=== PATIENT | male | born 1930 | race Caucasian/White ===

== ENCOUNTER 2016-11-06 03:44 | Emergency (ER) | payer OTHER, MEDICARE ==
[2016-11-06 04:05] VITALS: BP 142/73; PULSE 64; TEMP 97.5; BMI 27.4
--- NOTE | 2016-11-06 04:22 | PDOC ---
History of Present Illness - General Chief Complaint: Pain Stated Complaint: URINARY PROBLEM - History of Present Illness Initial Comments: 11/06/16 04:24 86M with pmh of metastatic prostate cancer and afib on p[bren presents with urinary retention for the past week. He was last been able to dribble thanks to finasteride on saturday but nothing since then. Past History - Past Medical History Allergies/Adverse Reactions: Allergies Allergy/AdvReac Type Severity Reaction Status Date / Time No Known Allergies Allergy Verified 11/06/16 04:01 Home Medications: Ambulatory Orders Furosemide [Lasix -] 40 mg PO DAILY 06/08/12 Glimepiride [Amaryl] 3 mg PO DAILY 06/08/12 Lactulose 20 gm PO DAILY 06/08/12 Nadolol 10 mg PO DAILY 06/08/12 Omeprazole [Prilosec (RX)] 40 mg PO DAILY 06/08/12 Spironolactone [Aldactone -] 250 mg PO BID 06/08/12 Warfarin Sodium [Coumadin] 5 mg PO DAILY 03/30/14 Acetaminophen [Tylenol -] 500 mg PO Q4H PRN 06/13/15 Warfarin Na [Coumadin] 2.5 mg PO DAILY 06/13/15 Diabetes: Yes Disorders: Yes (prostate ca) HTN: Yes Liver Disease: Yes (cirrhosis, clots in liver) Suicide Attempt (Hx): No - Surgical History Abdominal Surgery: Yes (Hernia repair) Cardiac Surgery: Yes (Pacemaker) Orthopedic Surgery: Yes (R. Knee sx) - Immunization History Immunization Up to Date: Yes - Psycho/Social/Smoking Cessation Hx Anxiety: No Suicidal Ideation: No Smoking Status: No Smoking History: Never smoked Have you smoked in the past 12 months: No Number of Cigarettes Smoked Daily: 0 Information on smoking cessation initiated: No Hx Alcohol Use: No Drug/Substance Use Hx: No Substance Use Type: None Hx Substance Use Treatment: No Review of Systems - Review of Systems Able to Perform ROS?: Yes Constitutional: No: Symptoms Reported All Other Systems: Reviewed and Negative *Physical Exam - Vital Signs Last Vital Signs Temp Pulse Resp BP Pulse Ox 97.5 F L 64 20 142/73 97 11/06/16 04:01 11/06/16 04:01 11/06/16 04:01 11/06/16 04:01 11/06/16 04:01 - Physical Exam General Appearance: Yes: Nourished, Appropriately Dressed, Apparent Distress HEENT: positive: EOMI, DANISH Neck: positive: Trachea midline, Normal Thyroid. negative: Tender Respiratory/Chest: positive: Lungs Clear, Normal Breath Sounds. negative: Chest Tender Cardiovascular: positive: Regular Rhythm, Regular Rate, S1, S2 Gastrointestinal/Abdominal: positive: Normal Bowel Sounds, Protuberent, Distended Medical Decision Making - Medical Decision Making 11/06/16 04:31 86m with pmh of metastatic prostate cancer presenting with several days of urinary retention. Bonilla catheter placed. 700mL of urine in bag. UA + urine cultures pending.
--- NOTE | 2016-11-06 04:39 | PDOC ---
Attending Attestation - Resident Resident Name: Toby Allen - ED Attending Attestation I have performed the following: I have examined & evaluated the patient, The case was reviewed & discussed with the resident, I agree w/resident's findings & plan, Exceptions are as noted - HPI HPI: 11/06/16 04:36 h/o prostatic CA with complaint of urinary retention for several hours. Pt arrived fro [facility] last night. - Physicial Exam PE: 11/06/16 04:34 Physical Exam General Appearance: Yes: Appropriately Dressed. No: Apparent Distress, Intoxicated HEENT: positive: EOMI, DANISH, Normal ENT Inspection, Normal Voice, TMs Normal, Pharynx Normal. negative: Pale Conjunctivae, Photophobia, Scleral Icterus (R), Scleral Icterus (L) Neck: positive: Trachea midline, Normal Thyroid, Supple. negative: Tender, Rigid, Carotid bruit, Stridor, Lymphadenopathy (R), Lymphadenopathy (L), Thyromegaly Respiratory/Chest: positive: Lungs Clear, Normal Breath Sounds. negative: Chest Tender, Respiratory Distress, Accessory Muscle Use, Labored Respiration, RES, Crackles, Rales, Rhonchi, Stridor, Wheezing, Dullness Cardiovascular: positive: Regular Rhythm, Regular Rate, S1, S2. negative: Edema , JVD, Murmur, Bradycardia, Tachycardia Vascular Pulses: Dorsalis-Pedis (R): 2+, Doralis-Pedis (L): 2+ Gastrointestinal/Abdominal: positive: Normal Bowel Sounds, supra pubic tenderness negative: Tender, Organomegaly, Pulsatile Mass, Increased Bowel Sounds, Decreased BS Guarding, Rebound, Hernia, Hepatomegaly, Spleenomegaly Lymphatic: negative: Adenopathy, Tenderness Musculoskeletal: positive: Normal Inspection. negative: CVA Tenderness, Decreased Range of Motion Extremity: positive: Normal Capillary Refill, Normal Inspection, Normal Range of Motion, Pelvis Stable. negative: Tender, Pedal Edema, Swelling, Erythema Integumentary: positive: Normal Color, Dry, Warm. negative: Cyanotic, Erythema , Jaundice, Rash Neurologic: positive: threading machine feeder automatic II-XII NML intact, Fully Oriented, Alert, Normal Mood/ Affect, Motor Strength 5/5. negative: EOM Palsy, Facial Droop, Sensory Deficit - Medical Decision Making 11/06/16 04:37 Bonilla catheter placed. Over 700s of clear yellow urine drained. Pt to follow up with urology Discharge Disposition - Diagnosis Urinary retention - Discharge Dispostion Last Admission D/C Date: 06/12/12 Admit: No - Referrals Referrals: Marvin Marshall MD [Primary Care Provider] - Hans Richards MD [Staff Physician] - - Patient Instructions Printed Discharge Instructions: DI for Urinary Retention in Men
[2016-11-06 04:40] LABS: URINE APPEARANCE CLEAR; URINE BILIRUBIN NEGATIVE (NEGATIVE); URINE BLOOD NEGATIVE (NEGATIVE); URINE COLOR YELLOW; URINE GLUCOSE (UA) NEGATIVE (NEGATIVE); URINE KETONE NEGATIVE (NEGATIVE); URINE LEUK ESTERASE NEGATIVE (NEGATIVE); URINE NITRITE NEGATIVE (NEGATIVE); URINE PROTEIN NEGATIVE (NEGATIVE); URINE UROBILINOGEN NEGATIVE mg/dL (0.2-1.0)
== END 2016-11-06 06:23 | disposition home or self-care (01) ==
LOC: JER 03:44
PROC: 0T9B70Z Drainage of Bladder with Drainage Device, Via Natural or Artificial Opening (ICD-10-PCS; principal; 2016-11-06)
DX: R33.9 Retention of urine, unspecified (principal); I10 Essential (primary) hypertension; I48.91 Unspecified atrial fibrillation; Z79.01 Long term (current) use of anticoagulants; E11.9 Type 2 diabetes mellitus without complications; K74.69 Other cirrhosis of liver; Z95.0 Presence of cardiac pacemaker
CPT/HCPCS: 51702; 81003; 87086; 99284-25

== ENCOUNTER 2016-11-26 10:26 | Emergency (ER) | payer OTHER, MEDICARE ==
[2016-11-26 10:30] VITALS: BMI 27.4
--- NOTE | 2016-11-26 10:44 | PDOC ---
History of Present Illness - General History Source: Patient, Family Exam Limitations: Other - History of Present Illness Initial Comments: 11/26/16 11:23 The patient is a 86 year old male, with a significant past medical history of liver cirrhosis, metastatic prostate cancer, AFib(on coumadin), hypertension, and diabetes, who presents to the emergency department complaining of hematuria for approximately 2 days. The patient reports he had a catheter placed at [facility] on 11/06/16 for his prostate cancer, which he was diagnosed with approximately 3 years ago. For the past week, patient reports some mild discomfort, and states he noticed blood in his catheter approximately 2 days ago. Very little urine is in the catheter at this time, but patient denies any dysuria, frequency, or urgency. Patient reports he is on oxycodone for bone metastasis. As per family., patient is at baseline mental status, but has been eating and drinking less than normal. Patient denies any fever, chills, cough, headache, or dizziness. He denies any chest pain, shortness of breath, diaphoresis, or palpitations. He denies any abdominal pain, nausea, vomiting, diarrhea, or constipation. Allergies: NKDA Past Surgical History: Hernia repair, pacemaker, right knee surgery Social History: Nonsmoker. No ETOH or recreational drug use PCP: Dr. Marshall <Lalit Seals - Last Filed: 11/26/16 13:46> <Karolina Schafer - Last Filed: 11/26/16 13:49> - General Chief Complaint: Urinary Problem Stated Complaint: BLOOD IN URINE Past History <Lalit Seals - Last Filed: 11/26/16 13:46> - Past Medical History Diabetes: Yes Disorders: Yes (prostate ca) HTN: Yes Liver Disease: Yes (cirrhosis, clots in liver) Suicide Attempt (Hx): No - Surgical History Abdominal Surgery: Yes (Hernia repair) Cardiac Surgery: Yes (Pacemaker) Orthopedic Surgery: Yes (R. Knee sx) - Immunization History Immunization Up to Date: Yes - Psycho/Social/Smoking Cessation Hx Anxiety: No Suicidal Ideation: No Smoking Status: No Smoking History: Never smoked Have you smoked in the past 12 months: No Number of Cigarettes Smoked Daily: 0 Information on smoking cessation initiated: No Hx Alcohol Use: No Drug/Substance Use Hx: No Substance Use Type: None Hx Substance Use Treatment: No <GilmarKarolina - Last Filed: 11/26/16 13:49> - Past Medical History Allergies/Adverse Reactions: Allergies Allergy/AdvReac Type Severity Reaction Status Date / Time No Known Allergies Allergy Verified 11/26/16 10:31 Home Medications: Ambulatory Orders Furosemide [Lasix -] 20 mg PO DAILY 06/08/12 Glimepiride [Amaryl] 1 mg PO DAILY 06/08/12 Lactulose 20 gm PO DAILY 06/08/12 Nadolol 10 mg PO DAILY 06/08/12 Omeprazole [Prilosec (RX)] 40 mg PO DAILY 06/08/12 Spironolactone [Aldactone -] 25 mg PO BID 06/08/12 Warfarin Sodium [Coumadin] 5 mg PO DAILY 03/30/14 Warfarin Na [Coumadin] 2.5 mg PO DAILY 06/13/15 Cyanocobalamin [Vitamin B12 -] 1,000 mcg PO DAILY 11/06/16 Multivits,Ca,Min/Iron/FA/Lycop [Centrum Men's Tablet] 1 each PO DAILY 11/06/16 Silodosin [Rapaflo] 8 mg PO DAILY 11/06/16 Ciprofloxacin HCl [Cipro] 500 mg PO BID #14 tablet 11/26/16 Silodosin [Rapaflo] 8 mg PO DAILY 11/26/16 Review of Systems - Review of Systems Able to Perform ROS?: Yes Comments:: 11/26/16 11:23 GENERAL/CONSTITUTIONAL: No fever or chills. No weakness. HEAD, EYES, EARS, NOSE AND THROAT: No change in vision. No ear pain or discharge. No sore throat. CARDIOVASCULAR: No chest pain or shortness of breath. RESPIRATORY: No cough, wheezing, or hemoptysis. GASTROINTESTINAL: No nausea, vomiting, diarrhea or constipation. GENITOURINARY: Yes: +hematuria in catheter. No dysuria, frequency. MUSCULOSKELETAL: No joint or muscle swelling or pain. No neck or back pain. SKIN: No rash NEUROLOGIC: No headache, vertigo, loss of consciousness, or change in strength/ sensation. ENDOCRINE: Yes: +decreased appetite, +decreased thirst. No abnormal weight change. HEMATOLOGIC/LYMPHATIC: No anemia, easy bleeding, or history of blood clots. ALLERGIC/IMMUNOLOGIC: No hives or skin allergy. <Seals,Giomilsy - Last Filed: 11/26/16 13:46> *Physical Exam - Vital Signs Last Vital Signs Temp Pulse Resp BP Pulse Ox 97.6 F 66 18 119/63 100 11/26/16 10:27 11/26/16 10:27 11/26/16 10:27 11/26/16 10:27 11/26/16 10:27 - Physical Exam Comments: 11/26/16 11:23 GENERAL: Awake, alert, and fully oriented, in no acute distress HEAD: No signs of trauma EYES: PERRLA, EOMI, sclera anicteric, conjunctiva clear ENT: Auricles normal inspection, hearing grossly normal, nares patent, oropharynx clear without exudates. Moist mucosa NECK: Normal ROM, supple, no lymphadenopathy, JVD, or masses LUNGS: Breath sounds equal, clear to auscultation bilaterally. No wheezes, and no crackles HEART: Regular rate and rhythm, normal S1 and S2, no murmurs, rubs or gallops ABDOMEN: Soft, nontender, normoactive bowel sounds. No guarding, no rebound. No masses BACK: No CVA tenderness GENITOURINARY: Blood in catheter EXTREMITIES: Normal range of motion, no edema. No clubbing or cyanosis. No cords, erythema, or tenderness NEUROLOGICAL: Cranial nerves II through XII grossly intact. Normal speech, normal gait SKIN: Warm, Dry, normal turgor, no rashes or lesions noted. <Lalit Seals - Last Filed: 11/26/16 13:46> - Vital Signs Last Vital Signs Temp Pulse Resp BP Pulse Ox 97.6 F 66 18 119/63 100 11/26/16 10:27 11/26/16 10:27 11/26/16 10:27 11/26/16 10:27 11/26/16 10:27 <Karolina Schafer - Last Filed: 11/26/16 13:49> ED Treatment Course - LABORATORY CBC & Chemistry Diagram: 11/26/16 11:15 11/26/16 11:15 <Ramila Sealsedgard - Last Filed: 11/26/16 13:46> - LABORATORY CBC & Chemistry Diagram: 11/26/16 11:15 11/26/16 11:15 <Karolina Schafer - Last Filed: 11/26/16 13:49> Medical Decision Making - Medical Decision Making 11/26/16 13:37 First call placed to Dr. Marshall at 12:45. Awaiting call back. Second call placed to Dr. Marshall at 13:37. Case discussed at this time. Dr. Marshall recommended to DC the pt on cipro for UTI and hold off on coumadin for 3 days. Pt advised to f/u with Dr. Marshall tomorrow. <Lalit Seals - Last Filed: 11/26/16 13:46> - Medical Decision Making 11/26/16 13:04 a/p: 86yo male with hematuria since last night -on coumadin, told elevated INR last week, but unsure of level -also dysuria -will check labs, inr, ammonia -ua -change catheter 11/26/16 13:09 pt with elevated INR to 4.5 pt with UTI, will start abx. nontoxic in appearance. Will need to hold coumadin. UA clearing, no clots passing. call placed to PMD. Awaiting call back. 11/26/16 13:[address] Marshall - recommends cipro for uti as oupt recommends holding coumadin x 3 days -requests family to call him tomorrow for follow up -these recommendations were discussed in full detail with the patient and his family. Family and patient verbalize understanding of all instructions. Discussed all reasons to return to the ED. discussed need for follow up. Answered all questions. Pt is stable for d/c to home. <Karolina Schafer - Last Filed: 11/26/16 13:49> *DC/Admit/Observation/Transfer - Attestations Scribe Attestion: 11/26/16 11:24 Documentation prepared by Lalit Seals, acting as medical physiologist for Karolina Schafer DO. <Lalit Seals - Last Filed: 11/26/16 13:46> - Discharge Dispostion Admit: No - Attestations Physician Attestion: 11/26/16 13:09 I, Dr. Karolina Schafer DO, attest that this document has been prepared under my direction and personally reviewed by me in its entirety. I further attest, that it accurately reflects all work, treatment, procedures and medical decision -making performed by me. <Karolina Schafer - Last Filed: 11/26/16 13:49> Diagnosis at time of Disposition: Elevated international normalized ratio (INR) Urinary tract infection Qualifiers: Urinary tract infection type: site unspecified Hematuria presence: with hematuria Qualified Code(s): N39.0 - Urinary tract infection, site not specified ; R31.9 - Hematuria, unspecified Hematuria Qualifiers: Hematuria type: gross Qualified Code(s): R31.0 - Gross hematuria - Discharge Dispostion Disposition: HOME Condition at time of disposition: Stable - Prescriptions Prescriptions: Ciprofloxacin HCl [Cipro] 500 mg PO BID #14 tablet - Referrals Referrals: Marvin Marshall MD [Staff Physician] - - Patient Instructions Printed Discharge Instructions: DI for Urinary Tract Infection (UTI) Additional Instructions: Please hold your coumadin (warfarin) for [address] Marshall tomorrow with an update. Please return to the ED with any further concerns or questions.
[2016-11-26 11:27] LABS: BASOPHIL 0.6 % (0-2.0); MCH 27.8 pg (25.7-33.7); MEAN CELL VOLUME 84.3 fl (80-96); MEAN PLT VOLUME 7.8 fl (7.5-11.1); NEUTROPHILS 78.6 % (42.8-82.8); PLATELET COUNT 364 K/MM3 (134-434); RDW 16.1 % (11.9-15.9); WHITE BLOOD COUNT 7.8 K/mm3 (4.0-10.0)
[2016-11-26 11:34] LABS: PROTHROMBIN TIME (PATIENT) 50.5 SEC (9.98-11.88)
[2016-11-26 11:37] LABS: ACTIVATED PTT 60.2 SECONDS (26.9-34.4)
[2016-11-26 11:44] LABS: INR 4.45 (0.82-1.09)
[2016-11-26 11:48] LABS: ALBUMIN 2.9 g/dl (3.4-5.0); ALK PHOS 417 U/L (45-117); ANION GAP 11 (8-16); BILIRUBIN,TOTAL 0.9 mg/dL (0.2-1.0); CALCIUM 8.6 mg/dL (8.5-10.1); CO2 27 mmol/L (21-32); CREATININE 0.6 mg/dL (0.7-1.3); GLUCOSE,RANDOM 290 mg/dL (74-106); SGPT/ALT 34 U/L (12-78); TOT PROT 7.3 g/dl (6.4-8.2)
[2016-11-26 11:49] LABS: URINE APPEARANCE CLOUDY; URINE BILIRUBIN NEGATIVE (NEGATIVE); URINE BLOOD 3+ (NEGATIVE); URINE COLOR AMBER; URINE GLUCOSE (UA) NEGATIVE (NEGATIVE); URINE KETONE NEGATIVE (NEGATIVE); URINE LEUK ESTERASE 3+ (NEGATIVE); URINE NITRITE NEGATIVE (NEGATIVE); URINE PROTEIN 2+ (NEGATIVE); URINE UROBILINOGEN NEGATIVE mg/dL (0.2-1.0)
[2016-11-26 11:49] LABS: SGOT/AST 44 U/L (15-37)
[2016-11-26 11:53] LABS: URINE HYALINE CAST 29 /lpf; URINE RBC 2337 /hpf (0-3); URINE WBC 240 /hpf (3-5)
[2016-11-26] MEDS ORDERED: cefTRIAXone 1 GM/50 ML BAG (PRE-DOCKED) IVPB ONE (12:40)
[2016-11-26] MEDS ORDERED: CEFTRIAXONE 50 ML ONE (13:04)
[2016-11-26 14:19] VITALS: BP 116/68; PULSE 78; TEMP 98
--- NOTE | 2016-11-28 19:02 | PDOC ---
Patient Follow-up (Call Back) - Post ED Follow - Up Condition at time of discharge: Stable Disposition at time of original discharge: HOME Reason for Call Back: Abnwl. Microbiology (Positive urine culture, ESBL, Escherichia coli. Patient was started on Cipro, resistant to Levaquin spoke to Dr. Grullon requested patient be started on Macrobid prescription sent patient will follow-up with M.D. has been afebrile, with no complaints.)
== END 2016-11-26 14:19 | disposition home or self-care (01) ==
LOC: JER 10:26
DX: N39.0 Urinary tract infection, site not specified (principal); R31.9 Hematuria, unspecified; I48.91 Unspecified atrial fibrillation; Z79.01 Long term (current) use of anticoagulants; I10 Essential (primary) hypertension; E11.9 Type 2 diabetes mellitus without complications; K74.69 Other cirrhosis of liver; Z85.46 Personal history of malignant neoplasm of prostate; Z85.830 Personal history of malignant neoplasm of bone; Z95.0 Presence of cardiac pacemaker
CPT/HCPCS: 36415; 80053; 81003; 81015; 82140; 83735; 85025; 85610; 85730; 87086; 87186; 96374; 99283-25

== ENCOUNTER 2017-02-12 18:36 | Inpatient (IN) | payer OTHER, MEDICARE ==
[2017-02-12] MEDS ORDERED: SODIUM CHLORIDE 250 ML IV STA (19:59)
--- NOTE | 2017-02-12 20:12 | PDOC ---
History of Present Illness - History of Present Illness Initial Comments: 02/12/17 20:17 The patient is an 86 year old bulgarian-speaking male, with a significant past medical history of liver cirrhosis, metastatic prostate cancer, AFib(on coumadin), hypertension, and diabetes,, who presents to the emergency department with generalized weakness for 4 days. Patients states that patient has been experiencing decreased appetite, decreased urine output (has garcía catheter). She states he hasnt been moving around as much and is unable to ambulate. She states he has been very weak and confused lately. He denies any recent fevers, chills, headache or dizziness. He denies any recent nausea, vomit, diarrhea or constipation. He denies any recent chest pain or shortness of breath. He denies any recent dysuria or hematuria. Allergies: NKDA Past Surgical History: Hernia repair, pacemaker, right knee surgery Social History: Nonsmoker. No ETOH or recreational drug use PCP: Dr. Marshall Urologist: Hans Richards <Shae Welch - Last Filed: 02/12/17 23:05> <Kimberley Elizondo - Last Filed: 02/12/17 23:17> - General Chief Complaint: Back Pain Stated Complaint: FEVER/PAIN Time Seen by Provider: 02/12/17 18:59 Past History <Shae Welch - Last Filed: 02/12/17 23:05> - Past Medical History Cancer: Yes (PROSTATE,BONE) COPD: No Diabetes: Yes Disorders: Yes (prostate ca) HTN: Yes Liver Disease: Yes (cirrhosis, clots in liver) - Surgical History Abdominal Surgery: Yes (Hernia repair) Cardiac Surgery: Yes (Pacemaker) Orthopedic Surgery: Yes (R. Knee sx) - Immunization History Immunization Up to Date: Yes - Suicide/Smoking/Psychosocial Hx Smoking Status: No Smoking History: Never smoked Have you smoked in the past 12 months: No Number of Cigarettes Smoked Daily: 0 Hx Alcohol Use: No Drug/Substance Use Hx: No Substance Use Type: None Hx Substance Use Treatment: No <Kimberley Elizondo - Last Filed: 02/12/17 23:17> - Past Medical History Allergies/Adverse Reactions: Allergies Allergy/AdvReac Type Severity Reaction Status Date / Time No Known Allergies Allergy Verified 11/26/16 10:31 Home Medications: Ambulatory Orders Furosemide [Lasix -] 20 mg PO DAILY 06/08/12 Glimepiride [Amaryl] 1 mg PO DAILY 06/08/12 Lactulose 20 gm PO DAILY 06/08/12 Nadolol 10 mg PO DAILY 06/08/12 Omeprazole [Prilosec (RX)] 40 mg PO DAILY 06/08/12 Spironolactone [Aldactone -] 25 mg PO BID 06/08/12 Warfarin Sodium [Coumadin] 5 mg PO DAILY 03/30/14 Warfarin Na [Coumadin] 2.5 mg PO DAILY 06/13/15 Cyanocobalamin [Vitamin B12 -] 1,000 mcg PO DAILY 11/06/16 Multivits,Ca,Min/Iron/FA/Lycop [Centrum Men's Tablet] 1 each PO DAILY 11/06/16 Silodosin [Rapaflo] 8 mg PO DAILY 11/06/16 Ciprofloxacin HCl [Cipro] 500 mg PO BID #14 tablet 11/26/16 Silodosin [Rapaflo] 8 mg PO DAILY 11/26/16 Nitrofurantoin Monohyd/M-Cryst [Macrobid -] 100 mg PO BID #20 capsule 11/28/16 Review of Systems - Review of Systems Comments:: 02/12/17 20:17 CONSTITUTIONAL: Present: generalized weakness, loss of appetite Absent: fever, chills, diaphoresis HEENT: Absent: rhinorrhea, nasal congestion, throat pain, throat swelling, difficulty swallowing, mouth swelling, ear pain, eye pain, visual changes CARDIOVASCULAR: Absent: chest pain, syncope, palpitations, irregular heart rate, lightheadedness , peripheral edema RESPIRATORY: Absent: cough, shortness of breath, dyspnea with exertion, orthopnea, wheezing, stridor, hemoptysis GASTROINTESTINAL: Absent: abdominal pain, abdominal distension, nausea, vomiting, diarrhea, constipation, melena, hematochezia GENITOURINARY: Present; decreased urinary output Absent: dysuria, frequency, urgency,hematuria, flank pain, genital pain MUSCULOSKELETAL: Absent: myalgia, arthralgia, joint swelling SKIN: Absent: rash, itching, pallor HEMATOLOGIC/IMMUNOLOGIC: Absent: easy bleeding, easy bruising, lymphadenopathy, frequent infections ENDOCRINE: Absent: unexplained weight gain, unexplained weight loss, heat intolerance, cold intolerance NEUROLOGIC: Absent: headache, focal weakness or paresthesias, dizziness, seizure, mental status changes, bladder or bowel incontinence PSYCHIATRIC: Absent: anxiety, depression, suicidal or homicidal ideation, hallucinations. <Shae Welch - Last Filed: 02/12/17 23:05> *Physical Exam - Vital Signs Last Vital Signs Temp Pulse Resp BP Pulse Ox 98.2 F 63 16 127/72 95 02/12/17 19:03 02/12/17 19:03 02/12/17 19:03 02/12/17 19:03 02/12/17 19:03 - Physical Exam Comments: 02/12/17 23:08 GENERAL: Unable to ambulate without assistance. Well-appearing, well-nourished. No apparent distress. HEENT: Normocephalic, atraumatic. PERRL, EOM intact. CARDIOVASCULAR: Normal S1, S2. Regular rate and rhythm. PULMONARY: Clear to auscultation bilaterally. ABDOMEN: Ascites. Protuberant, soft, non-tender. EXTREMITIES: Normal ROM in all four extremities. No gross deformities. No pitting edema SKIN: Warm, dry. No rash NEUROLOGICAL: No focal neurological deficits. <Shae Welch - Last Filed: 02/12/17 23:05> - Vital Signs Last Vital Signs Temp Pulse Resp BP Pulse Ox 98.2 F 63 16 127/72 95 02/12/17 19:03 02/12/17 19:03 02/12/17 19:03 02/12/17 19:03 02/12/17 19:03 <Kimberley Elizondo - Last Filed: 02/12/17 23:17> ED Treatment Course - LABORATORY CBC & Chemistry Diagram: 02/12/17 19:50 02/12/17 20:45 <Shae Welch - Last Filed: 02/12/17 23:05> - LABORATORY CBC & Chemistry Diagram: 02/12/17 19:50 02/12/17 20:45 - RADIOLOGY Radiology Studies Ordered: Category Date Time Status CHEST X-RAY PORTABLE* [RAD] Stat Radiology 02/12/17 19:29 Taken <Kimberley Elizondo - Last Filed: 02/12/17 23:17> *DC/Admit/Observation/Transfer - Attestations Scribe Attestion: 02/12/17 23:10 Documentation prepared by Shae Welch, acting as anesthesiology medical doctor for Kimberley Elizondo MD. <Shae Welch - Last Filed: 02/12/17 23:05> - Discharge Dispostion Admit: Yes <Kimberley Elizondo - Last Filed: 02/12/17 23:17> Diagnosis at time of Disposition: Prostate cancer metastatic to bone - Referrals Referrals: Marvin Marshall MD [Primary Care Provider] -
[2017-02-12 20:23] LABS: BASOPHIL 0.7 % (0-2.0); EOSINOPHIL 1.1 % (0-4.5); MCH 27.8 pg (25.7-33.7); MCHC 33.5 g/dl (32.0-35.9); MEAN PLT VOLUME 8.5 fl (7.5-11.1); NEUTROPHILS 71.6 % (42.8-82.8); PLATELET COUNT 363 K/MM3 (134-434); WHITE BLOOD COUNT 8.5 K/mm3 (4.0-10.0)
[2017-02-12 20:24] LABS: URINE APPEARANCE SL CLOUDY; URINE BILIRUBIN NEGATIVE (NEGATIVE); URINE BLOOD 3+ (NEGATIVE); URINE COLOR DK. ORANGE; URINE GLUCOSE (UA) NEGATIVE (NEGATIVE); URINE KETONE 1+ (NEGATIVE); URINE NITRITE NEGATIVE (NEGATIVE); URINE PROTEIN 2+ (NEGATIVE)
[2017-02-12 20:46] LABS: PROTHROMBIN TIME (PATIENT) 63.8 SEC (9.98-11.88)
[2017-02-12 20:48] LABS: ACTIVATED PTT 61.1 SECONDS (26.9-34.4)
[2017-02-12 21:29] LABS: INR 5.65 (0.82-1.09)
[2017-02-12 22:46] LABS: CREATININE 0.6 mg/dL (0.7-1.3); GLUCOSE,RANDOM 229 mg/dL (74-106)
[2017-02-12 22:47] LABS: ALBUMIN 2.1 g/dl (3.4-5.0); ANION GAP 10 (8-16); BILIRUBIN,TOTAL 0.6 mg/dL (0.2-1.0); CALCIUM 7.6 mg/dL (8.5-10.1); CO2 24 mmol/L (21-32); SGOT/AST 30 U/L (15-37); SGPT/ALT 16 U/L (12-78); TOT PROT 5.9 g/dl (6.4-8.2)
[2017-02-12 22:48] LABS: ALK PHOS 360 U/L (45-117); CPK 77 IU/L (39-308); TROPONIN I < 0.02 ng/ml (0.00-0.05)
[2017-02-13] MEDS ORDERED: FUROSEMIDE 20 MG TABLET (FP) PO ONE (00:03)
[2017-02-13] MEDS ORDERED: FUROSEMIDE 40 MG TABLET (FP) ONE (00:53)
[2017-02-13 01:44] LABS: PROTHROMBIN TIME (PATIENT) 79.9 SEC (9.98-11.88)
[2017-02-13 02:50] LABS: INR 7.07 (0.82-1.09)
[2017-02-13] MEDS ORDERED: GLIMEPIRIDE 4 MG TABLET (FP) ONE (05:57)
[2017-02-13] MEDS: GLIMEPIRIDE 2 MG TABLET (FP) PO SCH (07:02)
[2017-02-13] MEDS ORDERED: PHYTONADIONE 10 MG/1 ML AMP IVPB STA (07:21)
[2017-02-13] MEDS ORDERED: LEVOFLOXACIN 500 MG IVPB 500 MG/100 ML BAG IVPB ONE ×2 (07:55→08:00)
--- NOTE | 2017-02-13 08:40 | CON.NEURO ---
Consult Consult Specialty:: NEUROLOGY-MOISÉS CHOW Reason for Consultation:: Inability to ambulate, confusion. - History of Present Illness Chief Complaint: I cant walk. History of Present Illness: The patient is an 86 year old czech-speaking male, with a significant past medical history of liver cirrhosis, metastatic prostate cancer, AFib(on coumadin), hypertension, and diabetes,, who presents to the emergency department with generalized weakness for 4 days. Patients states that patient has been experiencing decreased appetite, decreased urine output (has garcía catheter). She states he hasnt been moving around as much and is unable to ambulate. She states he has been very weak and confused lately. He denies any recent fevers, chills, headache or dizziness. He denies any recent nausea, vomit, diarrhea or constipation. He denies any recent chest pain or shortness of breath. He denies any recent dysuria or hematuria. -I obtained hx. from patients :Pt. has a hx. of head trauma more than 15 years ago causing him to be comatose x 2 days, he has bone metastases and has been c/o "pain allover x1 month". He also has a hx. of "herniated discs" in the lumbar region?? post sx.Two weeks ago his gait began deteriorating, a week ago he was unable to ambulate and has had more than usual confusion(he has had cognitive decline x years). Pt. denies headache, worsening of his cognition. - History Source History Provided By: Family Member Limitations to Obtaining History: Language Barrier - Alcohol/Substance Use Hx Alcohol Use: No - Smoking History Smoking history: Never smoked Have you smoked in the past 12 months: No Aproximately how many cigarettes per day: 0 Home Medications - Allergies Allergies/Adverse Reactions: Allergies Allergy/AdvReac Type Severity Reaction Status Date / Time No Known Allergies Allergy Verified 02/13/17 02:23 - Home Medications Home Medications: Ambulatory Orders Cefuroxime Axetil [Cefuroxime] 250 mg PO BID 02/13/17 Cyanocobalamin (Vitamin B-12) [Vitamin B12] 2,500 mcg PO DAILY 02/13/17 Enzalutamide [Xtandi] 40 mg PO DAILY 02/13/17 Furosemide [Lasix] 40 mg PO DAILY 02/13/17 Glimepiride [Amaryl -] 1 mg PO DAILY 02/13/17 Glimepiride [Amaryl] 1 mg GT DAILY 02/13/17 Lactulose (Oral Use) [Cephulac -] 30 gm PO TID 02/13/17 Nadolol 20 mg PO DAILY 02/13/17 Omeprazole 20 mg PO DAILY 02/13/17 Oxycodone HCl/Acetaminophen [Percocet 5-325 mg Tablet] 1 tab PO Q4H 02/13/17 Spironolactone 25 mg PO BID 02/13/17 Physical Exam-Neuro Vital Signs: Vital Signs Temperature 98.1 F 02/13/17 07:46 Pulse Rate 67 02/13/17 07:33 Respiratory Rate 18 02/13/17 07:33 Blood Pressure 96/51 02/13/17 07:33 O2 Sat by Pulse Oximetry (%) 97 02/13/17 07:33 Labs: CBC, BMP 02/12/17 19:50 02/12/17 20:45 INR, PTT INR 7.07 (0.82-1.09) H* 02/13/17 01:00 - Neuro Exam Level Of Consciousness: Yes: Alert, Oriented to Person, Oriented to Place Eyes: Yes: PERRL Speech: WNL (But sparse) Dominant Hand: Right Mini Mental Exam: Oriented x 2, impaired STM and concentration. Cranial Nerves II-XII Intact: No (Right central facial droop?? old) Gag: Present DTR's: 0 Right Brachioradialis, 0 Left Achilles, 0 Right Achilles (Absent reflexes in both legs), 1+ Left Bicep, 1+ Right Bicep, 1+ Left Tricep, 1+ Right Tricep, 1+ Left Brachioradialis Response to light touch: Abnormal (L5, S1 distribution hyperesthesia) Response to vibration: Abnormal Motor Strength: 0/5: Right Leg, 3/5: Left Leg, 4/5: Right Arm, 5/5: Left Arm Gait: Other (Unable to stand) Imaging - Results Cat Scan: Report Reviewed (Chronic microvascular ischemic changes, age-related volume loss.) Assessment/Plan 1) Gait deterrtioration& LE weakness/sensory symptoms/urinary incontinence/ absent LE reflexes-need to r/o cauda equina syndrome even though he is not c/o back pain. 2) Increased confusion/right central facial?? left sided intracranial process. Suggest: 1) MRI l/s spine and MRI brain with contrast if renal function allows it. If not than without 2) Further neurologic management after above, will follow. Thank you, Grace Collazo MD [phone]
[2017-02-13 09:37] LABS: URINE LEUK ESTERASE 3+ (NEGATIVE)
[2017-02-13] MEDS: NADOLOL 20 MG TABLET (FP) PO SCH ×2 (10:33→15:31)
[2017-02-13] MEDS: LACTULOSE 20 GM/30 ML UDC (FOR ORAL USE ONLY) PO SCH ×2 (12:46→21:38)
[2017-02-13] MEDS: SPIRONOLACTONE 25 MG TABLET (FP) PO SCH ×2 (12:46→21:38)
--- NOTE | 2017-02-13 13:03 | EKG ---
Test Reason : Blood Pressure : / mmHG Vent. Rate : 065 BPM Atrial Rate : 234 BPM P-R Int : 000 ms QRS Dur : 148 ms QT Int : 458 ms P-R-T Axes : 000 -85 070 degrees QTc Int : 476 ms Ventricular-paced rhythm ABNORMAL ECG WHEN COMPARED WITH ECG OF 13-JUN-2015 13:41, NO SIGNIFICANT CHANGE WAS FOUND Confirmed by JAY JOHNSON MD ([id number]) on 02/13/2017 1:03:12 PM Referred By: Confirmed By:JAY JOHNSON MD
--- NOTE | 2017-02-13 13:43 | CONSULT ---
Consultation: REQUESTING PROVIDER: CONSULT REQUEST: We have been asked to medically evaluate this patient for cirrhosis, ascites, and prostate cancer. HISTORY OF PRESENT ILLNESS: 86M w/ hx of liver cirrhosis, metastatic prostate cancer (mets to bone, s/p 2 rounds of radiation), a-fib on coumadin, HTN, and DM who presents with weakness for past several days. Pt , pt has been confused for past several weeks. But , the weakness started a few days ago and has increased until the pt has been unable to ambulate at all. Pt reports a decreased appetite, mild SOB, and oligouria. He denies fevers, chills, chest pain, abdominal pain, n/v/d, and dysuria. Pt was given levaquin in ED. REVIEW OF SYSTEMS: CONSTITUTIONAL: Absent: fever, chills, diaphoresis, malaise, weight change present: generalized weakness, decreased appetite HEENT: Absent: rhinorrhea, nasal congestion, throat pain, throat swelling, difficulty swallowing, mouth swelling, ear pain, eye pain, visual changes CARDIOVASCULAR: Absent: chest pain, syncope, palpitations, irregular heart rate, lightheadedness , peripheral edema RESPIRATORY: Absent: cough, dyspnea with exertion, orthopnea, wheezing, stridor, hemoptysis present: SOB GASTROINTESTINAL: Absent: abdominal pain, abdominal distension, nausea, vomiting, diarrhea, constipation, melena, hematochezia GENITOURINARY: Absent: dysuria, urgency, hesitancy, hematuria, flank pain, genital pain present: oligouria MUSCULOSKELETAL: Absent: myalgia, arthralgia, joint swelling, back pain, neck pain SKIN: Absent: rash, itching, pallor HEMATOLOGIC/IMMUNOLOGIC: Absent: easy bleeding, easy bruising, lymphadenopathy, frequent infections ENDOCRINE: Absent: unexplained weight gain, unexplained weight loss, heat intolerance, cold intolerance NEUROLOGIC: Absent: headache, dizziness, unsteady gait, seizure, mental status changes, bladder or bowel incontinence present: difficulty ambulating PSYCHIATRIC: Absent: anxiety, depression, suicidal or homicidal ideation, hallucinations. PHYSICAL EXAMINATION Vital Signs - 24 hr 02/12/17 02/12/17 02/13/17 19:03 21:00 00:00 Temperature 98.2 F 100.2 F H Pulse Rate 63 Pulse Rate [ Left Radial] Respiratory 16 Rate Blood Pressure 127/72 Blood Pressure [Left Arm] O2 Sat by Pulse 95 95 Oximetry (%) 02/13/17 02/13/17 02/13/17 07:03 07:33 07:46 Temperature 100.1 F H 98.2 F 98.1 F Pulse Rate Pulse Rate [ 81 67 Left Radial] Respiratory 18 18 Rate Blood Pressure Blood Pressure 97/45 96/51 [Left Arm] O2 Sat by Pulse 98 97 Oximetry (%) 02/13/17 02/13/17 10:05 12:30 Temperature 97.4 F L Pulse Rate 66 74 Pulse Rate [ Left Radial] Respiratory 18 18 Rate Blood Pressure 114/51 114/65 Blood Pressure [Left Arm] O2 Sat by Pulse Oximetry (%) GENERAL: elderly male, lying in bed, AAOx3 in NAD HEAD: Normal with no signs of trauma. EYES: Pupils equal, round and reactive to light, extraocular movements intact, sclera anicteric, conjunctiva clear. No lid lag. EARS, NOSE, THROAT: Ears normal, nares patent, oropharynx clear without exudates. Moist mucous membranes. NECK: Normal range of motion, supple without lymphadenopathy, JVD, or masses. LUNGS: Breath sounds equal, clear to auscultation bilaterally. No wheezes, and no crackles. No accessory muscle use. HEART: Regular rate and rhythm, normal S1 and S2 without murmur, rub or gallop. ABDOMEN: distended, moderately tender in RUQ, normoactive BS MUSCULOSKELETAL: Normal range of motion at all joints. No bony deformities or tenderness. No CVA tenderness. UPPER EXTREMITIES: 2+ pulses, warm, well-perfused. No cyanosis. No clubbing. Cap refill <2 seconds. No peripheral edema. LOWER EXTREMITIES: 2+ pulses, warm, well-perfused. No calf tenderness. No peripheral edema. NEUROLOGICAL: decreased sensory function to palpation on left LE, muscle strength 4/5 in both LE, AAOx3 PSYCHIATRIC: Cooperative. Good eye contact. Appropriate mood and affect. SKIN: Warm, dry, normal turgor, no rashes or lesions noted. Laboratory Results - last 24 hr 02/12/17 02/12/17 02/12/17 19:50 19:50 19:50 WBC 8.5 D RBC 3.97 L Hgb 11.0 L D Hct 32.9 L D MCV 83.0 MCH 27.8 MCHC 33.5 RDW 18.0 H Plt Count 363 D MPV 8.5 Neutrophils % 71.6 Lymphocytes % 11.9 D Monocytes % 14.7 H Eosinophils % 1.1 Basophils % 0.7 PT with INR 63.80 H INR 5.65 H* D PTT (Actin FS) 61.1 H Sodium Potassium Chloride Carbon Dioxide Anion Gap BUN Creatinine Creat Clearance w eGFR Random Glucose Calcium Total Bilirubin AST ALT Alkaline Phosphatase Creatine Kinase Troponin I Total Protein Albumin Urine Color Dk. orange Urine Appearance Sl cloudy Urine pH 6.0 Ur Specific Steele 1.025 Urine Protein 2+ H Urine Glucose (UA) Negative Urine Ketones 1+ H Urine Blood 3+ H Urine Nitrite Negative Urine Bilirubin Negative Urine Urobilinogen 1.0 Ur Leukocyte Esterase 3+ H Urine WBC (Auto) None Urine RBC (Auto) None Blood Type Antibody Screen Spec Expiration Date 02/12/17 02/12/17 02/12/17 19:50 19:50 20:45 WBC RBC Hgb Hct MCV MCH MCHC RDW Plt Count MPV Neutrophils % Lymphocytes % Monocytes % Eosinophils % Basophils % PT with INR INR PTT (Actin FS) Sodium Cancelled 133 L Potassium Cancelled 4.7 Chloride Cancelled 99 Carbon Dioxide Cancelled 24 Anion Gap Cancelled 10 BUN Cancelled 16 Creatinine Cancelled 0.6 L Creat Clearance w eGFR Cancelled > 60 Random Glucose Cancelled 229 H Calcium Cancelled 7.6 L Total Bilirubin Cancelled 0.6 D AST Cancelled 30 ALT Cancelled 16 Alkaline Phosphatase Cancelled 360 H Creatine Kinase Cancelled Troponin I Cancelled Total Protein Cancelled 5.9 L Albumin Cancelled 2.1 L Urine Color Urine Appearance Urine pH Ur Specific Steele Urine Protein Urine Glucose (UA) Urine Ketones Urine Blood Urine Nitrite Urine Bilirubin Urine Urobilinogen Ur Leukocyte Esterase Urine WBC (Auto) Urine RBC (Auto) Blood Type Cancelled Antibody Screen Cancelled Spec Expiration Date Cancelled 02/12/17 02/12/17 02/13/17 20:45 21:30 01:00 WBC RBC Hgb Hct MCV MCH MCHC RDW Plt Count MPV Neutrophils % Lymphocytes % Monocytes % Eosinophils % Basophils % PT with INR 79.90 H INR 7.07 H* PTT (Actin FS) Sodium Potassium Chloride Carbon Dioxide Anion Gap BUN Creatinine Creat Clearance w eGFR Random Glucose Calcium Total Bilirubin AST ALT Alkaline Phosphatase Creatine Kinase 77 Troponin I < 0.02 Total Protein Albumin Urine Color Urine Appearance Urine pH Ur Specific Steele Urine Protein Urine Glucose (UA) Urine Ketones Urine Blood Urine Nitrite Urine Bilirubin Urine Urobilinogen Ur Leukocyte Esterase Urine WBC (Auto) Urine RBC (Auto) Blood Type A POSITIVE Antibody Screen Negative Spec Expiration Date Active Medications Generic Name Dose Route Start Last Admin Trade Name Gia PRN Reason Stop Dose Admin Glimepiride 2 mg 02/13/17 07:00 02/13/17 07:02 Amaryl - PO 2 mg DAILY@0700 MAHENDRA Administration Lactulose 20 gm 02/13/17 10:00 02/13/17 12:46 Cephulac (Oral Use) PO 20 gm BID MAHENDRA Administration Nadolol 10 mg 02/13/17 10:00 Corgard - PO DAILY MAHENDRA Spironolactone 25 mg 02/13/17 10:00 02/13/17 12:46 Aldactone - PO 25 mg BID MAHENDRA Administration ASSESSMENT/PLAN: 86M w/ hx of liver cirrhosis, 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 -febrile to 100.2, no leukocytosis -elevated ALP -UA with 3+ leukocyte esterase, no wbc -CXR: questionable opacity in lingula and left lung base suggestive of atelectasis. Repeat CXR to further evaluate opacity. -no clear source of infection -recommend abdomen US to assess for ascites and any biliary disease -KUB for abdominal distention -f/u cultures and sensitivities -workup for weakness per neuro Plan discussed with attending, Dr. Meier. Dispo: We will continue to follow the patient. Thank you for this consultative opportunity. -Arias Jolley MD PGY1 ID Team Visit type - Emergency Visit Emergency Visit: Yes ED Registration Date: 02/13/17 Care time: The patient presented to the Emergency Department on the above date and was hospitalized for further evaluation of their emergent condition. - New Patient This patient is new to me today: Yes Date on this admission: 02/13/17 - Critical Care Critical Care patient: No
--- NOTE | 2017-02-13 14:17 | PN ---
Teaching Attending Note Name of Resident: Arias Jolley ATTENDING PHYSICIAN STATEMENT I saw and evaluated the patient. I reviewed the resident's note and discussed the case with the resident. I agree with the resident's findings and plan as documented. SUBJECTIVE: weakness for two weeks not able to walk history of prostate cancer with bone mets, chronic garcía had blood cultures drawn and given a dose of levaquin today for temp of 100.2 OBJECTIVE: Vital Signs Period Temp Pulse Resp BP Sys/Drummond Pulse Ox Last 24 Hr 97.4 F-100.2 F 63-81 16-18 96-127/45-72 95-98 cor-rrr lungs decreased bs at bases abd soft, NT, tympanitic ext no edema garcía CBC, BMP 02/12/17 19:50 02/12/17 20:45 UA no WBC ASSESSMENT AND PLAN: isolated fever 86 year old man with metastatic cancer, admitted with weakness and unable to walk- workup per neurologist doubt pneumonia but will repeat cxray, would get sonogram of abdomen to evaluate for ascites, doubt sbp no abdominal pain doubt UTI received levaquin today will await cultures continue contact isolation for esbl ECOLI from 11/2016 in urine Problem List - Problems (1) Fever Code(s): R50.9 - FEVER, UNSPECIFIED (2) Prostate cancer metastatic to bone Code(s): C61 - MALIGNANT NEOPLASM OF PROSTATE; C79.51 - SECONDARY MALIGNANT NEOPLASM OF BONE
[2017-02-13 16:48] VITALS: BMI 29.5
--- NOTE | 2017-02-13 22:52 | HP ---
Admitting History and Physical - Primary Care Physician PCP: Marvin Marshall - Admission Chief Complaint: Change in mental status. 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 There was also a question whether he was septic as he has an indweling Bonilla catheter and the started him on Cefuroxime 500mg PO Bid which had been given by for UTI. He is also a known case of metastatic prostate carcinoma who has been managed with Lupron injections for the last two years and was given RT to sacral area for control of his pain. When his PSA arthur to 86 Xtandi (enzalutamide) was started and his PSA dropped to 14.45 2 weeks ago. Over the last week or so he has been c/o of weakness of his lower extremities and has become bedridden He has poor appetite History Source: Patient, Family Member Limitations to Obtaining History: Clinical Condition - Past Medical History POISER: Yes: Dementia Cardiovascular: Yes: Other (complete heart block requiring a pacemaker) Gastrointestinal: Yes: Ascites, Esophageal Varices, GI Bleed Hepatobiliary: Yes: Cirrhosis Renal/: Yes: BPH Heme/Onc: Yes: Cancer Endocrine: Yes: Diabetes Mellitus - Past Surgical History Past Surgical History: Yes: Permanent Pacemaker, Upper Endoscopy - Smoking History Smoking history: Never smoked Have you smoked in the past 12 months: No Aproximately how many cigarettes per day: 0 - Alcohol/Substance Use Hx Alcohol Use: No History of Substance Use: reports: None - Social History Usual Living Arrangement: Yes: With Spouse History of Recent Travel: No Home Medications - Allergies Allergies/Adverse Reactions: Allergies Allergy/AdvReac Type Severity Reaction Status Date / Time No Known Allergies Allergy Verified 02/13/17 02:23 - Home Medications Home Medications: Ambulatory Orders Cefuroxime Axetil [Cefuroxime] 250 mg PO BID 02/13/17 Cyanocobalamin (Vitamin B-12) [Vitamin B12] 2,500 mcg PO DAILY 02/13/17 Enzalutamide [Xtandi] 40 mg PO DAILY 02/13/17 Furosemide [Lasix] 40 mg PO DAILY 02/13/17 Glimepiride [Amaryl -] 1 mg PO DAILY 02/13/17 Glimepiride [Amaryl] 1 mg GT DAILY 02/13/17 Lactulose (Oral Use) [Cephulac -] 30 gm PO TID 02/13/17 Nadolol 20 mg PO DAILY 02/13/17 Omeprazole 20 mg PO DAILY 02/13/17 Oxycodone HCl/Acetaminophen [Percocet 5-325 mg Tablet] 1 tab PO Q4H 02/13/17 Spironolactone 25 mg PO BID 02/13/17 Review of Systems - Review of Systems Constitutional: reports: Loss of Appetite, Weakness Eyes: reports: No Symptoms HENT: reports: No Symptoms Neck: reports: No Symptoms Cardiovascular: reports: No Symptoms Respiratory: reports: No Symptoms Gastrointestinal: reports: Other (incontinent of feces) Breasts: reports: No Symptoms Reported Musculoskeletal: reports: Back Pain Integumentary: reports: No Symptoms Neurological: reports: Confusion Hematology/Lymphatic: reports: No Symptoms Psychiatric: reports: No Symptoms Physical Examination Vital Signs: Vital Signs Temperature 99.1 F 02/13/17 18:05 Pulse Rate 70 02/13/17 18:05 Respiratory Rate 20 02/13/17 18:05 Blood Pressure 119/68 02/13/17 18:05 O2 Sat by Pulse Oximetry (%) 95 02/13/17 10:19 Constitutional: Yes: Well Nourished, Calm Eyes: Yes: Conjunctiva Clear, EOM Intact HENT: Yes: WNL Neck: Yes: Supple, Trachea Midline Cardiovascular: Yes: Regular Rate and Rhythm, S1, S2 Respiratory: Yes: Regular, CTA Bilaterally Gastrointestinal: Yes: Normal Bowel Sounds, Soft ...Rectal Exam: Yes: Deferred Renal/: Yes: WNL Musculoskeletal: Yes: Back Pain Extremities: Yes: WNL Edema: No Peripheral Pulses WNL: Yes Integumentary: Yes: WNL Neurological: Yes: Alert, Oriented, Cran Nerves II-XII Intact, Lethargy ...Motor Strength: RLE (weakness of flexors of right knee) Psychiatric: Yes: Alert, Oriented Labs: CBC, BMP 02/12/17 19:50 02/12/17 20:45 Imaging - Results Chest X-ray: Report Reviewed, Image Reviewed Cat Scan: Report Reviewed Ultrasound: Report Reviewed Problem List - Problems (1) Mental status change Assessment/Plan: change in mental status a day [employer] could have been due to hepatic encephalopathy. Enzalutamide was held for the possibility of PERS Code(s): R41.82 - ALTERED MENTAL STATUS, UNSPECIFIED (2) FH: prostate carcinoma Code(s): Z80.42 - FAMILY HISTORY OF MALIGNANT NEOPLASM OF PROSTATE (3) Prostate carcinoma Code(s): C61 - MALIGNANT NEOPLASM OF PROSTATE (4) Metastasis to bone Code(s): C79.51 - SECONDARY MALIGNANT NEOPLASM OF BONE (5) Weakness of both legs Code(s): R29.898 - OTH SYMPTOMS AND SIGNS INVOLVING THE MUSCULOSKELETAL SYSTEM (6) Prostate cancer metastatic to bone Assessment/Plan: He has metastasis to spine as well as iliac crest. Has been treated with RT.Recently treated with Enzalutamide with drop in the PSA and improvement in the pain. Code(s): C61 - MALIGNANT NEOPLASM OF PROSTATE; C79.51 - SECONDARY MALIGNANT NEOPLASM OF BONE (7) Elevated INR Assessment/Plan: He has been on Warfarin for the portal vein thrombosis.As per family his PO intake has been very little and probably explains high INR, as it was controlled very well as OP Code(s): R79.1 - ABNORMAL COAGULATION PROFILE (8) Diabetes 1.5, managed as type 2 Assessment/Plan: well controlled on glimepiride Code(s): E10.9 - TYPE 1 DIABETES MELLITUS WITHOUT COMPLICATIONS (9) Bilateral leg weakness Assessment/Plan: He has mets to LS spine and lower extremity weakness raises possibility of spinal cord compromise Code(s): R29.898 - OTH SYMPTOMS AND SIGNS INVOLVING THE MUSCULOSKELETAL SYSTEM
[2017-02-13] MEDS ORDERED: ALBUTEROL SO4 0.083% IH SOL 2.5 MG/3 ML VIAL.NEB. NEB PRN (23:42)
[2017-02-13] MEDS ORDERED: ALBUTEROL SO4 0.083% IH SOL 2.5 MG/3 ML VIAL.NEB. NEB ONE (23:45)
[2017-02-14] MEDS: GLIMEPIRIDE 2 MG TABLET (FP) PO SCH (07:07)
[2017-02-14 09:04] LABS: INR 1.39 (0.82-1.09); PROTHROMBIN TIME (PATIENT) 15.7 SEC (9.98-11.88)
[2017-02-14 09:09] LABS: ALBUMIN 1.8 g/dl (3.4-5.0); ANION GAP 7 (8-16); CALCIUM 7.4 mg/dL (8.5-10.1); CO2 28 mmol/L (21-32); GLUCOSE,RANDOM 179 mg/dL (74-106)
[2017-02-14 09:11] LABS: ALK PHOS 314 U/L (45-117); BILIRUBIN,TOTAL 1.2 mg/dL (0.2-1.0); CREATININE 0.5 mg/dL (0.7-1.3); SGOT/AST 26 U/L (15-37); SGPT/ALT 15 U/L (12-78); TOT PROT 5.5 g/dl (6.4-8.2)
--- NOTE | 2017-02-14 09:47 | PN ---
Physical Exam: SUBJECTIVE: Patient seen and examined. Pt with in room. Per , pt not complaining of anything. His appetite is improved. Denies SOB, chest pain, fevers, chills, abdominal pain, n/v/d/c, and dysuria. OBJECTIVE: Vital Signs Period Temp Pulse Resp BP Sys/Drummond Pulse Ox Last 24 Hr 97.4 F-99.1 F 65-74 18-20 112-119/51-68 95-95 GENERAL: elderly male, awake, alert, and fully oriented, in no acute distress. HEENT: NC, AT, EOMI NECK: Trachea midline, full range of motion, supple. LUNGS: bibasilar crackles HEART: Regular rate and rhythm, S1, S2 without murmur, rub or gallop. ABDOMEN: distended, non tender to palpation EXTREMITIES: trace edema NEUROLOGICAL: Cranial nerves II through XII grossly intact. Normal speech, gait not observed. PSYCH: Normal mood, normal affect. SKIN: Warm, dry, normal turgor, no rashes or lesions noted Laboratory Results - last 24 hr 02/13/17 02/14/17 02/14/17 08:31 07:06 08:00 PT with INR 15.70 H INR 1.39 H D Sodium Potassium Chloride Carbon Dioxide Anion Gap BUN Creatinine Creat Clearance w eGFR POC Glucometer [id number] 221 Random Glucose Calcium Total Bilirubin AST ALT Alkaline Phosphatase Ammonia Total Protein Albumin 02/14/17 02/14/17 08:00 08:00 PT with INR INR Sodium 133 L Potassium 4.1 Chloride 98 Carbon Dioxide 28 Anion Gap 7 L BUN 18 Creatinine 0.5 L Creat Clearance w eGFR > 60 POC Glucometer Random Glucose 179 H D Calcium 7.4 L Total Bilirubin 1.2 H D AST 26 ALT 15 Alkaline Phosphatase 314 H Ammonia 31.03 Total Protein 5.5 L Albumin 1.8 L Active Medications Generic Name Dose Route Start Last Admin Trade Name Freq PRN Reason Stop Dose Admin Albuterol Sulfate 1 amp 02/13/17 23:42 Ventolin 0.083% Nebulizer Soln - NEB Q8H PRN SHORT OF BREATH/WHEEZING Glimepiride 2 mg 02/13/17 07:00 02/14/17 07:07 Amaryl - PO 2 mg DAILY@0700 MAHENDRA Administration Lactulose 20 gm 02/13/17 10:00 02/13/17 21:38 Cephulac (Oral Use) PO 20 gm BID MAHENDRA Administration Nadolol 10 mg 02/13/17 10:00 02/13/17 15:31 Corgard - PO 10 mg DAILY MAHENDRA Administration Spironolactone 25 mg 02/13/17 10:00 02/13/17 21:38 Aldactone - PO 25 mg BID MAHENDRA Administration ASSESSMENT/PLAN: 86M w/ hx of liver cirrhosis, 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 -afebrile overnight, wbc pending but no leukocytosis yesterday -Bcx and Ucx pending, f/u -CXR: developing CHF and L basilar consolidation -satting well on RA, no complaints of SOB -KUB: no acute process -US abdomen: cirrhosis w/ small ascites -no clear source of infection -would not start abx now, continue to monitor for signs of PNA -Enterococcus suspect colonization from garcía -workup for weakness per neuro Plan discussed with attending, Dr. Sen. Dispo: We will continue to follow the patient. Thank you for this consultative opportunity. -Arias Jolley MD PGY1 ID Team Visit type - Emergency Visit Emergency Visit: Yes ED Registration Date: 02/12/17 Care time: The patient presented to the Emergency Department on the above date and was hospitalized for further evaluation of their emergent condition. - New Patient This patient is new to me today: No - Critical Care Critical Care patient: No
[2017-02-14] MEDS ORDERED: WARFARIN NA 3 MG TABLET PO ONE (10:48)
--- NOTE | 2017-02-14 11:05 | CON.GI ---
Consult Consult Specialty:: GI: Dr. Sanders for Dr. Lainez Referred by:: Dr. Lashaun Marshall Reason for Consultation:: Cirrhosis - History of Present Illness Chief Complaint: Cirrhosis History of Present Illness: 86M admitted through [facility] for evaluation of confusion. Ammonia level noted to be 30. Being treated for UTI. Has a history of cirrhosis (alcoholic liver disease). Seen in 2012 at [facility] at which time acute portal vein thrombosis was suspected. He was transferred to [facility] at that time and ? if EGD with banding followed by initiation of anticoagulation was performed (family unclear as to specifics of that admission). Called to evaluate for chronic liver disease. 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 It does not appear that he has had an upper endoscopy since that time and his daughter Suzi does not believe that he has had follow-up of his liver disease. - History Source History Provided By: Family Member (Daughter / ), Medical Record - Past Medical History GALLERY DIRECTOR: Yes: Dementia Cardio/Vascular: Yes: Other (complete heart block requiring a pacemaker) Gastrointestinal: Yes: Ascites, Esophageal Varices (Large distal varix in 2010: upper endoscopy by Dr. Vera with ? banding), GI Bleed Hepatobiliary: Yes: Cirrhosis Renal/: Yes: BPH Heme/Onc: Yes: Other (Prostate Cancer) Endocrine: Yes: Diabetes Mellitus - Past Surgical History Past Surgical History: Yes: Permanent Pacemaker, Upper Endoscopy Additional Surgical History: Umbilical hernia repair - Alcohol/Substance Use Hx Alcohol Use: Yes (in past) History of Substance Use: reports: None - Smoking History Smoking history: Never smoked Have you smoked in the past 12 months: No Aproximately how many cigarettes per day: 0 - Social History Place of : Other ([place]) History of Recent Travel: No Home Medications - Allergies Allergies/Adverse Reactions: Allergies Allergy/AdvReac Type Severity Reaction Status Date / Time No Known Allergies Allergy Verified 02/13/17 02:23 - Home Medications Home Medications: Ambulatory Orders Cefuroxime Axetil [Cefuroxime] 250 mg PO BID 02/13/17 Cyanocobalamin (Vitamin B-12) [Vitamin B12] 2,500 mcg PO DAILY 02/13/17 Enzalutamide [Xtandi] 40 mg PO DAILY 02/13/17 Furosemide [Lasix] 40 mg PO DAILY 02/13/17 Glimepiride [Amaryl -] 1 mg PO DAILY 02/13/17 Glimepiride [Amaryl] 1 mg GT DAILY 02/13/17 Lactulose (Oral Use) [Cephulac -] 30 gm PO TID 02/13/17 Nadolol 20 mg PO DAILY 02/13/17 Omeprazole 20 mg PO DAILY 02/13/17 Oxycodone HCl/Acetaminophen [Percocet 5-325 mg Tablet] 1 tab PO Q4H 02/13/17 Spironolactone 25 mg PO BID 02/13/17 Family Disease History - Family Disease History Family History: Unable to Obtain Review of Systems - Review of Systems Constitutional: reports: Loss of Appetite, Weakness Gastrointestinal: denies: Abdominal Pain, Constipation, Melena, Rectal Bleeding Physical Exam-GI Vital Signs: Vital Signs Temperature 98.5 F 02/14/17 06:00 Pulse Rate 66 02/14/17 06:00 Respiratory Rate 18 02/14/17 06:00 Blood Pressure 114/68 02/14/17 06:00 O2 Sat by Pulse Oximetry (%) 95 02/13/17 21:00 Constitutional: Yes: Calm Eyes: No: Sclera Icterus Cardiovascular: Yes: Regular Rate and Rhythm, Murmur Respiratory: Yes: Diminished (at bases b/l, poor inspiratory effort) Gastrointestinal Inspection: Yes: Distention (protuberant abdomen,) ...Auscultate: Yes: Normoactive Bowel Sounds ...Palpate: No: Hepatomegaly, Splenomegaly, Tenderness ...Percussion: No: Tympanitic Edema: No (No LE edema) Neurological: Yes: Alert, Oriented (x person, partially to place). No: Asterix[facility] Labs: CBC, BMP 02/12/17 19:50 02/14/17 08:00 INR, PTT INR 1.39 (0.82-1.09) H D 02/14/17 08:00 Assessment/Plan Alcoholic cirrhosis: Decompensated with sequela of esophageal varices. Also with Acute PVY/SMV thrombuis in 2012 and maintained on A/C. Discussed repeat upper endoscopy with Dr. Marshall and Mr. Tyson' daughter Suzi given history of large esophageal varices in the past (requiring ? banding by Dr. Vera/Fatou per Dr. Marshall and bleeding plus the continued use of anticoagulation in the setting of an acute portal vein thrombosis) to assess for progression of esophageal varices, development of gastric varices and high for risk stigmata of bleeding on the varices. I did explain that continued A/C in the setting of varoces could lead to life threatening GI bleed. Dr. Marshall is concerned regaridng having Mr. Tyson undergo invasive testing at this time given his comorbidities as Mr. Tyson ' Daughter. Dr. Marshall explained that he would discuss things with [place] further prior to final decision regarding this. I have put a call out to discuss things with Dr. Martha Engel at [facility] to see if more information could be obtained regarding Mr. Tyson' hospitalization there in 2012. Q 6 month AFP tumor marker and liver US to screen for HCC Continue non-selective beta blockade
[2017-02-14] MEDS: LEVOFLOXACIN 500 MG IVPB 500 MG/100 ML BAG IVPB SCH (11:24)
[2017-02-14] MEDS: SPIRONOLACTONE 25 MG TABLET (FP) PO SCH (11:25)
[2017-02-14] MEDS: LACTULOSE 20 GM/30 ML UDC (FOR ORAL USE ONLY) PO SCH (11:25)
[2017-02-14] MEDS ORDERED: PT OWN MED DRAWER 7, Y5N ONE ×2 (11:32→11:46)
[2017-02-14] MEDS: NADOLOL 20 MG TABLET (FP) PO SCH (11:33)
--- NOTE | 2017-02-14 11:34 | PN ---
Teaching Attending Note Name of Resident: Arias Jolley ATTENDING PHYSICIAN STATEMENT I saw and evaluated the patient. I reviewed the resident's note and discussed the case with the resident. I agree with the resident's findings and plan as documented. SUBJECTIVE: Remains afebrile NO distress No antibiotics OBJECTIVE: ASSESSMENT AND PLAN: Selected Entries 02/14/17 06:00 Temperature 98.5 F Pulse Rate 66 Respiratory 18 Rate Blood Pressure 114/68 Microbiology 02/13/17 10:15 Blood - Peripheral Venous Blood Culture - Preliminary NO GROWTH OBTAINED AFTER 24 HOURS, INCUBATION TO CONTINUE FOR 4 DAYS. 02/13/17 10:15 Blood - Peripheral Venous Blood Culture - Preliminary NO GROWTH OBTAINED AFTER 24 HOURS, INCUBATION TO CONTINUE FOR 4 DAYS. 02/12/17 19:50 Urine - Urine - Catheterized Urine Culture - Preliminary Group D Strep Or Entero Coccus 02/12/17 19:50 Blood - Peripheral Venous Blood Culture - Preliminary NO GROWTH OBTAINED AFTER 24 HOURS, INCUBATION TO CONTINUE FOR 4 DAYS. 02/12/17 19:50 Blood - Peripheral Venous Blood Culture - Preliminary NO GROWTH OBTAINED AFTER 24 HOURS, INCUBATION TO CONTINUE FOR 4 DAYS. Laboratory Tests 02/12/17 02/12/17 19:50 19:50 Hgb 11.0 L D Plt Count 363 D Ur Leukocyte Esterase 3+ H Assessment Low grade temp resolved Enterococcus suspect colonization fo garcía Plan IN view of asymptomatic status currently I would observe off antibiotics ESBL previously noted Francy CHOW
--- NOTE | 2017-02-14 17:21 | PN ---
Progress Note (short form) - Note Progress Note: Rad Onc Came to see pt but he is in radiology getting CT LS spine. Will see pt after the CT.
--- NOTE | 2017-02-14 23:38 | PN ---
Progress Note, Physician History of Present Illness: c/o weakness of his legs R>L Denies any N/V, abdominal pain fever or shaking chills Underwent CT of the LS spine - Current Medication List Current Medications: Active Medications Albuterol Sulfate (Ventolin 0.083% Nebulizer Soln -) 1 amp NEB Q8H PRN PRN Reason: SHORT OF BREATH/WHEEZING Last Admin: 02/14/17 18:48 Dose: 1 amp Glimepiride (Amaryl -) 2 mg PO DAILY@0700 [facility] Last Admin: 02/14/17 07:07 Dose: 2 mg Levofloxacin (Levaquin 500 Mg Premixed Ivpb -) 500 mg in 100 mls @ 100 mls/hr IVPB DAILY@0800 [facility] Last Admin: 02/14/17 11:24 Dose: 100 mls/hr Lactulose (Cephulac (Oral Use)) 20 gm PO BID [facility] Last Admin: 02/14/17 11:25 Dose: 20 gm Nadolol (Corgard -) 10 mg PO DAILY [facility] Last Admin: 02/14/17 11:33 Dose: 10 mg Spironolactone (Aldactone -) 25 mg PO BID [facility] Last Admin: 02/14/17 11:25 Dose: 25 mg Tamsulosin HCl (Flomax -) 0.4 mg PO [facility] - Objective Vital Signs: Vital Signs Temperature 98.7 F 02/14/17 19:00 Pulse Rate 68 02/14/17 19:00 Respiratory Rate 18 02/14/17 19:00 Blood Pressure 116/66 02/14/17 19:00 O2 Sat by Pulse Oximetry (%) 95 02/14/17 09:00 Labs: CBC, BMP 02/12/17 19:50 02/14/17 08:00 INR, PTT INR 1.39 (0.82-1.09) H D 02/14/17 08:00 Problem List - Problems (1) Mental status change Code(s): R41.82 - ALTERED MENTAL STATUS, UNSPECIFIED (2) FH: prostate carcinoma Code(s): Z80.42 - FAMILY HISTORY OF MALIGNANT NEOPLASM OF PROSTATE (3) Prostate carcinoma Code(s): C61 - MALIGNANT NEOPLASM OF PROSTATE (4) Metastasis to bone Code(s): C79.51 - SECONDARY MALIGNANT NEOPLASM OF BONE (5) Weakness of both legs Code(s): R29.898 - OT SYMPTOMS AND SIGNS INVOLVING THE MUSCULOSKELETAL SYSTEM (6) Prostate cancer metastatic to bone Code(s): C61 - MALIGNANT NEOPLASM OF PROSTATE; C79.51 - SECONDARY MALIGNANT NEOPLASM OF BONE (7) Elevated INR Code(s): R79.1 - ABNORMAL COAGULATION PROFILE (8) Diabetes 1.5, managed as type 2 Code(s): E10.9 - TYPE 1 DIABETES MELLITUS WITHOUT COMPLICATIONS (9) Bilateral leg weakness Code(s): R29.898 - OT SYMPTOMS AND SIGNS INVOLVING THE MUSCULOSKELETAL SYSTEM
[2017-02-15] MEDS: LACTULOSE 20 GM/30 ML UDC (FOR ORAL USE ONLY) PO SCH ×3 (00:14→22:40)
[2017-02-15] MEDS: TAMSULOSIN HCL 0.4 MG CAP.ER.24H (FP) PO SCH ×2 (00:15→22:41)
[2017-02-15] MEDS: SPIRONOLACTONE 25 MG TABLET (FP) PO SCH ×3 (00:15→22:41)
[2017-02-15] MEDS: GLIMEPIRIDE 2 MG TABLET (FP) PO SCH (06:25)
[2017-02-15 07:41] LABS: INR 1.38 (0.82-1.09); PROTHROMBIN TIME (PATIENT) 15.6 SEC (9.98-11.88)
[2017-02-15] MEDS ORDERED: PT OWN MED DRAWER 7, Y5N ONE (09:13)
[2017-02-15] MEDS: LEVOFLOXACIN 500 MG IVPB 500 MG/100 ML BAG IVPB SCH (09:21)
[2017-02-15] MEDS: NADOLOL 20 MG TABLET (FP) PO SCH (09:21)
--- NOTE | 2017-02-15 11:05 | PN ---
Physical Exam: SUBJECTIVE: Patient seen and examined. Pt reports constipation. He denies fevers, chills, chest pain, SOB, n/v/d, and dysuria. appetite is decreased. OBJECTIVE: Vital Signs Period Temp Pulse Resp BP Sys/Drummond Pulse Ox Last 24 Hr 97.1 F-98.7 F 66-77 18-18 105-116/58-81 95 GENERAL: The patient is awake, alert, and fully oriented, in no acute distress. LUNGS: Breath sounds equal, clear to auscultation bilaterally, no wheezes, no crackles, no accessory muscle use. HEART: Regular rate and rhythm, S1, S2 without murmur, rub or gallop. ABDOMEN: distended, mildly tender to palpation, no peritoneal signs EXTREMITIES: 2+ pulses, warm, well-perfused, no edema. NEUROLOGICAL: Cranial nerves II through XII grossly intact. Normal speech, gait not observed. PSYCH: Normal mood, normal affect. SKIN: Warm, dry, normal turgor, no rashes or lesions noted Laboratory Results - last 24 hr 02/14/17 02/15/17 16:06 06:50 PT with INR 15.60 H INR 1.38 H POC Glucometer 274 Active Medications Generic Name Dose Route Start Last Admin Trade Name Freq PRN Reason Stop Dose Admin Albuterol Sulfate 1 amp 02/13/17 23:42 02/14/17 18:48 Ventolin 0.083% Nebulizer Soln - NEB 1 amp Q8H PRN Administration SHORT OF BREATH/WHEEZING Glimepiride 2 mg 02/13/17 07:00 02/15/17 06:25 Amaryl - PO 2 mg DAILY@0700 MAHENDRA Administration Levofloxacin 500 mg in 100 mls @ 100 mls/hr 02/14/17 11:00 02/15/17 09:21 Levaquin 500 Mg Premixed Ivpb - IVPB 100 mls/hr DAILY@0800 MAHENDRA Administration Lactulose 20 gm 02/13/17 10:00 02/15/17 09:21 Cephulac (Oral Use) PO 20 gm BID MAHENDRA Administration Nadolol 10 mg 02/13/17 10:00 02/15/17 09:21 Corgard - PO 10 mg DAILY MAHENDRA Administration Spironolactone 25 mg 02/13/17 10:00 02/15/17 09:21 Aldactone - PO 25 mg BID MAHENDRA Administration Tamsulosin HCl 0.4 mg 02/14/17 22:00 02/15/17 00:15 Flomax - PO 0.4 mg HS MAHENDRA Administration ASSESSMENT/PLAN: 86M w/ hx of liver cirrhosis, 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 -afebrile overnight, no leukocytosis -Ucx growing enterococcus, suspect colonization from garcía -would not start abx now -workup for weakness per neuro Plan discussed with attending, Dr. Meier. Dispo: We will continue to follow the patient. Thank you for this consultative opportunity. -Arias Jolley MD PGY1 ID Team Visit type - Emergency Visit Emergency Visit: Yes ED Registration Date: 02/12/17 Care time: The patient presented to the Emergency Department on the above date and was hospitalized for further evaluation of their emergent condition. - New Patient This patient is new to me today: No - Critical Care Critical Care patient: No
--- NOTE | 2017-02-15 17:50 | CONS ---
DATE OF CONSULTATION: 02/15/2017 REFERRING PHYSICIAN: Marvin Marshall M.D. REASON FOR CONSULTATION: Right lower extremity weakness. HISTORY OF PRESENT ILLNESS: The patient is an 86-year-old gentleman known to me who has a past medical history significant for hepatic cirrhosis with splenic and portal vein thromboses, bradycardia status post pacemaker on anticoagulation, who I first met in 2015 when he was experiencing worsening right lower extremity hip pain. He had a clinical diagnosis of prostate cancer with PSA elevation to around 50 ng/ mL. He received palliative radiation therapy to the right sacroiliac joints and sacrum as well as the L2 vertebral sclerotic lesion to a dose of 3500 cGy completing the treatment in January 2016. He did also have extensive degenerative disease in the spine and continued to have low back and sacral pain. He received 2000 cGy to a left sacral coccyx mass thought to be related to his prostate cancer, completing that treatment in September 2016. His PSA continued to rise on Lupron, and it was 144 in November. I last saw him in October when he had just returned from a trip to [facility] and was sent to the emergency room for urinary retention. A Bonilla catheter was placed, and he was following up with the urologist for further management. He had CT scans of the abdomen and pelvis in November which showed cardiomegaly, pericardial effusion, left pleural effusion, atelectasis, trace ascites, portal vein thrombosis, right inguinal hernia, no intraabdominal or pelvic metastatic disease, diffuse bony metastases. There are sclerotic changes in the sacrum, pelvis, and lumbar spine. A bone scan at the same time showed multifocal osteoblastic metastases in the sacrum, iliac bones, right greater than left, right inferior pubic ramus, T12-L1 on the left, L3 and L4 anterior left 5th, 6th, and 7th ribs, right sternum, bilateral humeral heads and glenoids left greater than right, and maxilla. He was subsequently started on Xtandi (enzalutamide). PSA on January 31 was 14.4 ng/ mL. He now presents for a period of confusion, lethargy, anorexia, and decreased urinary output. He has had a 1-week history of right leg weakness resulting in decreased to no ambulation. He has an indwelling Bonilla catheter. He had a CT of the lumbosacral spine last night which I reviewed with the radiologist. There are multilevel sclerotic changes in the lumbar spine and pelvis as well as sacrum consistent with metastatic disease. There is an acute compression fracture at L3. There is narrowing/stenosis of the right neural foramina at L4-L5 related to degenerative disease, though epidural metastases with neurologic compromise cannot be excluded on a non-contrast CT scan. He has a pacemaker and is unable to have the MRI. He is being worked up for encephalopathy secondary to his liver cirrhosis versus Xtandi. PAST MEDICAL HISTORY: Hepatic cirrhosis, splenic and portal vein thromboses, cataracts, benign prostatic hypertrophy, prostate cancer with bone metastases, hypertension, GERD, diabetes mellitus, osteoarthritis, degenerative disk disease , deep vein thrombosis, right inguinal hernia, bradycardia requiring pacemaker, prior radiation therapy as noted, prior hormonal therapy as noted. PAST SURGICAL HISTORY: Cataract surgery, umbilical hernia repair, pacemaker placement and replacement in 2016. ALLERGIES: No known drug allergies. CURRENT MEDICATIONS: Flomax, lactulose, Levaquin, Ventolin nebulizer p.r.n., Corgard, Aldactone, Amaryl. FAMILY HISTORY: Parents are in their 80s. No history of malignancy in the family. SOCIAL HISTORY: He lives with his and his son, lives in the apartment upstairs in the same building. He was born in [facility] and has lived in the [place] for the past 27 years. He does not smoke or consume alcohol. He is retired. REVIEW OF SYSTEMS: Chronic back pain and right hip pain. He is unable to move the right leg. Reports decreased sensation in the right leg. Urinary retention requiring indwelling Bonilla catheter. PHYSICAL EXAMINATION: General: Chronically ill appearing male appearing his chronological age in no acute distress, lying in the hospital bed. His is at the bedside. Vital Signs: Temperature 97.1, blood pressure 111/81, pulse 77, respiratory rate 18, Sao2 of 95% room air. HEENT: Moist mucous membranes. Anicteric sclerae. Clear oral cavity. Neck: Supple without adenopathy. Chest: Clear breath. Bilateral gynecomastia. Abdomen: Well healed umbilical surgical scar, nondistended, nontender. Extremities: No significant edema or calf tenderness. Musculoskeletal: Diffuse tenderness in the lumbosacral spine. Neurologic: He is awake, minimally verbal, but recognizes his and myself. He knows that he is in the hospital. Cranial nerves 2-12 are intact. Sensation to light touch is decreased in the right lower extremity. Toes downgoing on the left, mute on the right. Motor exam: 4+/5 bilateral upper, 4/5 left lower extremity , 1/5 right lower extremity, weakness proximal greater than distal. RADIOLOGIC DATA: See HPI. LABORATORY DATA: WBC 8.5, hemoglobin 11, platelets 363,000. Electrolytes within normal limits. BUN 18, creatinine 0.5, calcium 7.4, total bilirubin 1.2, alkaline phosphatase 314, albumin 1.8. PSA 14.4 ng/mL on January 31, 2017. 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 Clinically this is suspicious for a lumbar radiculopathy. The patient is unable to have an MRI because of his pacemaker, and the CT of the spine, which I had a chance to review with the radiologist, shows an acute compression fracture of L3 and significant right neural foraminal stenosis/ narrowing at L4/L5 probably related to degenerative bone disease but epidural metastatic disease cannot be ruled out without a contrast study. His right lower extremity weakness could be related to the L4-L5 radiculopathy. Unless there is evidence of epidural or tumor related compression, I don't believe he would benefit from radiation therapy to the spine especially in light of prior radiotherapy to the L2 vertebra, sacrum and right iliac bone. Irradiation to this region would require review of his prior treatment kiran and careful matching with advanced radiotherapy technique. I spoke with Dr. Marshall, who will consider a contrast CT of the lumbosacral spine. Conservative management with physical therapy, would be reasonable if there is no evidence of epidural metastases. I will follow up after the contrast CT scan. I appreciate the opportunity to participate in the care of this ivan patient. ELVIS PRATER M.D. [id number] MTDD
[2017-02-15] MEDS ORDERED: ENZALUTAMIDE 40 MG PO SCH ×2 (20:00)
--- NOTE | 2017-02-15 23:03 | PN ---
Progress Note, Physician History of Present Illness: Continues to have severe weakness of right leg and makes him bedridden. PO intake has improved and also the lower back pain - Current Medication List Current Medications: Active Medications Albuterol Sulfate (Ventolin 0.083% Nebulizer Soln -) 1 amp NEB Q8H PRN PRN Reason: SHORT OF BREATH/WHEEZING Last Admin: 02/14/17 18:48 Dose: 1 amp Glimepiride (Amaryl -) 2 mg PO DAILY@0700 COUNTS [facility]CLUDE 234 BEDS AT [facility] Last Admin: 02/15/17 06:25 Dose: 2 mg Levofloxacin (Levaquin 500 Mg Premixed Ivpb -) 500 mg in 100 mls @ 100 mls/hr IVPB DAILY@0800 COUNTS INCLUDE 234 BEDS AT THE [facility] Last Admin: 02/15/17 09:21 Dose: 100 mls/hr Lactulose (Cephulac (Oral Use)) 20 gm PO BID COUNTS INCLUDE 234 BEDS AT THE [facility] Last Admin: 02/15/17 22:40 Dose: 20 gm Nadolol (Corgard -) 10 mg PO DAILY COUNTS INCLUDE 234 BEDS AT THE [facility] Last Admin: 02/15/17 09:21 Dose: 10 mg Enzalutamide [Xtandi (] 40 Mg Capule) 160 mg PO DAILY COUNTS INCLUDE 234 BEDS AT THE [facility] Last Admin: 02/15/17 22:40 Dose: 160 mg Spironolactone (Aldactone -) 25 mg PO BID COUNTS INCLUDE 234 BEDS AT THE [facility] Last Admin: 02/15/17 22:41 Dose: 25 mg Tamsulosin HCl (Flomax -) 0.4 mg PO HS COUNTS INCLUDE 234 BEDS AT THE [facility] Last Admin: 02/15/17 22:41 Dose: 0.4 mg Warfarin Sodium (Coumadin -) 5 mg PO ONCE@1800 ONE Stop: 02/16/17 18:01 - Objective Vital Signs: Vital Signs Temperature 97.1 F L 02/15/17 06:58 Pulse Rate 77 02/15/17 06:58 Respiratory Rate 18 02/15/17 09:00 Blood Pressure 111/81 02/15/17 06:58 O2 Sat by Pulse Oximetry (%) 95 02/15/17 09:00 Constitutional: Yes: Well Nourished, No Distress Eyes: Yes: Conjunctiva Clear, EOM Intact HENT: Yes: Atraumatic Neck: Yes: Supple Cardiovascular: Yes: Regular Rate and Rhythm, Pulse Irregular Respiratory: Yes: Regular, CTA Bilaterally Gastrointestinal: Yes: Normal Bowel Sounds, Soft Genitourinary: Yes: WNL Breast(s): Yes: WNL Musculoskeletal: Yes: Back Pain Labs: CBC, BMP 02/12/17 19:50 02/14/17 08:00 INR, PTT INR 1.38 (0.82-1.09) H 02/15/17 06:50 Problem List - Problems (1) Mental status change Assessment/Plan: Mental status improved probably was due either to infection or metabolic. Code(s): R41.82 - ALTERED MENTAL STATUS, UNSPECIFIED (2) FH: prostate carcinoma Assessment/Plan: He is responding to enzalutamide in conjunction with Lupron Code(s): Z80.42 - FAMILY HISTORY OF MALIGNANT NEOPLASM OF PROSTATE (3) Prostate carcinoma Code(s): C61 - MALIGNANT NEOPLASM OF PROSTATE (4) Weakness of both legs Code(s): R29.898 - OTH SYMPTOMS AND SIGNS INVOLVING THE MUSCULOSKELETAL SYSTEM (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 Code(s): C61 - MALIGNANT NEOPLASM OF PROSTATE; C79.51 - SECONDARY MALIGNANT NEOPLASM OF BONE (6) Elevated INR Code(s): R79.1 - ABNORMAL COAGULATION PROFILE (7) Diabetes 1.5, managed as type 2 Code(s): E10.9 - TYPE 1 DIABETES MELLITUS WITHOUT COMPLICATIONS (8) Bilateral leg weakness Code(s): R29.898 - OTH SYMPTOMS AND SIGNS INVOLVING THE MUSCULOSKELETAL SYSTEM Assessment/Plan Case discussed with who reviewed the CT with and could not say whether there was any involvement by tumor or whether radiculopathy due to foraminal stenosis and sugested getting a contrast study.
[2017-02-16] MEDS ORDERED: PT OWN MED DRAWER 7, Y5N ONE (06:02)
[2017-02-16] MEDS: GLIMEPIRIDE 2 MG TABLET (FP) PO SCH (06:42)
[2017-02-16 07:28] LABS: BASOPHIL 0.3 % (0-2.0); EOSINOPHIL 3.2 % (0-4.5); MCH 27.4 pg (25.7-33.7); MCHC 33.5 g/dl (32.0-35.9); MEAN PLT VOLUME 8.1 fl (7.5-11.1); NEUTROPHILS 69.3 % (42.8-82.8); PLATELET COUNT 310 K/MM3 (134-434); RDW 17.2 % (11.9-15.9); WHITE BLOOD COUNT 6.5 K/mm3 (4.0-10.0)
[2017-02-16 07:31] LABS: INR 1.41 (0.82-1.09); PROTHROMBIN TIME (PATIENT) 15.9 SEC (9.98-11.88)
[2017-02-16 07:37] LABS: ALBUMIN 1.8 g/dl (3.4-5.0); ANION GAP 9 (8-16); CALCIUM 8.1 mg/dL (8.5-10.1); CO2 28 mmol/L (21-32); GLUCOSE,RANDOM 210 mg/dL (74-106)
[2017-02-16 07:39] LABS: ALK PHOS 267 U/L (45-117); BILIRUBIN,TOTAL 0.7 mg/dL (0.2-1.0); CREATININE 0.5 mg/dL (0.7-1.3); SGOT/AST 26 U/L (15-37); SGPT/ALT 20 U/L (12-78); TOT PROT 5.5 g/dl (6.4-8.2)
[2017-02-16] MEDS: LEVOFLOXACIN 500 MG IVPB 500 MG/100 ML BAG IVPB SCH (09:11)
[2017-02-16] MEDS: LACTULOSE 20 GM/30 ML UDC (FOR ORAL USE ONLY) PO SCH ×2 (09:13→21:11)
[2017-02-16] MEDS: SPIRONOLACTONE 25 MG TABLET (FP) PO SCH ×2 (12:00→21:11)
[2017-02-16] MEDS: NADOLOL 20 MG TABLET (FP) PO SCH (12:53)
[2017-02-16] MEDS ORDERED: ALBUTEROL SO4 0.083% IH SOL 2.5 MG/3 ML VIAL.NEB. NEB PRN (14:42)
[2017-02-16] MEDS ORDERED: WARFARIN NA 7.5 MG TABLET (FP) PO ONE (18:00)
[2017-02-16] MEDS ORDERED: WARFARIN NA 5 MG TABLET (UD) PO ONE (18:00)
[2017-02-16] MEDS: TAMSULOSIN HCL 0.4 MG CAP.ER.24H (FP) PO SCH (21:11)
[2017-02-16] MEDS: ENZALUTAMIDE 40 MG PO SCH (21:11)
--- NOTE | 2017-02-16 21:17 | PN ---
Progress Note, Physician History of Present Illness: Continues to have poor appetite. c/o weakness of lower extremities. - Current Medication List Current Medications: Active Medications Albuterol Sulfate (Ventolin 0.083% Nebulizer Soln -) 1 amp NEB Q8H PRN PRN Reason: SHORT OF BREATH/WHEEZING Last Admin: 02/16/17 15:10 Dose: 1 amp Glimepiride (Amaryl -) 2 mg PO DAILY@0700 [facility] Last Admin: 02/16/17 06:42 Dose: 2 mg Levofloxacin (Levaquin 500 Mg Premixed Ivpb -) 500 mg in 100 mls @ 100 mls/hr IVPB DAILY@0800 [facility] Last Admin: 02/16/17 09:11 Dose: 100 mls/hr Lactulose (Cephulac (Oral Use)) 20 gm PO BID [facility] Last Admin: 02/16/17 09:13 Dose: 20 gm Nadolol (Corgard -) 10 mg PO DAILY [facility] Enzalutamide [Xtandi (] 40 Mg Capule) 160 mg PO HS [facility] Spironolactone (Aldactone -) 25 mg PO BID [facility] Tamsulosin HCl (Flomax -) 0.4 mg PO HS [facility] Last Admin: 02/15/17 22:41 Dose: 0.4 mg - Objective Vital Signs: Vital Signs Temperature 98.1 F 02/16/17 18:05 Pulse Rate 64 02/16/17 18:05 Respiratory Rate 18 02/16/17 18:05 Blood Pressure 101/57 02/16/17 18:05 O2 Sat by Pulse Oximetry (%) 97 02/16/17 14:34 Constitutional: Yes: No Distress, Calm Eyes: Yes: WNL HENT: Yes: WNL Neck: Yes: Supple Cardiovascular: Yes: WNL Respiratory: Yes: Regular, CTA Bilaterally Gastrointestinal: Yes: Normal Bowel Sounds, Soft Genitourinary: Yes: WNL Breast(s): Yes: WNL Musculoskeletal: Yes: Back Pain Extremities: Yes: WNL Edema: No Peripheral Pulses WNL: Yes Integumentary: Yes: WNL Neurological: Yes: Alert, Oriented, Cran Nerves II-XII Intact, Lethargy ...Motor Strength: RLE (weakness of flexors and extensors of the right knee 2/5) Psychiatric: Yes: Alert, Oriented Labs: CBC, BMP 02/16/17 06:45 02/16/17 06:45 INR, PTT INR 1.41 (0.82-1.09) H 02/16/17 06:45 - ....Imaging Chest X-ray: Report Reviewed Cat Scan: Report Reviewed, Image Reviewed Problem List - Problems (1) Mental status change Assessment/Plan: Patient remains alert and oriented. Difficult to say whether CMS was secondary to infection orn hepatic encephalopathy Code(s): R41.82 - ALTERED MENTAL STATUS, UNSPECIFIED (2) FH: prostate carcinoma Code(s): Z80.42 - FAMILY HISTORY OF MALIGNANT NEOPLASM OF PROSTATE (3) Prostate carcinoma Code(s): C61 - MALIGNANT NEOPLASM OF PROSTATE (4) Metastasis to bone Code(s): C79.51 - SECONDARY MALIGNANT NEOPLASM OF BONE (5) Weakness of both legs Assessment/Plan: Continues to have weakness of right lower extremity. CT scan does not show any mets compromising the cord but possibility of encroachment on l5/S1 root Code(s): R29.898 - OTH SYMPTOMS AND SIGNS INVOLVING THE MUSCULOSKELETAL SYSTEM (6) Prostate cancer metastatic to bone Code(s): C61 - MALIGNANT NEOPLASM OF PROSTATE; C79.51 - SECONDARY MALIGNANT NEOPLASM OF BONE (7) Elevated INR Code(s): R79.1 - ABNORMAL COAGULATION PROFILE (8) Diabetes 1.5, managed as type 2 Code(s): E10.9 - TYPE 1 DIABETES MELLITUS WITHOUT COMPLICATIONS (9) Bilateral leg weakness Code(s): R29.898 - OTH SYMPTOMS AND SIGNS INVOLVING THE MUSCULOSKELETAL SYSTEM Assessment/Plan Lupron 7.5 administered today, medication provided by family. Will start PT by bedside. Contiue Levaquin for UTI
[2017-02-16] MEDS ORDERED: INSULIN (NOVOLOG) ASPART 100 UNITS/ML 10ML VIAL ONE (22:25)
[2017-02-17] MEDS: GLIMEPIRIDE 2 MG TABLET (FP) PO SCH (06:20)
[2017-02-17 07:25] LABS: INR 1.51 (0.82-1.09); PROTHROMBIN TIME (PATIENT) 17.1 SEC (9.98-11.88)
[2017-02-17] MEDS: LEVOFLOXACIN 500 MG IVPB 500 MG/100 ML BAG IVPB SCH (08:16)
[2017-02-17] MEDS: LACTULOSE 20 GM/30 ML UDC (FOR ORAL USE ONLY) PO SCH ×2 (10:37→22:32)
[2017-02-17] MEDS: SPIRONOLACTONE 25 MG TABLET (FP) PO SCH ×2 (10:41→22:31)
[2017-02-17] MEDS: NADOLOL 20 MG TABLET (FP) PO SCH (10:42)
[2017-02-17] MEDS ORDERED: WARFARIN NA 7.5 MG TABLET (FP) PO ONE (18:00)
--- NOTE | 2017-02-17 21:09 | PN ---
Progress Note, Physician History of Present Illness: Could not empty bladder fully and had 750 residual and was cathgeterized with Bonilla. Continues to have severe weakness of flexors and exensors right knee. - Current Medication List Current Medications: Active Medications Albuterol Sulfate (Ventolin 0.083% Nebulizer Soln -) 1 amp NEB Q8H PRN PRN Reason: SHORT OF BREATH/WHEEZING Last Admin: 02/16/17 15:10 Dose: 1 amp Glimepiride (Amaryl -) 2 mg PO DAILY@0700 [facility] Last Admin: 02/17/17 06:20 Dose: 2 mg Lactulose (Cephulac (Oral Use)) 20 gm PO BID [facility] Last Admin: 02/17/17 10:37 Dose: 20 gm Levofloxacin (Levaquin -) 500 mg PO DAILY [facility] Nadolol (Corgard -) 10 mg PO DAILY [facility] Last Admin: 02/17/17 10:42 Dose: Not Given Enzalutamide [Xtandi (] 40 Mg Capule) 160 mg PO [facility] Last Admin: 02/16/17 21:11 Dose: 160 mg Spironolactone (Aldactone -) 25 mg PO BID [facility] Last Admin: 02/17/17 10:41 Dose: Not Given Tamsulosin HCl (Flomax -) 0.4 mg PO [facility] Last Admin: 02/16/17 21:11 Dose: 0.4 mg - Objective Vital Signs: Vital Signs Temperature 98.5 F 02/17/17 18:05 Pulse Rate 65 02/17/17 18:05 Respiratory Rate 18 02/17/17 18:05 Blood Pressure 113/59 02/17/17 18:05 O2 Sat by Pulse Oximetry (%) 98 02/17/17 09:00 Constitutional: Yes: No Distress, Calm Eyes: Yes: WNL HENT: Yes: WNL Neck: Yes: Supple Cardiovascular: Yes: Regular Rate and Rhythm, S1, S2 Respiratory: Yes: Regular, CTA Bilaterally Gastrointestinal: Yes: Normal Bowel Sounds, Soft Genitourinary: Yes: Bonilla Present Breast(s): Yes: Gynecomastia Musculoskeletal: Yes: Back Pain Extremities: Yes: WNL Edema: No Peripheral Pulses WNL: Yes Integumentary: Yes: WNL Neurological: Yes: Alert, Oriented, Cran Nerves II-XII Intact ...Motor Strength: RLE (paralysis of flexors and extensors of right knee) Psychiatric: Yes: Alert, Oriented Labs: CBC, BMP 02/16/17 06:45 02/16/17 06:45 INR, PTT INR 1.51 (0.82-1.09) H 02/17/17 06:37 Problem List - Problems (1) Mental status change Code(s): R41.82 - ALTERED MENTAL STATUS, UNSPECIFIED (2) FH: prostate carcinoma Code(s): Z80.42 - FAMILY HISTORY OF MALIGNANT NEOPLASM OF PROSTATE (3) Prostate carcinoma Code(s): C61 - MALIGNANT NEOPLASM OF PROSTATE (4) Weakness of both legs Code(s): R29.898 - OTH SYMPTOMS AND SIGNS INVOLVING THE MUSCULOSKELETAL SYSTEM (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 Code(s): C61 - MALIGNANT NEOPLASM OF PROSTATE; C79.51 - SECONDARY MALIGNANT NEOPLASM OF BONE (6) Elevated INR Code(s): R79.1 - ABNORMAL COAGULATION PROFILE (7) Diabetes 1.5, managed as type 2 Code(s): E10.9 - TYPE 1 DIABETES MELLITUS WITHOUT COMPLICATIONS (8) Bilateral leg weakness Code(s): R29.898 - OTH SYMPTOMS AND SIGNS INVOLVING THE MUSCULOSKELETAL SYSTEM
[2017-02-17] MEDS: ENZALUTAMIDE 40 MG PO SCH (22:32)
[2017-02-17] MEDS: TAMSULOSIN HCL 0.4 MG CAP.ER.24H (FP) PO SCH (22:33)
[2017-02-18] MEDS: GLIMEPIRIDE 2 MG TABLET (FP) PO SCH (06:08)
[2017-02-18 07:31] LABS: BASOPHIL 0.4 % (0-2.0); EOSINOPHIL 3.6 % (0-4.5); MCH 27.3 pg (25.7-33.7); MCHC 33.2 g/dl (32.0-35.9); MEAN CELL VOLUME 82.3 fl (80-96); NEUTROPHILS 70.8 % (42.8-82.8); PLATELET COUNT 271 K/MM3 (134-434); RDW 17.6 % (11.9-15.9); WHITE BLOOD COUNT 6.8 K/mm3 (4.0-10.0)
[2017-02-18 07:56] LABS: ALBUMIN 1.8 g/dl (3.4-5.0); ALK PHOS 282 U/L (45-117); ANION GAP 8 (8-16); BILIRUBIN,TOTAL 0.6 mg/dL (0.2-1.0); CALCIUM 7.4 mg/dL (8.5-10.1); CO2 25 mmol/L (21-32); CREATININE 0.5 mg/dL (0.7-1.3); GLUCOSE,RANDOM 216 mg/dL (74-106); SGOT/AST 26 U/L (15-37); SGPT/ALT 22 U/L (12-78); TOT PROT 5.4 g/dl (6.4-8.2)
[2017-02-18 08:27] LABS: INR 2.22 (0.82-1.09); PROTHROMBIN TIME (PATIENT) 25.1 SEC (9.98-11.88)
--- NOTE | 2017-02-18 09:25 | PN ---
Progress Note (short form) - Note Progress Note: NEUROSURGERY CONSULT DICTATED H/o cirrhosis, metastatic prostate cancer, AFib, hypertension, and diabetes, who c/o generalized weakness for 4 days. Patients states that patient has been experiencing decreased appetite, decreased urine output and is unable to ambulate. R leg appeared weaker. Pt denies any recent fevers, chills, headache or dizziness. provided history. PE: AF, VSS HEENT- NC; Neck- supple; Cor- RR; Lungs- CTA B; Abd- benign; Ext- mild ankle edema Awake, Tajik speaking mostly CN- non-focal; Motor; UE 4+; R prox LE 2-3; R foot DF/PF 4, L LE 4-4+/5 at least ; Sensation- grossly intact LT; DTR- hyporeflexia INR 2.22, Cr 0.5 CT Head- moderate atrophy; no bleed/fx/HCP CT LS spine (c/w prior scan form 2015): Progressive/extensive metastatic/ osteoblastic disease in face of osteopenia; osteoblastic process sacrum, L4, L2 , L1, T12; L5-S1 transitional level (sacralized L5), anterolisthesis L5-S1 and L4-5 secondary to spondylolysis; compression deformity L3; mild-moderate lateral recess stenosis at multiple levels without evidence of cauda equina compression Metastatic prostatic CA- progressed Extensive and progressive metastatic prostate dz Would not recommend surgical tx given age, extensive metastatic dz, and medical conditions Pain control Pulse of iv steroid may be helpful, though would need to monitor and treat hyperglycemia
[2017-02-18] MEDS ORDERED: LEVOFLOXACIN 500 MG TABLET (FP) PO SCH (10:00)
[2017-02-18] MEDS ORDERED: PT OWN MED DRAWER 7, Y5N ONE (10:37)
[2017-02-18] MEDS: SPIRONOLACTONE 25 MG TABLET (FP) PO SCH (10:43)
[2017-02-18] MEDS: LACTULOSE 20 GM/30 ML UDC (FOR ORAL USE ONLY) PO SCH (10:43)
[2017-02-18] MEDS: NADOLOL 20 MG TABLET (FP) PO SCH (10:44)
[2017-02-18] MEDS ORDERED: WARFARIN NA 2 MG TABLET (UD) PO ONE (13:57)
--- NOTE | 2017-02-18 14:06 | DS ---
Physical Examination Vital Signs: Vital Signs Temperature 97.7 F 02/18/17 10:35 Pulse Rate 75 02/18/17 10:35 Respiratory Rate 18 02/18/17 10:35 Blood Pressure 120/60 02/18/17 10:35 O2 Sat by Pulse Oximetry (%) 98 02/17/17 21:00 Findings/Remarks: Was admitted with weakness of lower extremity and change in mental sattus. Mental status improved and probably was secondary to either hepatic encephalopathy or metabolic. Weaknes of RLE persists. Constitutional: Yes: No Distress, Calm Eyes: Yes: Conjunctiva Clear, EOM Intact HENT: Yes: WNL Neck: Yes: Supple Cardiovascular: Yes: Regular Rate and Rhythm Respiratory: Yes: Regular, CTA Bilaterally Gastrointestinal: Yes: Normal Bowel Sounds, Soft Breast(s): Yes: Gynecomastia Musculoskeletal: Yes: Back Pain Extremities: Yes: WNL Edema: No Peripheral Pulses WNL: Yes Integumentary: Yes: WNL ...Motor Strength: RLE Labs: CBC, BMP 02/18/17 06:10 02/18/17 06:10 Discharge Summary Reason For Visit: MALIGNANT NEOPLASM OF PROSTATE METS TO B Current Active Problems Bilateral leg weakness (Acute) Diabetes 1.5, managed as type 2 (Acute) FH: prostate carcinoma (Acute) Mental status change (Acute) Prostate cancer metastatic to bone (Acute) Prostate carcinoma (Acute) Weakness of both legs (Acute) Hospital Course: He was admitted with change in mental status which improved the following day and difficult to say whether it was due to hepatic encephalopathy or metabolic. He continues to have paresis of the RLE which could be due to foraminal stenosis. We could say whether due to metatstatic disease . Weakness has not progressed and with PT may improve if due to stenosis. He has advanced alcoholic cirrhosis of the liver and is well controlle with Lactulose, aldactone and Nadolol. He is on Warfarin because of portal vein thrombosis. He is a diabetic T2D on glimepiride 2mg He has a pacemaker for heart block. He has metatatic prostate carcinoma which being treated with Lupron 7,5 mg IM every month and Enzalutamide 160mg PO daily and he is responding well to this treatment with decrease in the PSA from 86 to 14. He has obstructive uropathy and may need a trial of D/C Bonilla. Condition: Stable - Instructions Referrals: Sabine Lainez MD [Staff Physician] - Marvin Marshall MD [Primary Care Provider] - - Home Medications Comprehensive Discharge Medication List: Ambulatory Orders Cyanocobalamin (Vitamin B-12) [Vitamin B12] 2,500 mcg PO DAILY 02/13/17 Enzalutamide [Xtandi] 40 mg PO DAILY 02/13/17 Glimepiride [Amaryl] 1 mg GT DAILY 02/13/17 Glimepiride [Glimepiride -] 1 mg PO DAILY 02/13/17 Lactulose (Oral Use) [Cephulac -] 30 gm PO TID 02/13/17 Nadolol 20 mg PO DAILY 02/13/17 Spironolactone 25 mg PO BID 02/13/17 Glimepiride [Amaryl -] 2 mg PO DAILY@0700 tablet 02/18/17 Lactulose (Oral Use) [Cephulac -] 20 gm PO BID [facility] 02/18/17 Nadolol [Corgard -] 10 mg PO DAILY tablet 02/18/17 Spironolactone [Aldactone -] 25 mg PO BID tablet 02/18/17 Tamsulosin HCl [Flomax -] 0.4 mg PO HS cap.er.24h 02/18/17
[2017-02-18 15:34] VITALS: BP 114/69; PULSE 70; TEMP 98.1
--- NOTE | 2017-02-18 20:21 | CONS ---
DATE OF CONSULTATION: DATE OF DICTATION: 02/18/2017 REQUESTING PHYSICIAN: Marvin Marshall MD AU PAIR: Mikhail Weinberg MD, Neurosurgery. CHIEF COMPLAINT: Back pain and lower extremity weakness. HISTORY OF PRESENT ILLNESS: The patient is an 86-year-old male with a history of metastatic prostatic CA, hepatic cirrhosis, atrial fibrillation, on chronic anticoagulation, diabetes, hypertension, who complains of increasing weakness over the last few days prior to admission. Patient's stated that the patient has been experiencing decreasing appetite, decreased urine output, and has not been able to ambulate. His right leg twists on itself when he tries to get up. There has been no recent infection nor any fever or chills. The patient has no headache or nausea, vomiting. The patient's provided us history at the bedside. He is mostly Welsh-speaking. The patient has undergone radiation treatment before for his prostate cancer by report. He is also on a chemotherapeutic/hormonal regimen by report as well. PAST MEDICAL HISTORY: Significant for metastatic prostatic CA, atrial fibrillation, diabetes, hypertension, and hepatic cirrhosis. CURRENT MEDICATIONS: Include XTANDI, Flomax, lactulose, Levaquin, albuterol inhaler, Corgard, Aldactone, and Amaryl. There is no known drug allergy. FAMILY HISTORY: Noncontributory. SOCIAL HISTORY: He does not smoke and only drinks alcohol socially. He lives at home with his family. He is retired. REVIEW OF SYSTEMS: Otherwise negative for other major constitutional, head and neck, cardiovascular, pulmonary, gastrointestinal, genitourinary, endocrinological, neurological, and psychological problem except for the above. PHYSICAL EXAMINATION: Vital Signs: Temperature is 97.2, blood pressure is 108/65, with pulse rate of 72. O2 saturation is 98% on room air. HEENT: Examination shows him to be normocephalic, atraumatic, anicteric. Neck: Supple with no carotid bruit. Coronary: Examination demonstrated regular rhythm. Lungs: Clear bilaterally. Abdomen: Benign. Extremities: Examination showed no obvious signs of DVT, even though he has ankle edema bilaterally. There is no calf tenderness, and he has a negative Justus sign. Neurologic: He is awake and alert, and he is mostly Welsh-speaking. His is at bedside. Cranial nerve examination is intact II through XII. Motor examination shows upper extremities to be 4/5. Proximal right lower extremity is 2-3/5, and distal lower extremity dorsiflexion and plantar flexion are 4/5. Left lower extremity is at least 4 to 4+/5. Deep tendon reflexes are hyporeflexic throughout. Sensory examination is intact to light touch, but he has decreased distal vibratory sensation. Gait cannot be tested for safety reasons. Back: Examination of his back shows mild paraspinal muscle spasm and tenderness. LABORATORY EXAMINATION: Shows sodium to be 133 and potassium to be 4.2. BUN is 18 and creatinine 0.5. Alkaline phosphatase is 282. Albumin is 1.8. Calcium is 7.4. INR is 2.22; initially, it was 7.07. White blood cell count is 6.8, hemoglobin is 10.8, and platelet count is 271,000. CT scan of the head demonstrated moderate cerebral atrophy with periventricular small vessel disease. There is no hydrocephalus or acute bleed or other signs of acute stroke noted. CT scan of the lumbar spine demonstrated he had transitional L5 segment, which is sacralized. There is spondylolisthesis at L4-5 and L5-S1 that is associated with bilateral spondylosis. There is extensive metastatic disease with osteoblastic changes at T12, L1, L2, and L4 at least. There is also involvement of sacrum and the ilium. There is superior endplate fracture at L3. There is generalized osteopenia throughout. There is some mild stenosis at L2-3 as well as multiple levels bilaterally in the lateral recess. There is no marked central stenosis at any level. These changes have progressed compared to the CAT scan from November 2015. IMPRESSION: 1. Progressive and extensive metastatic prostatic cancer to the lumbar spine and the pelvis. 2. No evidence of marked canal stenosis or cauda equina compression. 3. Atrial fibrillation, on chronic anticoagulation; Coumadin being held presently due to initially elevated INR. 4. Hepatic cirrhosis. 5. Diabetes. RECOMMENDATIONS: The patient presents with some progressive weakness of his lower extremity. He, unfortunately, has significant multiple medical issues, which precludes more aggressive treatment regardless. He has reportedly undergone radiation treatment and is being evaluated by Radiation Oncology for possible further treatment as well. Presently, he does have some weakness of the lower extremity , but he does have fairly good dorsiflexion and plantar flexion strength bilaterally. Most of the weakness is limited to the proximal right lower extremity, where he does have some antigravity strength upon prompting. No neurosurgical intervention is recommended in this elderly gentleman with multiple medical, complicating factors. Perhaps, the pulse of IV steroid may be helpful in controlling his pain and to help with his overall symptomatology, even though he is diabetic. MIKHAIL WEINBERG M.D. YEHUDA/[id number] MTDD
== END 2017-02-18 18:16 | DRG 542 ==
LOC: JER 18:36 → J5S 23:34 → UNDOADMOB 02-13 00:52 → JERBED 02-13 00:52 → UNDOADMOB 02-13 01:19 → JERBED 02-13 01:19 → INTOOBSV 02-13 01:19 → JERBED 02-13 06:28 → J5S 02-13 09:37 → JERBED 02-13 09:37
PROVIDERS: ADMIT Internal Medicine Hematology & Oncology; ATTEND Internal Medicine Hematology & Oncology
DX: C79.51 Secondary malignant neoplasm of bone (principal); G93.41 Metabolic encephalopathy; I81 Portal vein thrombosis; I85.00 Esophageal varices without bleeding; J98.11 Atelectasis; K74.69 Other cirrhosis of liver; C61 Malignant neoplasm of prostate; I48.91 Unspecified atrial fibrillation; E11.9 Type 2 diabetes mellitus without complications; K70.31 Alcoholic cirrhosis of liver with ascites; I10 Essential (primary) hypertension; R50.9 Fever, unspecified; F03.90 Unspecified dementia, unspecified severity, without behavioral disturbance, psychotic disturbance, mood disturbance, and anxiety; N40.0 Benign prostatic hyperplasia without lower urinary tract symptoms; R15.9 Full incontinence of feces; R41.82 Altered mental status, unspecified; R29.898 Other symptoms and signs involving the musculoskeletal system; R79.1 Abnormal coagulation profile; M85.88 Other specified disorders of bone density and structure, other site; M47.896 Other spondylosis, lumbar region; Z79.01 Long term (current) use of anticoagulants; Z95.0 Presence of cardiac pacemaker
CPT/HCPCS: 36415; 70450-TC; 71010-TC; 72131-TC; 74000-TC; 76700-TC; 80053; 81003; 81015; 82140; 82550; 84484; 85025; 85610; 85730; 86850; 86900; 86901; 87040; 87086; 87186; 93005; 93010; 94640; 97161-GP; 99285-25

== ENCOUNTER 2017-02-22 22:42 | Inpatient (IN) | payer OTHER, MEDICARE ==
--- NOTE | 2017-02-23 02:22 | PDOC ---
History of Present Illness <Balaji Soliman - Last Filed: 02/23/17 04:50> - History of Present Illness Initial Comments: 02/23/17 02:15 86 M with h/o 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 Per son , pt is at rehab facility after recently being discharged from hospital. He is at baseline amulatory with assistance. HOwever, he has become weaker over the past 3 days to the point where he cannot get himself out of bed. Son also notes that he is more somnolent and less responsive at times. He denies F/C. Denies CP /SOB. Denies abdominal pain, Denies N/V/D. Denies unilateral weakness/numbness/ tingling. <Maco Lee - Last Filed: 02/23/17 04:53> - General Chief Complaint: Weakness Stated Complaint: WEAKNESS Time Seen by Provider: 02/23/17 02:01 Past History <Balaji Soliman - Last Filed: 02/23/17 04:50> - Past Medical History Cancer: Yes (PROSTATE,BONE) COPD: No Diabetes: Yes Disorders: Yes (prostate ca) HTN: Yes Liver Disease: Yes (cirrhosis, clots in liver) - Surgical History Abdominal Surgery: Yes (Hernia repair) Cardiac Surgery: Yes (Pacemaker) Orthopedic Surgery: Yes (R. Knee sx) - Immunization History Immunization Up to Date: Yes - Suicide/Smoking/Psychosocial Hx Smoking Status: No Smoking History: Unknown if ever smoked Have you smoked in the past 12 months: No Number of Cigarettes Smoked Daily: 0 Information on smoking cessation initiated: No Hx Alcohol Use: No Drug/Substance Use Hx: No Substance Use Type: None Hx Substance Use Treatment: No <Maco Lee - Last Filed: 02/23/17 04:53> - Past Medical History Allergies/Adverse Reactions: Allergies Allergy/AdvReac Type Severity Reaction Status Date / Time No Known Allergies Allergy Verified 02/22/17 23:16 Home Medications: Ambulatory Orders Cyanocobalamin (Vitamin B-12) [Vitamin B12] 2,500 mcg PO DAILY 02/13/17 Enzalutamide [Xtandi] 160 mg PO DAILY 02/13/17 Lactulose (Oral Use) [Cephulac -] 30 ml PO BID 02/13/17 Nadolol 10 mg PO DAILY 02/13/17 Glimepiride [Amaryl -] 2 mg PO DAILY@0700 tablet 02/18/17 Spironolactone [Aldactone -] 25 mg PO BID tablet 02/18/17 Tamsulosin HCl [Flomax -] 0.4 mg PO HS cap.er.24h 02/18/17 Aa/Hydrolyzed Collagen, Whey [Lps 15-30 Liquid] 30 ml PO BID 02/23/17 Albuterol 0.083% Nebulizer Linda [Ventolin 0.083%] 1 neb NEB Q4H PRN 02/23/17 Oxycodone HCl 5 mg PO Q4H PRN 02/23/17 Warfarin Sodium [Coumadin] 4 mg PO HS 02/23/17 Review of Systems - Review of Systems Comments:: 02/23/17 02:35 "GENERAL/CONSTITUTIONAL: +weakness, No fever or chills. HEAD, EYES, EARS, NOSE AND THROAT: No change in vision. No ear pain or discharge. No sore throat. CARDIOVASCULAR: No chest pain or shortness of breath. RESPIRATORY: No cough, wheezing, or hemoptysis. GASTROINTESTINAL: No nausea, vomiting, diarrhea or constipation. GENITOURINARY: No dysuria, frequency, or change in urination. MUSCULOSKELETAL: No joint or muscle swelling or pain. No neck or back pain. SKIN: No rash NEUROLOGIC: No headache, vertigo, loss of consciousness, or change in strength/ sensation. ENDOCRINE: No increased thirst. No abnormal weight change. HEMATOLOGIC/LYMPHATIC: No anemia, easy bleeding, or history of blood clots. ALLERGIC/IMMUNOLOGIC: No hives or skin allergy. " <Maco Lee - Last Filed: 02/23/17 04:53> *Physical Exam - Vital Signs Last Vital Signs Temp Pulse Resp BP Pulse Ox 98.7 F 69 14 119/64 95 02/22/17 23:17 02/22/17 23:17 02/22/17 23:17 02/22/17 23:17 02/22/17 23:17 <Balaji Soliman - Last Filed: 02/23/17 04:50> - Vital Signs Last Vital Signs Temp Pulse Resp BP Pulse Ox 98.7 F 69 14 119/64 95 02/22/17 23:17 02/22/17 23:17 02/22/17 23:17 02/22/17 23:17 02/22/17 23:17 - Physical Exam Comments: 02/23/17 02:35 "GENERAL: Awake, alert, and fully oriented, in no acute distress HEAD: No signs of trauma EYES: PERRLA, EOMI, sclera anicteric, conjunctiva clear ENT: Auricles normal inspection, hearing grossly normal, nares patent, oropharynx clear without exudates. Moist mucosa NECK: Nontender, no stepoffs, Normal ROM, supple, no lymphadenopathy, JVD, or masses LUNGS: Breath sounds equal, clear to auscultation bilaterally. No wheezes, and no crackles HEART: Regular rate and rhythm, normal S1 and S2, no murmurs, rubs or gallops ABDOMEN: +fluid wave, nontender EXTREMITIES: Normal range of motion, no edema. No clubbing or cyanosis. No cords, erythema, or tenderness NEUROLOGICAL: Cranial nerves II through XII intact. 5/5 strength and sensation in all extremities, Normal speech, normal gait SKIN: Warm, Dry, normal turgor, no rashes or lesions noted. " <Maco Lee - Last Filed: 02/23/17 04:53> ED Treatment Course - LABORATORY CBC & Chemistry Diagram: 02/23/17 02:50 02/23/17 02:50 - ADDITIONAL ORDERS Additional order review: Laboratory Results 02/23/17 02/23/17 02/23/17 04:10 02:50 02:50 PT with INR INR PTT (Actin FS) VBG pH POC VBG pCO2 POC VBG pO2 Mixed VBG HCO3 Sodium 134 L Potassium 5.1 D Chloride 100 Carbon Dioxide 25 Anion Gap 9 BUN 28 H D Creatinine 0.6 L Creat Clearance w eGFR > 60 Random Glucose 274 H D Lactic Acid 2.0 Calcium 7.7 L Total Bilirubin 0.6 AST 61 H D ALT 21 Alkaline Phosphatase 340 H D Ammonia Creatine Kinase Troponin I Total Protein 5.5 L Albumin 1.8 L Urine Color [place] Urine Appearance Clear Urine pH 6.5 Ur Specific [place] 1.015 Urine Protein Trace H D Urine Glucose (UA) Negative Urine Ketones Trace H Urine Blood 2+ H Urine Nitrite Positive Urine Bilirubin Negative Urine Urobilinogen 2.0 Acetone, Qual Blood Type Antibody Screen Spec Expiration Date 02/23/17 02/23/17 02/23/17 02:50 02:50 02:50 PT with INR 34.80 H INR 3.08 H D PTT (Actin FS) VBG pH 7.44 H POC VBG pCO2 36.4 L POC VBG pO2 46.1 Mixed VBG HCO3 24.4 Sodium Potassium Chloride Carbon Dioxide Anion Gap BUN Creatinine Creat Clearance w eGFR Random Glucose Lactic Acid Calcium Total Bilirubin AST ALT Alkaline Phosphatase Ammonia Creatine Kinase 68 Troponin I < 0.02 Total Protein Albumin Urine Color Urine Appearance Urine pH Ur Specific [place] Urine Protein Urine Glucose (UA) Urine Ketones Urine Blood Urine Nitrite Urine Bilirubin Urine Urobilinogen Acetone, Qual Blood Type Antibody Screen Spec Expiration Date 02/23/17 02/23/17 02/23/17 02:50 02:50 02:50 PT with INR INR PTT (Actin FS) VBG pH POC VBG pCO2 POC VBG pO2 Mixed VBG HCO3 Sodium Potassium Chloride Carbon Dioxide Anion Gap BUN Creatinine Creat Clearance w eGFR Random Glucose Lactic Acid Calcium Total Bilirubin AST ALT Alkaline Phosphatase Ammonia 43.23 H Creatine Kinase Troponin I Total Protein Albumin Urine Color Urine Appearance Urine pH Ur Specific [place] Urine Protein Urine Glucose (UA) Urine Ketones Urine Blood Urine Nitrite Urine Bilirubin Urine Urobilinogen Acetone, Qual Negative Blood Type Cancelled Antibody Screen Cancelled Spec Expiration Date Cancelled 02/23/17 02:50 PT with INR INR PTT (Actin FS) 38.7 H D VBG pH POC VBG pCO2 POC VBG pO2 Mixed VBG HCO3 Sodium Potassium Chloride Carbon Dioxide Anion Gap BUN Creatinine Creat Clearance w eGFR Random Glucose Lactic Acid Calcium Total Bilirubin AST ALT Alkaline Phosphatase Ammonia Creatine Kinase Troponin I Total Protein Albumin Urine Color Urine Appearance Urine pH Ur Specific [place] Urine Protein Urine Glucose (UA) Urine Ketones Urine Blood Urine Nitrite Urine Bilirubin Urine Urobilinogen Acetone, Qual Blood Type Antibody Screen Spec Expiration Date 02/23/17 02:50 RBC 3.80 L MCV 81.7 MCHC 33.9 RDW 18.0 H MPV 8.5 Neutrophils % 74.3 Lymphocytes % 9.3 D Monocytes % 14.4 H Eosinophils % 1.6 Basophils % 0.4 <Balaji Soliman - Last Filed: 02/23/17 04:50> - LABORATORY CBC & Chemistry Diagram: 02/23/17 02:50 02/23/17 02:50 - RADIOLOGY Radiology Studies Ordered: Category Date Time Status CHEST X-RAY PORTABLE* [RAD] Stat Radiology 02/23/17 02:13 Ordered <JesusMaco - Last Filed: 02/23/17 04:53> Medical Decision Making - Medical Decision Making 02/23/17 04:[address] Chow placed. Awaiting call back. 02/23/17 04:50 Dr. Chow called into ER. Case discussed. <Raj Solimanke - Last Filed: 02/23/17 04:50> - Medical Decision Making 02/23/17 02:36 86 M with generalized weakness. Concerning for hepatic encephalopathy or other metabolic process. Also consider infectious process, as pt is immunocompromised. Pt with no neuro deficits on exam to suggest acute stroke. - Labs - CTH - CXR, UA - EKG 02/23/17 04:27 CBC,CMP WBC 8.7 K/mm3 (4.0-10.0) 02/23/17 02:50 RBC 3.80 M/mm3 (4.00-5.60) L 02/23/17 02:50 Hgb 10.5 GM/dL (11.7-16.9) L 02/23/17 02:50 Hct 31.0 % (35.4-49) L 02/23/17 02:50 MCV 81.7 fl (80-96) 02/23/17 02:50 MCH 27.7 pg (25.7-33.7) 02/23/17 02:50 MCHC 33.9 g/dl (32.0-35.9) 02/23/17 02:50 RDW 18.0 % (11.9-15.9) H 02/23/17 02:50 Plt Count 315 K/MM3 (134-434) 02/23/17 02:50 MPV 8.5 fl (7.5-11.1) 02/23/17 02:50 Neutrophils % 74.3 % (42.8-82.8) 02/23/17 02:50 Lymphocytes % 9.3 % (8-40) D 02/23/17 02:50 Monocytes % 14.4 % (3.8-10.2) H 02/23/17 02:50 Eosinophils % 1.6 % (0-4.5) 02/23/17 02:50 Basophils % 0.4 % (0-2.0) 02/23/17 02:50 Sodium 134 mmol/L (136-145) L 02/23/17 02:50 Potassium 5.1 mmol/L (3.5-5.1) D 02/23/17 02:50 Chloride 100 mmol/L (98-107) 02/23/17 02:50 Carbon Dioxide 25 mmol/L (21-32) 02/23/17 02:50 Anion Gap 9 (8-16) 02/23/17 02:50 BUN 28 mg/dL (7-18) H D 02/23/17 02:50 Creatinine 0.6 mg/dL (0.7-1.3) L 02/23/17 02:50 Creat Clearance w eGFR > 60 (>60) 02/23/17 02:50 Random Glucose 274 mg/dL (74-106) H D 02/23/17 02:50 Lactic Acid 2.0 mmol/L (0.4-2.0) 02/23/17 02:50 Calcium 7.7 mg/dL (8.5-10.1) L 02/23/17 02:50 Total Bilirubin 0.6 mg/dL (0.2-1.0) 02/23/17 02:50 AST 61 U/L (15-37) H D 02/23/17 02:50 ALT 21 U/L (12-78) 02/23/17 02:50 Alkaline Phosphatase 340 U/L (45-117) H D 02/23/17 02:50 Ammonia 43.23 umol/L (11-32) H 02/23/17 02:50 Creatine Kinase 68 IU/L (39-308) 02/23/17 02:50 Troponin I < 0.02 ng/ml (0.00-0.05) 02/23/17 02:50 Total Protein 5.5 g/dl (6.4-8.2) L 02/23/17 02:50 Albumin 1.8 g/dl (3.4-5.0) L 02/23/17 02:50 Urine Test Results Urine Color [place] 02/23/17 04:10 Urine Appearance Clear 02/23/17 04:10 Urine pH 6.5 (5.0-8.0) 02/23/17 04:10 Ur Specific [place] 1.015 (1.001-1.035) 02/23/17 04:10 Urine Protein Trace (NEGATIVE) H D 02/23/17 04:10 Urine Glucose (UA) Negative (NEGATIVE) 02/23/17 04:10 Urine Ketones Trace (NEGATIVE) H 02/23/17 04:10 Urine Blood 2+ (NEGATIVE) H 02/23/17 04:10 Urine Nitrite Positive (NEGATIVE) 02/23/17 04:10 Urine Bilirubin Negative (NEGATIVE) 02/23/17 04:10 Pt with elevated ammonia level (43). Possible hepatic encephalopathy. Lactulose ordered. UA with + nitrites, pending micro and LE. Will tx with levaquin (based on prior sensitivities) for presumed UTI. Admit to inpatient for continued treatment. 02/23/17 04:[address] Chow, who has agreed to admit pt. <Maco Lee - Last Filed: 02/23/17 04:53> *DC/Admit/Observation/Transfer - Attestations Scribe Attestion: 02/23/17 04:41 Documentation prepared by Balaji Soliman, acting as medical appliance maker for Maco Lee MD. <Balaji Soliman - Last Filed: 02/23/17 04:50> - Discharge Dispostion Admit: Yes - Attestations Physician Attestion: 02/23/17 04:53 I, Dr. Maco Lee MD, attest that this document has been prepared under my direction and personally reviewed by me in its entirety. I further attest, that it accurately reflects all work, treatment, procedures and medical decision -making performed by me. <Maco Lee - Last Filed: 02/23/17 04:53> Diagnosis at time of Disposition: Hepatic encephalopathy - Referrals Referrals: Zenobia Chow MD [Primary Care Provider] - - Patient Instructions - Post Discharge Activity
[2017-02-23 03:05] LABS: VENOUS BLOOD GAS HCO3 24.4 meq/L (19-25); VENOUS PH 7.44 (7.32-7.42)
[2017-02-23 03:09] LABS: BASO % 0.4 % (0-2.0); EOS % 1.6 % (0-4.5); MCH 27.7 pg (25.7-33.7); MCHC 33.9 g/dl (32.0-35.9); MEAN CELL VOLUME 81.7 fl (80-96); MEAN PLT VOLUME 8.5 fl (7.5-11.1); NEUT % 74.3 % (42.8-82.8); PLATELET COUNT 315 K/MM3 (134-434); WHITE BLOOD COUNT 8.7 K/mm3 (4.0-10.0)
[2017-02-23 03:21] LABS: INR 3.08 (0.82-1.09); PROTHROMBIN TIME (PATIENT) 34.8 SEC (9.98-11.88)
[2017-02-23 03:35] LABS: TROPONIN I < 0.02 ng/ml (0.00-0.05)
[2017-02-23 03:42] LABS: CPK 68 IU/L (39-308)
[2017-02-23 03:57] LABS: ALBUMIN 1.8 g/dl (3.4-5.0); ALK PHOS 340 U/L (45-117); ANION GAP 9 (8-16); BILIRUBIN,TOTAL 0.6 mg/dL (0.2-1.0); CALCIUM 7.7 mg/dL (8.5-10.1); CO2 25 mmol/L (21-32); CREATININE 0.6 mg/dL (0.7-1.3); GLUCOSE,RANDOM 274 mg/dL (74-106); SGPT/ALT 21 U/L (12-78); TOT PROT 5.5 g/dl (6.4-8.2)
[2017-02-23 04:09] LABS: SGOT/AST 61 U/L (15-37)
[2017-02-23] MEDS ORDERED: LACTULOSE 20 GM/30 ML UDC (FOR ORAL USE ONLY) PO ONE (04:19)
[2017-02-23 04:22] LABS: PH,URINE 6.5 (5.0-8.0); URINE APPEARANCE CLEAR; URINE BILIRUBIN NEGATIVE (NEGATIVE); URINE BLOOD 2+ (NEGATIVE); URINE COLOR ORANGE; URINE GLUCOSE (UA) NEGATIVE (NEGATIVE); URINE KETONE TRACE (NEGATIVE); URINE PROTEIN TRACE (NEGATIVE)
[2017-02-23 04:23] LABS: URINE LEUK ESTERASE 1+ (NEGATIVE); URINE NITRITE POSITIVE (NEGATIVE)
[2017-02-23] MEDS ORDERED: CEFTRIAXONE 1 GM in DEXTROSE 5%-WATER - 100 ML IVPB ONE (04:26)
[2017-02-23] MEDS ORDERED: LEVOFLOXACIN 500 MG IVPB 500 MG/100 ML BAG IVPB ONE ×2 (04:27→04:40)
[2017-02-23] MEDS ORDERED: CEFTRIAXONE 1 GM/50 ML BAG ONE (04:40)
[2017-02-23] MEDS ORDERED: LACTULOSE 20 GM/30 ML UDC (FOR ORAL USE ONLY) ONE (04:40)
[2017-02-23 04:45] LABS: URINE BACTERIA MANY /hpf (NONE SEEN); URINE MUCUS RARE
[2017-02-23] MEDS ORDERED: ALBUTEROL SO4 0.083% IH SOL 2.5 MG/3 ML VIAL.NEB. NEB PRN (07:12)
[2017-02-23] MEDS ORDERED: oxyCODONE HCL 5 MG TABLET PO PRN (07:12)
[2017-02-23 08:46] LABS: BASO % 0.3 % (0-2.0); EOS % 0.9 % (0-4.5); MCH 26.7 pg (25.7-33.7); MCHC 32.5 g/dl (32.0-35.9); MEAN CELL VOLUME 82.3 fl (80-96); MEAN PLT VOLUME 7.7 fl (7.5-11.1); NEUT % 77.7 % (42.8-82.8); PLATELET COUNT 288 K/MM3 (134-434); RDW 17.3 % (11.9-15.9); WHITE BLOOD COUNT 8.1 K/mm3 (4.0-10.0)
--- NOTE | 2017-02-23 08:56 | HP ---
Admitting History and Physical - Admission History of Present Illness: 86 M with h/o 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 Per son , pt is at rehab facility after recently being discharged from hospital. He is at baseline amulatory with assistance. HOwever, he has become weaker over the past 3 days to the point where he cannot get himself out of bed. Son also notes that he is more somnolent and less responsive at times. He denies F/C. Denies CP /SOB. Denies abdominal pain, Denies N/V/D. Denies unilateral weakness/numbness/ tingling. 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 Vera with ? banding), GI Bleed Hepatobiliary: Yes: Cirrhosis Renal/: Yes: BPH Heme/Onc: Yes: Other (Prostate Cancer) Endocrine: Yes: Diabetes Mellitus - Past Surgical History Past Surgical History: Yes: Permanent Pacemaker, Upper Endoscopy - Smoking History Smoking history: Unknown if ever smoked Have you smoked in the past 12 months: No Aproximately how many cigarettes per day: 0 - Alcohol/Substance Use Hx Alcohol Use: No History of Substance Use: reports: None - Social History History of Recent Travel: No Home Medications - Allergies Allergies/Adverse Reactions: Allergies Allergy/AdvReac Type Severity Reaction Status Date / Time No Known Allergies Allergy Verified 02/22/17 23:16 - Home Medications Home Medications: Ambulatory Orders Cyanocobalamin (Vitamin B-12) [Vitamin B12] 2,500 mcg PO DAILY 02/13/17 Enzalutamide [Xtandi] 160 mg PO DAILY 02/13/17 Lactulose (Oral Use) [Cephulac -] 30 ml PO BID 02/13/17 Nadolol 10 mg PO DAILY 02/13/17 Glimepiride [Amaryl -] 2 mg PO DAILY@0700 tablet 02/18/17 Spironolactone [Aldactone -] 25 mg PO BID tablet 02/18/17 Tamsulosin HCl [Flomax -] 0.4 mg PO HS cap.er.24h 02/18/17 Aa/Hydrolyzed Collagen, Whey [Lps 15-30 Liquid] 30 ml PO BID 02/23/17 Albuterol 0.083% Nebulizer Linda [Ventolin 0.083%] 1 neb NEB Q4H PRN 02/23/17 Oxycodone HCl 5 mg PO Q4H PRN 02/23/17 Warfarin Sodium [Coumadin] 4 mg PO HS 02/23/17 Review of Systems - Review of Systems Constitutional: reports: Lethargy, Weakness Cardiovascular: denies: Chest Pain Respiratory: denies: SOB Gastrointestinal: denies: Abdominal Pain Neurological: reports: Change in LOC, Change in Speech, Confusion, Weakness Physical Examination Vital Signs: Vital Signs Temperature 98.7 F 02/22/17 23:17 Pulse Rate 69 02/22/17 23:17 Respiratory Rate 14 02/22/17 23:17 Blood Pressure 119/64 02/22/17 23:17 O2 Sat by Pulse Oximetry (%) 95 02/22/17 23:17 Cardiovascular: Yes: S1, S2 Respiratory: Yes: Regular, CTA Bilaterally Gastrointestinal: Yes: Normal Bowel Sounds, Soft. No: Tenderness Renal/: Yes: Miguel Present. No: Bladder Distention Edema: Yes Neurological: Yes: Lethargy, Weakness Labs: CBC, BMP 02/23/17 07:40 02/23/17 02:50 Imaging - Results X-ray: Report Reviewed Problem List - Problems (1) Pneumonia Assessment/Plan: IV ABX FOLLOW UP CXR Code(s): J18.9 - PNEUMONIA, UNSPECIFIED ORGANISM (2) Hepatic encephalopathy Assessment/Plan: LACTULOSE MONITOR AMMONIA LEVEL--44 GI CONSULT Code(s): K72.90 - HEPATIC FAILURE, UNSPECIFIED WITHOUT COMA (3) Diabetes 1.5, managed as type 2 Assessment/Plan: BGM W SS Code(s): E10.9 - TYPE 1 DIABETES MELLITUS WITHOUT COMPLICATIONS (4) Mental status change Assessment/Plan: TREAT INFECTION MONITOR MS CT OF HEAD Code(s): R41.82 - ALTERED MENTAL STATUS, UNSPECIFIED (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 Code(s): C61 - MALIGNANT NEOPLASM OF PROSTATE; C79.51 - SECONDARY MALIGNANT NEOPLASM OF BONE (6) UTI (urinary tract infection) Assessment/Plan: ABX CULTURES UROLOGY--MIGUEL CHANGE? Code(s): N39.0 - URINARY TRACT INFECTION, SITE NOT SPECIFIED Qualifiers: Urinary tract infection type: site unspecified Hematuria presence: with hematuria Qualified Code(s): N39.0 - Urinary tract infection, site not specified (7) Urinary retention Code(s): R33.9 - RETENTION OF URINE, UNSPECIFIED
[2017-02-23 10:36] VITALS: BMI 30.9
[2017-02-23] MEDS ORDERED: INSULIN (NOVOLOG) ASPART 100 UNITS/ML 10ML VIAL ONE (11:42)
[2017-02-23] MEDS: INSULIN SLIDING SCALE (NOVOLOG) 1 VIAL SQ SCH ×3 (11:45→22:07)
[2017-02-23] MEDS: NADOLOL 20 MG TABLET (FP) PO SCH (11:46)
[2017-02-23] MEDS: SPIRONOLACTONE 25 MG TABLET (FP) PO SCH ×2 (11:46→22:03)
[2017-02-23] MEDS: LACTULOSE 20 GM/30 ML UDC (FOR ORAL USE ONLY) PO SCH ×2 (11:46→22:03)
[2017-02-23 12:19] LABS: URINE LEUK ESTERASE 3+ (NEGATIVE)
--- NOTE | 2017-02-23 13:28 | CON.GI ---
Consult Consult Specialty:: Gastroenterology Reason for Consultation:: Dr Chow - History of Present Illness Chief Complaint: Confusion and UTI History of Present Illness: 86M is admitted from [facility] for worsening encephalopathy and generalized weakness. His daughter served a network systems administrator and tells me that her father became so weak that he could not get out of bed and was more confused than his baseline encephalopathy. She tells me that he has been found to have a UTI. NO bleeding has been noted. The daughter tells me that Wilman had been on the transplant list at [facility] for alcoholic cirrhosis but is no longer a candidate. He has not had alcohol since 2001. He did have variceal bleeding and rubber band ligation at [facility]. He has portal vein thrombosis and is on coumadin. It is not clear whether he has Afib underlying his paced rhythm. He has advanced prostate cancer. 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: Yes: Dementia, Other (Hepatic encephalopathy) Cardio/Vascular: Yes: Other (complete heart block requiring a pacemaker) Gastrointestinal: Yes: Ascites, Esophageal Varices (variceal bleeed with banding at [facility]), GI Bleed Hepatobiliary: Yes: Cirrhosis (with esophageal varices, ascites, portal vein thrombosis) Renal/: Yes: BPH, Cancer (prostate cancer with sacral metastases on Lupron and Xtandi) Heme/Onc: Yes: Anemia, B12 Deficiency Endocrine: Yes: Diabetes Mellitus - Past Surgical History Past Surgical History: Yes: Arthrosocopy (right knee), Colonoscopy, Hernia Repair (umbilical hernia repair), Permanent Pacemaker, Upper Endoscopy - Alcohol/Substance Use Hx Alcohol Use: Yes (quit 2001) History of Substance Use: reports: None - Smoking History Smoking history: Never smoked Have you smoked in the past 12 months: No Aproximately how many cigarettes per day: 0 - Social History Usual Living Arrangement: [facility] ADL: Family Assistance 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year[place] History of Recent Travel: No Home Medications - Allergies Allergies/Adverse Reactions: Allergies Allergy/AdvReac Type Severity Reaction Status Date / Time No Known Allergies Allergy Verified 02/22/17 23:16 - Home Medications Home Medications: Ambulatory Orders Cyanocobalamin (Vitamin B-12) [Vitamin B12] 2,500 mcg PO DAILY 02/13/17 Enzalutamide [Xtandi] 160 mg PO DAILY 02/13/17 Lactulose (Oral Use) [Cephulac -] 30 ml PO BID 02/13/17 Nadolol 10 mg PO DAILY 02/13/17 Glimepiride [Amaryl -] 2 mg PO DAILY@0700 tablet 02/18/17 Spironolactone [Aldactone -] 25 mg PO BID tablet 02/18/17 Tamsulosin HCl [Flomax -] 0.4 mg PO HS cap.er.24h 02/18/17 Aa/Hydrolyzed Collagen, Whey [Lps 15-30 Liquid] 30 ml PO BID 02/23/17 Albuterol 0.083% Nebulizer Linda [Ventolin 0.083%] 1 neb NEB Q4H PRN 02/23/17 Oxycodone HCl 5 mg PO Q4H PRN 02/23/17 Warfarin Sodium [Coumadin] 4 mg PO HS 02/23/17 Family Disease History - Family Disease History Family Disease History: Diabetes: Brother (protate cancer), CA: Brother Review of Systems - Review of Systems Constitutional: reports: Lethargy, Loss of Appetite HENT: reports: No Symptoms Cardiovascular: reports: No Symptoms Respiratory: reports: No Symptoms Gastrointestinal: reports: Bloating Genitourinary: reports: Dysuria Musculoskeletal: reports: Back Pain Physical Exam-GI Vital Signs: Vital Signs Temperature 98.7 F 02/22/17 23:17 Pulse Rate 65 02/23/17 08:56 Respiratory Rate 20 02/23/17 08:56 Blood Pressure 101/63 02/23/17 08:56 O2 Sat by Pulse Oximetry (%) 97 02/23/17 08:56 Laboratory Tests 02/23/17 02/23/17 02/23/17 02:50 02:50 07:40 WBC 8.1 Hgb 10.3 L Plt Count 288 Total Bilirubin 0.6 AST 61 H D ALT 21 Alkaline Phosphatase 340 H D Ammonia 43.23 H Albumin 1.8 L Constitutional: Yes: Other (Lethargic but conversant, not oriented to place or date but knows home address and children's names) Eyes: Yes: Conjunctiva Clear HENT: Yes: Normocephalic, Other (oral thrush) Neck: Yes: Supple Cardiovascular: Yes: Regular Rate and Rhythm, Other (left PPM) Respiratory: Yes: CTA Bilaterally Gastrointestinal Inspection: Yes: Ascites (is suspected), Scars (healed periumbilical incision) ...Auscultate: Yes: Hypoactive Bowel Sounds ...Palpate: Yes: Soft, Other (nontender) ...Rectal Exam: Yes: Deferred (unable to position patient properly, has malignant back pain) Breast(s): Yes: Gynecomastia (bilateral) Edema: LLE: 1+, RLE: 1+ Neurological: Yes: Confusion (encephalopathic) Psychiatric: Yes: Other (not oriented) Labs: CBC, BMP 02/23/17 07:40 02/23/17 02:50 INR, PTT INR 3.08 (0.82-1.09) H D 02/23/17 02:50 Imaging - Results Cat Scan: Report Reviewed (Landy Sheajyoti Name: WILMAN GARCIA V DEPARTMENT OF RADIOLOGY Phys: Hans Richards MD : 1930 Age: 86 Sex: M [facility] Acct: [id number] Loc: [facility] [address] [facility] Exam Date: 11/22/16 Status: REG REF [place] [address] Unit Number: [id number] EXAM#: TYPE/EXAM: RESULT: [id number] CT/ABDOMEN PELVIS CT WITH CONTR HISTORY PROVIDED: Prostate CA. Sequential axial images were obtained from the domes of the diaphragms through the symphysis pubis following the administration of both oral and intravenous contrast material. Evaluation of the lung bases demonstrates a small left pleural effusion with atelectatic changes of the left lower lobe. There is a trace amount of right pleural fluid as well. The heart is enlarged with a small pericardial effusion present. There is a trace amount of ascites about the liver. The liver is small in size and irregular in contour indicative of advanced hepatocellular disease. Clinical and laboratory correlation is recommended. No intrahepatic masses are identified. Thrombus is identified within the main portal vein. The thrombus does extend into the superior mesenteric vein. Duplex ultrasonography of the portal venous system is recommended for further evaluation. The spleen is not enlarged. The pancreas, adrenal glands and kidneys demonstrate no significant abnormalities. There is no evidence of intra-abdominal or retroperitoneal lymphadenopathy or fluid collections. Examination of the pelvis demonstrates no evidence of pelvic masses, fluid collections or lymphadenopathy. The prostate gland is inhomogeneous but not significantly enlarged. There is a right inguinal hernia containing fat and a portion of the urinary bladder. No bowel is contained within the hernia sac. There are sclerotic changes involving a large portion of the bony skeleton, most marked within the sacrum, pelvic bones and lumbar spine. This is consistent with the patient's known metastatic disease. IMPRESSION: 1. Cardiomegaly, pericardial effusion, left pleural effusion and basilar atelectasis. 2. Trace ascites. 3. Findings consistent with cirrhosis including portal vein thrombosis. Ultrasound follow- up recommended. 4. Right inguinal hernia. 5. No evidence of intra- abdominal or pelvic metastatic disease. 6. Diffuse bony metastases. Please see above discussion. Reported By: Isreal Toribio MD [address] Hans Richards Technologist: Paulino Arteaga Transcribed Date/Time: 11/22/16939 Director Of Retail Operations: Isreal Toribio Printed Date/Time : [ rep prt dt last] [ rep prt tm last] By: [ rep prt user last] Signed by: Isreal Toribio Signed on: 22-Nov-2016 09:40) Problem List - Problems (1) Alcoholic cirrhosis Assessment/Plan: Alcoholic cirrhosis with h/o esophageal varix bleed requiring banding, hepatic encephalopathy, portal vein thrombosis and now suspect ascites. No longer a liver transplant candidate. Prognosis is poor. I have discussed this with the daughter. He is at high risk of developing hepatorenal syndrome. Will order sonogram to assess for ascites. No hepatoma was seen on CT but will check AFP which should be repeated [id number] as well as sonography for screening. Code(s): K70.30 - ALCOHOLIC CIRRHOSIS OF LIVER WITHOUT ASCITES (2) Esophageal varices determined by endoscopy Assessment/Plan: If bleeding arises may maxim repeat banding. Would continue nadolol to lower portal hypertension Code(s): I85.00 - ESOPHAGEAL VARICES WITHOUT BLEEDING (3) Portal vein thrombosis Assessment/Plan: Already on coumadin Code(s): I81 - PORTAL VEIN THROMBOSIS (4) Thrush, oral Assessment/Plan: Nystatin ordered. Code(s): B37.0 - CANDIDAL STOMATITIS (5) Hepatic encephalopathy Assessment/Plan: Suspect that hepatic encephalopathy has been aggravated by a UTI but will screen stool for occult bleeding. Will add xifaxan Code(s): K72.90 - HEPATIC FAILURE, UNSPECIFIED WITHOUT COMA
--- NOTE | 2017-02-23 13:56 | PN ---
Progress Note (short form) - Note Progress Note: ID consult dictated imp/reccd 86 year old man history of metastatic prostate cancer recent admission for progressive weakness,received levaquin at that time discharged to NH for rehab, now admitted for the same he has known liver cirrhosis and portal vein thrombosis he has a chronic garcía catheter no fevers normal WBC elevated ammonia chronic garcía agree with nystatin for thrush generalized weakness, metastatic prostate cancer elevated ammonia level would f/u blood cultures/urine cultures continue rocephin for possible pneumonia given elevated ammonia
--- NOTE | 2017-02-23 14:21 | CON.NEURO ---
Consult - History of Present Illness History of Present Illness: 86 year old male history of metastatic prostate CA, alcohol cirrhosis , htn atrial fibrillation came with fatigue and confusion. There is no history of high grade fever, no headhace, no seizure , no arm leg weakness or facial droopiness or aphasia. 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: Dementia, Other (Hepatic encephalopathy) Cardio/Vascular: Yes: Other (complete heart block requiring a pacemaker) Gastrointestinal: Yes: Ascites, Esophageal Varices (variceal bleeed with banding at [facility]), GI Bleed Hepatobiliary: Yes: Cirrhosis (with esophageal varices, ascites, portal vein thrombosis) Renal/: Yes: BPH, Cancer (prostate cancer with sacral metastases on Lupron and Xtandi) Endocrine: Yes: Diabetes Mellitus - Past Surgical History Past Surgical History: Yes: Arthrosocopy (right knee), Colonoscopy, Hernia Repair (umbilical hernia repair), Permanent Pacemaker, Upper Endoscopy - Alcohol/Substance Use Hx Alcohol Use: Yes (quit 2001) History of Substance Use: reports: None - Smoking History Smoking history: Never smoked Have you smoked in the past 12 months: No Aproximately how many cigarettes per day: 0 - Social History Usual Living Arrangement: [facility] ADL: Family Assistance 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 History of Recent Travel: No Home Medications - Allergies Allergies/Adverse Reactions: Allergies Allergy/AdvReac Type Severity Reaction Status Date / Time No Known Allergies Allergy Verified 02/22/17 23:16 - Home Medications Home Medications: Ambulatory Orders Cyanocobalamin (Vitamin B-12) [Vitamin B12] 2,500 mcg PO DAILY 02/13/17 Enzalutamide [Xtandi] 160 mg PO DAILY 02/13/17 Lactulose (Oral Use) [Cephulac -] 30 ml PO BID 02/13/17 Nadolol 10 mg PO DAILY 02/13/17 Glimepiride [Amaryl -] 2 mg PO DAILY@0700 tablet 02/18/17 Spironolactone [Aldactone -] 25 mg PO BID tablet 02/18/17 Tamsulosin HCl [Flomax -] 0.4 mg PO HS cap.er.24h 02/18/17 Aa/Hydrolyzed Collagen, Whey [Lps 15-30 Liquid] 30 ml PO BID 02/23/17 Albuterol 0.083% Nebulizer Linda [Ventolin 0.083%] 1 neb NEB Q4H PRN 02/23/17 Oxycodone HCl 5 mg PO Q4H PRN 02/23/17 Warfarin Sodium [Coumadin] 4 mg PO HS 02/23/17 Family Disease History - Family Disease History Family Disease History: Diabetes: Brother (protate cancer), CA: Brother Physical Exam-Neuro Vital Signs: Vital Signs Temperature 98.7 F 02/22/17 23:17 Pulse Rate 65 02/23/17 08:56 Respiratory Rate 20 02/23/17 08:56 Blood Pressure 101/63 02/23/17 08:56 O2 Sat by Pulse Oximetry (%) 97 02/23/17 08:56 Labs: CBC, BMP 02/23/17 07:40 02/23/17 02:50 INR, PTT INR 3.08 (0.82-1.09) H D 02/23/17 02:50 Imaging - Results Cat Scan: Report Reviewed Assessment/Plan cc worsening of confusion HPI 86 year old male history of metastatic prostate CA, alcohol cirrhosis , htn atrial fibrillation came with fatigue and confusion. There is no history of high grade fever, no headhace, no seizure , no arm leg weakness or facial droopiness or aphasia. He had ct head done and it was unremarkable PMH as above SH,FH , ROS reviewed in chart and non contributory NKDA HOME MEDS Cyanocobalamin (Vitamin B-12) [Vitamin B12] 2,500 mcg PO DAILY 02/13/17 Enzalutamide [Xtandi] 160 mg PO DAILY 02/13/17 Lactulose (Oral Use) [Cephulac -] 30 ml PO BID 02/13/17 Nadolol 10 mg PO DAILY 02/13/17 Glimepiride [Amaryl -] 2 mg PO DAILY@0700 tablet 02/18/17 Spironolactone [Aldactone -] 25 mg PO BID tablet 02/18/17 Tamsulosin HCl [Flomax -] 0.4 mg PO HS cap.er.24h 02/18/17 Aa/Hydrolyzed Collagen, Whey [Lps 15-30 Liquid] 30 ml PO BID 02/23/17 Albuterol 0.083% Nebulizer Linda [Ventolin 0.083%] 1 neb NEB Q4H PRN 02/23/17 Oxycodone HCl 5 mg PO Q4H PRN 02/23/17 Warfarin Sodium [Coumadin] 4 mg PO HS 02/23/17 Neurological Examination Alert and able to follow command, speech is normal and slow on asking where is he, he says he is in [place], date he do not follow and said it is saturday today neck is supple, eomi, pupils is reactive no face asymmetry moving all extremity Sensory exam is unremarkable ct head is normal A/P-Metabolic Encephalopathy ( hepatic and pneumonia) , Unlikely to be Meningitis , stroke or status epilepticus Plan- suggest to do b12,folate tsh , no need for mri of brain or eeg at this time Thanking you so much Alfredo Noonan MD
[2017-02-23] MEDS: ALBUTEROL SO4 0.083% IH SOL 2.5 MG/3 ML VIAL.NEB. NEB SCH ×3 (14:23→23:11)
[2017-02-23] MEDS ORDERED: WARFARIN NA 2 MG TABLET (UD) PO SCH (18:00)
[2017-02-23] MEDS: ENZALUTAMIDE 40 MG PO SCH (18:29)
[2017-02-23] MEDS: NYSTATIN 500,000 UNITS/5 ML SUSPENSION PO SCH (18:30)
[2017-02-23] MEDS ORDERED: PT OWN MED DRAWER 7, Y5N ONE (18:47)
[2017-02-23] MEDS: MAG HYDROX/ALH/SMC/DPHA/LIDO 240 ML MOUTHWASH MM SCH (19:37)
--- NOTE | 2017-02-23 21:29 | EKG ---
Test Reason : Blood Pressure : / mmHG Vent. Rate : 065 BPM Atrial Rate : 288 BPM P-R Int : 000 ms QRS Dur : 154 ms QT Int : 476 ms P-R-T Axes : 000 -79 067 degrees QTc Int : 495 ms Ventricular-paced rhythm ABNORMAL ECG WHEN COMPARED WITH ECG OF 12-FEB-2017 19:56, NO SIGNIFICANT CHANGE WAS FOUND Confirmed by WON DUARTE MD (2016) on 02/23/2017 9:28:45 PM Referred By: Confirmed By:WON DURATE MD
[2017-02-23] MEDS: RIFAXIMIN 550 MG TABLET (UD) PO SCH (22:03)
[2017-02-23] MEDS: TAMSULOSIN HCL 0.4 MG CAP.ER.24H (FP) PO SCH (22:03)
[2017-02-24] MEDS: NYSTATIN 500,000 UNITS/5 ML SUSPENSION PO SCH ×3 (00:02→12:23)
[2017-02-24] MEDS: MAG HYDROX/ALH/SMC/DPHA/LIDO 240 ML MOUTHWASH MM SCH ×3 (00:02→12:23)
[2017-02-24] MEDS: INSULIN SLIDING SCALE (NOVOLOG) 1 VIAL SQ SCH ×4 (06:20→22:04)
[2017-02-24] MEDS: GLIMEPIRIDE 2 MG TABLET (FP) PO SCH (06:20)
[2017-02-24] MEDS: ALBUTEROL SO4 0.083% IH SOL 2.5 MG/3 ML VIAL.NEB. NEB SCH (06:43)
[2017-02-24 07:08] LABS: BASO % 0.2 % (0-2.0); EOS % 0.2 % (0-4.5); MCHC 33.1 g/dl (32.0-35.9); MEAN CELL VOLUME 81.6 fl (80-96); MEAN PLT VOLUME 7.9 fl (7.5-11.1); NEUT % 78.3 % (42.8-82.8); PLATELET COUNT 290 K/MM3 (134-434)
[2017-02-24 07:32] LABS: BILIRUBIN,TOTAL 0.7 mg/dL (0.2-1.0); TOT PROT 5.5 g/dl (6.4-8.2)
[2017-02-24 07:34] LABS: ALBUMIN 1.8 g/dl (3.4-5.0); ANION GAP 10 (8-16); CALCIUM 7.8 mg/dL (8.5-10.1); CO2 24 mmol/L (21-32); CREATININE 0.5 mg/dL (0.7-1.3); GLUCOSE,RANDOM 224 mg/dL (74-106); SGOT/AST 52 U/L (15-37); SGPT/ALT 19 U/L (12-78)
[2017-02-24 07:41] LABS: ALK PHOS 420 U/L (45-117); THYROID STIMULATING HORMONE 1.39 uIU/ml (0.358-3.74)
[2017-02-24 07:43] LABS: FERRITIN 1105.968 ng/ml (16.4-293.9)
[2017-02-24] MEDS: SPIRONOLACTONE 25 MG TABLET (FP) PO SCH ×2 (09:56→21:38)
[2017-02-24] MEDS: NADOLOL 20 MG TABLET (FP) PO SCH (09:56)
[2017-02-24] MEDS: RIFAXIMIN 550 MG TABLET (UD) PO SCH ×2 (09:56→21:38)
[2017-02-24] MEDS: LACTULOSE 20 GM/30 ML UDC (FOR ORAL USE ONLY) PO SCH ×2 (09:56→21:38)
[2017-02-24] MEDS ORDERED: CEFTRIAXONE 1 G/50 ML PREMIX 50 ML IVPB SCH ×2 (10:00→10:30)
[2017-02-24] MEDS ORDERED: ALBUTEROL SO4 0.083% IH SOL 2.5 MG/3 ML VIAL.NEB. NEB PRN (10:13)
[2017-02-24] MEDS ORDERED: CEFTRIAXONE 1 GM in DEXTROSE 5%-WATER - 50 ML IVPB SCH (10:15)
[2017-02-24 10:38] LABS: INR 3.51 (0.82-1.09); PROTHROMBIN TIME (PATIENT) 39.7 SEC (9.98-11.88)
[2017-02-24] MEDS: ALBUTEROL SO4 2.5/IPRATROPIUM 0.5 INH SOL 3 ML VIAL.NEB. NEB SCH ×2 (11:22→18:55)
[2017-02-24] MEDS ORDERED: INSULIN (NOVOLOG) ASPART 100 UNITS/ML 10ML VIAL ONE ×2 (12:11→22:04)
[2017-02-24] MEDS ORDERED: PT OWN MED DRAWER 7, Y5N ONE ×2 (12:13→17:35)
--- NOTE | 2017-02-24 12:25 | CONS ---
DATE OF CONSULTATION: 02/23/2017 REQUESTED BY: Zenobia Chow MD This is an 86-year-old man who was recently in the hospital from February 12 to February 18. At that time, we were asked to see him for possible UTI. We felt he did not have a UTI but he was treated with a short course of Levaquin. He has a history of liver cirrhosis, metastatic prostate cancer with mets to his bone. He is status post 2 rounds of radiation. He has a history of atrial fibrillation, on Coumadin, hypertension, diabetes, and he was admitted for increasing weakness. He was evaluated. He had imaging of his back in the hospital. He was evaluated by Neurology and by Radiation Oncology as well as GI. He was discharged to rehab from the hospital. He was now re-admitted with apparently continued weakness and mild confusion. There is no fever, there is no chills. He has a chronic Bonilla catheter. Currently he is awake and alert. The reports he is at his baseline and reports that his only complaint is chronic back pain. He has been getting pain medicine at the senior care. He has no known drug allergies. His past medical history is notable for dementia. He has a history of hepatic encephalopathy. He has a history of a pacemaker, ascites, esophageal varices, GI bleed, cirrhosis. He has portal vein thrombosis, BPH, prostate cancer with bone metastases, anemia, B12 deficiency, and diabetes. SURGICAL HISTORY: Status post arthroscopy, hernia repair, and he has a pacemaker. SOCIAL HISTORY: Prior to the senior care admission, he was home with his . He quit using alcohol in 2001. No history of cigarette use. 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. His medications include vitamin B12, Xtandi, lactulose, nadolol, glimepiride, spironolactone, Flomax, albuterol, oxycodone, and warfarin. Family history is notable for diabetes and prostate cancer. Review of systems is notable for lethargy, loss of appetite, generalized weakness. There has been no fevers or chills. He has a chronic Bonilla catheter. PHYSICAL EXAMINATION: General: He is awake. He is resting comfortably in bed. Vital Signs: Temperature is 98.7. Pulse is 65. Blood pressure 119/64. Respiratory rate is 14. HEENT: He is normocephalic. His eyes are anicteric. Neck: Supple. Lungs: Clear to auscultation. Heart: Regular rate and rhythm. Genitourinary: He has a Bonilla in place. Extremities: Without edema. White count 8.1, hemoglobin 10.3, platelets 288. BUN 28, creatinine 0.6, bilirubin is 0.6, with an alkaline phosphatase of 340. His ammonia is elevated at 2. His urinalysis is notable for 3+ leukocyte esterase with no white cells. His blood and urine cultures are pending from his last admission. He had an enterococcus in his urine that was sensitive to Levaquin, and he had received a course of Levaquin. This time on admission he received ceftriaxone and Levaquin. Chest x-ray is unchanged for cardiomegaly. In summary, this is an 86-year-old man admitted with worsening weakness, mild hepatic encephalopathy. He has no fevers and a normal white count with a chronic Bonilla. I would agree with nystatin for thrush. I doubt he has a UTI, as the UA has no white cells and he has a chronic Bonilla. I would follow up his cultures. He received ceftriaxone and Levaquin today. continue rocephin for possible LLL pneumonia given elevated ammonia Further recommendations to follow. GRACE GARCIA M.D. [id number] MTDD
--- NOTE | 2017-02-24 14:35 | PN ---
Progress Note, Physician History of Present Illness: MORE AWAKE - Current Medication List Current Medications: Active Medications Albuterol Sulfate (Ventolin 0.083% Nebulizer Soln -) 1 amp NEB Q4H PRN PRN Reason: SHORT OF BREATH/WHEEZING Albuterol/Ipratropium (Duoneb -) 1 amp NEB QIDR [facility] Last Admin: 02/24/17 11:22 Dose: 1 amp Amino Acids (Prosource No Carb Liquid Pkt) 30 ml PO BID@0800,1730 [facility] Glimepiride (Amaryl -) 2 mg PO DAILY@0700 [facility] Last Admin: 02/24/17 06:20 Dose: 2 mg CEFTRIAXONE 1 G/50 ML PREMIX (Ceftriaxone 1 Gm-D5w Bag) 50 mls @ 100 mls/hr IVPB DAILY [facility] Last Admin: 02/24/17 12:23 Dose: 100 mls/hr Insulin Aspart (Novolog Vial Sliding Scale -) 1 vial SQ ACHS MAHENDRA PRN Reason: Protocol Last Admin: 02/24/17 12:24 Dose: Not Given Lactulose (Cephulac (Oral Use)) 20 gm PO BID [facility] Last Admin: 02/24/17 09:56 Dose: 20 gm Lidocaine/Aluminum/Magnesium/Simeth (Magic Mouthwash *Sjr Formula* -) 5 ml MM Q6HPO [facility] Last Admin: 02/24/17 12:23 Dose: 5 ml Nadolol (Corgard -) 10 mg PO DAILY [facility] Last Admin: 02/24/17 09:56 Dose: 10 mg Enzalutamide [Xtandi ] 40 Mg Capsule (Pt' s Own) 0 mg PO DAILY@1800 [facility] Last Admin: 02/23/17 18:29 Dose: 160 mg Nystatin (Nystatin Oral Suspension -) 500,000 units PO Q6HPO [facility] Last Admin: 02/24/17 12:23 Dose: 500,000 units Oxycodone HCl (Roxicodone -) 5 mg PO Q4H PRN PRN Reason: PAIN Rifaximin (Xifaxan -) 550 mg PO BID [facility] Last Admin: 02/24/17 09:56 Dose: 550 mg Spironolactone (Aldactone -) 25 mg PO BID [facility] Last Admin: 02/24/17 09:56 Dose: 25 mg Tamsulosin HCl (Flomax -) 0.4 mg PO HS [facility] Last Admin: 02/23/17 22:03 Dose: 0.4 mg Warfarin Sodium (Coumadin -) 4 mg PO DAILY@1800 [facility] Last Admin: 02/23/17 18:29 Dose: 4 mg - Objective Vital Signs: Vital Signs Temperature 98.6 F 02/24/17 14:25 Pulse Rate 84 02/24/17 14:25 Respiratory Rate 16 02/24/17 14:25 Blood Pressure 126/72 02/24/17 14:25 O2 Sat by Pulse Oximetry (%) 97 02/24/17 09:00 Cardiovascular: Yes: S1, S2 Respiratory: Yes: Regular, CTA Bilaterally Gastrointestinal: Yes: Normal Bowel Sounds, Soft, Distention Labs: CBC, BMP 02/24/17 06:20 02/24/17 06:20 INR, PTT INR 3.51 (0.82-1.09) H 02/24/17 10:07 Problem List - Problems (1) Pneumonia Assessment/Plan: IV ABX FOLLOW UP CXR Code(s): J18.9 - PNEUMONIA, UNSPECIFIED ORGANISM (2) Hepatic encephalopathy Assessment/Plan: LACTULOSE MONITOR AMMONIA LEVEL--44 GI CONSULT Code(s): K72.90 - HEPATIC FAILURE, UNSPECIFIED WITHOUT COMA (3) Diabetes 1.5, managed as type 2 Assessment/Plan: BGM W SS Code(s): E10.9 - TYPE 1 DIABETES MELLITUS WITHOUT COMPLICATIONS (4) Mental status change Assessment/Plan: TREAT INFECTION MONITOR MS CT OF HEAD Code(s): R41.82 - ALTERED MENTAL STATUS, UNSPECIFIED (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 Code(s): C61 - MALIGNANT NEOPLASM OF PROSTATE; C79.51 - SECONDARY MALIGNANT NEOPLASM OF BONE (6) UTI (urinary tract infection) Assessment/Plan: ABX CULTURES UROLOGY--MIGUEL CHANGE? Code(s): N39.0 - URINARY TRACT INFECTION, SITE NOT SPECIFIED Qualifiers: Urinary tract infection type: site unspecified Hematuria presence: with hematuria Qualified Code(s): N39.0 - Urinary tract infection, site not specified (7) Urinary retention Assessment/Plan: MIGUEL UROLOGY Code(s): R33.9 - RETENTION OF URINE, UNSPECIFIED
[2017-02-24] MEDS: AMINO ACIDS/PROTEIN HYDROLYS 30 ML LIQUID.PKT PO SCH (17:40)
[2017-02-24] MEDS: ENZALUTAMIDE 40 MG PO SCH (17:40)
--- NOTE | 2017-02-24 21:10 | HOSP ---
Subjective - Review of Symptoms Subjective: Pt. Seen at Bedside for fever 102 and inc RR of 25 - No chest pain or pressure - Family at bedside worried pt. not peeing - Calador for fever, Already cultured reccomend changing garcía and Ua, Ucx - Increase Ceftriaxone to 2g to treat for possible SBP, recc. drainage if possible - Stat LA, Repeat CXR - Bladder scan to eval for retention, Urology on consult - Dr. Hernandez to be notified, by nurse - Family at bedside understood plan of care and carefully explained - Will follow pt. and labs, with low threshold to transfer to tele/icu - Rest as per resident note Physical Examination Vital Signs: Vital Signs Temperature 102.6 F H 02/24/17 19:44 Pulse Rate 65 02/24/17 19:44 Respiratory Rate 42 H 02/24/17 19:44 Blood Pressure 124/64 02/24/17 19:44 O2 Sat by Pulse Oximetry (%) 97 02/24/17 09:00 Labs: CBC, BMP 02/24/17 06:20 02/24/17 06:20
[2017-02-24] MEDS ORDERED: FUROSEMIDE 40 MG/4 ML INJECTABLE VIAL IVPUSH ONE (21:15)
--- NOTE | 2017-02-24 21:17 | HOSP ---
Physical Examination Vital Signs: Vital Signs Temperature 102.6 F H 02/24/17 19:44 Pulse Rate 65 02/24/17 19:44 Respiratory Rate 42 H 02/24/17 19:44 Blood Pressure 124/64 02/24/17 19:44 O2 Sat by Pulse Oximetry (%) 97 02/24/17 09:00 Labs: CBC, BMP 02/24/17 06:20 02/24/17 06:20 Hospitalist Encounter Assessment: Paged by RN for fever of 102.6 and tachypnea. Patient seen and examined. Family concerned as patient has not urinated much today. Patient with an indwelling garcía x 7 days. PE: General: Patient resting in bed. +Jaundice. Heart: s1s2, rrr Lungs: Decreased breath sounds at L base Abdomen: +Abdominal distention, +Ascites, +BS, nontender A/P- Concern for SBP vs worsening pneumonia vs UTI. Recommendations: Increase Ceftriaxone to 2g daily, hold Ceftriaxone 1 g. Add Vancomycin 1g Stat UA Stat Urine culture Stat Lactic acid Repeat CXR Recommend changing garcía catheter Ibuprofen for fever Bladder scan to evaluate urinary retention No Bcx ordered as patient had from the night prior Will continue to monitor throughout the night Case discussed with team. Visit type - Emergency Visit Emergency Visit: Yes ED Registration Date: 02/23/17 Care time: The patient presented to the Emergency Department on the above date and was hospitalized for further evaluation of their emergent condition. - New Patient This patient is new to me today: Yes Date on this admission: 02/25/17 - Critical Care Critical Care patient: No
[2017-02-24] MEDS ORDERED: IBUPROFEN 800 MG/8 ML IJ IVPB ONE (21:18)
[2017-02-24] MEDS ORDERED: VANCOMYCIN 1 GRAM (PRE-DOCKED) 1,000 MG/250 ML BAG IVPB ONE (21:30)
[2017-02-24] MEDS: TAMSULOSIN HCL 0.4 MG CAP.ER.24H (FP) PO SCH (21:38)
[2017-02-24 22:55] LABS: URINE APPEARANCE SLCLOUDY; URINE BILIRUBIN NEGATIVE (NEGATIVE); URINE BLOOD 1+ (NEGATIVE); URINE COLOR YELLOW; URINE GLUCOSE (UA) NEGATIVE (NEGATIVE); URINE KETONE NEGATIVE (NEGATIVE); URINE NITRITE NEGATIVE (NEGATIVE)
[2017-02-24 22:58] LABS: URINE LEUK ESTERASE 2+ (NEGATIVE); URINE PROTEIN 1+ (NEGATIVE)
[2017-02-24 22:59] LABS: URINE MUCUS RARE; URINE RBC 23 /hpf (0-3); URINE WBC 42 /hpf (3-5); YEAST FEW
[2017-02-25] MEDS: ALBUTEROL SO4 2.5/IPRATROPIUM 0.5 INH SOL 3 ML VIAL.NEB. NEB SCH ×5 (00:23→23:05)
[2017-02-25] MEDS ORDERED: INSULIN (NOVOLOG) ASPART 100 UNITS/ML 10ML VIAL ONE ×2 (05:15→21:04)
[2017-02-25 06:06] LABS: SERUM IRON 19 ug/dL (38-169); TOTAL IRON BINDING CAPACITY 171 ug/dL (250-450); UIBC 152 ug/dL (111-343)
[2017-02-25] MEDS: GLIMEPIRIDE 2 MG TABLET (FP) PO SCH (06:09)
[2017-02-25] MEDS: INSULIN SLIDING SCALE (NOVOLOG) 1 VIAL SQ SCH ×4 (06:09→21:56)
[2017-02-25 07:34] LABS: BASO % 0.4 % (0-2.0); EOS % 0.8 % (0-4.5); MCH 26.9 pg (25.7-33.7); MCHC 32.8 g/dl (32.0-35.9); MEAN CELL VOLUME 82.2 fl (80-96); MEAN PLT VOLUME 7.9 fl (7.5-11.1); NEUT % 70.7 % (42.8-82.8); PLATELET COUNT 246 K/MM3 (134-434); WHITE BLOOD COUNT 6.5 K/mm3 (4.0-10.0)
[2017-02-25 07:46] LABS: INR 2.35 (0.82-1.09); PROTHROMBIN TIME (PATIENT) 26.5 SEC (9.98-11.88)
[2017-02-25] MEDS: CEFTRIAXONE 2 GM in DEXTROSE 5%-WATER - 100 ML IVPB SCH ×2 (07:57→10:13)
[2017-02-25 08:37] LABS: ALBUMIN 1.5 g/dl (3.4-5.0); ALK PHOS 309 U/L (45-117); ANION GAP 12 (8-16); BILIRUBIN,TOTAL 0.7 mg/dL (0.2-1.0); CALCIUM 7.4 mg/dL (8.5-10.1); CO2 24 mmol/L (21-32); CREATININE 0.5 mg/dL (0.7-1.3); GLUCOSE,RANDOM 168 mg/dL (74-106); SGOT/AST 29 U/L (15-37); SGPT/ALT 14 U/L (12-78); TOT PROT 4.8 g/dl (6.4-8.2)
[2017-02-25] MEDS ORDERED: VANCOMYCIN 1 GRAM (PRE-DOCKED) 1,000 MG/250 ML BAG IVPB SCH (10:00)
[2017-02-25] MEDS: SPIRONOLACTONE 25 MG TABLET (FP) PO SCH ×2 (10:13→21:57)
[2017-02-25] MEDS: NADOLOL 20 MG TABLET (FP) PO SCH (10:13)
[2017-02-25] MEDS: LACTULOSE 20 GM/30 ML UDC (FOR ORAL USE ONLY) PO SCH ×2 (10:14→21:56)
[2017-02-25] MEDS: RIFAXIMIN 550 MG TABLET (UD) PO SCH ×2 (10:14→21:57)
[2017-02-25] MEDS: AMINO ACIDS/PROTEIN HYDROLYS 30 ML LIQUID.PKT PO SCH ×2 (10:14→17:55)
--- NOTE | 2017-02-25 10:21 | PN ---
Progress Note, Physician Chief Complaint: Weakness, Hepatic encephalopathy History of Present Illness: NAD, events overnight noted CXR unremarkable temps improved UC pending lactic acidosis BUN elevated, BP low end, asymptomatic IV abx seen by ID and GI on lactulose with 3-4 BM's per day - Current Medication List Current Medications: Active Medications Albuterol Sulfate (Ventolin 0.083% Nebulizer Soln -) 1 amp NEB Q4H PRN PRN Reason: SHORT OF BREATH/WHEEZING Albuterol/Ipratropium (Duoneb -) 1 amp NEB QIDR [facility] Last Admin: 02/25/17 06:47 Dose: 1 amp Amino Acids (Prosource No Carb Liquid Pkt) 30 ml PO BID@0800,1730 [facility] Last Admin: 02/25/17 10:14 Dose: 30 ml Glimepiride (Amaryl -) 2 mg PO DAILY@0700 [facility] Last Admin: 02/25/17 06:09 Dose: 2 mg Ceftriaxone Sodium 2 gm/ (Dextrose) 100 mls @ 200 mls/hr IVPB DAILY [facility] Last Admin: 02/25/17 10:13 Dose: 200 mls/hr Insulin Aspart (Novolog Vial Sliding Scale -) 1 vial SQ ACHS [facility] PRN Reason: Protocol Last Admin: 02/25/17 06:09 Dose: Not Given Lactulose (Cephulac (Oral Use)) 20 gm PO BID [facility] Last Admin: 02/25/17 10:14 Dose: 20 gm Nadolol (Corgard -) 10 mg PO DAILY [facility] Last Admin: 02/25/17 10:13 Dose: 10 mg Enzalutamide [Xtandi ] 40 Mg Capsule (Pt' s Own) 0 mg PO DAILY@1800 [facility] Last Admin: 02/24/17 17:40 Dose: Not Given Oxycodone HCl (Roxicodone -) 5 mg PO Q4H PRN PRN Reason: PAIN Rifaximin (Xifaxan -) 550 mg PO BID [facility] Last Admin: 02/25/17 10:14 Dose: 550 mg Spironolactone (Aldactone -) 25 mg PO BID [facility] Last Admin: 02/25/17 10:13 Dose: 25 mg Tamsulosin HCl (Flomax -) 0.4 mg PO HS [facility] Last Admin: 02/24/17 21:38 Dose: 0.4 mg Vancomycin HCl (Vancomycin (Pre-Docked)) 1,000 mg IVPB DAILY [facility] PRN Reason: Protocol Warfarin Sodium (Coumadin -) 2 mg PO DAILY@1800 [facility] Warfarin Sodium (Coumadin -) 4 mg PO DAILY@1800 [facility] - Objective Vital Signs: Vital Signs Temperature 97.9 F 02/25/17 06:00 Pulse Rate 71 02/25/17 06:00 Respiratory Rate 20 02/25/17 06:00 Blood Pressure 92/58 02/25/17 06:00 O2 Sat by Pulse Oximetry (%) 95 02/24/17 21:00 Constitutional: Yes: Well Nourished, No Distress, Calm Cardiovascular: Yes: Regular Rate and Rhythm Respiratory: Yes: Regular Labs: CBC, BMP 02/25/17 06:30 02/25/17 06:30 INR, PTT INR 2.35 (0.82-1.09) H D 02/25/17 06:30 Problem List - Problems (1) Lactic acidosis Assessment/Plan: -gentle IVF -repeat in AM Code(s): E87.2 - ACIDOSIS (2) Urinary retention Assessment/Plan: -Bonilla replaced -UC pending -on Tamsulosin Code(s): R33.9 - RETENTION OF URINE, UNSPECIFIED (3) Mental status change Code(s): R41.82 - ALTERED MENTAL STATUS, UNSPECIFIED (4) Prostate carcinoma Code(s): C61 - MALIGNANT NEOPLASM OF PROSTATE (5) Hepatic encephalopathy Assessment/Plan: -ammonia levels remain elevated -lactulose -repeat in AM -seen by GI Code(s): K72.90 - HEPATIC FAILURE, UNSPECIFIED WITHOUT COMA (6) Alcoholic cirrhosis Code(s): K70.30 - ALCOHOLIC CIRRHOSIS OF LIVER WITHOUT ASCITES Assessment/Plan see problem list -Barrium swallow today
[2017-02-25] MEDS ORDERED: SODIUM CHLORIDE 1,000 ML IV SCH (10:30)
--- NOTE | 2017-02-25 11:11 | PN ---
Progress Note (short form) - Note Progress Note: febrile to 102.6 overnight, afebrile now interestingly no blood cultures were ordered cxray was repeated and shows LLL infiltrate received a dose of vancomycin overnight no abdominal pain Vital Signs Period Temp Pulse Resp BP Sys/Drummond Pulse Ox Last 24 Hr 97.9 F-102.6 F 65-84 16-42 92-126/50-72 95 cor-rrr llungs decreased bs at bases abd soft,NT ext no edema +garcía CBC, BMP 02/25/17 06:30 02/25/17 06:30 Microbiology 02/23/17 02:50 Blood - Peripheral Venous Blood Culture - Preliminary NO GROWTH OBTAINED AFTER 48 HOURS, INCUBATION TO CONTINUE FOR 3 DAYS. 02/23/17 02:50 Blood - Peripheral Venous Blood Culture - Preliminary NO GROWTH OBTAINED AFTER 48 HOURS, INCUBATION TO CONTINUE FOR 3 DAYS. 02/23/17 04:10 Urine - Urine Clean Catch Urine Culture - Final Contaminated: Please Repeat Current Medications Albuterol Sulfate (Ventolin 0.083% Nebulizer Soln -) 1 amp NEB Q4H PRN PRN Reason: SHORT OF BREATH/WHEEZING Albuterol/Ipratropium (Duoneb -) 1 amp NEB QIDR [facility] Last Admin: 02/25/17 06:47 Dose: 1 amp Amino Acids (Prosource No Carb Liquid Pkt) 30 ml PO BID@0800,1730 [facility] Last Admin: 02/25/17 10:14 Dose: 30 ml Glimepiride (Amaryl -) 2 mg PO DAILY@0700 [facility] Last Admin: 02/25/17 06:09 Dose: 2 mg Ceftriaxone Sodium 2 gm/ (Dextrose) 100 mls @ 200 mls/hr IVPB DAILY [facility] Last Admin: 02/25/17 10:13 Dose: 200 mls/hr Sodium Chloride (Normal Saline -) 1,000 mls @ 50 mls/hr IV ASDIR [facility] Stop: 02/26/17 10:16 Insulin Aspart (Novolog Vial Sliding Scale -) 1 vial SQ ACHS [facility] PRN Reason: Protocol Last Admin: 02/25/17 06:09 Dose: Not Given Lactulose (Cephulac (Oral Use)) 20 gm PO BID [facility] Last Admin: 02/25/17 10:14 Dose: 20 gm Nadolol (Corgard -) 10 mg PO DAILY [facility] Last Admin: 12/11/17 10:13 Dose: 10 mg Enzalutamide [Xtandi ] 40 Mg Capsule (Pt' s Own) 0 mg PO DAILY@1800 [facility] Last Admin: 02/24/17 17:40 Dose: Not Given Oxycodone HCl (Roxicodone -) 5 mg PO Q4H PRN PRN Reason: PAIN Rifaximin (Xifaxan -) 550 mg PO BID [facility] Last Admin: 02/25/17 10:14 Dose: 550 mg Spironolactone (Aldactone -) 25 mg PO BID [facility] Last Admin: 02/25/17 10:13 Dose: 25 mg Tamsulosin HCl (Flomax -) 0.4 mg PO HS [facility] Last Admin: 02/24/17 21:38 Dose: 0.4 mg Vancomycin HCl (Vancomycin (Pre-Docked)) 1,000 mg IVPB DAILY [facility] PRN Reason: Protocol Warfarin Sodium (Coumadin -) 2 mg PO MoWeFr [facility] Warfarin S[facility]madin -) [facility]- if fever recurs would obtain blood cultures f/u urine culture continue rocephin for possible pneumonia liver sono with ascites but he has no abdominal pain s/p vancomycin one dose liver cirrhosis with portal vein thrombosis-on anticoagulation metastatic prostate cancer with bony mets palliative care -?goals of care
--- NOTE | 2017-02-25 13:05 | CONSULT ---
Admitting History and Physical - Primary Care Physician PCP: Zenobia Chow - Admission History of Present Illness: possible pneumonia liver sono with ascites liver cirrhosis with portal vein thrombosis metastatic prostate cancer with bony mets Per RD:suboptimal nutrition intake r/t advanced age, altered GI function, dependence on feeding and h/o reduced appetite as evidenced by interview w/ pt daughter revealing pt is picky eater, requiring total assistance at meals and doesn't complete meals, coughing episode on fluids per [employer] notes. History Source: Family Member, Medical Record Limitations to Obtaining History: Clinical Condition, Dementia - Past Medical History ONION TIER: Yes: Dementia, Other (Hepatic encephalopathy) Cardiovascular: Yes: Other (complete heart block requiring a pacemaker) Gastrointestinal: Yes: Ascites, Esophageal Varices (variceal bleeed with banding at [facility]), GI Bleed Hepatobiliary: Yes: Cirrhosis (with esophageal varices, ascites, portal vein thrombosis) Renal/: Yes: BPH, Cancer (prostate cancer with sacral metastases on Lupron and Xtandi) Heme/Onc: Yes: Anemia, B12 Deficiency Endocrine: Yes: Diabetes Mellitus - Past Surgical History Past Surgical History: Yes: Arthrosocopy (right knee), Colonoscopy, Hernia Repair (umbilical hernia repair), Permanent Pacemaker, Upper Endoscopy - Smoking History Smoking history: Never smoked Have you smoked in the past 12 months: No Aproximately how many cigarettes per day: 0 - Alcohol/Substance Use Hx Alcohol Use: Yes (quit 2001) History of Substance Use: reports: None - Social History ADL: Family Assistance 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 History of Recent Travel: No History - Admission Reason For Visit: HEPATIC ENCEPHALOPATHY - Diagnostics X-ray: Report Reviewed (LLL infiltrate) CT Scan: Report Reviewed - General Mental Status: Awake and Alert, Able to Follow Commands Attention: Distractible, Mild Impairment Ability to Follow Directions: Fair Head/Neck Control: WFL - Hearing Hearing: Normal Speech Evaluation - Communication Primary Language: NEPALESE Communication: Yes: Simple Responses, Language Barrier - Speech Production Able to Make Needs Known: Yes: WNL Intelligibility: Yes: WNL - Speech Characteristics Voice Loudness: Normal Voice Pitch: Yes: Normal Voice Phonatory-based Quality: Yes: Normal Speech Pattern: Normal Speech Clarity: < 100% Nasal Resonance: Normal Articulation: Yes: Precise - Language/Auditory Comprehension Follows: Yes: 1 Stage Simple Commands - Swallow Evaluation/Bedside Assessment Current Nutritional Intake: Dysphagia Pureed, Thin Liquids Dentition: Yes: Adequate, Dental Appliance Upper, Dental Appliance Lower Facial Symmetry at Rest: Facial Droop Right Pucker Lips: Normal Smile: Normal Lingual Movement: Normal, Symmetric, Other (treaTEDFOR THRUSH) Lingual Movement Strgth Against Opposition: Normal Lingual Movement Characteristics: Normal Velopharyngeal Movement: Normal Laryngeal Movement: Able to Palpate Rate of Intake: WFL Labial Seal: WFL Chewing: WFL Oral Prep Time: WFL A-P Transit: WFL Pocketing: None Timing of Swallow: Delayed Coughing/Throat Clear: Yes (intermittent on thin liquid) Recommendations - Speech Evaluation, Impression/Plan Impression: r/o intermittent asp on thin liquid. Family reports orakl gholding on solids, not demonstrated today for me. - Dysphagia Impressions/Plan Dysphagia Impressions: Risk of Aspiration, Ongoing Evaluation *Silent aspiration: cannot be R/O at bedside Recommendations: Modified Barium Swallow - Recommendations Diet Consistency: Dysphagia Pureed Medication Administration: Crushed with applesauce Liquids: [place] Thick Supplement: Other (ensure compact)
[2017-02-25] MEDS ORDERED: PT OWN MED DRAWER 7, Y5N ONE ×2 (17:45→19:01)
[2017-02-25] MEDS: ENZALUTAMIDE 40 MG PO SCH (17:48)
[2017-02-25] MEDS: WARFARIN NA 2 MG TABLET (UD) PO SCH (17:55)
[2017-02-25 18:52] LABS: URINE LEUK ESTERASE TRACE (NEGATIVE)
[2017-02-25] MEDS: TAMSULOSIN HCL 0.4 MG CAP.ER.24H (FP) PO SCH (21:56)
--- NOTE | 2017-02-25 22:06 | PN ---
GI Progress Note Subjective: Gi NOte: Appears to be very feeble. Urine output diminishing. BUN is quite elevated for a cirrhotic but this and the creatinine have been stable. He is at risk of developing hepatorenal syndrome. Sonogram confirms moderate ascites but need to refrain from paracenteses until his renal function improves. His encephalopathy has improves. I have discussed his situation with his son, daughter and . - Objective Vital Signs: Vital Signs Temperature 98.3 F 02/25/17 16:30 Pulse Rate 64 02/25/17 16:30 Respiratory Rate 18 02/25/17 16:30 Blood Pressure 119/62 02/25/17 16:30 O2 Sat by Pulse Oximetry (%) 96 02/25/17 09:00 CBC, [facility] 02/25/17 06:30 02/25/17 06:30 Constitutional: Other (Feeble, interactive) Gastrointestinal Inspection: Yes: Distention ...Auscultate: Yes: Hypoactive Bowel Sounds ...Palpate: Yes: Soft, Other (nontender) ...Percussion: Yes: Tympanitic Labs: CBC, [facility] 02/25/17 06:30 02/25/17 06:30 INR, PTT INR 2.35 (0.82-1.09) H D 02/25/17 06:30 Laboratory Tests 02/23/17 02/24/17 02/24/17 02:50 06:20 06:20 Hgb 10.5 L BUN Creatinine Ferritin 1105.968 H Total Bilirubin 0.7 AST 52 H ALT 19 Alkaline Phosphatase 420 H D Ammonia 47.22 H 02/25/17 02/25/17 06:30 06:30 Hgb 9.7 L BUN 27 H Creatinine 0.5 L Ferritin Total Bilirubin 0.7 AST 29 D ALT 14 D Alkaline Phosphatase 309 H D Ammonia Problem List - Problems (1) Alcoholic cirrhosis Code(s): K70.30 - ALCOHOLIC CIRRHOSIS OF LIVER WITHOUT ASCITES (2) Esophageal varices determined by endoscopy Code(s): I85.00 - ESOPHAGEAL VARICES WITHOUT BLEEDING (3) Portal vein thrombosis Code(s): I81 - PORTAL VEIN THROMBOSIS (4) Thrush, oral Code(s): B37.0 - CANDIDAL STOMATITIS (5) Hepatic encephalopathy Code(s): K72.90 - HEPATIC FAILURE, UNSPECIFIED WITHOUT COMA (6) Renal insufficiency Assessment/Plan: Will send urine electrolytes. If creatinine rises or urine output fails to improve will need to start salt poor albumin, midodrine and ostreotide. Agree with holding diuretics and giving mild hydration. Will consult renal. Code(s): N28.9 - DISORDER OF KIDNEY AND URETER, UNSPECIFIED
--- NOTE | 2017-02-25 22:15 | CONSULT ---
Consult - text type - Consultation Consultation Note: Patient seen and examined full consult to follow 86 y/ opatient with advanced liver disease, cirrhosis,advanced prostate cancer, on Xtandi, with several weeks of immobility,comes in with pneumonia, decompensted liver disease, failurre to thrive Getting rocephin for pneumonia discussed with family about goals of care--they want to continue best supportive care for now
--- NOTE | 2017-02-25 23:21 | CONSULT ---
Consult Consult Specialty:: Marvin Marshall Referred by:: Filipe Cervantes Reason for Consultation:: Change in mental illness. Metastatic prostate carcinoma - History of Present Illness Chief Complaint: CHANGE IN MENTAL STATUS History of Present Illness: Was transferred from the longterm because of change in mental status which was noted by his daughter. Since his admission to [facility] has been treated with IV antibiotics for possibility of pneumonia without fever, cough or leukocytosis. His chest XRAY shows a huge cardiomegaly and difficult to see the LLL but comparing to the Xray done two weeks ago there isn' t much difference. He has become more lethargic since his last admission two weeks ago and has developed severe ascites with much scrotal edema.He has had cirrhosis for about twenty years and had esophageal bleeding and had to have variceal ligation. He has had several episodes of hepatic encephalopathy requiring bigger doses of Lactulose. He is also a known case of metastatic prostate carcinoma and has been treated with Lupron injections and lately has shown response to adding Enzalutamide. He has been treated with RT to his sacral and ischial bones. He had presented during his last admission with severe weakness of his right lower extremity but CT scan of the LS spine could not determine exactly the etiology and also there was concern that RT couldn't be given safely as the area has been radiated in the past and he was transferred to SNF for PT. 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: Dementia, Other (Hepatic encephalopathy) Cardio/Vascular: Yes: Other (complete heart block requiring a pacemaker) Gastrointestinal: Yes: Ascites, Esophageal Varices (variceal bleeed with banding at [facility]), GI Bleed Hepatobiliary: Yes: Cirrhosis (with esophageal varices, ascites, portal vein thrombosis) Renal/: Yes: BPH, Cancer (prostate cancer with sacral metastases on Lupron and Xtandi) Musculoskeletal: Yes: Chronic low back pain Endocrine: Yes: Diabetes Mellitus - Past Surgical History Past Surgical History: Yes: Arthrosocopy (right knee), Colonoscopy, Hernia Repair (umbilical hernia repair), Permanent Pacemaker, Upper Endoscopy - Alcohol/Substance Use Hx Alcohol Use: Yes (quit 2001) History of Substance Use: reports: None - Smoking History Smoking history: Never smoked Have you smoked in the past 12 months: No Aproximately how many cigarettes per day: 0 - Social History Usual Living Arrangement: Jail ADL: Family Assistance 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 of 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 Travel: No Home Medications - Allergies Allergies/Adverse Reactions: Allergies Allergy/AdvReac Type Severity Reaction Status Date / Time No Known Allergies Allergy Verified 02/22/17 23:16 - Home Medications Home Medications: Ambulatory Orders Cyanocobalamin (Vitamin B-12) [Vitamin B12] 2,500 mcg PO DAILY 02/13/17 Enzalutamide [Xtandi] 160 mg PO DAILY 02/13/17 Lactulose (Oral Use) [Cephulac -] 30 ml PO BID 02/13/17 Nadolol 10 mg PO DAILY 02/13/17 Glimepiride [Amaryl -] 2 mg PO DAILY@0700 tablet 02/18/17 Spironolactone [Aldactone -] 25 mg PO BID tablet 02/18/17 Tamsulosin HCl [Flomax -] 0.4 mg PO HS cap.er.24h 02/18/17 Aa/Hydrolyzed Collagen, Whey [Lps 15-30 Liquid] 30 ml PO BID 02/23/17 Albuterol 0.083% Nebulizer Linda [Ventolin 0.083%] 1 neb NEB Q4H PRN 02/23/17 Oxycodone HCl 5 mg PO Q4H PRN 02/23/17 Warfarin Sodium [Coumadin] 4 mg PO HS 02/23/17 Family Disease History - Family Disease History Family Disease History: Diabetes: Brother (protate cancer), CA: Brother Review of Systems - Review of Systems Constitutional: reports: Loss of Appetite, Weakness Eyes: reports: No Symptoms HENT: reports: No Symptoms Neck: reports: No Symptoms Cardiovascular: reports: No Symptoms Respiratory: reports: No Symptoms Gastrointestinal: reports: Bloating Genitourinary: reports: Other (urinary rtention) Breasts: reports: Other (gynecomastia) Musculoskeletal: reports: Back Pain Integumentary: reports: No Symptoms Neurological: reports: Confusion, Weakness Hematology/Lymphatic: reports: No Symptoms Physical Exam Vital Signs: Vital Signs Temperature 98.3 F 02/25/17 16:30 Pulse Rate 64 02/25/17 16:30 Respiratory Rate 18 02/25/17 16:30 Blood Pressure 119/62 02/25/17 16:30 O2 Sat by Pulse Oximetry (%) 96 12/11/17 09:00 Constitutional: Yes: Calm, Other (very lethargic) Eyes: Yes: Conjunctiva Clear, EOM Intact HENT: Yes: WNL Neck: Yes: Supple Cardiovascular: Yes: Regular Rate and Rhythm, S1, S2 Respiratory: Yes: Regular, CTA Bilaterally Gastrointestinal: Yes: Ascites, Distention Renal/: Yes: Scrotal Edema Breast(s): Yes: Gynecomastia Musculoskeletal: Yes: Muscle Weakness Extremities: Yes: WNL Edema: No Peripheral Pulses WNL: Yes Integumentary: Yes: WNL Neurological: Yes: Alert, Oriented ...Motor Strength: RLE (paralysis of flexors and extensors of right knee) Labs: CBC, BMP 02/25/17 06:30 02/25/17 06:30 Imaging - Results Chest X-ray: Report Reviewed, Image Reviewed Problem List - Problems (1) Paralysis of right lower extremity Assessment/Plan: Difficult to say whether weakness due to metastatic disea se or due to local causes. Code(s): G83.11 - MONOPLEGIA OF LOWER LIMB AFFECTING RIGHT DOMINANT SIDE (2) Alcoholic cirrhosis Assessment/Plan: Recent increase in the ascites with scrotal edema is indicative of progression of the cirrhosis with poor prognosis Code(s): K70.30 - ALCOHOLIC CIRRHOSIS OF LIVER WITHOUT ASCITES (3) Hepatic encephalopathy Assessment/Plan: Episodes of change in mental status with waxing and waning is indicative of hepatic encephalopathy Code(s): K72.90 - HEPATIC FAILURE, UNSPECIFIED WITHOUT COMA (4) Portal vein thrombosis Assessment/Plan: He is being maintained on warfarin Code(s): I81 - PORTAL VEIN THROMBOSIS (5) Thrush, oral Code(s): B37.0 - CANDIDAL STOMATITIS (6) Mental status change Code(s): R41.82 - ALTERED MENTAL STATUS, UNSPECIFIED (7) Prostate cancer metastatic to bone Assessment/Plan: Has responded to Lupron and recently to Enzalutamide Code(s): C61 - MALIGNANT NEOPLASM OF PROSTATE; C79.51 - SECONDARY MALIGNANT NEOPLASM OF BONE (8) Urinary retention Code(s): R33.9 - RETENTION OF URINE, UNSPECIFIED Assessment/Plan I had a long discussion with the family and I have told them that he is terminal.His , daughter and son were present and they decided not to resuscitate in case of cardiac or respiratory arrest. A DNR order was issued. Thank you for this referral
[2017-02-26] MEDS: INSULIN SLIDING SCALE (NOVOLOG) 1 VIAL SQ SCH ×4 (06:07→21:59)
[2017-02-26] MEDS: GLIMEPIRIDE 2 MG TABLET (FP) PO SCH (06:08)
[2017-02-26 06:11] LABS: HEMATOCRIT 32.5 % (37.5-51.0)
[2017-02-26] MEDS: ALBUTEROL SO4 2.5/IPRATROPIUM 0.5 INH SOL 3 ML VIAL.NEB. NEB SCH ×4 (06:38→23:02)
[2017-02-26] MEDS ORDERED: INSULIN (NOVOLOG) ASPART 100 UNITS/ML 10ML VIAL ONE ×2 (07:31→12:41)
[2017-02-26 08:19] LABS: BASO % 0.4 % (0-2.0); EOS % 0.5 % (0-4.5); MCH 26.6 pg (25.7-33.7); MCHC 32.4 g/dl (32.0-35.9); MEAN CELL VOLUME 82.1 fl (80-96); MEAN PLT VOLUME 7.8 fl (7.5-11.1); NEUT % 75.8 % (42.8-82.8); PLATELET COUNT 274 K/MM3 (134-434); RDW 17.2 % (11.9-15.9); WHITE BLOOD COUNT 7.4 K/mm3 (4.0-10.0)
--- NOTE | 2017-02-26 08:22 | PN ---
Progress Note, Physician History of Present Illness: MORE AWAKE - Current Medication List Current Medications: Active Medications Albuterol Sulfate (Ventolin 0.083% Nebulizer Soln -) 1 amp NEB Q4H PRN PRN Reason: SHORT OF BREATH/WHEEZING Albuterol/Ipratropium (Duoneb -) 1 amp NEB QIDR [facility] Last Admin: 02/26/17 06:38 Dose: 1 amp Amino Acids (Prosource No Carb Liquid Pkt) 30 ml PO BID@0800,1730 [facility] Last Admin: 02/25/17 17:55 Dose: 30 ml Glimepiride (Amaryl -) 2 mg PO DAILY@0700 [facility] Last Admin: 02/26/17 06:08 Dose: 2 mg Ceftriaxone Sodium 2 gm/ (Dextrose) 100 mls @ 200 mls/hr IVPB DAILY [facility] Last Admin: 02/25/17 10:13 Dose: 200 mls/hr Insulin Aspart (Novolog Vial Sliding Scale -) 1 vial SQ ACHS [facility] PRN Reason: Protocol Last Admin: 02/26/17 06:07 Dose: 2 units Lactulose (Cephulac (Oral Use)) 20 gm PO BID [facility] Last Admin: 02/25/17 21:56 Dose: 20 gm Nadolol (Corgard -) 10 mg PO DAILY [facility] Last Admin: 02/25/17 10:13 Dose: 10 mg Enzalutamide [Xtandi ] 40 Mg Capsule (Pt' s Own) 0 mg PO DAILY@1800 [facility] Last Admin: 02/25/17 17:48 Dose: Not Given Oxycodone HCl (Roxicodone -) 5 mg PO Q4H PRN PRN Reason: PAIN Rifaximin (Xifaxan -) 550 mg PO BID [facility] Last Admin: 02/25/17 21:57 Dose: 550 mg Tamsulosin HCl (Flomax -) 0.4 mg PO HS [facility] Last Admin: 02/25/17 21:56 Dose: 0.4 mg Warfarin Sodium (Coumadin -) 2 mg PO MoWeFr [facility] Last Admin: 02/25/17 17:55 Dose: 2 mg Warfarin Sodium (Coumadin -) 4 mg PO SuTuThSa [facility] - Objective Vital Signs: Vital Signs Temperature 98.4 F 02/25/17 22:00 Pulse Rate 66 02/25/17 22:00 Respiratory Rate 20 02/25/17 22:00 Blood Pressure 110/53 02/25/17 22:00 O2 Sat by Pulse Oximetry (%) 96 02/25/17 21:00 Cardiovascular: Yes: S1, S2 Respiratory: Yes: Regular, CTA Bilaterally Gastrointestinal: Yes: Normal Bowel Sounds, Soft, Ascites, Distention Labs: INR, PTT INR 2.35 (0.82-1.09) H D 02/25/17 06:30 Problem List - Problems (1) Pneumonia Assessment/Plan: questionable IV ABX FOLLOW UP CXR Code(s): J18.9 - PNEUMONIA, UNSPECIFIED ORGANISM (2) Hepatic encephalopathy Assessment/Plan: LACTULOSE MONITOR AMMONIA LEVEL-- GI CONSULT Code(s): K72.90 - HEPATIC FAILURE, UNSPECIFIED WITHOUT COMA (3) Diabetes 1.5, managed as type 2 Assessment/Plan: BGM W SS Code(s): E10.9 - TYPE 1 DIABETES MELLITUS WITHOUT COMPLICATIONS (4) Mental status change Assessment/Plan: improved TREAT INFECTION MONITOR MS CT OF HEAD Code(s): R41.82 - ALTERED MENTAL STATUS, UNSPECIFIED (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 Code(s): C61 - MALIGNANT NEOPLASM OF PROSTATE; C79.51 - SECONDARY MALIGNANT NEOPLASM OF BONE (6) UTI (urinary tract infection) Assessment/Plan: ABX CULTURES UROLOGY--MIGUEL CHANGE? Code(s): N39.0 - URINARY TRACT INFECTION, SITE NOT SPECIFIED Qualifiers: Urinary tract infection type: site unspecified Hematuria presence: with hematuria Qualified Code(s): N39.0 - Urinary tract infection, site not specified (7) Urinary retention Assessment/Plan: MIGUEL UROLOGY Code(s): R33.9 - RETENTION OF URINE, UNSPECIFIED (8) Ascites Assessment/Plan: per gi on albumin and lasix Code(s): R18.8 - OTHER ASCITES
[2017-02-26 08:55] LABS: ALBUMIN 1.5 g/dl (3.4-5.0); ANION GAP 8 (8-16); CALCIUM 7.3 mg/dL (8.5-10.1); CO2 25 mmol/L (21-32); GLUCOSE,RANDOM 210 mg/dL (74-106)
[2017-02-26 08:58] LABS: ALK PHOS 302 U/L (45-117); BILIRUBIN,TOTAL 0.5 mg/dL (0.2-1.0); CREATININE 0.6 mg/dL (0.7-1.3); SGOT/AST 24 U/L (15-37); SGPT/ALT 16 U/L (12-78); TOT PROT 5.1 g/dl (6.4-8.2)
[2017-02-26] MEDS ORDERED: PT OWN MED DRAWER 7, Y5N ONE ×2 (11:18→17:21)
[2017-02-26] MEDS: CEFTRIAXONE 2 GM in DEXTROSE 5%-WATER - 100 ML IVPB SCH (11:25)
[2017-02-26] MEDS: LACTULOSE 20 GM/30 ML UDC (FOR ORAL USE ONLY) PO SCH ×2 (11:27→22:00)
[2017-02-26] MEDS: RIFAXIMIN 550 MG TABLET (UD) PO SCH ×2 (11:27→22:02)
[2017-02-26] MEDS: NADOLOL 20 MG TABLET (FP) PO SCH (11:27)
[2017-02-26] MEDS: AMINO ACIDS/PROTEIN HYDROLYS 30 ML LIQUID.PKT PO SCH ×2 (11:28→17:37)
--- NOTE | 2017-02-26 15:55 | PN ---
Progress Note, MACHINIST LINOTYPE - Note Progress Note: MBS reviewed .Pt on pureed diet/nectar thick liquid. Selected Entries 02/25/17 02/25/17 02/25/17 06:00 09:54 10:00 Breakfast 75% Lunch Supper Temperature 97.9 F 97.9 F 02/25/17 02/25/17 02/25/17 14:58 16:30 18:30 Breakfast Lunch 75% Supper 75% Temperature 98.4 F 98.3 F 02/25/17 02/26/17 22:00 10:00 Breakfast Lunch Supper Temperature 98.4 F 97.7 F Encourage straw drinking to increase nutritional intake. Supplements.
[2017-02-26] MEDS: ENZALUTAMIDE 40 MG PO SCH (17:41)
--- NOTE | 2017-02-26 19:00 | CONSULT ---
Consult Consult Specialty:: Nephrology Reason for Consultation:: fluid overload - History of Present Illness Chief Complaint: generalized weakness History of Present Illness: Pt is an 86 year old male with pmhx of prostat cancer, liver cirrhosis secondary to etoh abuse, DM, HTN, and a-fib who was initially admitted for weakness. He has had progressive weakness. Pt is unable to give history. I reviewed his chart and spoke to his . He denies pain. He does have abdominal distention. Pt also has poor PO intake. He has had hepatic encephalopathy in the past. - History Source History Provided By: Family Member, Medical Record Limitations to Obtaining History: Clinical Condition - Past Medical History VACUUM CASTER: Yes: Dementia, Other (Hepatic encephalopathy) Cardio/Vascular: Yes: Other (complete heart block requiring a pacemaker) Gastrointestinal: Yes: Ascites, Esophageal Varices (variceal bleeed with banding at [facility]), GI Bleed Hepatobiliary: Yes: Cirrhosis (with esophageal varices, ascites, portal vein thrombosis) Renal/: Yes: BPH, Cancer (prostate cancer with sacral metastases on Lupron and Xtandi) Musculoskeletal: Yes: Chronic low back pain Endocrine: Yes: Diabetes Mellitus - Past Surgical History Past Surgical History: Yes: Arthrosocopy (right knee), Colonoscopy, Hernia Repair (umbilical hernia repair), Permanent Pacemaker, Upper Endoscopy - Alcohol/Substance Use Hx Alcohol Use: Yes (quit 2001) History of Substance Use: reports: None - Smoking History Smoking history: Never smoked Have you smoked in the past 12 months: No Aproximately how many cigarettes per day: 0 - Social History Usual Living Arrangement: [facility] ADL: Family Assistance 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 History of Recent Travel: No Home Medications - Allergies Allergies/Adverse Reactions: Allergies Allergy/AdvReac Type Severity Reaction Status Date / Time No Known Allergies Allergy Verified 02/22/17 23:16 - Home Medications Home Medications: Ambulatory Orders Cyanocobalamin (Vitamin B-12) [Vitamin B12] 2,500 mcg PO DAILY 02/13/17 Enzalutamide [Xtandi] 160 mg PO DAILY 02/13/17 Lactulose (Oral Use) [Cephulac -] 30 ml PO BID 02/13/17 Nadolol 10 mg PO DAILY 02/13/17 Glimepiride [Amaryl -] 2 mg PO DAILY@0700 tablet 02/18/17 Spironolactone [Aldactone -] 25 mg PO BID tablet 02/18/17 Tamsulosin HCl [Flomax -] 0.4 mg PO HS cap.er.24h 02/18/17 Aa/Hydrolyzed Collagen, Whey [Lps 15-30 Liquid] 30 ml PO BID 02/23/17 Albuterol 0.083% Nebulizer Linda [Ventolin 0.083%] 1 neb NEB Q4H PRN 02/23/17 Oxycodone HCl 5 mg PO Q4H PRN 02/23/17 Warfarin Sodium [Coumadin] 4 mg PO HS 02/23/17 Family Disease History - Family Disease History Family Disease History: Diabetes: Brother (protate cancer), CA: Brother Review of Systems - Review of Systems Constitutional: reports: Malaise Eyes: reports: No Symptoms HENT: reports: No Symptoms Neck: reports: No Symptoms Cardiovascular: reports: Edema Gastrointestinal: reports: Bloating Genitourinary: reports: No Symptoms Musculoskeletal: reports: Muscle Weakness Physical Exam Vital Signs: Vital Signs Temperature 97.5 F L 02/26/17 18:00 Pulse Rate 65 02/26/17 18:00 Respiratory Rate 18 02/26/17 18:00 Blood Pressure 110/57 02/26/17 18:00 O2 Sat by Pulse Oximetry (%) 96 02/25/17 21:00 Constitutional: Yes: Calm HENT: Yes: Atraumatic Cardiovascular: Yes: S1, S2 Respiratory: Yes: CTA Bilaterally Gastrointestinal: Yes: Distention. No: Tenderness Renal/: Yes: Bonilla Present Musculoskeletal: Yes: Muscle Weakness Edema: Yes Neurological: Yes: Other (awake, not very interactive) Labs: CBC, BMP 02/26/17 07:30 02/26/17 07:30 Laboratory Tests 02/23/17 02/24/17 02/25/17 02:50 22:49 06:30 WBC Hgb 9.7 L Sodium Potassium Chloride BUN Creatinine 0.6 L Random Glucose Lactic Acid Urine Protein 1+ H Urine Blood 1+ H 02/26/17 02/26/17 02/26/17 07:30 07:30 07:30 WBC 7.4 Hgb 9.8 L Sodium 135 L Potassium 4.2 Chloride 102 BUN 31 H Creatinine 0.6 L Random Glucose 210 H D Lactic Acid 2.1 H* Urine Protein Urine Blood Imaging - Results Chest X-ray: Report Reviewed (cardiomegaly) Ultrasound: Report Reviewed (liver cirrhosis) Problem List - Problems (1) Alcoholic cirrhosis Code(s): K70.30 - ALCOHOLIC CIRRHOSIS OF LIVER WITHOUT ASCITES (2) Hepatic encephalopathy Code(s): K72.90 - HEPATIC FAILURE, UNSPECIFIED WITHOUT COMA Assessment/Plan Current Medications Generic Name Dose Route Start Last Admin Trade Name Freq PRN Reason Stop Dose Admin Albuterol Sulfate 1 amp 02/24/17 10:13 Ventolin 0.083% Nebulizer Soln - NEB Q4H PRN SHORT OF BREATH/WHEEZING Albuterol/Ipratropium 1 amp 02/24/17 12:00 02/26/17 17:16 Duoneb - NEB 1 amp QIDR MAHENDRA Administration Amino Acids 30 ml 02/24/17 17:30 02/26/17 17:37 Prosource No Carb Liquid Pkt PO 30 ml BID@0800,1730 MAHENDRA Administration Glimepiride 2 mg 02/24/17 07:00 02/26/17 06:08 Amaryl - PO 2 mg DAILY@0700 MAHENDRA Administration Ceftriaxone Sodium 2 gm/ 100 mls @ 200 mls/hr 02/25/17 10:00 02/26/17 11:25 Dextrose IVPB 200 mls/hr DAILY MAHENDRA Administration Insulin Aspart 1 vial 02/23/17 11:00 02/26/17 17:41 Novolog Vial Sliding Scale - SQ 2 units ACHS MAHENDRA Administration Protocol Lactulose 20 gm 02/23/17 10:00 02/26/17 11:27 Cephulac (Oral Use) PO 20 gm BID MAHENDRA Administration Nadolol 10 mg 02/23/17 10:00 02/26/17 11:27 Corgard - PO 10 mg DAILY MAHENDRA Administration Enzalutamide [Xtandi 0 mg 02/23/17 18:00 02/26/17 17:41 ] 40 Mg Capsule (Pt' PO Not Given s Own) DAILY@1800 MAHENDRA Oxycodone HCl 5 mg 02/23/17 07:12 Roxicodone - PO Q4H PRN PAIN Rifaximin 550 mg 02/23/17 22:00 02/26/17 11:27 Xifaxan - PO 550 mg BID MAHENDRA Administration Tamsulosin HCl 0.4 mg 02/23/17 22:00 02/25/17 21:56 Flomax - PO 0.4 mg HS MAHENDRA Administration Warfarin Sodium 2 mg 02/25/17 18:00 02/25/17 17:55 Coumadin - PO 2 mg MoWeFr MAHENDRA Administration Warfarin Sodium 4 mg 02/26/17 18:00 Coumadin - PO SuTuThSa MAHENDRA Impression 1. liver cirrhosis 2. hx etoh abuse 3. volume overload 4. prostate cancer 5. urinary retention 6. oral thrush 7. PNA 8. DM Plan - recommend avoiding fluids - repeat labs in am - will likely restart diuretics in am - GI input appreciated - would not restart spironolactone as potassium is trending up - will follow Dr Spencer
--- NOTE | 2017-02-26 19:05 | PN ---
GI Progress Note Subjective: GI NOte: Renal output remains poor and BUN is climbing. His ascites is also increasing. His son tells me that he ate better for him tonight and appears more interactive. Urine Na pending - Objective Vital Signs: Vital Signs Temperature 97.5 F L 02/26/17 18:00 Pulse Rate 65 02/26/17 18:00 Respiratory Rate 18 02/26/17 18:00 Blood Pressure 110/57 02/26/17 18:00 O2 Sat by Pulse Oximetry (%) 96 02/25/17 21:00 Laboratory Tests 02/23/17 02/24/17 02/25/17 02:50 06:20 06:30 BUN 28 H D 25 H 27 H Creatinine 0.6 L 0.5 L 0.5 L 02/26/17 07:30 BUN 31 H Creatinine 0.6 L Constitutional: Calm Gastrointestinal Inspection: Yes: Distention (but not tense) ...Auscultate: Yes: Hypoactive Bowel Sounds ...Palpate: Yes: Other (nontender) Genitourinary: Yes: Scrotal Edema Labs: CBC, BMP 02/26/17 07:30 02/26/17 07:30 INR, PTT INR 2.35 (0.82-1.09) H D 02/25/17 06:30 Laboratory Tests 02/26/17 02/26/17 02/26/17 07:30 07:30 07:30 Hgb 9.8 L Potassium 4.2 Total Bilirubin 0.5 D AST 24 ALT 16 Alkaline Phosphatase 302 H Ammonia 32.92 H Albumin 1.5 L Problem List - Problems (1) Alcoholic cirrhosis Assessment/Plan: Has almost all of the complication but encephalopathy appears improved. Continue Xifaxan with the lactulose. Code(s): K70.30 - ALCOHOLIC CIRRHOSIS OF LIVER WITHOUT ASCITES (2) Esophageal varices determined by endoscopy Code(s): I85.00 - ESOPHAGEAL VARICES WITHOUT BLEEDING (3) Portal vein thrombosis Code(s): I81 - PORTAL VEIN THROMBOSIS (4) Thrush, oral Code(s): B37.0 - CANDIDAL STOMATITIS (5) Hepatic encephalopathy Code(s): K72.90 - HEPATIC FAILURE, UNSPECIFIED WITHOUT COMA (6) Renal insufficiency Assessment/Plan: Urine electrolytes still pending. Will try salt poor albumin. Agree with holding diuretics until renal function improves Code(s): N28.9 - DISORDER OF KIDNEY AND URETER, UNSPECIFIED
[2017-02-26] MEDS: ALBUMIN HUMAN 25% 12.5 GM/50 ML VIAL IVPB SCH (20:00)
[2017-02-26 21:04] LABS: URINE POTASSIUM 87.6 MEQ/L
[2017-02-26] MEDS: TAMSULOSIN HCL 0.4 MG CAP.ER.24H (FP) PO SCH (22:02)
[2017-02-27] MEDS: ALBUMIN HUMAN 25% 12.5 GM/50 ML VIAL IVPB SCH ×4 (01:38→22:30)
[2017-02-27] MEDS: INSULIN SLIDING SCALE (NOVOLOG) 1 VIAL SQ SCH ×4 (06:22→21:23)
[2017-02-27] MEDS: GLIMEPIRIDE 2 MG TABLET (FP) PO SCH (06:23)
[2017-02-27] MEDS: ALBUTEROL SO4 2.5/IPRATROPIUM 0.5 INH SOL 3 ML VIAL.NEB. NEB SCH ×3 (07:15→18:04)
[2017-02-27 08:07] LABS: BASO % 0.4 % (0-2.0); EOS % 1.5 % (0-4.5); MCH 27.1 pg (25.7-33.7); MCHC 33.2 g/dl (32.0-35.9); MEAN CELL VOLUME 81.8 fl (80-96); MEAN PLT VOLUME 7.9 fl (7.5-11.1); NEUT % 71.2 % (42.8-82.8); PLATELET COUNT 265 K/MM3 (134-434); WHITE BLOOD COUNT 5.4 K/mm3 (4.0-10.0)
[2017-02-27 08:30] LABS: ALBUMIN 2.3 g/dl (3.4-5.0); ANION GAP 7 (8-16); CALCIUM 7.5 mg/dL (8.5-10.1); CO2 25 mmol/L (21-32); GLUCOSE,RANDOM 216 mg/dL (74-106)
[2017-02-27 08:35] LABS: ALK PHOS 239 U/L (45-117); BILIRUBIN,TOTAL 0.9 mg/dL (0.2-1.0); CREATININE 0.5 mg/dL (0.7-1.3); PHOSPHOROUS 3.2 mg/dL (2.5-4.9); SGOT/AST 22 U/L (15-37); SGPT/ALT 17 U/L (12-78); TOT PROT 5.3 g/dl (6.4-8.2)
[2017-02-27] MEDS ORDERED: PT OWN MED DRAWER 7, Y5N ONE ×2 (09:04→13:48)
[2017-02-27] MEDS: LACTULOSE 20 GM/30 ML UDC (FOR ORAL USE ONLY) PO SCH ×2 (10:03→21:00)
[2017-02-27] MEDS: AMINO ACIDS/PROTEIN HYDROLYS 30 ML LIQUID.PKT PO SCH ×2 (10:03→17:32)
[2017-02-27] MEDS: NADOLOL 20 MG TABLET (FP) PO SCH (10:04)
[2017-02-27] MEDS: RIFAXIMIN 550 MG TABLET (UD) PO SCH ×2 (10:04→21:00)
[2017-02-27] MEDS: CEFTRIAXONE 2 GM in DEXTROSE 5%-WATER - 100 ML IVPB SCH (10:05)
[2017-02-27] MEDS ORDERED: FUROSEMIDE 40 MG/4 ML INJECTABLE VIAL IVPUSH ONE (11:01)
--- NOTE | 2017-02-27 11:01 | PN ---
GI Progress Note Subjective: GI NOte: Dr Spencer's note is appreciated. Only 200cc so far today but had only 350cc all day yesterday. Has been receiving the albumin overnight so will give Lasix today as ascites is increasing and keeping him form eating. Discussed situation with daughter and at the bedside. - Objective Vital Signs: Vital Signs Temperature 98.1 F 02/27/17 06:00 Pulse Rate 65 02/27/17 06:00 Respiratory Rate 20 02/27/17 06:00 Blood Pressure 102/62 02/27/17 06:00 O2 Sat by Pulse Oximetry (%) 96 02/26/17 21:00 Laboratory Tests 02/26/17 02/27/17 02/27/17 18:30 06:30 06:30 Hgb 9.1 L BUN 31 H Creatinine 0.5 L Total Bilirubin 0.9 D AST 22 ALT 17 Alkaline Phosphatase 239 H D Ammonia Albumin 2.3 L D Ur Random Sodium Pending 02/27/17 06:30 Hgb BUN Creatinine Total Bilirubin AST ALT Alkaline Phosphatase Ammonia 44.34 H Albumin Ur Random Sodium Constitutional: Calm Gastrointestinal Inspection: Yes: Distention ...Auscultate: Yes: Normoactive Bowel Sounds ...Palpate: Yes: Other (nontender) Labs: CBC, BMP 02/27/17 06:30 02/27/17 06:30 INR, PTT INR 2.35 (0.82-1.09) H D 02/25/17 06:30 Problem List - Problems (1) Alcoholic cirrhosis Assessment/Plan: LFTs stable Code(s): K70.30 - ALCOHOLIC CIRRHOSIS OF LIVER WITHOUT ASCITES (2) Esophageal varices determined by endoscopy Code(s): I85.00 - ESOPHAGEAL VARICES WITHOUT BLEEDING (3) Portal vein thrombosis Code(s): I81 - PORTAL VEIN THROMBOSIS (4) Thrush, oral Code(s): B37.0 - CANDIDAL STOMATITIS (5) Hepatic encephalopathy Assessment/Plan: Hepatic encephalopathy improving. Continue xifaxan Code(s): K72.90 - HEPATIC FAILURE, UNSPECIFIED WITHOUT COMA (6) Renal insufficiency Assessment/Plan: Urine Na 6. Continue salt poor albumin with a lasix push today. Will need to follow renal function carefully. May come to need midodrine and octreotide and we don't have terlipressin. Code(s): N28.9 - DISORDER OF KIDNEY AND URETER, UNSPECIFIED
--- NOTE | 2017-02-27 13:48 | PN ---
Progress Note, Physician History of Present Illness: Pt seen and examined at bedside. He remains drowsy. - Current Medication List Current Medications: Active Medications Albumin Human (Albumin Human 25%) 25 gm IVPB Q6H [facility] Stop: 02/28/17 13:16 Last Admin: 02/27/17 06:26 Dose: 25 gm Albuterol Sulfate (Ventolin 0.083% Nebulizer Soln -) 1 amp NEB Q4H PRN PRN Reason: SHORT OF BREATH/WHEEZING Albuterol/Ipratropium (Duoneb -) 1 amp NEB QIDR [facility] Last Admin: 02/27/17 11:30 Dose: 1 amp Amino Acids (Prosource No Carb Liquid Pkt) 30 ml PO BID@0800,1730 [facility] Last Admin: 02/27/17 10:03 Dose: 30 ml Glimepiride (Amaryl -) 2 mg PO DAILY@0700 [facility] Last Admin: 02/27/17 06:23 Dose: 2 mg Ceftriaxone Sodium 2 gm/ (Dextrose) 100 mls @ 200 mls/hr IVPB DAILY [facility] Last Admin: 02/27/17 10:05 Dose: 200 mls/hr Insulin Aspart (Novolog Vial Sliding Scale -) 1 vial SQ ACHS [facility] PRN Reason: Protocol Last Admin: 02/27/17 11:48 Dose: 2 units Lactulose (Cephulac (Oral Use)) 20 gm PO BID [facility] Last Admin: 02/27/17 10:03 Dose: 20 gm Nadolol (Corgard -) 10 mg PO DAILY [facility] Last Admin: 02/27/17 10:04 Dose: 10 mg Enzalutamide [Xtandi ] 40 Mg Capsule (Pt' s Own) 0 mg PO DAILY@1800 [facility] Last Admin: 02/26/17 17:41 Dose: Not Given Oxycodone HCl (Roxicodone -) 5 mg PO Q4H PRN PRN Reason: PAIN Rifaximin (Xifaxan -) 550 mg PO BID [facility] Last Admin: 02/27/17 10:04 Dose: 550 mg Tamsulosin HCl (Flomax -) 0.4 mg PO HS [facility] Last Admin: 02/26/17 22:02 Dose: 0.4 mg Warfarin Sodium (Coumadin -) 2 mg PO MoWeFr [facility] Last Admin: 02/25/17 17:55 Dose: 2 mg Warfarin Sodium (Coumadin -) 4 mg PO SuTuThSa MAHENDRA - Objective Vital Signs: Vital Signs Temperature 98.6 F 02/27/17 10:00 Pulse Rate 69 02/27/17 10:00 Respiratory Rate 18 02/27/17 10:00 Blood Pressure 111/64 02/27/17 10:00 O2 Sat by Pulse Oximetry (%) 96 02/26/17 21:00 Constitutional: Yes: Calm Cardiovascular: Yes: S1, S2 Respiratory: Yes: CTA Bilaterally Gastrointestinal: Yes: Ascites Genitourinary: Yes: Bonilla Present Musculoskeletal: Yes: Muscle Weakness Edema: Yes Neurological: Yes: Confusion Labs: CBC, BMP 02/27/17 06:30 02/27/17 06:30 INR, PTT INR 2.35 (0.82-1.09) H D 02/25/17 06:30 Problem List - Problems (1) Alcoholic cirrhosis Code(s): K70.30 - ALCOHOLIC CIRRHOSIS OF LIVER WITHOUT ASCITES (2) Hepatic encephalopathy Code(s): K72.90 - HEPATIC FAILURE, UNSPECIFIED WITHOUT COMA Assessment/Plan Current Medications Generic Name Dose Route Start Last Admin Trade Name Freq PRN Reason Stop Dose Admin Albumin Human 25 gm 02/26/17 19:15 02/27/17 06:26 Albumin Human 25% IVPB 02/28/17 13:16 25 gm Q6H MAHENDRA Administration Albuterol Sulfate 1 amp 02/24/17 10:13 Ventolin 0.083% Nebulizer Soln - NEB Q4H PRN SHORT OF BREATH/WHEEZING Albuterol/Ipratropium 1 amp 02/24/17 12:00 02/27/17 11:30 Duoneb - NEB 1 amp QIDR MAHENDRA Administration Amino Acids 30 ml 02/24/17 17:30 02/27/17 10:03 Prosource No Carb Liquid Pkt PO 30 ml BID@0800,1730 MAHENDRA Administration Glimepiride 2 mg 02/24/17 07:00 02/27/17 06:23 Amaryl - PO 2 mg DAILY@0700 MAHENDRA Administration Ceftriaxone Sodium 2 gm/ 100 mls @ 200 mls/hr 02/25/17 10:00 02/27/17 10:05 Dextrose IVPB 200 mls/hr DAILY MAHENDRA Administration Insulin Aspart 1 vial 02/23/17 11:00 02/27/17 11:48 Novolog Vial Sliding Scale - SQ 2 units ACHS MAHENDRA Administration Protocol Lactulose 20 gm 02/23/17 10:00 02/27/17 10:03 Cephulac (Oral Use) PO 20 gm BID MAHENDRA Administration Nadolol 10 mg 02/23/17 10:00 02/27/17 10:04 Corgard - PO 10 mg DAILY MAHENDRA Administration Enzalutamide [Xtandi 0 mg 02/23/17 18:00 02/26/17 17:41 ] 40 Mg Capsule (Pt' PO Not Given s Own) DAILY@1800 [facility] Oxycodone HCl 5 mg 02/23/17 07:12 Roxicodone - PO Q4H PRN PAIN Rifaximin 550 mg 02/23/17 22:00 02/27/17 10:04 Xifaxan - PO 550 mg BID MAHENDRA Administration Tamsulosin HCl 0.4 mg 02/23/17 22:00 02/26/17 22:02 Flomax - PO 0.4 mg HS MAHENDRA Administration Warfarin Sodium 2 mg 02/25/17 18:00 02/25/17 17:55 Coumadin - PO 2 mg MoWeFr MAHENDRA Administration Warfarin Sodium 4 mg 02/26/17 18:00 Coumadin - PO SuTuThSa [facility] Impression 1. liver cirrhosis 2. hx etoh abuse 3. volume overload 4. prostate cancer 5. urinary retention 6. oral thrush 7. PNA 8. DM Plan - cont with lasix and albumin - repeat labs in am - will monitor renal function - monitor urine output - can add spironolactone as potassium is better today - overall prognosis is poor - will follow Dr Spencer
--- NOTE | 2017-02-27 14:25 | PN ---
Progress Note (short form) - Note Progress Note: doing poorly lethargic better urine outpt today Vital Signs Period Temp Pulse Resp BP Sys/Drummond Pulse Ox Last 24 Hr 97.5 F-98.9 F 65-69 18-20 100-118/48-64 96 cor-rrr lungs decreased bs at bases abd firm+ascites, +scrotal edema ext -+edema garcía CBC, BMP 02/27/17 06:30 02/27/17 06:30 a/p day #5 of ceftriaxone for fevers/possible RLL pneumonia- would finish 7 days liver cirrhosis with portal vein thrombosis-on anticoagulation metastatic prostate cancer with bony mets palliative care -?goals of care please call back if needed
--- NOTE | 2017-02-27 14:58 | PN ---
Progress Note, Physician Chief Complaint: Weakness, Hepatic encephalopathy History of Present Illness: NAD, lethargic poor prognosis poor PO intake hypoalbuminemia IV abx seen by ID and GI on lactulose with 3-4 BM's per day spoke to daughter about goals of care and patient wishes, she would discuss it with her mother and brother - Current Medication List Current Medications: Active Medications Albumin Human (Albumin Human 25%) 25 gm IVPB Q6H [facility] Stop: 02/28/17 13:16 Last Admin: 02/27/17 06:26 Dose: 25 gm Albuterol Sulfate (Ventolin 0.083% Nebulizer Soln -) 1 amp NEB Q4H PRN PRN Reason: SHORT OF BREATH/WHEEZING Albuterol/Ipratropium (Duoneb -) 1 amp NEB QIDR [facility] Last Admin: 02/27/17 11:30 Dose: 1 amp Amino Acids (Prosource No Carb Liquid Pkt) 30 ml PO BID@0800,1730 [facility] Last Admin: 02/27/17 10:03 Dose: 30 ml Glimepiride (Amaryl -) 2 mg PO DAILY@0700 [facility] Last Admin: 02/27/17 06:23 Dose: 2 mg Ceftriaxone Sodium 2 gm/ (Dextrose) 100 mls @ 200 mls/hr IVPB DAILY [facility] Last Admin: 02/27/17 10:05 Dose: 200 mls/hr Insulin Aspart (Novolog Vial Sliding Scale -) 1 vial SQ ACHS [facility] PRN Reason: Protocol Last Admin: 02/27/17 11:48 Dose: 2 units Lactulose (Cephulac (Oral Use)) 20 gm PO BID [facility] Last Admin: 02/27/17 10:03 Dose: 20 gm Nadolol (Corgard -) 10 mg PO DAILY [facility] Last Admin: 02/27/17 10:04 Dose: 10 mg Enzalutamide [Xtandi ] 40 Mg Capsule (Pt' s Own) 0 mg PO DAILY@1800 [facility] Last Admin: 02/26/17 17:41 Dose: Not Given Oxycodone HCl (Roxicodone -) 5 mg PO Q4H PRN PRN Reason: PAIN Rifaximin (Xifaxan -) 550 mg PO BID [facility] Last Admin: 02/27/17 10:04 Dose: 550 mg Spironolactone (Aldactone -) 25 mg PO DAILY [facility] Tamsulosin HCl (Flomax -) 0.4 mg PO HS [facility] Last Admin: 02/26/17 22:02 Dose: 0.4 mg Warfarin Sodium (Coumadin -) 2 mg PO MoWeFr [facility] Last Admin: 02/25/17 17:55 Dose: 2 mg Warfarin Sodium (Coumadin -) 4 mg PO SuTuThSa [facility] - Objective Vital Signs: Vital Signs Temperature 98.6 F 02/27/17 10:00 Pulse Rate 69 02/27/17 10:00 Respiratory Rate 18 02/27/17 10:00 Blood Pressure 111/64 02/27/17 10:00 O2 Sat by Pulse Oximetry (%) 96 02/26/17 21:00 Constitutional: Yes: Well Nourished, No Distress, Calm Cardiovascular: Yes: Regular Rate and Rhythm Respiratory: Yes: Regular Labs: CBC, BMP 02/27/17 06:30 02/27/17 06:30 INR, PTT INR 2.35 (0.82-1.09) H D 02/25/17 06:30 Problem List - Problems (1) Urinary retention Assessment/Plan: -Bonilla replaced -UC negative -on Tamsulosin Code(s): R33.9 - RETENTION OF URINE, UNSPECIFIED (2) Mental status change Code(s): R41.82 - ALTERED MENTAL STATUS, UNSPECIFIED (3) Prostate carcinoma Code(s): C61 - MALIGNANT NEOPLASM OF PROSTATE (4) Hepatic encephalopathy Assessment/Plan: -ammonia levels remain elevated -lactulose -repeat in AM -seen by GI Code(s): K72.90 - HEPATIC FAILURE, UNSPECIFIED WITHOUT COMA (5) Alcoholic cirrhosis Code(s): K70.30 - ALCOHOLIC CIRRHOSIS OF LIVER WITHOUT ASCITES Assessment/Plan see problem list overall poor prognosis pt to speak to mother and brother about goals of care. malnutrition secondary to disease process and poor oral intake
[2017-02-27] MEDS: WARFARIN NA 2 MG TABLET (UD) PO SCH ×3 (15:35→17:33)
[2017-02-27] MEDS: SPIRONOLACTONE 25 MG TABLET (FP) PO SCH (15:44)
[2017-02-27 16:55] LABS: INR 1.48 (0.82-1.09); PROTHROMBIN TIME (PATIENT) 16.7 SEC (9.98-11.88)
[2017-02-27] MEDS: ENZALUTAMIDE 40 MG PO SCH (17:32)
[2017-02-27] MEDS ORDERED: WARFARIN NA 2 MG TABLET (UD) PO ONE (18:00)
[2017-02-27] MEDS: TAMSULOSIN HCL 0.4 MG CAP.ER.24H (FP) PO SCH (21:00)
[2017-02-27] MEDS: oxyCODONE HCL 5 MG TABLET PO PRN (21:01)
[2017-02-28] MEDS: ALBUTEROL SO4 2.5/IPRATROPIUM 0.5 INH SOL 3 ML VIAL.NEB. NEB SCH ×5 (00:10→23:39)
[2017-02-28] MEDS: ALBUMIN HUMAN 25% 12.5 GM/50 ML VIAL IVPB SCH ×3 (04:25→18:21)
[2017-02-28] MEDS: GLIMEPIRIDE 2 MG TABLET (FP) PO SCH (06:02)
[2017-02-28] MEDS: INSULIN SLIDING SCALE (NOVOLOG) 1 VIAL SQ SCH ×4 (06:02→23:45)
[2017-02-28 08:41] LABS: BASO % 0.7 % (0-2.0); EOS % 2.9 % (0-4.5); MCH 26.5 pg (25.7-33.7); MCHC 32.2 g/dl (32.0-35.9); MEAN CELL VOLUME 82.2 fl (80-96); MEAN PLT VOLUME 7.9 fl (7.5-11.1); NEUT % 72.8 % (42.8-82.8); PLATELET COUNT 246 K/MM3 (134-434); RDW 16.7 % (11.9-15.9)
[2017-02-28] MEDS: AMINO ACIDS/PROTEIN HYDROLYS 30 ML LIQUID.PKT PO SCH ×2 (08:43→17:30)
[2017-02-28] MEDS ORDERED: PT OWN MED DRAWER 7, Y5N ONE ×2 (09:46→17:19)
--- NOTE | 2017-02-28 09:48 | PN ---
Progress Note, Physician Chief Complaint: Weakness, Hepatic encephalopathy History of Present Illness: NAD, lethargic poor prognosis poor PO intake hypoalbuminemia IV abx seen by ID and GI on lactulose with 3-4 BM's per day spoke to daughter about goals of care and patient wishes, she would discuss it with her mother and brother pain management- controlled on Percocet 2.5 mg Urine output decreased - Current Medication List Current Medications: Active Medications Albumin Human (Albumin Human 25%) 25 gm IVPB Q6H [facility] Stop: 02/28/17 13:16 Last Admin: 02/28/17 04:25 Dose: 25 gm Albuterol Sulfate (Ventolin 0.083% Nebulizer Soln -) 1 amp NEB Q4H PRN PRN Reason: SHORT OF BREATH/WHEEZING Albuterol/Ipratropium (Duoneb -) 1 amp NEB QIDR [facility] Last Admin: 02/28/17 07:11 Dose: 1 amp Amino Acids (Prosource No Carb Liquid Pkt) 30 ml PO BID@0800,1730 [facility] Last Admin: 02/28/17 08:43 Dose: 30 ml Glimepiride (Amaryl -) 2 mg PO DAILY@0700 [facility] Last Admin: 02/28/17 06:02 Dose: 2 mg Ceftriaxone Sodium 2 gm/ (Dextrose) 100 mls @ 200 mls/hr IVPB DAILY [facility] Last Admin: 02/27/17 10:05 Dose: 200 mls/hr Insulin Aspart (Novolog Vial Sliding Scale -) 1 vial SQ ACHS MAHENDRA PRN Reason: Protocol Last Admin: 02/28/17 06:02 Dose: Not Given Lactulose (Cephulac (Oral Use)) 20 gm PO BID [facility] Last Admin: 02/27/17 21:00 Dose: 20 gm Nadolol (Corgard -) 10 mg PO DAILY [facility] Last Admin: 02/27/17 10:04 Dose: 10 mg Enzalutamide [Xtandi ] 40 Mg Capsule (Pt' s Own) 0 mg PO DAILY@1800 [facility] Last Admin: 02/27/17 17:32 Dose: Not Given Oxycodone HCl (Roxicodone -) 2.5 mg PO Q4H PRN PRN Reason: PAIN Last Admin: 02/27/17 21:01 Dose: 2.5 mg Rifaximin (Xifaxan -) 550 mg PO BID [facility] Last Admin: 02/27/17 21:00 Dose: 550 mg Spironolactone (Aldactone -) 25 mg PO DAILY [facility] Last Admin: 02/27/17 15:44 Dose: 25 mg Tamsulosin HCl (Flomax -) 0.4 mg PO HS [facility] Last Admin: 02/27/17 21:00 Dose: 0.4 mg Warfarin Sodium (Coumadin -) 2 mg PO MoWeFr [facility] Last Admin: 02/27/17 17:32 Dose: Not Given Warfarin Sodium (Coumadin -) 4 mg PO SuTuThSa [facility] Last Admin: 02/27/17 17:33 Dose: 4 mg - Objective Vital Signs: Vital Signs Temperature 98.2 F 02/28/17 06:00 Pulse Rate 66 02/28/17 06:00 Respiratory Rate 20 02/28/17 06:00 Blood Pressure 109/53 02/28/17 06:00 O2 Sat by Pulse Oximetry (%) 96 02/27/17 21:00 Constitutional: Yes: Well Nourished, No Distress, Calm Cardiovascular: Yes: Regular Rate and Rhythm Respiratory: Yes: Regular Gastrointestinal: Yes: Ascites, Tenderness (generalized) Edema: Yes Edema: LLE: Trace, RLE: Trace Peripheral Pulses WNL: Yes Neurological: Yes: Alert Psychiatric: Yes: Alert Labs: CBC, BMP 02/28/17 06:00 INR, PTT INR 1.48 (0.82-1.09) H D 02/27/17 15:20 Problem List - Problems (1) Urinary retention Assessment/Plan: -Bonilla replaced -UC negative -on Tamsulosin Code(s): R33.9 - RETENTION OF URINE, UNSPECIFIED (2) Mental status change Code(s): R41.82 - ALTERED MENTAL STATUS, UNSPECIFIED (3) Prostate carcinoma Code(s): C61 - MALIGNANT NEOPLASM OF PROSTATE (4) Hepatic encephalopathy Assessment/Plan: -ammonia levels remain elevated -lactulose -repeat in AM -seen by GI Code(s): K72.90 - HEPATIC FAILURE, UNSPECIFIED WITHOUT COMA (5) Alcoholic cirrhosis Code(s): K70.30 - ALCOHOLIC CIRRHOSIS OF LIVER WITHOUT ASCITES (6) Anemia Assessment/Plan: -secondary to disease process, but also iron deficient -iron infusion Code(s): D64.9 - ANEMIA, UNSPECIFIED (7) Hypoalbuminemia due to protein-calorie malnutrition Assessment/Plan: -received albumin IV yesterday -poor oral intake -Glucerna TID Code(s): E46 - UNSPECIFIED PROTEIN-CALORIE MALNUTRITION Assessment/Plan see problem list overall poor prognosis pt to speak to mother and brother about goals of care. malnutrition secondary to disease process and poor oral intake
[2017-02-28 09:53] LABS: INR 1.44 (0.82-1.09); PROTHROMBIN TIME (PATIENT) 16.3 SEC (9.98-11.88)
[2017-02-28] MEDS: SPIRONOLACTONE 25 MG TABLET (FP) PO SCH ×2 (09:55→23:45)
[2017-02-28] MEDS: LACTULOSE 20 GM/30 ML UDC (FOR ORAL USE ONLY) PO SCH ×2 (09:56→23:45)
[2017-02-28] MEDS: RIFAXIMIN 550 MG TABLET (UD) PO SCH ×2 (09:56→23:45)
[2017-02-28] MEDS: NADOLOL 20 MG TABLET (FP) PO SCH (09:56)
[2017-02-28 10:04] LABS: ALK PHOS 196 U/L (45-117); ANION GAP 13 (8-16); BILIRUBIN,TOTAL 0.8 mg/dL (0.2-1.0); CALCIUM 8.3 mg/dL (8.5-10.1); CO2 24 mmol/L (21-32); CREATININE 0.5 mg/dL (0.7-1.3); GLUCOSE,RANDOM 158 mg/dL (74-106); SGOT/AST 23 U/L (15-37); SGPT/ALT 16 U/L (12-78); TOT PROT 5.6 g/dl (6.4-8.2); URIC ACID 3.4 mg/dL (2.6-7.2)
[2017-02-28] MEDS: CEFTRIAXONE 2 GM in DEXTROSE 5%-WATER - 100 ML IVPB SCH (10:05)
[2017-02-28] MEDS ORDERED: IRON SUCROSE INJECTION 200 MG in SODIUM CHLORIDE 100 ML IVPB ONE (12:00)
[2017-02-28] MEDS ORDERED: ALBUMIN HUMAN 25% 12.5 GM/50 ML VIAL IVPB ONE (17:27)
--- NOTE | 2017-02-28 17:27 | PN ---
Progress Note, Physician History of Present Illness: Pt seen and examined at bedside. He is more awake than he was yesterday. - Current Medication List Current Medications: Active Medications Albuterol Sulfate (Ventolin 0.083% Nebulizer Soln -) 1 amp NEB Q4H PRN PRN Reason: SHORT OF BREATH/WHEEZING Albuterol/Ipratropium (Duoneb -) 1 amp NEB QIDR [facility] Last Admin: 02/28/17 17:04 Dose: 1 amp Amino Acids (Prosource No Carb Liquid Pkt) 30 ml PO BID@0800,1730 [facility] Last Admin: 02/28/17 08:43 Dose: 30 ml Glimepiride (Amaryl -) 2 mg PO DAILY@0700 [facility] Last Admin: 02/28/17 06:02 Dose: 2 mg Ceftriaxone Sodium 2 gm/ (Dextrose) 100 mls @ 200 mls/hr IVPB DAILY [facility] Last Admin: 02/28/17 10:05 Dose: 200 mls/hr Insulin Aspart (Novolog Vial Sliding Scale -) 1 vial SQ ACHS [facility] PRN Reason: Protocol Last Admin: 02/28/17 16:30 Dose: Not Given Lactulose (Cephulac (Oral Use)) 20 gm PO BID [facility] Last Admin: 02/28/17 09:56 Dose: 20 gm Nadolol (Corgard -) 10 mg PO DAILY [facility] Last Admin: 02/28/17 09:56 Dose: 10 mg Enzalutamide [Xtandi ] 40 Mg Capsule (Pt' s Own) 0 mg PO DAILY@1800 [facility] Last Admin: 02/27/17 17:32 Dose: Not Given Oxycodone HCl (Roxicodone -) 2.5 mg PO Q4H PRN PRN Reason: PAIN Last Admin: 02/27/17 21:01 Dose: 2.5 mg Rifaximin (Xifaxan -) 550 mg PO BID [facility] Last Admin: 02/28/17 09:56 Dose: 550 mg Spironolactone (Aldactone -) 25 mg PO DAILY [facility] Last Admin: 02/28/17 09:55 Dose: 25 mg Tamsulosin HCl (Flomax -) 0.4 mg PO HS [facility] Last Admin: 02/27/17 21:00 Dose: 0.4 mg Warfarin Sodium (Coumadin -) 2 mg PO MoWeFr [facility] Last Admin: 02/27/17 17:32 Dose: Not Given Warfarin Sodium (Coumadin -) 4 mg PO SuTuThSa [facility] Last Admin: 02/27/17 17:33 Dose: 4 mg - Objective Vital Signs: Vital Signs Temperature 99.5 F 02/28/17 15:18 Pulse Rate 68 02/28/17 15:18 Respiratory Rate 20 02/28/17 15:18 Blood Pressure 105/65 02/28/17 15:18 O2 Sat by Pulse Oximetry (%) 93 L 02/28/17 09:00 Constitutional: Yes: Calm Eyes: Yes: Conjunctiva Clear HENT: Yes: Atraumatic Neck: Yes: Supple Cardiovascular: Yes: S1, S2 Respiratory: Yes: CTA Bilaterally Gastrointestinal: Yes: Soft, Ascites Genitourinary: Yes: Bonilla Present Edema: No Neurological: Yes: Other (more awake) Labs: CBC, BMP 02/28/17 06:00 02/28/17 06:00 INR, PTT INR 1.44 (0.82-1.09) H 02/28/17 06:00 Problem List - Problems (1) Alcoholic cirrhosis Code(s): K70.30 - ALCOHOLIC CIRRHOSIS OF LIVER WITHOUT ASCITES (2) Hepatic encephalopathy Code(s): K72.90 - HEPATIC FAILURE, UNSPECIFIED WITHOUT COMA Assessment/Plan Current Medications Generic Name Dose Route Start Last Admin Trade Name Freq PRN Reason Stop Dose Admin Albuterol Sulfate 1 amp 02/24/17 10:13 Ventolin 0.083% Nebulizer Soln - NEB Q4H PRN SHORT OF BREATH/WHEEZING Albuterol/Ipratropium 1 amp 02/24/17 12:00 02/28/17 17:04 Duoneb - NEB 1 amp QIDR [facility] Administration Amino Acids 30 ml 02/24/17 17:30 02/28/17 08:43 Prosource No Carb Liquid Pkt PO 30 ml BID@0800,1730 [facility] Administration Glimepiride 2 mg 02/24/17 07:00 02/28/17 06:02 Amaryl - PO 2 mg DAILY@0700 [facility] Administration Ceftriaxone Sodium 2 gm/ 100 mls @ 200 mls/hr 02/25/17 10:00 02/28/17 10:05 Dextrose IVPB 200 mls/hr DAILY [facility] Administration Insulin Aspart 1 vial 02/23/17 11:00 02/28/17 16:30 Novolog Vial Sliding Scale - SQ Not Given ACHS [facility] Protocol Lactulose 20 gm 02/23/17 10:00 02/28/17 09:56 Cephulac (Oral Use) PO 20 gm BID [facility] Administration Nadolol 10 mg 02/23/17 10:00 02/28/17 09:56 Corgard - PO 10 mg DAILY [facility] Administration Enzalutamide [Xtandi 0 mg 02/23/17 18:00 02/27/17 17:32 ] 40 Mg Capsule (Pt' PO Not Given s Own) DAILY@1800 [facility] Oxycodone HCl 2.5 mg 02/27/17 17:18 02/27/17 21:01 Roxicodone - PO 2.5 mg Q4H PRN Administration PAIN Rifaximin 550 mg 02/23/17 22:00 02/28/17 09:56 Xifaxan - PO 550 mg BID [facility] Administration Spironolactone 25 mg 02/27/17 14:00 02/28/17 09:55 Aldactone - PO 25 mg DAILY [facility] Administration Tamsulosin HCl 0.4 mg 02/23/17 22:00 02/27/17 21:00 Flomax - PO 0.4 mg HS [facility] Administration Warfarin Sodium 2 mg 02/25/17 18:00 02/27/17 17:32 Coumadin - PO Not Given MoWeFr [facility] Warfarin Sodium 4 mg 02/26/17 18:00 02/27/17 17:33 Coumadin - PO 4 mg SuTuThSa [facility] Administration Impression 1. liver cirrhosis 2. hx etoh abuse 3. volume overload 4. prostate cancer 5. urinary retention 6. oral thrush 7. PNA 8. DM 9. ascites Plan - increase aldactone to BID - will give a dose of lasix/albumin - will monitor renal function - monitor urine output - will follow Dr Spencer
[2017-02-28] MEDS ORDERED: FUROSEMIDE 40 MG/4 ML INJECTABLE VIAL IVPUSH ONE (17:28)
[2017-02-28] MEDS: ENZALUTAMIDE 40 MG PO SCH (17:31)
[2017-02-28] MEDS: WARFARIN NA 2 MG TABLET (UD) PO SCH (17:31)
[2017-02-28] MEDS: TAMSULOSIN HCL 0.4 MG CAP.ER.24H (FP) PO SCH (23:45)
[2017-03-01] MEDS: GLIMEPIRIDE 2 MG TABLET (FP) PO SCH (06:09)
[2017-03-01] MEDS: INSULIN SLIDING SCALE (NOVOLOG) 1 VIAL SQ SCH ×3 (06:09→16:55)
[2017-03-01] MEDS: ALBUTEROL SO4 2.5/IPRATROPIUM 0.5 INH SOL 3 ML VIAL.NEB. NEB SCH ×3 (06:20→16:15)
[2017-03-01] MEDS ORDERED: INSULIN DETEMIR 100 UNITS/ML MDV SQ ONE (07:38)
[2017-03-01] MEDS ORDERED: INSULIN (NOVOLOG) ASPART 100 UNITS/ML 10ML VIAL ONE ×2 (07:38→16:25)
[2017-03-01 07:48] LABS: BASO % 0.6 % (0-2.0); EOS % 2.7 % (0-4.5); MCH 26.8 pg (25.7-33.7); MCHC 32.3 g/dl (32.0-35.9); MEAN CELL VOLUME 83.1 fl (80-96); MEAN PLT VOLUME 7.9 fl (7.5-11.1); NEUT % 73.9 % (42.8-82.8); PLATELET COUNT 290 K/MM3 (134-434); RDW 17.4 % (11.9-15.9); WHITE BLOOD COUNT 6.5 K/mm3 (4.0-10.0)
[2017-03-01 08:02] LABS: ALBUMIN 3.1 g/dl (3.4-5.0); ANION GAP 10 (8-16); BILIRUBIN,TOTAL 0.8 mg/dL (0.2-1.0); CO2 26 mmol/L (21-32); CREATININE 0.5 mg/dL (0.7-1.3); GLUCOSE,RANDOM 178 mg/dL (74-106); MAGNESIUM 2.1 mg/dL (1.8-2.4); SGOT/AST 18 U/L (15-37); SGPT/ALT 16 U/L (12-78); TOT PROT 5.8 g/dl (6.4-8.2)
[2017-03-01 08:03] LABS: ALK PHOS 201 U/L (45-117)
[2017-03-01 08:09] LABS: INR 1.52 (0.82-1.09); PROTHROMBIN TIME (PATIENT) 17.2 SEC (9.98-11.88)
[2017-03-01] MEDS: AMINO ACIDS/PROTEIN HYDROLYS 30 ML LIQUID.PKT PO SCH ×2 (08:27→17:17)
[2017-03-01] MEDS ORDERED: PT OWN MED DRAWER 7, Y5N ONE (10:12)
[2017-03-01] MEDS: SPIRONOLACTONE 25 MG TABLET (FP) PO SCH (10:19)
[2017-03-01] MEDS: LACTULOSE 20 GM/30 ML UDC (FOR ORAL USE ONLY) PO SCH (10:19)
[2017-03-01] MEDS: RIFAXIMIN 550 MG TABLET (UD) PO SCH (10:20)
[2017-03-01] MEDS: NADOLOL 20 MG TABLET (FP) PO SCH (10:20)
[2017-03-01] MEDS: CEFTRIAXONE 2 GM in DEXTROSE 5%-WATER - 100 ML IVPB SCH (10:21)
--- NOTE | 2017-03-01 10:41 | PN ---
Progress Note, Physician Chief Complaint: Weakness, Hepatic encephalopathy History of Present Illness: NAD, lethargy improved today poor prognosis poor PO intake hypoalbuminemia IV abx seen by ID and GI on lactulose with 3-4 BM's per day spoke to daughter about goals of care and patient wishes, she would discuss it with her mother and brother pain management- controlled on Percocet 2.5 mg Urine output decreased - Current Medication List Current Medications: Active Medications Albuterol Sulfate (Ventolin 0.083% Nebulizer Soln -) 1 amp NEB Q4H PRN PRN Reason: SHORT OF BREATH/WHEEZING Albuterol/Ipratropium (Duoneb -) 1 amp NEB QIDR [facility] Last Admin: 03/01/17 06:20 Dose: 1 amp Amino Acids (Prosource No Carb Liquid Pkt) 30 ml PO BID@0800,1730 [facility] Last Admin: 03/01/17 08:27 Dose: 30 ml Glimepiride (Amaryl -) 2 mg PO DAILY@0700 [facility] Last Admin: 03/01/17 06:09 Dose: 2 mg Ceftriaxone Sodium 2 gm/ (Dextrose) 100 mls @ 200 mls/hr IVPB DAILY [facility] Last Admin: 03/01/17 10:21 Dose: 200 mls/hr Insulin Aspart (Novolog Vial Sliding Scale -) 1 vial SQ ACHS [facility] PRN Reason: Protocol Last Admin: 03/01/17 06:09 Dose: Not Given Lactulose (Cephulac (Oral Use)) 20 gm PO BID [facility] Last Admin: 03/01/17 10:19 Dose: 20 gm Nadolol (Corgard -) 10 mg PO DAILY [facility] Last Admin: 03/01/17 10:20 Dose: 10 mg Enzalutamide [Xtandi ] 40 Mg Capsule (Pt' s Own) 0 mg PO DAILY@1800 [facility] Last Admin: 02/28/17 17:31 Dose: Not Given Oxycodone HCl (Roxicodone -) 2.5 mg PO Q4H PRN PRN Reason: PAIN Last Admin: 02/27/17 21:01 Dose: 2.5 mg Rifaximin (Xifaxan -) 550 mg PO BID [facility] Last Admin: 03/01/17 10:20 Dose: 550 mg Spironolactone (Aldactone -) 25 mg PO BID [facility] Last Admin: 03/01/17 10:19 Dose: 25 mg Tamsulosin HCl (Flomax -) 0.4 mg PO HS [facility] Last Admin: 02/28/17 23:45 Dose: 0.4 mg Warfarin Sodium (Coumadin -) 2 mg PO MoWeFr [facility] Last Admin: 02/27/17 17:32 Dose: Not Given Warfarin Sodium (Coumadin -) 4 mg PO SuTuThSa [facility] Last Admin: 02/28/17 17:31 Dose: 4 mg - Objective Vital Signs: Vital Signs Temperature 98.8 F 03/01/17 06:00 Pulse Rate 65 03/01/17 06:00 Respiratory Rate 22 03/01/17 06:00 Blood Pressure 125/65 03/01/17 06:00 O2 Sat by Pulse Oximetry (%) 94 L 02/28/17 21:00 Constitutional: Yes: Well Nourished, No Distress, Calm Cardiovascular: Yes: Regular Rate and Rhythm Respiratory: Yes: Regular Musculoskeletal: Yes: WNL Extremities: Yes: WNL Edema: LLE: 1+, RLE: 1+ Peripheral Pulses WNL: Yes Neurological: Yes: Alert Psychiatric: Yes: Alert Labs: CBC, BMP 03/01/17 06:00 03/01/17 06:00 INR, PTT INR 1.52 (0.82-1.09) H 03/01/17 06:00 Problem List - Problems (1) Urinary retention Assessment/Plan: -Bonilla replaced -UC negative -on Tamsulosin Code(s): R33.9 - RETENTION OF URINE, UNSPECIFIED (2) Mental status change Code(s): R41.82 - ALTERED MENTAL STATUS, UNSPECIFIED (3) Prostate carcinoma Code(s): C61 - MALIGNANT NEOPLASM OF PROSTATE (4) Hepatic encephalopathy Assessment/Plan: -ammonia levels remain elevated -lactulose -repeat in AM -seen by GI Code(s): K72.90 - HEPATIC FAILURE, UNSPECIFIED WITHOUT COMA (5) Alcoholic cirrhosis Code(s): K70.30 - ALCOHOLIC CIRRHOSIS OF LIVER WITHOUT ASCITES (6) Anemia Assessment/Plan: -h/h improved today -secondary to disease process, but also iron deficient -iron infusion Code(s): D64.9 - ANEMIA, UNSPECIFIED (7) Hypoalbuminemia due to protein-calorie malnutrition Assessment/Plan: -received albumin IV yesterday -poor oral intake -Glucerna TID Code(s): E46 - UNSPECIFIED PROTEIN-CALORIE MALNUTRITION Assessment/Plan see problem list overall poor prognosis pt's daughter to speak to mother and brother about goals of care. malnutrition secondary to disease process and poor oral intake
--- NOTE | 2017-03-01 15:45 | PN ---
Progress Note, Physician History of Present Illness: Pt seen and examined at bedside. He is more awake today. He denies abdominal pain. - Current Medication List Current Medications: Active Medications Albumin Human (Albumin Human 25%) 25 gm IVPB ONCE ONE Stop: 03/01/17 15:46 Albuterol Sulfate (Ventolin 0.083% Nebulizer Soln -) 1 amp NEB Q4H PRN PRN Reason: SHORT OF BREATH/WHEEZING Albuterol/Ipratropium (Duoneb -) 1 amp NEB QIDR [facility] Last Admin: 03/01/17 10:50 Dose: 1 amp Amino Acids (Prosource No Carb Liquid Pkt) 30 ml PO BID@0800,1730 [facility] Last Admin: 03/01/17 08:27 Dose: 30 ml Furosemide (Lasix Injection -) 40 mg IVPUSH ONCE ONE Stop: 03/01/17 15:42 Glimepiride (Amaryl -) 2 mg PO DAILY@0700 [facility] Last Admin: 03/01/17 06:09 Dose: 2 mg Ceftriaxone Sodium 2 gm/ (Dextrose) 100 mls @ 200 mls/hr IVPB DAILY [facility] Last Admin: 03/01/17 10:21 Dose: 200 mls/hr Insulin Aspart (Novolog Vial Sliding Scale -) 1 vial SQ ACHS [facility] PRN Reason: Protocol Last Admin: 03/01/17 11:48 Dose: 2 units Lactulose (Cephulac (Oral Use)) 20 gm PO BID [facility] Last Admin: 03/01/17 10:19 Dose: 20 gm Nadolol (Corgard -) 10 mg PO DAILY [facility] Last Admin: 03/01/17 10:20 Dose: 10 mg Enzalutamide [Xtandi ] 40 Mg Capsule (Pt' s Own) 0 mg PO DAILY@1800 [facility] Last Admin: 02/28/17 17:31 Dose: Not Given Oxycodone HCl (Roxicodone -) 2.5 mg PO Q4H PRN PRN Reason: PAIN Last Admin: 02/27/17 21:01 Dose: 2.5 mg Potassium Chloride (K-Dur -) 40 meq PO ONCE ONE Stop: 03/01/17 15:42 Rifaximin (Xifaxan -) 550 mg PO BID [facility] Last Admin: 03/01/17 10:20 Dose: 550 mg Spironolactone (Aldactone -) 25 mg PO BID [facility] Last Admin: 03/01/17 10:19 Dose: 25 mg Tamsulosin HCl (Flomax -) 0.4 mg PO [facility] Last Admin: 02/28/17 23:45 Dose: 0.4 mg Warfarin Sodium (Coumadin -) 2 mg PO We@1800 [facility] Warfarin Sodium (Coumadin -) 4 mg PO SuMoTuThFrSa@1800 [facility] - Objective Vital Signs: Vital Signs Temperature 98.3 F 03/01/17 14:56 Pulse Rate 64 03/01/17 14:56 Respiratory Rate 18 03/01/17 14:56 Blood Pressure 131/77 03/01/17 14:56 O2 Sat by Pulse Oximetry (%) 95 03/01/17 09:00 Constitutional: Yes: Calm Cardiovascular: Yes: S1, S2 Respiratory: Yes: CTA Bilaterally Gastrointestinal: Yes: Ascites Genitourinary: Yes: Bonilla Present Musculoskeletal: Yes: Muscle Weakness Edema: No Neurological: Yes: Oriented Labs: CBC, BMP 03/01/17 06:00 03/01/17 06:00 INR, PTT INR 1.52 (0.82-1.09) H 03/01/17 06:00 Problem List - Problems (1) Alcoholic cirrhosis Code(s): K70.30 - ALCOHOLIC CIRRHOSIS OF LIVER WITHOUT ASCITES (2) Hepatic encephalopathy Code(s): K72.90 - HEPATIC FAILURE, UNSPECIFIED WITHOUT COMA Assessment/Plan Current Medications Generic Name Dose Route Start Last Admin Trade Name Freq PRN Reason Stop Dose Admin Albumin Human 25 gm 03/01/17 15:45 Albumin Human 25% IVPB 03/01/17 15:46 ONCE ONE Albuterol Sulfate 1 amp 02/24/17 10:13 Ventolin 0.083% Nebulizer Soln - NEB Q4H PRN SHORT OF BREATH/WHEEZING Albuterol/Ipratropium 1 amp 02/24/17 12:00 03/01/17 10:50 Duoneb - NEB 1 amp QIDR [facility] Administration Amino Acids 30 ml 02/24/17 17:30 03/01/17 08:27 Prosource No Carb Liquid Pkt PO 30 ml BID@0800,1730 [facility] Administration Furosemide 40 mg 03/01/17 15:41 Lasix Injection - IVPUSH 03/01/17 15:42 ONCE ONE Glimepiride 2 mg 02/24/17 07:00 03/01/17 06:09 Amaryl - PO 2 mg DAILY@0700 [facility] Administration Ceftriaxone Sodium 2 gm/ 100 mls @ 200 mls/hr 02/25/17 10:00 03/01/17 10:21 Dextrose IVPB 200 mls/hr DAILY [facility] Administration Insulin Aspart 1 vial 02/23/17 11:00 03/01/17 11:48 Novolog Vial Sliding Scale - SQ 2 units ACHS [facility] Administration Protocol Lactulose 20 gm 02/23/17 10:00 03/01/17 10:19 Cephulac (Oral Use) PO 20 gm BID [facility] Administration Nadolol 10 mg 02/23/17 10:00 03/01/17 10:20 Corgard - PO 10 mg DAILY [facility] Administration Enzalutamide [Xtandi 0 mg 02/23/17 18:00 02/28/17 17:31 ] 40 Mg Capsule (Pt' PO Not Given s Own) DAILY@1800 [facility] Oxycodone HCl 2.5 mg 02/27/17 17:18 02/27/17 21:01 Roxicodone - PO 2.5 mg Q4H PRN Administration PAIN Potassium Chloride 40 meq 03/01/17 15:41 K-Dur - PO 03/01/17 15:42 ONCE ONE Rifaximin 550 mg 02/23/17 22:00 03/01/17 10:20 Xifaxan - PO 550 mg BID [facility] Administration Spironolactone 25 mg 02/28/17 22:00 03/01/17 10:19 Aldactone - PO 25 mg BID [facility] Administration Tamsulosin HCl 0.4 mg 02/23/17 22:00 02/28/17 23:45 Flomax - PO 0.4 mg HS [facility] Administration Warfarin Sodium 2 mg 03/06/17 18:00 Coumadin - PO We@1800 [facility] Warfarin Sodium 4 mg 03/01/17 18:00 Coumadin - PO SuMoTuThFrSa@1800 [facility] Impression 1. liver cirrhosis 2. hx etoh abuse 3. volume overload 4. prostate cancer 5. urinary retention 6. oral thrush 7. PNA 8. DM 9. ascites Plan - cont aldactone - will give another dose of lasix and albumin - repeat labs in am - GI follow up - monitor urine output - discussed with family - will follow Dr Spencer
[2017-03-01] MEDS ORDERED: POTASSIUM CHLORIDE TABS 20 MEQ TABLET.ER (FP) PO ONE (16:00)
[2017-03-01] MEDS ORDERED: FUROSEMIDE 40 MG/4 ML INJECTABLE VIAL IVPUSH ONE (16:00)
--- NOTE | 2017-03-01 16:16 | PN ---
GI Progress Note Subjective: GI NOte: Above notes appreciated. Urine output responded nicely to lasix after albumin infusions and the abdomen is softer. Urein out dropped off sinificantly today. Agree with Dr Spencer's intervention. I have ordered daily weights. His oral intake remains poor. Daughter tells me that his mental status is at the baseline. - Objective Vital Signs: Vital Signs Temperature 98.3 F 03/01/17 14:56 Pulse Rate 64 03/01/17 14:56 Respiratory Rate 18 03/01/17 14:56 Blood Pressure 131/77 03/01/17 14:56 O2 Sat by Pulse Oximetry (%) 95 03/01/17 09:00 Constitutional: No Distress Gastrointestinal Inspection: Yes: Distention (less than recently) ...Auscultate: Yes: Normoactive Bowel Sounds ...Palpate: Yes: Soft, Other (nontender) Labs: CBC, BMP 03/01/17 06:00 03/01/17 06:00 INR, PTT INR 1.52 (0.82-1.09) H 03/01/17 06:00 Problem List - Problems (1) Alcoholic cirrhosis Assessment/Plan: LFTs and encephalopathy stable but ascites remains an issue and has not proven to be responsive to diuretics alone so far. BUN stool over 30. Albumin infusion is not a watermelon inspector option. Hoping for response to diuretics alone. Fortunately he is not bleeding. I explained to the family that I will be away for a week and that Dr Sanders will be covering. Please call him as needed. Code(s): K70.30 - ALCOHOLIC CIRRHOSIS OF LIVER WITHOUT ASCITES (2) Esophageal varices determined by endoscopy Code(s): I85.00 - ESOPHAGEAL VARICES WITHOUT BLEEDING (3) Portal vein thrombosis Code(s): I81 - PORTAL VEIN THROMBOSIS (4) Thrush, oral Code(s): B37.0 - CANDIDAL STOMATITIS (5) Hepatic encephalopathy Assessment/Plan: Hepatic encephalopathy stable with lactulose and xifaxan which I have renewed. Code(s): K72.90 - HEPATIC FAILURE, UNSPECIFIED WITHOUT COMA (6) Renal insufficiency Code(s): N28.9 - DISORDER OF KIDNEY AND URETER, UNSPECIFIED
[2017-03-01] MEDS ORDERED: ALBUMIN HUMAN 25% 12.5 GM/50 ML VIAL IVPB ONE (16:30)
[2017-03-01] MEDS: WARFARIN NA 2 MG TABLET (UD) PO SCH (17:17)
[2017-03-01] MEDS: ENZALUTAMIDE 40 MG PO SCH (17:18)
[2017-03-02] MEDS: ALBUTEROL SO4 2.5/IPRATROPIUM 0.5 INH SOL 3 ML VIAL.NEB. NEB SCH ×4 (00:05→18:30)
[2017-03-02] MEDS: LACTULOSE 20 GM/30 ML UDC (FOR ORAL USE ONLY) PO SCH ×3 (00:17→21:32)
[2017-03-02] MEDS: RIFAXIMIN 550 MG TABLET (UD) PO SCH ×3 (00:17→21:32)
[2017-03-02] MEDS: SPIRONOLACTONE 25 MG TABLET (FP) PO SCH ×3 (00:17→21:32)
[2017-03-02] MEDS: TAMSULOSIN HCL 0.4 MG CAP.ER.24H (FP) PO SCH ×2 (00:17→21:32)
[2017-03-02] MEDS: INSULIN SLIDING SCALE (NOVOLOG) 1 VIAL SQ SCH ×5 (00:19→21:33)
[2017-03-02] MEDS: GLIMEPIRIDE 2 MG TABLET (FP) PO SCH (06:34)
[2017-03-02 07:34] LABS: BASO % 0.7 % (0-2.0); EOS % 2.5 % (0-4.5); MCH 26.6 pg (25.7-33.7); MCHC 32.2 g/dl (32.0-35.9); MEAN CELL VOLUME 82.5 fl (80-96); MEAN PLT VOLUME 7.7 fl (7.5-11.1); NEUT % 72.9 % (42.8-82.8); PLATELET COUNT 277 K/MM3 (134-434); RDW 17.4 % (11.9-15.9); WHITE BLOOD COUNT 6.3 K/mm3 (4.0-10.0)
[2017-03-02 07:54] LABS: ANION GAP 11 (8-16); BILIRUBIN,TOTAL 0.7 mg/dL (0.2-1.0); CALCIUM 8.4 mg/dL (8.5-10.1); CO2 26 mmol/L (21-32); CREATININE 0.5 mg/dL (0.7-1.3); GLUCOSE,RANDOM 174 mg/dL (74-106); SGOT/AST 19 U/L (15-37); SGPT/ALT 15 U/L (12-78)
[2017-03-02 07:55] LABS: ALK PHOS 198 U/L (45-117); TOT PROT 5.8 g/dl (6.4-8.2)
[2017-03-02 07:58] LABS: INR 1.55 (0.82-1.09); PROTHROMBIN TIME (PATIENT) 17.5 SEC (9.98-11.88)
[2017-03-02] MEDS: AMINO ACIDS/PROTEIN HYDROLYS 30 ML LIQUID.PKT PO SCH ×2 (09:00→16:47)
[2017-03-02] MEDS: CEFTRIAXONE 2 GM in DEXTROSE 5%-WATER - 100 ML IVPB SCH (10:08)
[2017-03-02] MEDS: NADOLOL 20 MG TABLET (FP) PO SCH (10:08)
--- NOTE | 2017-03-02 14:07 | PN ---
Progress Note, Physician - Current Medication List Current Medications: Active Medications Albuterol Sulfate (Ventolin 0.083% Nebulizer Soln -) 1 amp NEB Q4H PRN PRN Reason: SHORT OF BREATH/WHEEZING Albuterol/Ipratropium (Duoneb -) 1 amp NEB QIDR [facility] Last Admin: 03/02/17 11:20 Dose: 1 amp Amino Acids (Prosource No Carb Liquid Pkt) 30 ml PO BID@0800,1730 [facility] Last Admin: 03/02/17 09:00 Dose: 30 ml Glimepiride (Amaryl -) 2 mg PO DAILY@0700 [facility] Last Admin: 03/02/17 06:34 Dose: 2 mg Ceftriaxone Sodium 2 gm/ (Dextrose) 100 mls @ 200 mls/hr IVPB DAILY [facility] Last Admin: 03/02/17 10:08 Dose: 200 mls/hr Insulin Aspart (Novolog Vial Sliding Scale -) 1 vial SQ ACHS [facility] PRN Reason: Protocol Last Admin: 03/02/17 12:01 Dose: Not Given Lactulose (Cephulac (Oral Use)) 20 gm PO BID [facility] Last Admin: 03/02/17 10:09 Dose: 20 gm Nadolol (Corgard -) 10 mg PO DAILY [facility] Last Admin: 03/02/17 10:08 Dose: 10 mg Enzalutamide [Xtandi ] 40 Mg Capsule (Pt' s Own) 0 mg PO DAILY@1800 [facility] Last Admin: 03/01/17 17:18 Dose: Not Given Oxycodone HCl (Roxicodone -) 2.5 mg PO Q4H PRN PRN Reason: PAIN Last Admin: 02/27/17 21:01 Dose: 2.5 mg Rifaximin (Xifaxan -) 550 mg PO BID [facility] Last Admin: 03/02/17 10:09 Dose: 550 mg Spironolactone (Aldactone -) 25 mg PO BID [facility] Last Admin: 03/02/17 10:09 Dose: 25 mg Tamsulosin HCl (Flomax -) 0.4 mg PO HS [facility] Last Admin: 03/02/17 00:17 Dose: 0.4 mg Warfarin Sodium (Coumadin -) 2 mg PO We@1800 [facility] Warfarin Sodium (Coumadin -) 4 mg PO SuMoTuThFrSa@1800 [facility] Last Admin: 03/01/17 17:17 Dose: 4 mg - Objective Vital Signs: Vital Signs Temperature 99.6 F 03/02/17 10:00 Pulse Rate 68 03/02/17 10:00 Respiratory Rate 20 03/02/17 10:00 Blood Pressure 111/60 03/02/17 10:00 O2 Sat by Pulse Oximetry (%) 95 03/02/17 09:00 Cardiovascular: Yes: S1, S2 Respiratory: Yes: Regular, CTA Bilaterally Gastrointestinal: Yes: Normal Bowel Sounds, Soft, Ascites Labs: CBC, BMP 03/02/17 06:00 03/02/17 06:00 INR, PTT INR 1.55 (0.82-1.09) H 03/02/17 06:00 Problem List - Problems (1) Pneumonia Code(s): J18.9 - PNEUMONIA, UNSPECIFIED ORGANISM (2) Hepatic encephalopathy Code(s): K72.90 - HEPATIC FAILURE, UNSPECIFIED WITHOUT COMA (3) Diabetes 1.5, managed as type 2 Code(s): E10.9 - TYPE 1 DIABETES MELLITUS WITHOUT COMPLICATIONS (4) Mental status change Code(s): R41.82 - ALTERED MENTAL STATUS, UNSPECIFIED (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 Code(s): C61 - MALIGNANT NEOPLASM OF PROSTATE; C79.51 - SECONDARY MALIGNANT NEOPLASM OF BONE (6) UTI (urinary tract infection) Code(s): N39.0 - URINARY TRACT INFECTION, SITE NOT SPECIFIED Qualifiers: Urinary tract infection type: site unspecified Hematuria presence: with hematuria Qualified Code(s): N39.0 - Urinary tract infection, site not specified (7) Urinary retention Code(s): R33.9 - RETENTION OF URINE, UNSPECIFIED (8) Ascites Code(s): R18.8 - OTHER ASCITES Assessment/Plan - Problems (1) Urinary retention Assessment/Plan: -Bonilla replaced -UC negative -on Tamsulosin Code(s): R33.9 - RETENTION OF URINE, UNSPECIFIED (2) Mental status change Code(s): R41.82 - ALTERED MENTAL STATUS, UNSPECIFIED (3) Prostate carcinoma Code(s): C61 - MALIGNANT NEOPLASM OF PROSTATE (4) Hepatic encephalopathy Assessment/Plan: -ammonia levels remain elevated -lactulose -repeat in AM -seen by GI Code(s): K72.90 - HEPATIC FAILURE, UNSPECIFIED WITHOUT COMA (5) Alcoholic cirrhosis Code(s): K70.30 - ALCOHOLIC CIRRHOSIS OF LIVER WITHOUT ASCITES (6) Anemia Assessment/Plan: -h/h improved today -secondary to disease process, but also iron deficient -iron infusion Code(s): D64.9 - ANEMIA, UNSPECIFIED (7) Hypoalbuminemia due to protein-calorie malnutrition Assessment/Plan: -received albumin IV yesterday -poor oral intake -Glucerna TID Code(s): E46 - UNSPECIFIED PROTEIN-CALORIE MALNUTRITION Assessment/Plan see problem list overall poor prognosis pt's daughter to speak to mother and brother about goals of care. malnutrition secondary to disease process and poor oral intake
[2017-03-02] MEDS ORDERED: FUROSEMIDE 40 MG/4 ML INJECTABLE VIAL IVPUSH ONE (16:13)
--- NOTE | 2017-03-02 16:13 | PN ---
Progress Note, Physician History of Present Illness: Pt seen and examined at bedside. No great change in mental status from yesterday. - Current Medication List Current Medications: Active Medications Albuterol Sulfate (Ventolin 0.083% Nebulizer Soln -) 1 amp NEB Q4H PRN PRN Reason: SHORT OF BREATH/WHEEZING Albuterol/Ipratropium (Duoneb -) 1 amp NEB QIDR [facility] Last Admin: 03/02/17 11:20 Dose: 1 amp Amino Acids (Prosource No Carb Liquid Pkt) 30 ml PO BID@0800,1730 [facility] Last Admin: 03/02/17 09:00 Dose: 30 ml Glimepiride (Amaryl -) 2 mg PO DAILY@0700 [facility] Last Admin: 03/02/17 06:34 Dose: 2 mg Ceftriaxone Sodium 2 gm/ (Dextrose) 100 mls @ 200 mls/hr IVPB DAILY [facility] Last Admin: 03/02/17 10:08 Dose: 200 mls/hr Insulin Aspart (Novolog Vial Sliding Scale -) 1 vial SQ ACHS [facility] PRN Reason: Protocol Last Admin: 03/02/17 12:01 Dose: Not Given Lactulose (Cephulac (Oral Use)) 20 gm PO BID [facility] Last Admin: 03/02/17 10:09 Dose: 20 gm Nadolol (Corgard -) 10 mg PO DAILY [facility] Last Admin: 03/02/17 10:08 Dose: 10 mg Enzalutamide [Xtandi ] 40 Mg Capsule (Pt' s Own) 0 mg PO DAILY@1800 [facility] Last Admin: 03/01/17 17:18 Dose: Not Given Oxycodone HCl (Roxicodone -) 2.5 mg PO Q4H PRN PRN Reason: PAIN Last Admin: 02/27/17 21:01 Dose: 2.5 mg Rifaximin (Xifaxan -) 550 mg PO BID [facility] Last Admin: 03/02/17 10:09 Dose: 550 mg Spironolactone (Aldactone -) 25 mg PO BID [facility] Last Admin: 03/02/17 10:09 Dose: 25 mg Tamsulosin HCl (Flomax -) 0.4 mg PO HS [facility] Last Admin: 03/02/17 00:17 Dose: 0.4 mg Warfarin Sodium (Coumadin -) 2 mg PO We@1800 [facility] Warfarin Sodium (Coumadin -) 4 mg PO SuMoTuThFrSa@1800 [facility] Last Admin: 03/01/17 17:17 Dose: 4 mg - Objective Vital Signs: Vital Signs Temperature 99.6 F 03/02/17 10:00 Pulse Rate 68 03/02/17 10:00 Respiratory Rate 20 03/02/17 10:00 Blood Pressure 111/60 03/02/17 10:00 O2 Sat by Pulse Oximetry (%) 95 03/02/17 09:00 Constitutional: Yes: Calm Eyes: Yes: Conjunctiva Clear HENT: Yes: Atraumatic Neck: Yes: Supple Cardiovascular: Yes: S1, S2 Respiratory: Yes: CTA Bilaterally Gastrointestinal: Yes: Ascites Genitourinary: Yes: Bonilla Present Musculoskeletal: Yes: Muscle Weakness Edema: No Neurological: Yes: Oriented Labs: CBC, BMP 03/02/17 06:00 03/02/17 06:00 INR, PTT INR 1.55 (0.82-1.09) H 03/02/17 06:00 Problem List - Problems (1) Alcoholic cirrhosis Code(s): K70.30 - ALCOHOLIC CIRRHOSIS OF LIVER WITHOUT ASCITES (2) Hepatic encephalopathy Code(s): K72.90 - HEPATIC FAILURE, UNSPECIFIED WITHOUT COMA Assessment/Plan Current Medications Generic Name Dose Route Start Last Admin Trade Name Gia PRN Reason Stop Dose Admin Albuterol Sulfate 1 amp 02/24/17 10:13 Ventolin 0.083% Nebulizer Soln - NEB Q4H PRN SHORT OF BREATH/WHEEZING Albuterol/Ipratropium 1 amp 02/24/17 12:00 03/02/17 11:20 Duoneb - NEB 1 amp QIDR [facility] Administration Amino Acids 30 ml 02/24/17 17:30 03/02/17 09:00 Prosource No Carb Liquid Pkt PO 30 ml BID@0800,1730 [facility] Administration Glimepiride 2 mg 02/24/17 07:00 03/02/17 06:34 Amaryl - PO 2 mg DAILY@0700 [facility] Administration Ceftriaxone Sodium 2 gm/ 100 mls @ 200 mls/hr 02/25/17 10:00 03/02/17 10:08 Dextrose IVPB 200 mls/hr DAILY [facility] Administration Insulin Aspart 1 vial 02/23/17 11:00 12/16/17 12:01 Novolog Vial Sliding Scale - SQ Not Given ACHS [facility] Protocol Lactulose 20 gm 02/23/17 10:00 03/02/17 10:09 Cephulac (Oral Use) PO 20 gm BID [facility] Administration Nadolol 10 mg 02/23/17 10:00 03/02/17 10:08 Corgard - PO 10 mg DAILY [facility] Administration Enzalutamide [Xtandi 0 mg 02/23/17 18:00 03/01/17 17:18 ] 40 Mg Capsule (Pt' PO Not Given s Own) DAILY@1800 [facility] Oxycodone HCl 2.5 mg 02/27/17 17:18 02/27/17 21:01 Roxicodone - PO 2.5 mg Q4H PRN Administration PAIN Rifaximin 550 mg 02/23/17 22:00 03/02/17 10:09 Xifaxan - PO 550 mg BID [facility] Administration Spironolactone 25 mg 02/28/17 22:00 03/02/17 10:09 Aldactone - PO 25 mg BID [facility] Administration Tamsulosin HCl 0.4 mg 02/23/17 22:00 03/02/17 00:17 Flomax - PO 0.4 mg HS [facility] Administration Warfarin Sodium 2 mg 03/06/17 18:00 Coumadin - PO We@1800 [facility] Warfarin Sodium 4 mg 03/01/17 18:00 03/01/17 17:17 Coumadin - PO 4 mg SuMoTuThFrSa@1800 [facility] Administration Impression 1. liver cirrhosis 2. hx etoh abuse 3. volume overload 4. prostate cancer 5. urinary retention 6. oral thrush 7. PNA 8. DM 9. ascites Plan - will give lasix - cont aldactone - GI follow up - daily weights - monitor urine output - discussed with family - prognosis is poor - will follow Dr Spencer
[2017-03-02] MEDS ORDERED: ALBUMIN HUMAN 25% 12.5 GM/50 ML VIAL IVPB ONE (16:15)
[2017-03-02] MEDS: WARFARIN NA 2 MG TABLET (UD) PO SCH (17:27)
[2017-03-02] MEDS: ENZALUTAMIDE 40 MG PO SCH (17:28)
[2017-03-02] MEDS: oxyCODONE HCL 5 MG TABLET PO PRN (18:08)
[2017-03-03] MEDS: ALBUTEROL SO4 2.5/IPRATROPIUM 0.5 INH SOL 3 ML VIAL.NEB. NEB SCH ×5 (00:05→23:45)
[2017-03-03] MEDS ORDERED: PT OWN MED DRAWER 7, Y5N ONE ×2 (06:34→13:10)
[2017-03-03] MEDS: INSULIN SLIDING SCALE (NOVOLOG) 1 VIAL SQ SCH ×4 (06:36→21:46)
[2017-03-03] MEDS: GLIMEPIRIDE 2 MG TABLET (FP) PO SCH (06:41)
[2017-03-03 07:56] LABS: ANION GAP 8 (8-16); CALCIUM 7.8 mg/dL (8.5-10.1); CO2 27 mmol/L (21-32); CREATININE 0.5 mg/dL (0.7-1.3); GLUCOSE,RANDOM 181 mg/dL (74-106)
[2017-03-03 07:58] LABS: BASO % 0.6 % (0-2.0); EOS % 3.1 % (0-4.5); MCH 26.6 pg (25.7-33.7); MEAN CELL VOLUME 83.2 fl (80-96); MEAN PLT VOLUME 7.7 fl (7.5-11.1); NEUT % 72.3 % (42.8-82.8); PLATELET COUNT 264 K/MM3 (134-434); RDW 17.4 % (11.9-15.9); WHITE BLOOD COUNT 5.3 K/mm3 (4.0-10.0)
[2017-03-03 08:05] LABS: INR 1.69 (0.82-1.09); PROTHROMBIN TIME (PATIENT) 19.1 SEC (9.98-11.88)
[2017-03-03] MEDS: AMINO ACIDS/PROTEIN HYDROLYS 30 ML LIQUID.PKT PO SCH ×2 (08:12→17:13)
[2017-03-03] MEDS ORDERED: FUROSEMIDE 40 MG TABLET (FP) PO SCH (10:00)
[2017-03-03] MEDS: NADOLOL 20 MG TABLET (FP) PO SCH (11:11)
[2017-03-03] MEDS: LACTULOSE 20 GM/30 ML UDC (FOR ORAL USE ONLY) PO SCH ×2 (11:11→21:46)
[2017-03-03] MEDS: SPIRONOLACTONE 25 MG TABLET (FP) PO SCH ×2 (11:11→21:46)
[2017-03-03] MEDS: RIFAXIMIN 550 MG TABLET (UD) PO SCH ×2 (11:11→21:46)
[2017-03-03] MEDS: CEFTRIAXONE 2 GM in DEXTROSE 5%-WATER - 100 ML IVPB SCH (11:12)
--- NOTE | 2017-03-03 14:44 | PN ---
Progress Note, Physician - Current Medication List Current Medications: Active Medications Albuterol Sulfate (Ventolin 0.083% Nebulizer Soln -) 1 amp NEB Q4H PRN PRN Reason: SHORT OF BREATH/WHEEZING Albuterol/Ipratropium (Duoneb -) 1 amp NEB QIDR [facility] Last Admin: 03/03/17 06:34 Dose: 1 amp Amino Acids (Prosource No Carb Liquid Pkt) 30 ml PO BID@0800,1730 [facility] Last Admin: 03/03/17 08:12 Dose: 30 ml Furosemide (Lasix -) 40 mg PO DAILY [facility] Last Admin: 03/03/17 11:11 Dose: 40 mg Glimepiride (Amaryl -) 2 mg PO DAILY@0700 [facility] Last Admin: 03/03/17 06:41 Dose: 2 mg Ceftriaxone Sodium 2 gm/ (Dextrose) 100 mls @ 200 mls/hr IVPB DAILY [facility] Last Admin: 03/03/17 11:12 Dose: 200 mls/hr Insulin Aspart (Novolog Vial Sliding Scale -) 1 vial SQ ACHS [facility] PRN Reason: Protocol Last Admin: 03/03/17 11:47 Dose: 2 units Lactulose (Cephulac (Oral Use)) 20 gm PO BID [facility] Last Admin: 03/03/17 11:11 Dose: 20 gm Nadolol (Corgard -) 10 mg PO DAILY [facility] Last Admin: 03/03/17 11:11 Dose: 10 mg Enzalutamide [Xtandi ] 40 Mg Capsule (Pt' s Own) 0 mg PO DAILY@1800 [facility] Last Admin: 03/02/17 17:28 Dose: Not Given Oxycodone HCl (Roxicodone -) 2.5 mg PO Q4H PRN PRN Reason: PAIN Last Admin: 03/02/17 18:08 Dose: 2.5 mg Rifaximin (Xifaxan -) 550 mg PO BID [facility] Last Admin: 03/03/17 11:11 Dose: 550 mg Spironolactone (Aldactone -) 25 mg PO BID [facility] Last Admin: 03/03/17 11:11 Dose: 25 mg Tamsulosin HCl (Flomax -) 0.4 mg PO HS [facility] Last Admin: 03/02/17 21:32 Dose: 0.4 mg Warfarin Sodium (Coumadin -) 2 mg PO We@1800 [facility] Warfarin Sodium (Coumadin -) 4 mg PO Vladislav@1800 [facility] Last Admin: 03/02/17 17:27 Dose: 4 mg - Objective Vital Signs: Vital Signs Temperature 97.9 F 03/03/17 06:25 Pulse Rate 68 03/03/17 06:25 Respiratory Rate 18 03/03/17 06:25 Blood Pressure 131/75 03/03/17 06:25 O2 Sat by Pulse Oximetry (%) 95 03/02/17 21:00 Cardiovascular: Yes: S1, S2 Respiratory: Yes: Regular, CTA Bilaterally Gastrointestinal: Yes: Normal Bowel Sounds, Soft Edema: No Labs: CBC, BMP 03/03/17 07:00 03/03/17 07:00 INR, PTT INR 1.69 (0.82-1.09) H 03/03/17 07:00 Problem List - Problems (1) Pneumonia Code(s): J18.9 - PNEUMONIA, UNSPECIFIED ORGANISM (2) Hepatic encephalopathy Code(s): K72.90 - HEPATIC FAILURE, UNSPECIFIED WITHOUT COMA (3) Diabetes 1.5, managed as type 2 Code(s): E10.9 - TYPE 1 DIABETES MELLITUS WITHOUT COMPLICATIONS (4) Mental status change Code(s): R41.82 - ALTERED MENTAL STATUS, UNSPECIFIED (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 Code(s): C61 - MALIGNANT NEOPLASM OF PROSTATE; C79.51 - SECONDARY MALIGNANT NEOPLASM OF BONE (6) UTI (urinary tract infection) Code(s): N39.0 - URINARY TRACT INFECTION, SITE NOT SPECIFIED Qualifiers: Urinary tract infection type: site unspecified Hematuria presence: with hematuria Qualified Code(s): N39.0 - Urinary tract infection, site not specified (7) Urinary retention Code(s): R33.9 - RETENTION OF URINE, UNSPECIFIED (8) Ascites Code(s): R18.8 - OTHER ASCITES Assessment/Plan - Problems (1) Urinary retention Assessment/Plan: -Bonilla replaced -UC negative -on Tamsulosin Code(s): R33.9 - RETENTION OF URINE, UNSPECIFIED (2) Mental status change Code(s): R41.82 - ALTERED MENTAL STATUS, UNSPECIFIED (3) Prostate carcinoma Code(s): C61 - MALIGNANT NEOPLASM OF PROSTATE (4) Hepatic encephalopathy Assessment/Plan: -ammonia levels remain elevated--lower 35 -lactulose -repeat in AM -seen by GI Code(s): K72.90 - HEPATIC FAILURE, UNSPECIFIED WITHOUT COMA (5) Alcoholic cirrhosis Code(s): K70.30 - ALCOHOLIC CIRRHOSIS OF LIVER WITHOUT ASCITES (6) Anemia Assessment/Plan: -h/h improved today -secondary to disease process, but also iron deficient -iron infusion Code(s): D64.9 - ANEMIA, UNSPECIFIED (7) Hypoalbuminemia due to protein-calorie malnutrition Assessment/Plan: -received albumin IV -poor oral intake -Glucerna TID Code(s): E46 - UNSPECIFIED PROTEIN-CALORIE MALNUTRITION Assessment/Plan see problem list overall poor prognosis pt's daughter to speak to mother and brother about goals of care. malnutrition secondary to disease process and poor oral intake
--- NOTE | 2017-03-03 14:56 | PN ---
Progress Note, Physician History of Present Illness: Pt seen and examined at bedside. He is awake and appears comfortable. - Current Medication List Current Medications: Active Medications Albuterol/Ipratropium (Duoneb -) 1 amp NEB QIDR [facility] Last Admin: 03/03/17 06:34 Dose: 1 amp Amino Acids (Prosource No Carb Liquid Pkt) 30 ml PO BID@0800,1730 [facility] Last Admin: 03/03/17 08:12 Dose: 30 ml Furosemide (Lasix -) 40 mg PO DAILY [facility] Last Admin: 03/03/17 11:11 Dose: 40 mg Glimepiride (Amaryl -) 2 mg PO DAILY@0700 [facility] Last Admin: 03/03/17 06:41 Dose: 2 mg Insulin Aspart (Novolog Vial Sliding Scale -) 1 vial SQ ACHS [facility] PRN Reason: Protocol Last Admin: 03/03/17 11:47 Dose: 2 units Lactulose (Cephulac (Oral Use)) 20 gm PO BID [facility] Last Admin: 03/03/17 11:11 Dose: 20 gm Nadolol (Corgard -) 10 mg PO DAILY [facility] Last Admin: 03/03/17 11:11 Dose: 10 mg Enzalutamide [Xtandi ] 40 Mg Capsule (Pt' s Own) 0 mg PO DAILY@1800 [facility] Last Admin: 03/02/17 17:28 Dose: Not Given Rifaximin (Xifaxan -) 550 mg PO BID [facility] Last Admin: 03/03/17 11:11 Dose: 550 mg Spironolactone (Aldactone -) 25 mg PO BID [facility] Last Admin: 03/03/17 11:11 Dose: 25 mg Tamsulosin HCl (Flomax -) 0.4 mg PO HS [facility] Last Admin: 03/02/17 21:32 Dose: 0.4 mg Warfarin Sodium (Coumadin -) 2 mg PO We@1800 [facility] Warfarin Sodium (Coumadin -) 4 mg PO SuMoTuThFrSa@1800 [facility] Last Admin: 03/02/17 17:27 Dose: 4 mg - Objective Vital Signs: Vital Signs Temperature 97.9 F 03/03/17 06:25 Pulse Rate 68 03/03/17 06:25 Respiratory Rate 18 03/03/17 06:25 Blood Pressure 131/75 03/03/17 06:25 O2 Sat by Pulse Oximetry (%) 95 03/02/17 21:00 Constitutional: Yes: Calm Eyes: Yes: Conjunctiva Clear HENT: Yes: Atraumatic Cardiovascular: Yes: S1, S2 Respiratory: Yes: CTA Bilaterally Gastrointestinal: Yes: Ascites Genitourinary: Yes: WNL Edema: No Neurological: Yes: Oriented Labs: CBC, BMP 03/03/17 07:00 03/03/17 07:00 INR, PTT INR 1.69 (0.82-1.09) H 03/03/17 07:00 Problem List - Problems (1) Alcoholic cirrhosis Code(s): K70.30 - ALCOHOLIC CIRRHOSIS OF LIVER WITHOUT ASCITES (2) Hepatic encephalopathy Code(s): K72.90 - HEPATIC FAILURE, UNSPECIFIED WITHOUT COMA Assessment/Plan Current Medications Generic Name Dose Route Start Last Admin Trade Name Freq PRN Reason Stop Dose Admin Albuterol/Ipratropium 1 amp 02/24/17 12:00 03/03/17 06:34 Duoneb - NEB 1 amp QIDR [facility] Administration Amino Acids 30 ml 02/24/17 17:30 03/03/17 08:12 Prosource No Carb Liquid Pkt PO 30 ml BID@0800,1730 [facility] Administration Furosemide 40 mg 03/03/17 10:00 03/03/17 11:11 Lasix - PO 40 mg DAILY [facility] Administration Glimepiride 2 mg 02/24/17 07:00 03/03/17 06:41 Amaryl - PO 2 mg DAILY@0700 [facility] Administration Insulin Aspart 1 vial 02/23/17 11:00 03/03/17 11:47 Novolog Vial Sliding Scale - SQ 2 units ACHS [facility] Administration Protocol Lactulose 20 gm 02/23/17 10:00 03/03/17 11:11 Cephulac (Oral Use) PO 20 gm BID [facility] Administration Nadolol 10 mg 02/23/17 10:00 03/03/17 11:11 Corgard - PO 10 mg DAILY [facility] Administration Enzalutamide [Xtandi 0 mg 02/23/17 18:00 03/02/17 17:28 ] 40 Mg Capsule (Pt' PO Not Given s Own) DAILY@1800 [facility] Rifaximin 550 mg 02/23/17 22:00 03/03/17 11:11 Xifaxan - PO 550 mg BID [facility] Administration Spironolactone 25 mg 02/28/17 22:00 03/03/17 11:11 Aldactone - PO 25 mg BID [facility] Administration Tamsulosin HCl 0.4 mg 02/23/17 22:00 03/02/17 21:32 Flomax - PO 0.4 mg HS [facility] Administration Warfarin Sodium 2 mg 03/06/17 18:00 Coumadin - PO We@1800 [facility] Warfarin Sodium 4 mg 03/01/17 18:00 03/02/17 17:27 Coumadin - PO 4 mg SuMoTuThFrSa@1800 [facility] Administration Impression 1. liver cirrhosis 2. hx etoh abuse 3. volume overload 4. prostate cancer 5. urinary retention 6. oral thrush 7. PNA 8. DM 9. ascites Plan - cont lasix and aldactone - will give dose of albumin - repeat labs in am - daily weights - monitor urine output - discussed with family - prognosis is poor - will follow Dr Spencer
[2017-03-03] MEDS ORDERED: ALBUMIN HUMAN 25% 12.5 GM/50 ML VIAL IVPB ONE (15:00)
[2017-03-03] MEDS ORDERED: ACETAMINOPHEN 325 MG TABLET (FP) ONE (16:56)
[2017-03-03] MEDS: WARFARIN NA 2 MG TABLET (UD) PO SCH (17:03)
[2017-03-03] MEDS: ENZALUTAMIDE 40 MG PO SCH (17:10)
[2017-03-03] MEDS: TAMSULOSIN HCL 0.4 MG CAP.ER.24H (FP) PO SCH (21:46)
[2017-03-04] MEDS ORDERED: INSULIN (NOVOLOG) ASPART 100 UNITS/ML 10ML VIAL ONE ×2 (05:47→22:19)
[2017-03-04] MEDS: ALBUTEROL SO4 2.5/IPRATROPIUM 0.5 INH SOL 3 ML VIAL.NEB. NEB SCH ×4 (05:51→23:26)
[2017-03-04] MEDS ORDERED: PT OWN MED DRAWER 7, Y5N ONE ×2 (06:19→14:07)
[2017-03-04] MEDS: FUROSEMIDE 40 MG TABLET (FP) PO SCH ×2 (06:20→14:54)
[2017-03-04] MEDS: GLIMEPIRIDE 2 MG TABLET (FP) PO SCH (06:20)
[2017-03-04] MEDS: INSULIN SLIDING SCALE (NOVOLOG) 1 VIAL SQ SCH ×4 (06:21→22:22)
[2017-03-04] MEDS: AMINO ACIDS/PROTEIN HYDROLYS 30 ML LIQUID.PKT PO SCH ×2 (08:19→18:02)
[2017-03-04 08:41] LABS: BASO % 0.4 % (0-2.0); EOS % 3.4 % (0-4.5); MCH 26.8 pg (25.7-33.7); MCHC 32.2 g/dl (32.0-35.9); MEAN CELL VOLUME 83.3 fl (80-96); MEAN PLT VOLUME 7.6 fl (7.5-11.1); NEUT % 71.4 % (42.8-82.8); PLATELET COUNT 263 K/MM3 (134-434); WHITE BLOOD COUNT 5.4 K/mm3 (4.0-10.0)
[2017-03-04 08:54] LABS: INR 1.65 (0.82-1.09); PROTHROMBIN TIME (PATIENT) 18.7 SEC (9.98-11.88)
[2017-03-04 09:04] LABS: ALBUMIN 3.1 g/dl (3.4-5.0); ANION GAP 10 (8-16); CALCIUM 8.2 mg/dL (8.5-10.1); CO2 27 mmol/L (21-32); CREATININE 0.5 mg/dL (0.7-1.3); GLUCOSE,RANDOM 171 mg/dL (74-106); SGOT/AST 16 U/L (15-37); SGPT/ALT 17 U/L (12-78)
[2017-03-04 09:07] LABS: ALK PHOS 195 U/L (45-117); BILIRUBIN,TOTAL 0.5 mg/dL (0.2-1.0); TOT PROT 5.9 g/dl (6.4-8.2)
[2017-03-04] MEDS: LACTULOSE 20 GM/30 ML UDC (FOR ORAL USE ONLY) PO SCH ×2 (10:20→21:28)
[2017-03-04] MEDS: RIFAXIMIN 550 MG TABLET (UD) PO SCH ×2 (10:20→21:21)
[2017-03-04] MEDS: SPIRONOLACTONE 25 MG TABLET (FP) PO SCH ×2 (10:20→21:21)
[2017-03-04] MEDS: NADOLOL 20 MG TABLET (FP) PO SCH (10:20)
--- NOTE | 2017-03-04 10:53 | PN ---
Progress Note, Physician Chief Complaint: apparently on saturday the daughter decided not to send patient to [facility] i tried calling daughter cell phone is busy and no answer on home phone awake alert - Current Medication List Current Medications: Active Medications Albuterol/Ipratropium (Duoneb -) 1 amp NEB QIDR [facility] Last Admin: 03/04/17 05:51 Dose: 1 amp Amino Acids (Prosource No Carb Liquid Pkt) 30 ml PO BID@0800,1730 [facility] Last Admin: 03/04/17 08:19 Dose: 30 ml Furosemide (Lasix -) 40 mg PO BID@0600,1400 [facility] Last Admin: 03/04/17 06:20 Dose: 40 mg Glimepiride (Amaryl -) 2 mg PO DAILY@0700 [facility] Last Admin: 03/04/17 06:20 Dose: 2 mg Insulin Aspart (Novolog Vial Sliding Scale -) 1 vial SQ ACHS [facility] PRN Reason: Protocol Last Admin: 03/04/17 06:21 Dose: 2 units Lactulose (Cephulac (Oral Use)) 20 gm PO BID [facility] Last Admin: 03/04/17 10:20 Dose: 20 gm Nadolol (Corgard -) 10 mg PO DAILY [facility] Last Admin: 03/04/17 10:20 Dose: 10 mg Enzalutamide [Xtandi ] 40 Mg Capsule (Pt' s Own) 0 mg PO DAILY@1800 [facility] Last Admin: 03/03/17 17:10 Dose: Not Given Rifaximin (Xifaxan -) 550 mg PO BID [facility] Last Admin: 03/04/17 10:20 Dose: 550 mg Spironolactone (Aldactone -) 25 mg PO BID [facility] Last Admin: 03/04/17 10:20 Dose: 25 mg Tamsulosin HCl (Flomax -) 0.4 mg PO HS [facility] Last Admin: 03/03/17 21:46 Dose: 0.4 mg Warfarin Sodium (Coumadin -) 2 mg PO We@1800 [facility] Warfarin Sodium (Coumadin -) 4 mg PO SuMoTuThFrSa@1800 [facility] Last Admin: 03/03/17 17:03 Dose: 4 mg - Objective Vital Signs: Vital Signs Temperature 97.8 F 03/04/17 06:00 Pulse Rate 65 03/04/17 06:00 Respiratory Rate 18 03/04/17 06:00 Blood Pressure 122/63 12/18/17 06:00 O2 Sat by Pulse Oximetry (%) 95 03/03/17 21:00 Constitutional: Yes: Calm Neck: Yes: Trachea Midline Cardiovascular: Yes: Regular Rate and Rhythm, S1, S2 Respiratory: Yes: CTA Bilaterally, Diminished (at bases) Gastrointestinal: Yes: Ascites Genitourinary: Yes: García Present Labs: CBC, BMP 03/04/17 07:30 03/04/17 07:30 INR, PTT INR 1.65 (0.82-1.09) H 03/04/17 07:30 Problem List - Problems (1) Anemia Assessment/Plan: h/ h stable Code(s): D64.9 - ANEMIA, UNSPECIFIED (2) Ascites Assessment/Plan: no plan for paracentesis right now appreicate GI noted on diuretics repeat labs in AM Code(s): R18.8 - OTHER ASCITES (3) Portal vein thrombosis Assessment/Plan: coumadin Code(s): I81 - PORTAL VEIN THROMBOSIS (4) FH: prostate carcinoma Assessment/Plan: appreciate oncology evaluation urology to see patient regarding garcía cath apparently daughter does not want him to go to [facility] Code(s): Z80.42 - FAMILY HISTORY OF MALIGNANT NEOPLASM OF PROSTATE (5) Alcoholic cirrhosis Assessment/Plan: lactulose rifixamin aldactone Code(s): K70.30 - ALCOHOLIC CIRRHOSIS OF LIVER WITHOUT ASCITES
--- NOTE | 2017-03-04 12:13 | PN ---
Progress Note, Physician History of Present Illness: Pt seen and examined at bedside. He is awake and appears comfortable. - Current Medication List Current Medications: Active Medications Albuterol/Ipratropium (Duoneb -) 1 amp NEB QIDR [facility] Last Admin: 03/04/17 11:00 Dose: 1 amp Amino Acids (Prosource No Carb Liquid Pkt) 30 ml PO BID@0800,1730 [facility] Last Admin: 03/04/17 08:19 Dose: 30 ml Furosemide (Lasix -) 40 mg PO BID@0600,1400 [facility] Last Admin: 03/04/17 06:20 Dose: 40 mg Glimepiride (Amaryl -) 2 mg PO DAILY@0700 [facility] Last Admin: 03/04/17 06:20 Dose: 2 mg Insulin Aspart (Novolog Vial Sliding Scale -) 1 vial SQ ACHS [facility] PRN Reason: Protocol Last Admin: 03/04/17 06:21 Dose: 2 units Lactulose (Cephulac (Oral Use)) 20 gm PO BID [facility] Last Admin: 03/04/17 10:20 Dose: 20 gm Nadolol (Corgard -) 10 mg PO DAILY [facility] Last Admin: 03/04/17 10:20 Dose: 10 mg Enzalutamide [Xtandi ] 40 Mg Capsule (Pt' s Own) 0 mg PO DAILY@1800 [facility] Last Admin: 03/03/17 17:10 Dose: Not Given Rifaximin (Xifaxan -) 550 mg PO BID [facility] Last Admin: 03/04/17 10:20 Dose: 550 mg Spironolactone (Aldactone -) 25 mg PO BID [facility] Last Admin: 03/04/17 10:20 Dose: 25 mg Tamsulosin HCl (Flomax -) 0.4 mg PO HS [facility] Last Admin: 03/03/17 21:46 Dose: 0.4 mg Warfarin Sodium (Coumadin -) 2 mg PO We@1800 [facility] Warfarin Sodium (Coumadin -) 4 mg PO SuMoTuThFrSa@1800 [facility] Last Admin: 03/03/17 17:03 Dose: 4 mg - Objective Vital Signs: Vital Signs Temperature 97.8 F 03/04/17 06:00 Pulse Rate 65 03/04/17 06:00 Respiratory Rate 18 03/04/17 06:00 Blood Pressure 122/63 03/04/17 06:00 O2 Sat by Pulse Oximetry (%) 95 03/03/17 21:00 Constitutional: Yes: Calm HENT: Yes: WNL Cardiovascular: Yes: S1, S2 Respiratory: Yes: CTA Bilaterally Gastrointestinal: Yes: Ascites Genitourinary: Yes: Bonilla Present Musculoskeletal: Yes: Muscle Weakness Edema: No Neurological: Yes: Oriented Psychiatric: Yes: Oriented Labs: CBC, BMP 03/04/17 07:30 03/04/17 07:30 INR, PTT INR 1.65 (0.82-1.09) H 03/04/17 07:30 Problem List - Problems (1) Alcoholic cirrhosis Code(s): K70.30 - ALCOHOLIC CIRRHOSIS OF LIVER WITHOUT ASCITES (2) Hepatic encephalopathy Code(s): K72.90 - HEPATIC FAILURE, UNSPECIFIED WITHOUT COMA Assessment/Plan Current Medications Generic Name Dose Route Start Last Admin Trade Name Freq PRN Reason Stop Dose Admin Albuterol/Ipratropium 1 amp 02/24/17 12:00 03/04/17 11:00 Duoneb - NEB 1 amp QIDR [facility] Administration Amino Acids 30 ml 02/24/17 17:30 03/04/17 08:19 Prosource No Carb Liquid Pkt PO 30 ml BID@0800,1730 [facility] Administration Furosemide 40 mg 03/04/17 06:00 03/04/17 06:20 Lasix - PO 40 mg BID@0600,1400 [facility] Administration Glimepiride 2 mg 02/24/17 07:00 03/04/17 06:20 Amaryl - PO 2 mg DAILY@0700 [facility] Administration Insulin Aspart 1 vial 02/23/17 11:00 03/04/17 06:21 Novolog Vial Sliding Scale - SQ 2 units ACHS [facility] Administration Protocol Lactulose 20 gm 02/23/17 10:00 03/04/17 10:20 Cephulac (Oral Use) PO 20 gm BID [facility] Administration Nadolol 10 mg 02/23/17 10:00 03/04/17 10:20 Corgard - PO 10 mg DAILY [facility] Administration Enzalutamide [Xtandi 0 mg 02/23/17 18:00 03/03/17 17:10 ] 40 Mg Capsule (Pt' PO Not Given s Own) DAILY@1800 [facility] Rifaximin 550 mg 02/23/17 22:00 03/04/17 10:20 Xifaxan - PO 550 mg BID [facility] Administration Spironolactone 25 mg 02/28/17 22:00 03/04/17 10:20 Aldactone - PO 25 mg BID [facility] Administration Tamsulosin HCl 0.4 mg 02/23/17 22:00 03/03/17 21:46 Flomax - PO 0.4 mg HS [facility] Administration Warfarin Sodium 2 mg 03/06/17 18:00 Coumadin - PO We@1800 [facility] Warfarin Sodium 4 mg 03/01/17 18:00 03/03/17 17:03 Coumadin - PO 4 mg SuMoTuThFrSa@1800 [facility] Administration Impression 1. liver cirrhosis 2. hx etoh abuse 3. volume overload 4. prostate cancer 5. urinary retention 6. oral thrush 7. PNA 8. DM 9. ascites Plan - ascites is improving, abdomen is softer today - repeat labs in am - cont with diuretics - check mag level - will give a dose of potassium - discussed with GI - discussed with pts daughter - will follow - monitor urine output - prognosis is poor - will follow Dr Spencer
--- NOTE | 2017-03-04 12:35 | PN ---
GI Progress Note Subjective: No acute events Daughter present at bedside. States that her father's mental status at baseline Electrolytes / diuresis being managed by renal No excessive diarrhea reported - Objective Vital Signs: Vital Signs Temperature 97.8 F 03/04/17 06:00 Pulse Rate 65 03/04/17 06:00 Respiratory Rate 18 03/04/17 06:00 Blood Pressure 122/63 03/04/17 06:00 O2 Sat by Pulse Oximetry (%) 95 03/03/17 21:00 Constitutional: Calm Eyes: No: Sclera Icterus Cardiovascular: Yes: Regular Rate and Rhythm Respiratory: Yes: Diminished (at bases b/l, poor insp. effort) Gastrointestinal Inspection: Yes: Distention ...Auscultate: Yes: Normoactive Bowel Sounds ...Palpate: Yes: Soft. No: Tenderness Edema: No (No LE edema) Neurological: Yes: Alert Labs: CBC, BMP 03/04/17 07:30 03/04/17 07:30 INR, PTT INR 1.65 (0.82-1.09) H 03/04/17 07:30 Laboratory Tests 02/14/17 08:00 Ammonia 31.03 Hepatic Panel Total Bilirubin 0.5 mg/dL (0.2-1.0) D 03/04/17 07:30 AST 16 U/L (15-37) 03/04/17 07:30 ALT 17 U/L (12-78) 03/04/17 07:30 Alkaline Phosphatase 195 U/L (45-117) H 03/04/17 07:30 Albumin 3.1 g/dl (3.4-5.0) L 03/04/17 07:30 Problem List - Problems (1) Alcoholic cirrhosis Assessment/Plan: Decompensated, with sequelae of ascites, encephalopathy. Compounded by extensive portal vein thrombosis Mr. Tyson' daughter does not want him undergoing paracentesis. his abdomen is soft currently and he appears comfortable, but I explained to her that his ascites could continue to progress / be refractory to diuresis and cause him to become more uncomfortable and necessitate paracentesis. I also explained that it would require holding his anticoagulation to minimize bleeding risk. Minimize sodium loads in medications 2g low Na diet as tolerated Overall poor prognosis given his h/o metastaic prostate ca, decompensated cirrhosis, Portal vein thrombosis and advanced age. Discussed this with Mr. Tyson' daughter. She feels that "it's his not his time yet" Q6 month AFP tumor marker and hepatic US to screen for hepatoma MiraLAX 17g once daily Code(s): K70.30 - ALCOHOLIC CIRRHOSIS OF LIVER WITHOUT ASCITES
[2017-03-04] MEDS ORDERED: POTASSIUM CHLORIDE ORAL LIQUID 20 MEQ/15 ML PO ONE (13:00)
[2017-03-04] MEDS: WARFARIN NA 2 MG TABLET (UD) PO SCH (18:02)
[2017-03-04] MEDS: ENZALUTAMIDE 40 MG PO SCH (18:03)
[2017-03-04] MEDS: TAMSULOSIN HCL 0.4 MG CAP.ER.24H (FP) PO SCH (21:21)
[2017-03-04] MEDS: oxyCODONE HCL 5 MG TABLET PO PRN (22:23)
[2017-03-05] MEDS: NYSTATIN 500,000 UNITS/5 ML SUSPENSION PO SCH ×4 (00:16→17:27)
[2017-03-05] MEDS: FUROSEMIDE 40 MG TABLET (FP) PO SCH ×2 (05:38→15:03)
[2017-03-05] MEDS: GLIMEPIRIDE 2 MG TABLET (FP) PO SCH (06:02)
[2017-03-05] MEDS: INSULIN SLIDING SCALE (NOVOLOG) 1 VIAL SQ SCH ×4 (06:02→22:55)
[2017-03-05] MEDS: ALBUTEROL SO4 2.5/IPRATROPIUM 0.5 INH SOL 3 ML VIAL.NEB. NEB SCH ×3 (06:27→19:00)
[2017-03-05 08:52] LABS: ALBUMIN 2.9 g/dl (3.4-5.0); ANION GAP 7 (8-16); BILIRUBIN,TOTAL 0.8 mg/dL (0.2-1.0); CALCIUM 8.1 mg/dL (8.5-10.1); CO2 28 mmol/L (21-32); CREATININE 0.5 mg/dL (0.7-1.3); GLUCOSE,RANDOM 172 mg/dL (74-106); MAGNESIUM 2.2 mg/dL (1.8-2.4); SGOT/AST 26 U/L (15-37); SGPT/ALT 15 U/L (12-78); TOT PROT 5.8 g/dl (6.4-8.2)
[2017-03-05 08:53] LABS: ALK PHOS 231 U/L (45-117)
[2017-03-05] MEDS: AMINO ACIDS/PROTEIN HYDROLYS 30 ML LIQUID.PKT PO SCH ×2 (10:35→17:27)
[2017-03-05] MEDS: POLYETHYLENE GLYCOL 3350 119 GM BTL PO SCH (10:35)
[2017-03-05] MEDS: RIFAXIMIN 550 MG TABLET (UD) PO SCH ×2 (10:35→22:55)
[2017-03-05] MEDS: SPIRONOLACTONE 25 MG TABLET (FP) PO SCH ×2 (10:36→22:55)
[2017-03-05] MEDS: LACTULOSE 20 GM/30 ML UDC (FOR ORAL USE ONLY) PO SCH ×2 (10:36→22:55)
[2017-03-05] MEDS: NADOLOL 20 MG TABLET (FP) PO SCH (10:36)
--- NOTE | 2017-03-05 13:03 | PN ---
Progress Note, [employer] - Note Progress Note: Selected Entries 03/04/17 03/04/17 03/04/17 06:00 09:00 09:51 Breakfast 50% Lunch Supper Temperature 97.8 F 98.1 F 03/04/17 03/04/17 03/04/17 13:58 17:33 22:00 Breakfast Lunch 50% Supper Temperature 98.0 F 98.3 F 98.3 F 03/04/17 03/05/17 03/05/17 23:34 06:11 10:00 Breakfast Lunch Supper 25% Temperature 98.1 F 98.2 F 03/05/17 11:18 Breakfast 25% Lunch Supper Temperature Laboratory Tests 03/04/17 07:30 On pureed dietr/thin liquid.WBC 5.4 On pureed diet/thin liquid.Fed by . Seems to be tolerating diet.
--- NOTE | 2017-03-05 13:11 | PN ---
Progress Note, Physician History of Present Illness: Pt seen and examined at bedside. He is more confused today. Family are at bedside. - Current Medication List Current Medications: Active Medications Albuterol/Ipratropium (Duoneb -) 1 amp NEB QIDR [facility] Last Admin: 03/05/17 12:25 Dose: 1 amp Amino Acids (Prosource No Carb Liquid Pkt) 30 ml PO BID@0800,1730 [facility] Last Admin: 03/05/17 10:35 Dose: 30 ml Furosemide (Lasix -) 40 mg PO BID@0600,1400 [facility] Last Admin: 03/05/17 05:38 Dose: 40 mg Glimepiride (Amaryl -) 2 mg PO DAILY@0700 [facility] Last Admin: 03/05/17 06:02 Dose: 2 mg Insulin Aspart (Novolog Vial Sliding Scale -) 1 vial SQ ACHS [facility] PRN Reason: Protocol Last Admin: 03/05/17 11:09 Dose: 5 units Lactulose (Cephulac (Oral Use)) 20 gm PO BID [facility] Last Admin: 03/05/17 10:36 Dose: 20 gm Nadolol (Corgard -) 10 mg PO DAILY [facility] Last Admin: 03/05/17 10:36 Dose: 10 mg Enzalutamide [Xtandi ] 40 Mg Capsule (Pt' s Own) 0 mg PO DAILY@1800 [facility] Last Admin: 03/04/17 18:03 Dose: Not Given Nystatin (Nystatin Oral Suspension -) 500,000 units PO Q6HPO [facility] Last Admin: 03/05/17 12:26 Dose: 500,000 units Oxycodone HCl (Roxicodone -) 2.5 mg PO Q4H PRN PRN Reason: PAIN Last Admin: 03/04/17 22:23 Dose: 2.5 mg Polyethylene Glycol (Miralax (For Daily Use) -) 17 gm PO DAILY [facility] Last Admin: 03/05/17 10:35 Dose: 17 grams Rifaximin (Xifaxan -) 550 mg PO BID [facility] Last Admin: 03/05/17 10:35 Dose: 550 mg Spironolactone (Aldactone -) 25 mg PO BID [facility] Last Admin: 03/05/17 10:36 Dose: 25 mg Tamsulosin HCl (Flomax -) 0.4 mg PO HS [facility] Last Admin: 03/04/17 21:21 Dose: 0.4 mg Warfarin Sodium (Coumadin -) 2 mg PO We@1800 [facility] Warfarin Sodium (Coumadin -) 4 mg PO SuMoTuThFrSa@1800 [facility] Last Admin: 03/04/17 18:02 Dose: 4 mg - Objective Vital Signs: Vital Signs Temperature 98.2 F 03/05/17 10:00 Pulse Rate 67 03/05/17 10:00 Respiratory Rate 18 03/05/17 10:00 Blood Pressure 115/54 03/05/17 10:00 O2 Sat by Pulse Oximetry (%) 95 03/04/17 21:00 Constitutional: Yes: Calm Eyes: Yes: Conjunctiva Clear HENT: Yes: Atraumatic Neck: Yes: Supple Cardiovascular: Yes: S1, S2 Respiratory: Yes: CTA Bilaterally Gastrointestinal: Yes: Ascites. No: Tenderness Genitourinary: Yes: Bonilla Present Musculoskeletal: Yes: Muscle Weakness Edema: No Neurological: Yes: Confusion Labs: CBC, BMP 03/04/17 07:30 03/05/17 06:40 INR, PTT INR 1.65 (0.82-1.09) H 03/04/17 07:30 Problem List - Problems (1) Alcoholic cirrhosis Code(s): K70.30 - ALCOHOLIC CIRRHOSIS OF LIVER WITHOUT ASCITES (2) Hepatic encephalopathy Code(s): K72.90 - HEPATIC FAILURE, UNSPECIFIED WITHOUT COMA Assessment/Plan Current Medications Generic Name Dose Route Start Last Admin Trade Name Freq PRN Reason Stop Dose Admin Albuterol/Ipratropium 1 amp 02/24/17 12:00 03/05/17 12:25 Duoneb - NEB 1 amp QIDR [facility] Administration Amino Acids 30 ml 02/24/17 17:30 03/05/17 10:35 Prosource No Carb Liquid Pkt PO 30 ml BID@0800,1730 [facility] Administration Furosemide 40 mg 03/04/17 06:00 03/05/17 05:38 Lasix - PO 40 mg BID@0600,1400 [facility] Administration Glimepiride 2 mg 02/24/17 07:00 03/05/17 06:02 Amaryl - PO 2 mg DAILY@0700 [facility] Administration Insulin Aspart 1 vial 02/23/17 11:00 03/05/17 11:09 Novolog Vial Sliding Scale - SQ 5 units ACHS [facility] Administration Protocol Lactulose 20 gm 02/23/17 10:00 03/05/17 10:36 Cephulac (Oral Use) PO 20 gm BID [facility] Administration Nadolol 10 mg 02/23/17 10:00 03/05/17 10:36 Corgard - PO 10 mg DAILY [facility] Administration Enzalutamide [Xtandi 0 mg 02/23/17 18:00 03/04/17 18:03 ] 40 Mg Capsule (Pt' PO Not Given s Own) DAILY@1800 [facility] Nystatin 500,000 units 03/05/17 00:00 03/05/17 12:26 Nystatin Oral Suspension - PO 500,000 units Q6HPO [facility] Administration Oxycodone HCl 2.5 mg 03/04/17 21:53 03/04/17 22:23 Roxicodone - PO 2.5 mg Q4H PRN Administration PAIN Polyethylene Glycol 17 gm 03/05/17 10:00 03/05/17 10:35 Miralax (For Daily Use) - PO 17 grams DAILY [facility] Administration Rifaximin 550 mg 02/23/17 22:00 03/05/17 10:35 Xifaxan - PO 550 mg BID [facility] Administration Spironolactone 25 mg 02/28/17 22:00 03/05/17 10:36 Aldactone - PO 25 mg BID [facility] Administration Tamsulosin HCl 0.4 mg 02/23/17 22:00 03/04/17 21:21 Flomax - PO 0.4 mg HS [facility] Administration Warfarin Sodium 2 mg 03/06/17 18:00 Coumadin - PO We@1800 [facility] Warfarin Sodium 4 mg 03/01/17 18:00 03/04/17 18:02 Coumadin - PO 4 mg SuMoTuThFrSa@1800 [facility] Administration Impression 1. liver cirrhosis 2. hx etoh abuse 3. volume overload 4. prostate cancer 5. urinary retention 6. oral thrush 7. PNA 8. DM 9. ascites Plan - cont with diuretics - monitor renal function - GI input appreciated - no acute change in management - discussed with pts daughter - monitor urine output - prognosis is poor - will follow Dr Spencer
--- NOTE | 2017-03-05 13:47 | PN ---
Progress Note, Physician Chief Complaint: patient more confused since yesterday evening per family he doesnot know his name asking when he can go to work cannot tell his full this is new he was not like this before - Current Medication List Current Medications: Active Medications Albuterol/Ipratropium (Duoneb -) 1 amp NEB QIDR [facility] Last Admin: 03/05/17 12:25 Dose: 1 amp Amino Acids (Prosource No Carb Liquid Pkt) 30 ml PO BID@0800,1730 [facility] Last Admin: 03/05/17 10:35 Dose: 30 ml Furosemide (Lasix -) 40 mg PO BID@0600,1400 [facility] Last Admin: 03/05/17 05:38 Dose: 40 mg Glimepiride (Amaryl -) 2 mg PO DAILY@0700 [facility] Last Admin: 03/05/17 06:02 Dose: 2 mg Insulin Aspart (Novolog Vial Sliding Scale -) 1 vial SQ ACHS [facility] PRN Reason: Protocol Last Admin: 03/05/17 11:09 Dose: 5 units Lactulose (Cephulac (Oral Use)) 20 gm PO BID [facility] Last Admin: 03/05/17 10:36 Dose: 20 gm Nadolol (Corgard -) 10 mg PO DAILY [facility] Last Admin: 03/05/17 10:36 Dose: 10 mg Enzalutamide [Xtandi ] 40 Mg Capsule (Pt' s Own) 0 mg PO DAILY@1800 [facility] Last Admin: 03/04/17 18:03 Dose: Not Given Nystatin (Nystatin Oral Suspension -) 500,000 units PO Q6HPO [facility] Last Admin: 03/05/17 12:26 Dose: 500,000 units Oxycodone HCl (Roxicodone -) 2.5 mg PO Q4H PRN PRN Reason: PAIN Last Admin: 03/04/17 22:23 Dose: 2.5 mg Polyethylene Glycol (Miralax (For Daily Use) -) 17 gm PO DAILY [facility] Last Admin: 03/05/17 10:35 Dose: 17 grams Rifaximin (Xifaxan -) 550 mg PO BID [facility] Last Admin: 03/05/17 10:35 Dose: 550 mg Spironolactone (Aldactone -) 25 mg PO BID [facility] Last Admin: 03/05/17 10:36 Dose: 25 mg Tamsulosin HCl (Flomax -) 0.4 mg PO HS [facility] Last Admin: 03/04/17 21:21 Dose: 0.4 mg Warfarin Sodium (Coumadin -) 2 mg PO We@1800 [facility] Warfarin Sodium (Coumadin -) 4 mg PO SuMoTMadelaineSa@1800 [facility] Last Admin: 03/04/17 18:02 Dose: 4 mg - Objective Vital Signs: Vital Signs Temperature 98.2 F 03/05/17 10:00 Pulse Rate 67 03/05/17 10:00 Respiratory Rate 18 03/05/17 10:00 Blood Pressure 115/54 03/05/17 10:00 O2 Sat by Pulse Oximetry (%) 95 03/04/17 21:00 Neck: Yes: Trachea Midline Cardiovascular: Yes: Regular Rate and Rhythm, S1, S2 Respiratory: Yes: CTA Bilaterally Gastrointestinal: Yes: Ascites, Distention Neurological: Yes: Confusion Labs: CBC, BMP 03/04/17 07:30 03/05/17 06:40 INR, PTT INR 1.65 (0.82-1.09) H 03/04/17 07:30 Problem List - Problems (1) Confusion Assessment/Plan: neurology follow up ct head to r/o mets urine culture and UA Code(s): R41.0 - DISORIENTATION, UNSPECIFIED (2) Anemia Assessment/Plan: h/ h stable Code(s): D64.9 - ANEMIA, UNSPECIFIED (3) Ascites Assessment/Plan: no plan for paracentesis right now appreicate GI noted on diuretics repeat labs in AM Code(s): R18.8 - OTHER ASCITES (4) Portal vein thrombosis Assessment/Plan: coumadin Code(s): I81 - PORTAL VEIN THROMBOSIS (5) FH: prostate carcinoma Assessment/Plan: appreciate oncology evaluation urology to see patient regarding garcía cath apparently daughter does not want him to go to [facility] Code(s): Z80.42 - FAMILY HISTORY OF MALIGNANT NEOPLASM OF PROSTATE (6) Alcoholic cirrhosis Assessment/Plan: lactulose rifixamin aldactone Code(s): K70.30 - ALCOHOLIC CIRRHOSIS OF LIVER WITHOUT ASCITES
[2017-03-05 16:00] LABS: INR 1.54 (0.82-1.09); PROTHROMBIN TIME (PATIENT) 17.4 SEC (9.98-11.88)
[2017-03-05] MEDS: WARFARIN NA 2 MG TABLET (UD) PO SCH (17:27)
[2017-03-05] MEDS: ENZALUTAMIDE 40 MG PO SCH (18:09)
[2017-03-05 19:06] LABS: URINE APPEARANCE CLOUDY; URINE BILIRUBIN NEGATIVE (NEGATIVE); URINE BLOOD 1+ (NEGATIVE); URINE COLOR YELLOW; URINE GLUCOSE (UA) NEGATIVE (NEGATIVE); URINE KETONE NEGATIVE (NEGATIVE); URINE NITRITE NEGATIVE (NEGATIVE); URINE PROTEIN NEGATIVE (NEGATIVE); URINE UROBILINOGEN NEGATIVE mg/dL (0.2-1.0)
[2017-03-05 19:50] LABS: URINE LEUK ESTERASE 3+ (NEGATIVE)
[2017-03-05 22:41] LABS: URINE BACTERIA RARE /hpf (NONE SEEN); URINE MUCUS RARE; URINE RBC 26 /hpf (0-3); URINE WBC 133 /hpf (3-5); YEAST MANY
[2017-03-05 22:50] LABS: URINE LEUK ESTERASE 2+ (NEGATIVE)
[2017-03-05] MEDS: TAMSULOSIN HCL 0.4 MG CAP.ER.24H (FP) PO SCH (22:55)
[2017-03-06] MEDS: ALBUTEROL SO4 2.5/IPRATROPIUM 0.5 INH SOL 3 ML VIAL.NEB. NEB SCH ×4 (00:05→17:47)
[2017-03-06] MEDS: NYSTATIN 500,000 UNITS/5 ML SUSPENSION PO SCH ×4 (00:20→18:37)
[2017-03-06 05:33] LABS: BASO % 0.6 % (0-2.0); EOS % 1.4 % (0-4.5); MCH 26.5 pg (25.7-33.7); MCHC 32.4 g/dl (32.0-35.9); MEAN PLT VOLUME 7.6 fl (7.5-11.1); NEUT % 71.4 % (42.8-82.8); PLATELET COUNT 265 K/MM3 (134-434); RDW 17.7 % (11.9-15.9); WHITE BLOOD COUNT 6.6 K/mm3 (4.0-10.0)
[2017-03-06 06:02] LABS: ALBUMIN 2.8 g/dl (3.4-5.0); ALK PHOS 258 U/L (45-117); ANION GAP 9 (8-16); BILIRUBIN,TOTAL 0.7 mg/dL (0.2-1.0); CALCIUM 7.9 mg/dL (8.5-10.1); CO2 27 mmol/L (21-32); CREATININE 0.5 mg/dL (0.7-1.3); GLUCOSE,RANDOM 208 mg/dL (74-106); SGOT/AST 29 U/L (15-37); SGPT/ALT 17 U/L (12-78); TOT PROT 5.8 g/dl (6.4-8.2)
[2017-03-06] MEDS ORDERED: PT OWN MED DRAWER 7, Y5N ONE ×2 (06:36→08:27)
[2017-03-06] MEDS: INSULIN SLIDING SCALE (NOVOLOG) 1 VIAL SQ SCH ×4 (06:39→22:14)
[2017-03-06] MEDS: FUROSEMIDE 40 MG TABLET (FP) PO SCH ×3 (06:39→13:02)
[2017-03-06] MEDS: GLIMEPIRIDE 2 MG TABLET (FP) PO SCH (06:39)
[2017-03-06] MEDS: AMINO ACIDS/PROTEIN HYDROLYS 30 ML LIQUID.PKT PO SCH ×2 (08:44→18:32)
--- NOTE | 2017-03-06 09:27 | DS ---
Physical Examination Vital Signs: Vital Signs Temperature 97.9 F 03/06/17 06:42 Pulse Rate 68 03/06/17 06:42 Respiratory Rate 20 03/06/17 06:42 Blood Pressure 129/72 03/06/17 06:42 O2 Sat by Pulse Oximetry (%) 95 03/05/17 21:00 Findings/Remarks: awake this am eating back to baseline Cardiovascular: Yes: S1, S2 Respiratory: Yes: Regular, CTA Bilaterally Gastrointestinal: Yes: Normal Bowel Sounds, Soft, Ascites Labs: CBC, BMP 03/06/17 05:15 03/06/17 05:15 Discharge Summary Reason For Visit: HEPATIC ENCEPHALOPATHY Current Active Problems Alcoholic cirrhosis (Acute) Anemia (Acute) Ascites (Acute) Confusion (Acute) Esophageal varices determined by endoscopy (Acute) Hepatic encephalopathy (Acute) Hypoalbuminemia (Acute) Hypoalbuminemia due to protein-calorie malnutrition (Acute) Lactic acidosis (Acute) Paralysis of right lower extremity (Acute) Pneumonia (Acute) Portal vein thrombosis (Acute) Renal insufficiency (Acute) Thrush, oral (Acute) Hospital Course: 86 M with h/o 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 Per son , pt is at rehab facility after recently being discharged from hospital. He is at baseline amulatory with assistance. HOwever, he has become weaker over the past 3 days to the point where he cannot get himself out of bed. Son also notes that he is more somnolent and less responsive at times. He denies F/C. Denies CP /SOB. Denies abdominal pain, Denies N/V/D. Denies unilateral weakness/numbness/ tingling. - Past Medical History DIRECTOR TEEN POST: Yes: Dementia Cardiovascular: Yes: Other (complete heart block requiring a pacemaker) Gastrointestinal: Yes: Ascites, Esophageal Varices (Large distal varix in 2011: upper endoscopy by Dr. Vera with ? banding), GI Bleed Hepatobiliary: Yes: Cirrhosis Renal/: Yes: BPH Heme/Onc: Yes: Other (Prostate Cancer) Endocrine: Yes: Diabetes Mellitus - Past Surgical History Past Surgical History: Yes: Permanent Pacemaker, Upper Endoscopy - Problems (1) Confusion--resolved Assessment/Plan: neurology follow up ct head to r/o mets urine culture and UA Code(s): R41.0 - DISORIENTATION, UNSPECIFIED (2) Anemia Assessment/Plan: h/ h stable Code(s): D64.9 - ANEMIA, UNSPECIFIED (3) Ascites Assessment/Plan: no plan for paracentesis right now appreciate GI noted on diuretics repeat labs in AM Code(s): R18.8 - OTHER ASCITES (4) Portal vein thrombosis Assessment/Plan: Coumadin monitor inr Code(s): I81 - PORTAL VEIN THROMBOSIS (5) FH: prostate carcinoma Assessment/Plan: appreciate oncology evaluation urology to see patient regarding garcía cath apparently daughter does not [facility] Code(s): Z80.42 - FAMILY HISTORY OF MALIGNANT NEOPLASM OF PROSTATE (6) Alcoholic cirrhosis Assessment/Plan: lactulose rifixamin aldactone Code(s): K70.30 - ALCOHOLIC CIRRHOSIS OF LIVER WITHOUT ASCITES Condition: Improved - Instructions Diet, Activity, Other Instructions: cbc/cmp/ammonia level on Mondays and Referrals: Zenobia Chow MD [Primary Care Provider] - Disposition: [facility] - Home Medications Comprehensive Discharge Medication List: Ambulatory Orders Cyanocobalamin (Vitamin B-12) [Vitamin B12] 2,500 mcg PO DAILY 02/13/17 Enzalutamide [Xtandi] 160 mg PO DAILY 02/13/17 Lactulose (Oral Use) [Cephulac -] 30 ml PO BID 02/13/17 Nadolol 10 mg PO DAILY 02/13/17 Glimepiride [Amaryl -] 2 mg PO DAILY@0700 tablet 02/18/17 Spironolactone [Aldactone -] 25 mg PO BID tablet 02/18/17 Tamsulosin HCl [Flomax -] 0.4 mg PO HS cap.er.24h 02/18/17 Aa/Hydrolyzed Collagen, Whey [Lps 15-30 Liquid] 30 ml PO BID 02/23/17 Albuterol 0.083% Nebulizer Linda [Ventolin 0.083%] 1 neb NEB Q4H PRN 02/23/17 Oxycodone HCl 5 mg PO Q4H PRN 02/23/17 Warfarin Sodium [Coumadin] 4 mg PO HS 02/23/17
[2017-03-06] MEDS: NADOLOL 20 MG TABLET (FP) PO SCH (10:11)
[2017-03-06] MEDS: SPIRONOLACTONE 25 MG TABLET (FP) PO SCH ×2 (10:11→22:13)
[2017-03-06] MEDS: LACTULOSE 20 GM/30 ML UDC (FOR ORAL USE ONLY) PO SCH ×2 (10:11→22:13)
[2017-03-06] MEDS: RIFAXIMIN 550 MG TABLET (UD) PO SCH ×2 (10:11→22:13)
[2017-03-06] MEDS: POLYETHYLENE GLYCOL 3350 119 GM BTL PO SCH (10:12)
--- NOTE | 2017-03-06 12:39 | CON.GU ---
Consult Consult Specialty:: Urology for Anna Avila MD Reason for Consultation:: Ca Prostate, UTI Metatstatic Bone disease. 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: Yes: Dementia, Other (Hepatic encephalopathy) Cardio/Vascular: Yes: Other (complete heart block requiring a pacemaker) Gastrointestinal: Yes: Ascites, Esophageal Varices (variceal bleeed with banding at [facility]), GI Bleed Hepatobiliary: Yes: Cirrhosis (with esophageal varices, ascites, portal vein thrombosis) Renal/: Yes: BPH, Cancer (prostate cancer with sacral metastases on Lupron and Xtandi) Musculoskeletal: Yes: Chronic low back pain Endocrine: Yes: Diabetes Mellitus - Past Surgical History Past Surgical History: Yes: Arthrosocopy (right knee), Colonoscopy, Hernia Repair (umbilical hernia repair), Permanent Pacemaker, Upper Endoscopy - Alcohol/Substance Use Hx Alcohol Use: Yes (quit 2001) History of Substance Use: reports: None - Smoking History Smoking history: Never smoked Have you smoked in the past 12 months: No Aproximately how many cigarettes per day: 0 - Social History Usual Living Arrangement: Shelter ADL: Family Assistance 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 History of Recent Travel: No Home Medications - Allergies Allergies/Adverse Reactions: Allergies Allergy/AdvReac Type Severity Reaction Status Date / Time No Known Allergies Allergy Verified 02/22/17 23:16 - Home Medications Home Medications: Ambulatory Orders Enzalutamide [Xtandi] 160 mg PO DAILY 02/13/17 Lactulose (Oral Use) [Cephulac -] 30 ml PO BID 02/13/17 Nadolol 10 mg PO DAILY 02/13/17 Glimepiride [Amaryl -] 2 mg PO DAILY@0700 tablet 02/18/17 Tamsulosin HCl [Flomax -] 0.4 mg PO HS cap.er.24h 02/18/17 Oxycodone HCl 5 mg PO Q4H PRN 02/23/17 Albuterol 2.5/Ipratropium 0.5 [Duoneb -] 1 amp NEB QIDR amp 03/06/17 Amino Acids/Protein Hydrolys [Prosource No Carb Liquid Pkt] 30 ml PO BID@0800, 1730 packet 03/06/17 Furosemide [Lasix -] 40 mg PO BID@0600,1400 tablet 03/06/17 Insulin Sliding Scale [Novolog Vial Sliding Scale -] 1 vial SQ ACHS units 03/06 Nystatin Oral Suspension - [Nystatin Oral Susp 911629 Units/5 ML -] 500,000 units PO Q6HPO cup 03/06/17 Polyethylene Glycol 3350 [Miralax 119 gm Btl -] 17 gm PO DAILY bottle 03/06/17 Rifaximin [Xifaxan -] 550 mg PO BID tablet 03/06/17 Spironolactone [Aldactone -] 25 mg PO BID tablet 03/06/17 Warfarin Na [Coumadin -] 2 mg PO We@1800 tablet 03/06/17 Warfarin Na [Coumadin -] 4 mg PO SuMoTuThFrSa@1800 tablet 03/06/17 Family Disease History - Family Disease History Family Disease History: Diabetes: Brother (protate cancer), CA: Brother Physical Exam- Vital Signs: Vital Signs Temperature 98.1 F 03/06/17 09:00 Pulse Rate 55 L 03/06/17 09:00 Respiratory Rate 18 03/06/17 09:00 Blood Pressure 100/55 03/06/17 09:00 O2 Sat by Pulse Oximetry (%) 95 03/05/17 21:00 Labs: CBC, BMP 03/06/17 05:15 03/06/17 05:15 Assessment/Plan This patient is well known to me from before. He was treated for Ca. of the Prostate, metastatic to the bones. He received radiation and lupron. Recently he was started on Xtandi. He had garcía inserted in 2016 and was changed every 2 weeks. He was being followed by Dr. James. Pt. is DNR and family does not want any thing major done to the patient. He is going to be transferred back to the [facility] either today or tomorrow.
--- NOTE | 2017-03-06 16:41 | CONS ---
DATE OF CONSULTATION: DATE OF DICTATION: 03/06/2017 The patient is an 86-year-old male known to us with a history of metastatic prostate cancer. He was transferred from the [facility] because of a change in mental status. In [facility], he has been treated with IV antibiotics for possible pneumonia without fever, cough or leukocytosis. His chest x-ray revealed severe cardiomegaly and there was difficulty in seeing the left lower lobe of the lung. The patient has become more lethargic since his admission. He has developed severe ascites with scrotal edema secondary to anasarca. The patient does have alcoholic cirrhosis for the past 20 years. He has had esophageal varices with several episodes of bleeding and has undergone variceal ligation in the past. The patient has also had several episodes of hepatic encephalopathy requiring larger doses of lactulose. He is known to have metastatic, hormone-resistant prostate cancer, and has recently been placed on enzalutamide, i.e., Xtandi 40 mg 4 tablets daily. This has appeared to stabilize his prostate cancer with no further elevations of his PSA. The patient was also treated with spot radiation therapy to the sacrum and the ischial bone due to metastatic bone pain. He has severe weakness and minimal motion in his right lower extremity. A CAT scan revealed spinal stenosis and further RT was not recommended. The patient was sent to a [facility] for physical therapy. He also has a brother with prostate cancer. He does have a history of dementia, as well as hepatic encephalopathy. He does have a complete heart block requiring a pacemaker. He also presently has severe ascites and anasarca with scrotal and external genitalia edema. This was secondary to hepatic encephalopathy and cirrhosis of the liver. He has history of prostatism and he had several episodes of urinary retention presently requiring Bonilla drainage. He has history of diabetes. He has undergone arthroscopy, colonoscopy, and umbilical hernia repair in the past. He was a chronic drinker, up until 2001. He denies the use of tobacco or illicit drugs. He denies any allergies. His home medications included vitamin B, Xtandi 160 mg daily, Cephulac, nadolol, Amaryl, Aldactone, Flomax, hydrolyzed collagen liquid, albuterol nebulizer, Percocet for pain, Coumadin. Patient presently is nonverbal. His abdomen is soft. External genitalia reveal severe scrotal and penile edema indicative of anasarca. The Bonilla is patent and clear. No rectal was performed. His most recent blood workup revealed a BUN and creatinine of 30 over 0.5, his hemoglobin is 9.4, hematocrit 29, his white count is 6.6. Random glucose was 208. The urine was positive for blood, negative for nitrites. A urine culture revealed no growth. IMPRESSION AT PRESENT: Hepatic encephalopathy, secondary to alcoholic cirrhosis. Hormone-resistant, metastatic prostate cancer; responding to enzalutamide. No acute intervention needed. The patient will continue with Bonilla catheter to drainage bag. If urosepsis and/or purulent urethritis occurs, we will recommend a stat cystotomy or possible intermittent catheterization in the [facility]. We will follow with you. URMILA CAMARENA M.D. [id number]
--- NOTE | 2017-03-06 17:34 | PN ---
Progress Note (short form) - Note Progress Note: NEUROLOGY FOLLOW-UP: Dr. Noonan's coverage consultation was greatly appreciated. Events reviewed and discussed with and daughter at the bedside. Pt. examined. This 86 yo man with h/o HTN, DM, ASHD, S/P PPM, AFib- on coumadin as known metastatic prostate Ca. Chronic indwelling Bonilla catheter. 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 Admitted with increased confusion, infection and elevated ammonia levels. Neuroimaging unremarkable. Treated with multiple antibiotics. Now on Nystatin for Oral thrush. According to her family his mentation had improved and stabilized until about 3 days ago when he became more confused and lethargic. Repeat CT of head (reviewed): Moderate atrophy and microvascular changes. U/A show 133 WBC and is growing yeast colonies. TAYE: Neck supple. Neg Kernig's. Not icteric. NEURO: Ox [place]. No month or year. Full kiran. Gag OK No drift. + Asterixis. Depressed LE reflexes. Plantars silent. 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 Will worsen with Toxic-metabolic encephalopathy in this case must likely due to Fungal UTI. SUGGEST: Continue lactulose. Avoid narcotic analgesics. Consider Nystatin bladder lavage if ID and Renal agree. Thank you very much, Luther Sloan MD.
[2017-03-06] MEDS ORDERED: WARFARIN NA 2 MG TABLET (UD) PO SCH (18:00)
--- NOTE | 2017-03-06 18:03 | PN ---
Progress Note, Physician History of Present Illness: Pt seen and examined at bedside. He had a bowel movement. He is more awake today than yesterday. - Current Medication List Current Medications: Active Medications Albuterol/Ipratropium (Duoneb -) 1 amp NEB QIDR [facility] Last Admin: 03/06/17 17:47 Dose: 1 amp Amino Acids (Prosource No Carb Liquid Pkt) 30 ml PO BID@0800,1730 [facility] Last Admin: 03/06/17 08:44 Dose: 30 ml Furosemide (Lasix -) 40 mg PO BID@0600,1400 [facility] Last Admin: 03/06/17 13:02 Dose: Not Given Glimepiride (Amaryl -) 2 mg PO DAILY@0700 [facility] Last Admin: 03/06/17 06:39 Dose: 2 mg Insulin Aspart (Novolog Vial Sliding Scale -) 1 vial SQ ACHS [facility] PRN Reason: Protocol Last Admin: 03/06/17 12:42 Dose: 2 units Lactulose (Cephulac (Oral Use)) 20 gm PO BID [facility] Last Admin: 03/06/17 10:11 Dose: 20 gm Nadolol (Corgard -) 10 mg PO DAILY [facility] Last Admin: 03/06/17 10:11 Dose: 10 mg Enzalutamide [Xtandi ] 40 Mg Capsule (Pt' s Own) 0 mg PO DAILY@1800 [facility] Last Admin: 03/05/17 18:09 Dose: Not Given Nystatin (Nystatin Oral Suspension -) 500,000 units PO Q6HPO [facility] Last Admin: 03/06/17 12:44 Dose: 500,000 units Oxycodone HCl (Roxicodone -) 2.5 mg PO Q4H PRN PRN Reason: PAIN Last Admin: 03/04/17 22:23 Dose: 2.5 mg Polyethylene Glycol (Miralax (For Daily Use) -) 17 gm PO DAILY [facility] Last Admin: 03/06/17 10:12 Dose: 17 grams Rifaximin (Xifaxan -) 550 mg PO BID [facility] Last Admin: 03/06/17 10:11 Dose: 550 mg Spironolactone (Aldactone -) 25 mg PO BID [facility] Last Admin: 03/06/17 10:11 Dose: 25 mg Tamsulosin HCl (Flomax -) 0.4 mg PO HS [facility] Last Admin: 03/05/17 22:55 Dose: 0.4 mg Warfarin Sodium (Coumadin -) 2 mg PO We@1800 [facility] - Objective Vital Signs: Vital Signs Temperature 98.0 F 03/06/17 15:08 Pulse Rate 72 03/06/17 15:08 Respiratory Rate 16 03/06/17 15:08 Blood Pressure 112/60 03/06/17 15:08 O2 Sat by Pulse Oximetry (%) 95 03/06/17 09:00 Constitutional: Yes: Calm Eyes: Yes: Conjunctiva Clear HENT: Yes: Atraumatic Cardiovascular: Yes: S1, S2 Respiratory: Yes: CTA Bilaterally Gastrointestinal: Yes: Ascites Genitourinary: Yes: Bonilla Present Musculoskeletal: Yes: Muscle Weakness Edema: No Neurological: Yes: Oriented Labs: CBC, BMP 03/06/17 05:15 03/06/17 05:15 INR, PTT INR 1.54 (0.82-1.09) H 03/05/17 14:35 Problem List - Problems (1) Alcoholic cirrhosis Code(s): K70.30 - ALCOHOLIC CIRRHOSIS OF LIVER WITHOUT ASCITES (2) Hepatic encephalopathy Code(s): K72.90 - HEPATIC FAILURE, UNSPECIFIED WITHOUT COMA Assessment/Plan Current Medications Generic Name Dose Route Start Last Admin Trade Name Freq PRN Reason Stop Dose Admin Albuterol/Ipratropium 1 amp 02/24/17 12:00 03/06/17 17:47 Duoneb - NEB 1 amp QIDR [facility] Administration Amino Acids 30 ml 02/24/17 17:30 03/06/17 08:44 Prosource No Carb Liquid Pkt PO 30 ml BID@0800,1730 [facility] Administration Furosemide 40 mg 03/04/17 06:00 03/06/17 13:02 Lasix - PO Not Given BID@0600,1400 [facility] Glimepiride 2 mg 02/24/17 07:00 03/06/17 06:39 Amaryl - PO 2 mg DAILY@0700 [facility] Administration Insulin Aspart 1 vial 02/23/17 11:00 03/06/17 12:42 Novolog Vial Sliding Scale - SQ 2 units ACHS [facility] Administration Protocol Lactulose 20 gm 02/23/17 10:00 03/06/17 10:11 Cephulac (Oral Use) PO 20 gm BID [facility] Administration Nadolol 10 mg 02/23/17 10:00 03/06/17 10:11 Corgard - PO 10 mg DAILY [facility] Administration Enzalutamide [Xtandi 0 mg 02/23/17 18:00 03/05/17 18:09 ] 40 Mg Capsule (Pt' PO Not Given s Own) DAILY@1800 [facility] Nystatin 500,000 units 03/05/17 00:00 03/06/17 12:44 Nystatin Oral Suspension - PO 500,000 units Q6HPO [facility] Administration Oxycodone HCl 2.5 mg 03/04/17 21:53 03/04/17 22:23 Roxicodone - PO 2.5 mg Q4H PRN Administration PAIN Polyethylene Glycol 17 gm 03/05/17 10:00 03/06/17 10:12 Miralax (For Daily Use) - PO 17 grams DAILY [facility] Administration Rifaximin 550 mg 02/23/17 22:00 03/06/17 10:11 Xifaxan - PO 550 mg BID [facility] Administration Spironolactone 25 mg 02/28/17 22:00 03/06/17 10:11 Aldactone - PO 25 mg BID [facility] Administration Tamsulosin HCl 0.4 mg 02/23/17 22:00 03/05/17 22:55 Flomax - PO 0.4 mg HS [facility] Administration Warfarin Sodium 2 mg 03/06/17 18:00 Coumadin - PO We@1800 [facility] Impression 1. liver cirrhosis 2. hx etoh abuse 3. volume overload 4. prostate cancer 5. urinary retention 6. oral thrush 7. PNA 8. DM 9. ascites Plan - no acute change in management - labs reviewed - cont diuretics - monitor urine output and renal function - discussed plan with his daughter - will follow PRN - GI follow up Dr Spencer
[2017-03-06] MEDS: oxyCODONE HCL 5 MG TABLET PO PRN (18:34)
[2017-03-06] MEDS: ENZALUTAMIDE 40 MG PO SCH (18:37)
[2017-03-06] MEDS: TAMSULOSIN HCL 0.4 MG CAP.ER.24H (FP) PO SCH (22:13)
[2017-03-07] MEDS: ALBUTEROL SO4 2.5/IPRATROPIUM 0.5 INH SOL 3 ML VIAL.NEB. NEB SCH ×4 (00:10→18:00)
[2017-03-07] MEDS ORDERED: PT OWN MED DRAWER 7, Y5N ONE (06:11)
[2017-03-07] MEDS: GLIMEPIRIDE 2 MG TABLET (FP) PO SCH (06:26)
[2017-03-07] MEDS: NYSTATIN 500,000 UNITS/5 ML SUSPENSION PO SCH ×4 (06:26→17:24)
[2017-03-07] MEDS: FUROSEMIDE 40 MG TABLET (FP) PO SCH ×2 (06:26→15:19)
[2017-03-07] MEDS: INSULIN SLIDING SCALE (NOVOLOG) 1 VIAL SQ SCH ×4 (06:32→22:56)
[2017-03-07] MEDS ORDERED: IBUPROFEN 400 MG TABLET (FP) PO ONE (07:15)
--- NOTE | 2017-03-07 07:28 | PN ---
Progress Note, Physician History of Present Illness: MORE AWAKE - Current Medication List Current Medications: Active Medications Albuterol/Ipratropium (Duoneb -) 1 amp NEB QIDR [facility] Last Admin: 03/07/17 06:52 Dose: 1 amp Amino Acids (Prosource No Carb Liquid Pkt) 30 ml PO BID@0800,1730 [facility] Last Admin: 03/06/17 18:32 Dose: 30 ml Furosemide (Lasix -) 40 mg PO BID@0600,1400 [facility] Last Admin: 03/07/17 06:26 Dose: 40 mg Glimepiride (Amaryl -) 2 mg PO DAILY@0700 [facility] Last Admin: 03/07/17 06:26 Dose: 2 mg Insulin Aspart (Novolog Vial Sliding Scale -) 1 vial SQ ACHS [facility] PRN Reason: Protocol Last Admin: 03/07/17 06:32 Dose: Not Given Lactulose (Cephulac (Oral Use)) 20 gm PO BID [facility] Last Admin: 03/06/17 22:13 Dose: 20 gm Nadolol (Corgard -) 10 mg PO DAILY [facility] Last Admin: 03/06/17 10:11 Dose: 10 mg Enzalutamide [Xtandi ] 40 Mg Capsule (Pt' s Own) 0 mg PO DAILY@1800 [facility] Last Admin: 03/06/17 18:37 Dose: Not Given Nystatin (Nystatin Oral Suspension -) 500,000 units PO Q6HPO [facility] Last Admin: 03/07/17 06:26 Dose: 500,000 units Oxycodone HCl (Roxicodone -) 2.5 mg PO Q4H PRN PRN Reason: PAIN Last Admin: 03/06/17 18:34 Dose: 2.5 mg Polyethylene Glycol (Miralax (For Daily Use) -) 17 gm PO DAILY [facility] Last Admin: 03/06/17 10:12 Dose: 17 grams Rifaximin (Xifaxan -) 550 mg PO BID [facility] Last Admin: 03/06/17 22:13 Dose: 550 mg Spironolactone (Aldactone -) 25 mg PO BID [facility] Last Admin: 03/06/17 22:13 Dose: 25 mg Tamsulosin HCl (Flomax -) 0.4 mg PO HS [facility] Last Admin: 03/06/17 22:13 Dose: 0.4 mg Warfarin Sodium (Coumadin -) 2 mg PO We@1800 [facility] Last Admin: 03/06/17 18:33 Dose: 2 mg - Objective Vital Signs: Vital Signs Temperature 102.4 F H 03/07/17 06:37 Pulse Rate 67 03/07/17 06:37 Respiratory Rate 20 03/07/17 06:37 Blood Pressure 109/44 03/07/17 06:37 O2 Sat by Pulse Oximetry (%) 95 03/06/17 21:00 Cardiovascular: Yes: S1, S2 Respiratory: Yes: Diminished Gastrointestinal: Yes: Normal Bowel Sounds, Soft, Ascites, Distention Edema: No Labs: CBC, BMP 03/06/17 05:15 03/06/17 05:15 INR, PTT INR 1.54 (0.82-1.09) H 03/05/17 14:35 Problem List - Problems (1) Pneumonia Code(s): J18.9 - PNEUMONIA, UNSPECIFIED ORGANISM (2) Hepatic encephalopathy Code(s): K72.90 - HEPATIC FAILURE, UNSPECIFIED WITHOUT COMA (3) Diabetes 1.5, managed as type 2 Code(s): E10.9 - TYPE 1 DIABETES MELLITUS WITHOUT COMPLICATIONS (4) Mental status change Code(s): R41.82 - ALTERED MENTAL STATUS, UNSPECIFIED (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 Code(s): C61 - MALIGNANT NEOPLASM OF PROSTATE; C79.51 - SECONDARY MALIGNANT NEOPLASM OF BONE (6) UTI (urinary tract infection) Code(s): N39.0 - URINARY TRACT INFECTION, SITE NOT SPECIFIED Qualifiers: Urinary tract infection type: site unspecified Hematuria presence: with hematuria Qualified Code(s): N39.0 - Urinary tract infection, site not specified (7) Urinary retention Code(s): R33.9 - RETENTION OF URINE, UNSPECIFIED (8) Ascites Code(s): R18.8 - OTHER ASCITES Assessment/Plan - Problems (1) Urinary retention Assessment/Plan: -Bonilla replaced -UC negative -on Tamsulosin Code(s): R33.9 - RETENTION OF URINE, UNSPECIFIED (2) Mental status change CT NO CHANGE Code(s): R41.82 - ALTERED MENTAL STATUS, UNSPECIFIED (3) Prostate carcinoma Code(s): C61 - MALIGNANT NEOPLASM OF PROSTATE (4) Hepatic encephalopathy Assessment/Plan: -ammonia levels remain elevated--lower 35 -lactulose -repeat in AM -seen by GI Code(s): K72.90 - HEPATIC FAILURE, UNSPECIFIED WITHOUT COMA (5) Alcoholic cirrhosis Code(s): K70.30 - ALCOHOLIC CIRRHOSIS OF LIVER WITHOUT ASCITES (6) Anemia Assessment/Plan: -h/h improved today -secondary to disease process, but also iron deficient -iron infusion Code(s): D64.9 - ANEMIA, UNSPECIFIED (7) Hypoalbuminemia due to protein-calorie malnutrition Assessment/Plan: -received albumin IV -poor oral intake -Glucerna TID Code(s): E46 - UNSPECIFIED PROTEIN-CALORIE MALNUTRITION (8) Fever Assessment/Plan: -CBCD/BC/CXR -ID CONSULT Assessment/Plan see problem list overall poor prognosis SNF
[2017-03-07] MEDS: AMINO ACIDS/PROTEIN HYDROLYS 30 ML LIQUID.PKT PO SCH ×3 (09:10→17:26)
[2017-03-07 09:43] LABS: BASO % 0.5 % (0-2.0); EOS % 0.4 % (0-4.5); MCH 26.4 pg (25.7-33.7); MCHC 31.8 g/dl (32.0-35.9); MEAN CELL VOLUME 83.1 fl (80-96); MEAN PLT VOLUME 7.9 fl (7.5-11.1); NEUT % 75.2 % (42.8-82.8); PLATELET COUNT 237 K/MM3 (134-434); RDW 17.8 % (11.9-15.9); WHITE BLOOD COUNT 7.4 K/mm3 (4.0-10.0)
[2017-03-07 10:04] LABS: ALBUMIN 2.7 g/dl (3.4-5.0); ANION GAP 8 (8-16); CALCIUM 8.1 mg/dL (8.5-10.1); CO2 29 mmol/L (21-32); CREATININE 0.6 mg/dL (0.7-1.3); GLUCOSE,RANDOM 189 mg/dL (74-106); SGOT/AST 26 U/L (15-37); SGPT/ALT 15 U/L (12-78); TOT PROT 5.8 g/dl (6.4-8.2)
[2017-03-07 10:05] LABS: ALK PHOS 278 U/L (45-117)
[2017-03-07] MEDS: SPIRONOLACTONE 25 MG TABLET (FP) PO SCH ×2 (10:09→22:49)
[2017-03-07] MEDS: NADOLOL 20 MG TABLET (FP) PO SCH (10:09)
[2017-03-07] MEDS: LACTULOSE 20 GM/30 ML UDC (FOR ORAL USE ONLY) PO SCH ×2 (10:09→22:49)
[2017-03-07] MEDS: POLYETHYLENE GLYCOL 3350 119 GM BTL PO SCH (10:10)
[2017-03-07] MEDS: RIFAXIMIN 550 MG TABLET (UD) PO SCH ×2 (10:10→22:49)
--- NOTE | 2017-03-07 15:17 | PN ---
Progress Note, Physician History of Present Illness: Pt seen and examined at bedside. He is more awake today. PO intake is poor. Son is at bedside. - Current Medication List Current Medications: Active Medications Albuterol/Ipratropium (Duoneb -) 1 amp NEB QIDR [facility] Last Admin: 03/07/17 11:23 Dose: 1 amp Amino Acids (Prosource No Carb Liquid Pkt) 30 ml PO BID@0800,1730 [facility] Last Admin: 03/07/17 10:10 Dose: Not Given Furosemide (Lasix -) 40 mg PO BID@0600,1400 [facility] Last Admin: 03/07/17 06:26 Dose: 40 mg Glimepiride (Amaryl -) 2 mg PO DAILY@0700 [facility] Last Admin: 03/07/17 06:26 Dose: 2 mg Insulin Aspart (Novolog Vial Sliding Scale -) 1 vial SQ ACHS [facility] PRN Reason: Protocol Last Admin: 03/07/17 12:34 Dose: Not Given Lactulose (Cephulac (Oral Use)) 20 gm PO BID [facility] Last Admin: 03/07/17 10:09 Dose: Not Given Nadolol (Corgard -) 10 mg PO DAILY [facility] Last Admin: 03/07/17 10:09 Dose: Not Given Enzalutamide [Xtandi ] 40 Mg Capsule (Pt' s Own) 0 mg PO DAILY@1800 [facility] Last Admin: 03/06/17 18:37 Dose: Not Given Nystatin (Nystatin Oral Suspension -) 500,000 units PO Q6HPO [facility] Last Admin: 03/07/17 12:33 Dose: Not Given Oxycodone HCl (Roxicodone -) 2.5 mg PO Q4H PRN PRN Reason: PAIN Last Admin: 03/06/17 18:34 Dose: 2.5 mg Polyethylene Glycol (Miralax (For Daily Use) -) 17 gm PO DAILY [facility] Last Admin: 03/07/17 10:10 Dose: Not Given Rifaximin (Xifaxan -) 550 mg PO BID [facility] Last Admin: 03/07/17 10:10 Dose: Not Given Spironolactone (Aldactone -) 25 mg PO BID [facility] Last Admin: 03/07/17 10:09 Dose: Not Given Tamsulosin HCl (Flomax -) 0.4 mg PO HS [facility] Last Admin: 03/06/17 22:13 Dose: 0.4 mg Warfarin Sodium (Coumadin -) 2 mg PO We@1800 [facility] Last Admin: 03/06/17 18:33 Dose: 2 mg - Objective Vital Signs: Vital Signs Temperature 102.4 F H 03/07/17 06:37 Pulse Rate 67 03/07/17 06:37 Respiratory Rate 20 03/07/17 06:37 Blood Pressure 109/44 03/07/17 06:37 O2 Sat by Pulse Oximetry (%) 95 03/06/17 21:00 Constitutional: Yes: Calm Eyes: Yes: Conjunctiva Clear HENT: Yes: Atraumatic Neck: Yes: Supple Cardiovascular: Yes: S1, S2 Respiratory: Yes: CTA Bilaterally Gastrointestinal: Yes: Soft, Ascites Genitourinary: Yes: Bonilla Present Musculoskeletal: Yes: Muscle Weakness Edema: No Neurological: Yes: Other (more awake today) Labs: CBC, BMP 03/07/17 09:10 03/07/17 09:10 INR, PTT INR 1.54 (0.82-1.09) H 03/05/17 14:35 Problem List - Problems (1) Alcoholic cirrhosis Code(s): K70.30 - ALCOHOLIC CIRRHOSIS OF LIVER WITHOUT ASCITES (2) Hepatic encephalopathy Code(s): K72.90 - HEPATIC FAILURE, UNSPECIFIED WITHOUT COMA Assessment/Plan Current Medications Generic Name Dose Route Start Last Admin Trade Name Daltonq PRN Reason Stop Dose Admin Albuterol/Ipratropium 1 amp 02/24/17 12:00 03/06/17 17:47 Duoneb - NEB 1 amp QIDR [facility] Administration Amino Acids 30 ml 02/24/17 17:30 03/06/17 08:44 Prosource No Carb Liquid Pkt PO 30 ml BID@0800,1730 [facility] Administration Furosemide 40 mg 03/04/17 06:00 03/06/17 13:02 Lasix - PO Not Given BID@0600,1400 [facility] Glimepiride 2 mg 02/24/17 07:00 03/06/17 06:39 Amaryl - PO 2 mg DAILY@0700 [facility] Administration Insulin Aspart 1 vial 02/23/17 11:00 03/06/17 12:42 Novolog Vial Sliding Scale - SQ 2 units ACHS [facility] Administration Protocol Lactulose 20 gm 02/23/17 10:00 03/06/17 10:11 Cephulac (Oral Use) PO 20 gm BID [facility] Administration Nadolol 10 mg 02/23/17 10:00 03/06/17 10:11 Corgard - PO 10 mg DAILY [facility] Administration Enzalutamide [Xtandi 0 mg 02/23/17 18:00 03/05/17 18:09 ] 40 Mg Capsule (Pt' PO Not Given s Own) DAILY@1800 [facility] Nystatin 500,000 units 03/05/17 00:00 03/06/17 12:44 Nystatin Oral Suspension - PO 500,000 units Q6HPO [facility] Administration Oxycodone HCl 2.5 mg 03/04/17 21:53 03/04/17 22:23 Roxicodone - PO 2.5 mg Q4H PRN Administration PAIN Polyethylene Glycol 17 gm 03/05/17 10:00 03/06/17 10:12 Miralax (For Daily Use) - PO 17 grams DAILY [facility] Administration Rifaximin 550 mg 02/23/17 22:00 03/06/17 10:11 Xifaxan - PO 550 mg BID [facility] Administration Spironolactone 25 mg 02/28/17 22:00 03/06/17 10:11 Aldactone - PO 25 mg BID [facility] Administration Tamsulosin HCl 0.4 mg 02/23/17 22:00 03/05/17 22:55 Flomax - PO 0.4 mg HS [facility] Administration Warfarin Sodium 2 mg 03/06/17 18:00 Coumadin - PO We@1800 [facility] Impression 1. liver cirrhosis 2. hx etoh abuse 3. volume overload 4. prostate cancer 5. urinary retention 6. oral thrush 7. PNA 8. DM 9. ascites Plan - cont diuretics - discussed plan with his son - monitor urine output and renal function - will follow PRN - GI follow up Dr Spencer
[2017-03-07 17:10] LABS: INR 1.48 (0.82-1.09); PROTHROMBIN TIME (PATIENT) 16.7 SEC (9.98-11.88)
[2017-03-07] MEDS: ENZALUTAMIDE 40 MG PO SCH (17:23)
[2017-03-07] MEDS ORDERED: WARFARIN NA 5 MG TABLET (UD) PO ONE ×2 (19:04→21:45)
[2017-03-07] MEDS: TAMSULOSIN HCL 0.4 MG CAP.ER.24H (FP) PO SCH (22:49)
[2017-03-07] MEDS ORDERED: INSULIN (NOVOLOG) ASPART 100 UNITS/ML 10ML VIAL ONE (22:53)
[2017-03-07 23:31] LABS: URINE APPEARANCE SLCLOUDY; URINE BILIRUBIN NEGATIVE (NEGATIVE); URINE BLOOD NEGATIVE (NEGATIVE); URINE COLOR AMBER; URINE GLUCOSE (UA) NEGATIVE (NEGATIVE); URINE KETONE NEGATIVE (NEGATIVE); URINE NITRITE NEGATIVE (NEGATIVE); URINE UROBILINOGEN NEGATIVE mg/dL (0.2-1.0)
[2017-03-08] MEDS: ALBUTEROL SO4 2.5/IPRATROPIUM 0.5 INH SOL 3 ML VIAL.NEB. NEB SCH ×5 (00:18→23:38)
[2017-03-08 00:23] LABS: URINE LEUK ESTERASE 2+ (NEGATIVE); URINE PROTEIN 1+ (NEGATIVE)
[2017-03-08 01:37] LABS: URINE BACTERIA RARE /hpf (NONE SEEN); URINE MUCUS RARE; URINE RBC 3 /hpf (0-3); URINE WBC 66 /hpf (3-5); YEAST FEW
[2017-03-08] MEDS: NYSTATIN 500,000 UNITS/5 ML SUSPENSION PO SCH ×5 (01:53→23:55)
[2017-03-08] MEDS: FUROSEMIDE 40 MG TABLET (FP) PO SCH ×2 (07:53→15:00)
[2017-03-08] MEDS: GLIMEPIRIDE 2 MG TABLET (FP) PO SCH (07:53)
[2017-03-08] MEDS: INSULIN SLIDING SCALE (NOVOLOG) 1 VIAL SQ SCH ×4 (07:55→23:58)
[2017-03-08] MEDS ORDERED: INSULIN (NOVOLOG) ASPART 100 UNITS/ML 10ML VIAL ONE (08:03)
[2017-03-08 09:38] LABS: INR 1.53 (0.82-1.09); PROTHROMBIN TIME (PATIENT) 17.3 SEC (9.98-11.88)
[2017-03-08] MEDS ORDERED: PT OWN MED DRAWER 7, Y5N ONE (10:45)
[2017-03-08] MEDS: AMINO ACIDS/PROTEIN HYDROLYS 30 ML LIQUID.PKT PO SCH ×2 (10:47→17:13)
[2017-03-08] MEDS: RIFAXIMIN 550 MG TABLET (UD) PO SCH ×2 (10:47→23:55)
[2017-03-08] MEDS: NADOLOL 20 MG TABLET (FP) PO SCH (10:48)
[2017-03-08] MEDS: POLYETHYLENE GLYCOL 3350 119 GM BTL PO SCH (10:48)
[2017-03-08] MEDS: LACTULOSE 20 GM/30 ML UDC (FOR ORAL USE ONLY) PO SCH ×2 (10:49→23:54)
[2017-03-08] MEDS: SPIRONOLACTONE 25 MG TABLET (FP) PO SCH ×2 (10:49→23:54)
[2017-03-08 10:57] LABS: URINE LEUK ESTERASE TRACE (NEGATIVE)
--- NOTE | 2017-03-08 12:36 | PN ---
Progress Note, Physician Chief Complaint: Weakness, Hepatic encephalopathy History of Present Illness: NAD, lethargy improved today poor prognosis poor PO intake hypoalbuminemia seen by ID and GI on lactulose with 3-4 BM's per day spoke to daughter about goals of care and patient wishes, she would discuss it with her mother and brother pain management- controlled on Percocet 2.5 mg Urine output decreased Febrile this AM - Current Medication List Current Medications: Active Medications Albuterol/Ipratropium (Duoneb -) 1 amp NEB QIDR [facility] Last Admin: 03/08/17 11:09 Dose: 1 amp Amino Acids (Prosource No Carb Liquid Pkt) 30 ml PO BID@0800,1730 [facility] Last Admin: 03/08/17 10:47 Dose: 30 ml Furosemide (Lasix -) 40 mg PO BID@0600,1400 [facility] Last Admin: 03/08/17 07:53 Dose: 40 mg Glimepiride (Amaryl -) 2 mg PO DAILY@0700 [facility] Last Admin: 03/08/17 07:53 Dose: 2 mg Insulin Aspart (Novolog Vial Sliding Scale -) 1 vial SQ ACHS [facility] PRN Reason: Protocol Last Admin: 03/08/17 12:32 Dose: 2 units Lactulose (Cephulac (Oral Use)) 20 gm PO BID [facility] Last Admin: 03/08/17 10:49 Dose: 20 gm Nadolol (Corgard -) 10 mg PO DAILY [facility] Last Admin: 03/08/17 10:48 Dose: 10 mg Enzalutamide [Xtandi ] 40 Mg Capsule (Pt' s Own) 0 mg PO DAILY@1800 [facility] Last Admin: 03/07/17 17:23 Dose: Not Given Nystatin (Nystatin Oral Suspension -) 500,000 units PO Q6HPO [facility] Last Admin: 03/08/17 12:32 Dose: 500,000 units Rifaximin (Xifaxan -) 550 mg PO BID [facility] Last Admin: 03/08/17 10:47 Dose: 550 mg Senna (Senna Oral Solution -) 8.8 mg PO [facility] Spironolactone (Aldactone -) 25 mg PO BID [facility] Last Admin: 03/08/17 10:49 Dose: 25 mg Tamsulosin HCl (Flomax -) 0.4 mg PO [facility] Last Admin: 03/07/17 22:49 Dose: 0.4 mg Warfarin Sodium (Coumadin -) 2 mg PO We@1800 [facility] Last Admin: 03/06/17 18:33 Dose: 2 mg - Objective Vital Signs: Vital Signs Temperature 98.2 F 03/08/17 10:00 Pulse Rate 64 03/08/17 10:00 Respiratory Rate 20 03/08/17 10:00 Blood Pressure 118/62 03/08/17 10:00 O2 Sat by Pulse Oximetry (%) 96 03/07/17 21:00 Constitutional: Yes: Well Nourished, No Distress, Calm Cardiovascular: Yes: Regular Rate and Rhythm Respiratory: Yes: Regular Gastrointestinal: Yes: Ascites Musculoskeletal: Yes: Muscle Weakness Edema: Yes Peripheral Pulses WNL: Yes Neurological: Yes: Alert Psychiatric: Yes: Alert Labs: CBC, BMP 03/07/17 09:10 03/07/17 09:10 INR, PTT INR 1.53 (0.82-1.09) H 03/08/17 09:15 Problem List - Problems (1) Urinary retention Assessment/Plan: -Bonilla -UC negative -on Tamsulosin Code(s): R33.9 - RETENTION OF URINE, UNSPECIFIED (2) Mental status change Code(s): R41.82 - ALTERED MENTAL STATUS, UNSPECIFIED (3) Prostate carcinoma Code(s): C61 - MALIGNANT NEOPLASM OF PROSTATE (4) Hepatic encephalopathy Assessment/Plan: -ammonia levels remain elevated -lactulose -seen by GI Code(s): K72.90 - HEPATIC FAILURE, UNSPECIFIED WITHOUT COMA (5) Alcoholic cirrhosis Code(s): K70.30 - ALCOHOLIC CIRRHOSIS OF LIVER WITHOUT ASCITES (6) Anemia Assessment/Plan: -h/h improved today -secondary to disease process, but also iron deficient -iron infusion Code(s): D64.9 - ANEMIA, UNSPECIFIED (7) Hypoalbuminemia due to protein-calorie malnutrition Assessment/Plan: -poor oral intake -Glucerna TID Code(s): E46 - UNSPECIFIED PROTEIN-CALORIE MALNUTRITION Assessment/Plan see problem list overall poor prognosis hold discharge due to fever and until re-evaluated by ID
[2017-03-08] MEDS: ENZALUTAMIDE 40 MG PO SCH (17:05)
--- NOTE | 2017-03-08 17:13 | PN ---
Progress Note, Physician History of Present Illness: Pt seen and examined at bedside. He is more awake today. - Current Medication List Current Medications: Active Medications Albuterol/Ipratropium (Duoneb -) 1 amp NEB QIDR [facility] Last Admin: 03/08/17 11:09 Dose: 1 amp Amino Acids (Prosource No Carb Liquid Pkt) 30 ml PO BID@0800,1730 [facility] Last Admin: 03/08/17 10:47 Dose: 30 ml Furosemide (Lasix -) 40 mg PO BID@0600,1400 [facility] Last Admin: 03/08/17 15:00 Dose: 40 mg Glimepiride (Amaryl -) 2 mg PO DAILY@0700 [facility] Last Admin: 03/08/17 07:53 Dose: 2 mg Insulin Aspart (Novolog Vial Sliding Scale -) 1 vial SQ ACHS [facility] PRN Reason: Protocol Last Admin: 03/08/17 12:32 Dose: 2 units Lactulose (Cephulac (Oral Use)) 20 gm PO BID [facility] Last Admin: 03/08/17 10:49 Dose: 20 gm Nadolol (Corgard -) 10 mg PO DAILY [facility] Last Admin: 03/08/17 10:48 Dose: 10 mg Enzalutamide [Xtandi ] 40 Mg Capsule (Pt' s Own) 0 mg PO DAILY@1800 [facility] Last Admin: 03/08/17 17:05 Dose: Not Given Nystatin (Nystatin Oral Suspension -) 500,000 units PO Q6HPO [facility] Last Admin: 03/08/17 12:32 Dose: 500,000 units Rifaximin (Xifaxan -) 550 mg PO BID [facility] Last Admin: 03/08/17 10:47 Dose: 550 mg Senna (Senna Oral Solution -) 8.8 mg PO [facility] Spironolactone (Aldactone -) 25 mg PO BID [facility] Last Admin: 03/08/17 10:49 Dose: 25 mg Tamsulosin HCl (Flomax -) 0.4 mg PO HS [facility] Last Admin: 03/07/17 22:49 Dose: 0.4 mg Warfarin Sodium (Coumadin -) 2 mg PO We@1800 [facility] Last Admin: 03/06/17 18:33 Dose: 2 mg - Objective Vital Signs: Vital Signs Temperature 102.3 F H 03/08/17 15:45 Pulse Rate 65 03/08/17 15:02 Respiratory Rate 20 03/08/17 15:02 Blood Pressure 120/55 03/08/17 15:02 O2 Sat by Pulse Oximetry (%) 96 03/08/17 09:00 Constitutional: Yes: Calm Eyes: Yes: Conjunctiva Clear HENT: Yes: Atraumatic Cardiovascular: Yes: S1, S2 Respiratory: Yes: CTA Bilaterally Gastrointestinal: Yes: Ascites Genitourinary: Yes: García Present Musculoskeletal: Yes: Muscle Weakness Edema: No Neurological: Yes: Oriented Psychiatric: Yes: Oriented Labs: CBC, BMP 03/07/17 09:10 03/07/17 09:10 INR, PTT INR 1.53 (0.82-1.09) H 03/08/17 09:15 Problem List - Problems (1) Alcoholic cirrhosis Code(s): K70.30 - ALCOHOLIC CIRRHOSIS OF LIVER WITHOUT ASCITES (2) Hepatic encephalopathy Code(s): K72.90 - HEPATIC FAILURE, UNSPECIFIED WITHOUT COMA Assessment/Plan Current Medications Generic Name Dose Route Start Last Admin Trade Name Freq PRN Reason Stop Dose Admin Albuterol/Ipratropium 1 amp 02/24/17 12:00 03/08/17 11:09 Duoneb - NEB 1 amp QIDR [facility] Administration Amino Acids 30 ml 02/24/17 17:30 03/08/17 10:47 Prosource No Carb Liquid Pkt PO 30 ml BID@0800,1730 [facility] Administration Furosemide 40 mg 03/04/17 06:00 03/08/17 15:00 Lasix - PO 40 mg BID@0600,1400 [facility] Administration Glimepiride 2 mg 02/24/17 07:00 03/08/17 07:53 Amaryl - PO 2 mg DAILY@0700 [facility] Administration Insulin Aspart 1 vial 02/23/17 11:00 03/08/17 12:32 Novolog Vial Sliding Scale - SQ 2 units ACHS [facility] Administration Protocol Lactulose 20 gm 02/23/17 10:00 03/08/17 10:49 Cephulac (Oral Use) PO 20 gm BID [facility] Administration Nadolol 10 mg 02/23/17 10:00 03/08/17 10:48 Corgard - PO 10 mg DAILY [facility] Administration Enzalutamide [Xtandi 0 mg 02/23/17 18:00 03/08/17 17:05 ] 40 Mg Capsule (Pt' PO Not Given s Own) DAILY@1800 [facility] Nystatin 500,000 units 03/05/17 00:00 03/08/17 12:32 Nystatin Oral Suspension - PO 500,000 units Q6HPO [facility] Administration Rifaximin 550 mg 02/23/17 22:00 03/08/17 10:47 Xifaxan - PO 550 mg BID [facility] Administration Senna 8.8 mg 03/08/17 22:00 Senna Oral Solution - PO HS [facility] Spironolactone 25 mg 02/28/17 22:00 03/08/17 10:49 Aldactone - PO 25 mg BID [facility] Administration Tamsulosin HCl 0.4 mg 02/23/17 22:00 03/07/17 22:49 Flomax - PO 0.4 mg HS [facility] Administration Warfarin Sodium 2 mg 03/06/17 18:00 03/06/17 18:33 Coumadin - PO 2 mg We@1800 [facility] Administration Impression 1. liver cirrhosis 2. hx etoh abuse 3. volume overload 4. prostate cancer 5. urinary retention 6. oral thrush 7. PNA 8. DM 9. ascites Plan - cont current meds - monitor lytes - monitor volume status - discussed with family - garcía care - will follow PRN, please recall as needed - GI follow up Dr Spencer
[2017-03-08] MEDS ORDERED: ACETAMINOPHEN 325 MG TABLET (FP) PO ONE (17:54)
[2017-03-08] MEDS ORDERED: WARFARIN NA 5 MG TABLET (UD) PO ONE (18:00)
[2017-03-08] MEDS: oxyCODONE HCL 5 MG TABLET PO PRN (18:23)
[2017-03-08] MEDS: SENNOSIDES 8.8 MG/5 ML BULK BOTTLE PO SCH (23:54)
[2017-03-08] MEDS: TAMSULOSIN HCL 0.4 MG CAP.ER.24H (FP) PO SCH (23:55)
[2017-03-09] MEDS: ALBUTEROL SO4 2.5/IPRATROPIUM 0.5 INH SOL 3 ML VIAL.NEB. NEB SCH ×4 (06:15→23:29)
[2017-03-09] MEDS: GLIMEPIRIDE 2 MG TABLET (FP) PO SCH (06:41)
[2017-03-09] MEDS: NYSTATIN 500,000 UNITS/5 ML SUSPENSION PO SCH ×3 (06:41→18:27)
[2017-03-09] MEDS: INSULIN SLIDING SCALE (NOVOLOG) 1 VIAL SQ SCH ×4 (06:41→22:05)
[2017-03-09] MEDS: FUROSEMIDE 40 MG TABLET (FP) PO SCH ×2 (06:41→16:55)
[2017-03-09 07:53] LABS: INR 1.62 (0.82-1.09); PROTHROMBIN TIME (PATIENT) 18.3 SEC (9.98-11.88)
[2017-03-09] MEDS: AMINO ACIDS/PROTEIN HYDROLYS 30 ML LIQUID.PKT PO SCH ×2 (11:02→16:55)
[2017-03-09] MEDS: SPIRONOLACTONE 25 MG TABLET (FP) PO SCH ×2 (11:02→22:06)
[2017-03-09] MEDS: RIFAXIMIN 550 MG TABLET (UD) PO SCH ×2 (11:02→22:07)
[2017-03-09] MEDS: LACTULOSE 20 GM/30 ML UDC (FOR ORAL USE ONLY) PO SCH ×2 (11:02→22:06)
[2017-03-09] MEDS: oxyCODONE HCL 5 MG TABLET PO PRN (11:02)
[2017-03-09] MEDS: NADOLOL 20 MG TABLET (FP) PO SCH (11:26)
--- NOTE | 2017-03-09 15:31 | PN ---
Progress Note, Physician Chief Complaint: ASLEEP COMFORTABLE THIS IS MY FIRST ENCOUNTER WITH THIS PATIENT RECORDS AND NOTES REVIEWED - Current Medication List Current Medications: Active Medications Albuterol/Ipratropium (Duoneb -) 1 amp NEB QIDR [facility] Last Admin: 03/09/17 11:50 Dose: 1 amp Amino Acids (Prosource No Carb Liquid Pkt) 30 ml PO BID@0800,1730 [facility] Last Admin: 03/09/17 11:02 Dose: 30 ml Furosemide (Lasix -) 40 mg PO BID@0600,1400 [facility] Last Admin: 03/09/17 06:41 Dose: 40 mg Glimepiride (Amaryl -) 2 mg PO DAILY@0700 [facility] Last Admin: 03/09/17 06:41 Dose: 2 mg Insulin Aspart (Novolog Vial Sliding Scale -) 1 vial SQ ACHS [facility] PRN Reason: Protocol Last Admin: 03/09/17 12:18 Dose: 2 units Lactulose (Cephulac (Oral Use)) 20 gm PO BID [facility] Last Admin: 03/09/17 11:02 Dose: 20 gm Nadolol (Corgard -) 10 mg PO DAILY [facility] Last Admin: 03/09/17 11:26 Dose: Not Given Enzalutamide [Xtandi ] 40 Mg Capsule (Pt' s Own) 0 mg PO DAILY@1800 [facility] Last Admin: 03/08/17 17:05 Dose: Not Given Nystatin (Nystatin Oral Suspension -) 500,000 units PO Q6HPO [facility] Last Admin: 03/09/17 11:02 Dose: 500,000 units Oxycodone HCl (Roxicodone -) 2.5 mg PO Q4H PRN PRN Reason: PAIN Last Admin: 03/09/17 11:02 Dose: 2.5 mg Rifaximin (Xifaxan -) 550 mg PO BID [facility] Last Admin: 03/09/17 11:02 Dose: 550 mg Senna (Senna Oral Solution -) 8.8 mg PO HS [facility] Last Admin: 03/08/17 23:54 Dose: 8.8 mg Spironolactone (Aldactone -) 25 mg PO BID [facility] Last Admin: 03/09/17 11:02 Dose: 25 mg Tamsulosin HCl (Flomax -) 0.4 mg PO [facility] Last Admin: 03/08/17 23:55 Dose: 0.4 mg - Objective Vital Signs: Vital Signs Temperature 99.9 F H 03/09/17 15:08 Pulse Rate 99 H 03/09/17 15:08 Respiratory Rate 16 03/09/17 15:08 Blood Pressure 149/78 03/09/17 15:08 O2 Sat by Pulse Oximetry (%) 94 L 03/08/17 21:00 Constitutional: Yes: No Distress Eyes: Yes: WNL HENT: Yes: WNL Neck: Yes: WNL Cardiovascular: Yes: WNL Respiratory: Yes: WNL Gastrointestinal: Yes: WNL Musculoskeletal: Yes: WNL Edema: No Integumentary: Yes: WNL Wound/Incision: Yes: Clean/Dry Neurological: Yes: WNL ...Motor Strength: WNL Psychiatric: Yes: WNL Labs: CBC, BMP 03/07/17 09:10 03/07/17 09:10 INR, PTT INR 1.62 (0.82-1.09) H 03/09/17 07:00 Problem List - Problems (1) Alcoholic cirrhosis Code(s): K70.30 - ALCOHOLIC CIRRHOSIS OF LIVER WITHOUT ASCITES (2) Anemia Code(s): D64.9 - ANEMIA, UNSPECIFIED (3) Ascites Code(s): R18.8 - OTHER ASCITES (4) Esophageal varices determined by endoscopy Code(s): I85.00 - ESOPHAGEAL VARICES WITHOUT BLEEDING (5) Hepatic encephalopathy Code(s): K72.90 - HEPATIC FAILURE, UNSPECIFIED WITHOUT COMA (6) Hypoalbuminemia Code(s): E88.09 - OTH DISORDERS OF PLASMA-PROTEIN METABOLISM, NEC Assessment/Plan MONITOR LEVELS GI/RENAL EVAL APPRECIATED NYSTATIN FOR THRUSH OOB TO CHAIR PT EVAL
[2017-03-09] MEDS ORDERED: PT OWN MED DRAWER 7, Y5N ONE (18:02)
[2017-03-09] MEDS: ENZALUTAMIDE 40 MG PO SCH (18:24)
[2017-03-09] MEDS: SENNOSIDES 8.8 MG/5 ML BULK BOTTLE PO SCH (22:06)
[2017-03-09] MEDS: TAMSULOSIN HCL 0.4 MG CAP.ER.24H (FP) PO SCH (22:06)
[2017-03-10] MEDS: ALBUTEROL SO4 2.5/IPRATROPIUM 0.5 INH SOL 3 ML VIAL.NEB. NEB SCH ×4 (06:22→23:48)
[2017-03-10] MEDS: GLIMEPIRIDE 2 MG TABLET (FP) PO SCH (06:28)
[2017-03-10] MEDS: FUROSEMIDE 40 MG TABLET (FP) PO SCH ×2 (06:29→14:00)
[2017-03-10] MEDS: INSULIN SLIDING SCALE (NOVOLOG) 1 VIAL SQ SCH ×4 (06:29→22:48)
[2017-03-10] MEDS: NYSTATIN 500,000 UNITS/5 ML SUSPENSION PO SCH ×4 (06:29→18:10)
[2017-03-10 08:10] LABS: MCH 26.1 pg (25.7-33.7); MCHC 31.7 g/dl (32.0-35.9); MEAN CELL VOLUME 82.4 fl (80-96); MEAN PLT VOLUME 8.1 fl (7.5-11.1); PLATELET COUNT 256 K/MM3 (134-434); RDW 17.9 % (11.9-15.9); WHITE BLOOD COUNT 5.5 K/mm3 (4.0-10.0)
[2017-03-10 08:11] LABS: INR 1.52 (0.82-1.09); PROTHROMBIN TIME (PATIENT) 17.2 SEC (9.98-11.88)
[2017-03-10] MEDS: NADOLOL 20 MG TABLET (FP) PO SCH ×2 (08:40→13:08)
[2017-03-10 08:41] LABS: SGOT/AST 25 U/L (15-37); SGPT/ALT 18 U/L (12-78)
[2017-03-10 08:46] LABS: ALBUMIN 2.5 g/dl (3.4-5.0); ALK PHOS 258 U/L (45-117); ANION GAP 7 (8-16); BILIRUBIN,TOTAL 0.7 mg/dL (0.2-1.0); CALCIUM 7.8 mg/dL (8.5-10.1); CO2 28 mmol/L (21-32); CREATININE 0.4 mg/dL (0.7-1.3); GLUCOSE,RANDOM 180 mg/dL (74-106); TOT PROT 5.7 g/dl (6.4-8.2)
--- NOTE | 2017-03-10 09:05 | PN ---
Progress Note, Physician Chief Complaint: ID Notified today that patient has been having on off fevers for a few days. He appears stable as per the family and looks in NAD - Current Medication List Current Medications: Active Medications Albuterol/Ipratropium (Duoneb -) 1 amp NEB QIDR [facility] Last Admin: 03/10/17 06:22 Dose: 1 amp Amino Acids (Prosource No Carb Liquid Pkt) 30 ml PO BID@0800,1730 [facility] Last Admin: 03/09/17 16:55 Dose: 30 ml Furosemide (Lasix -) 40 mg PO BID@0600,1400 [facility] Last Admin: 03/10/17 06:29 Dose: 40 mg Glimepiride (Amaryl -) 2 mg PO DAILY@0700 [facility] Last Admin: 03/10/17 06:28 Dose: 2 mg Insulin Aspart (Novolog Vial Sliding Scale -) 1 vial SQ ACHS [facility] PRN Reason: Protocol Last Admin: 03/10/17 06:29 Dose: Not Given Lactulose (Cephulac (Oral Use)) 20 gm PO BID [facility] Last Admin: 03/09/17 22:06 Dose: 20 gm Nadolol (Corgard -) 10 mg PO DAILY [facility] Last Admin: 03/10/17 08:40 Dose: 10 mg Enzalutamide [Xtandi ] 40 Mg Capsule (Pt' s Own) 0 mg PO DAILY@1800 [facility] Last Admin: 03/09/17 18:24 Dose: Not Given Nystatin (Nystatin Oral Suspension -) 500,000 units PO Q6HPO [facility] Last Admin: 03/10/17 06:29 Dose: 500,000 units Oxycodone HCl (Roxicodone -) 2.5 mg PO Q4H PRN PRN Reason: PAIN Last Admin: 03/09/17 11:02 Dose: 2.5 mg Rifaximin (Xifaxan -) 550 mg PO BID [facility] Last Admin: 03/09/17 22:07 Dose: 550 mg Senna (Senna Oral Solution -) 8.8 mg PO HS [facility] Last Admin: 03/09/17 22:06 Dose: 8.8 mg Spironolactone (Aldactone -) 25 mg PO BID [facility] Last Admin: 03/09/17 22:06 Dose: 25 mg Tamsulosin HCl (Flomax -) 0.4 mg PO [facility] Last Admin: 03/09/17 22:06 Dose: 0.4 mg - Objective Vital Signs: Vital Signs Temperature 99.8 F H 03/10/17 06:15 Pulse Rate 67 03/10/17 06:15 Respiratory Rate 20 03/10/17 06:15 Blood Pressure 100/51 03/10/17 06:15 O2 Sat by Pulse Oximetry (%) 94 L 03/08/17 21:00 Constitutional: Yes: Well Nourished, No Distress Neck: Yes: WNL, Supple Cardiovascular: Yes: Regular Rate and Rhythm, S1, S2 Respiratory: Yes: WNL, Regular, CTA Bilaterally, Diminished Gastrointestinal: Yes: WNL, Normal Bowel Sounds, Soft, Distention, Other ( ascites). No: Tenderness, Tenderness, Epigastrium Edema: No Labs: CBC, BMP 03/10/17 06:50 03/10/17 06:50 INR, PTT INR 1.52 (0.82-1.09) H 03/10/17 06:50 Assessment/Plan Laboratory Tests 03/07/17 03/10/17 03/10/17 18:30 06:50 06:50 WBC 5.5 RBC 3.60 L Hgb 9.4 L Plt Count 256 BUN 28 H Creatinine 0.4 L D Creat Clearance w eGFR > 60 Total Bilirubin 0.7 D AST 25 ALT 18 Alkaline Phosphatase 258 H Urine WBC (Auto) 66 Urine RBC (Auto) 3 Microbiology 03/06/17 01:30 Urine - Urine García Urine Culture - Final Yeast Like Organism 03/07/17 09:10 Blood - Peripheral Venous Blood Culture - Preliminary NO GROWTH OBTAINED AFTER 48 HOURS, INCUBATION TO CONTINUE FOR 3 DAYS. 03/07/17 09:10 Blood - Peripheral Venous Blood Culture - Preliminary NO GROWTH OBTAINED AFTER 48 HOURS, INCUBATION TO CONTINUE FOR 3 DAYS. Assessment Fever in this 86 year old male with liver cirrhosis Recent chest xray no infiltrate seen Urinary tract infection considered as has a garcía SBP also considered Consider fungus Plan urine culture u/a Blood culture again Crytptococcal ag Empiric Zosyn diflucan for yeast Discussed with family at bedside
[2017-03-10] MEDS ORDERED: FLUCONAZOLE 400 MG/NS 200 ML IVPB ONE (10:00)
[2017-03-10] MEDS: SPIRONOLACTONE 25 MG TABLET (FP) PO SCH ×2 (11:30→22:26)
[2017-03-10] MEDS: oxyCODONE HCL 5 MG TABLET PO PRN (11:30)
[2017-03-10] MEDS: RIFAXIMIN 550 MG TABLET (UD) PO SCH ×2 (11:30→22:25)
[2017-03-10] MEDS: AMINO ACIDS/PROTEIN HYDROLYS 30 ML LIQUID.PKT PO SCH ×2 (11:31→18:08)
[2017-03-10] MEDS: LACTULOSE 20 GM/30 ML UDC (FOR ORAL USE ONLY) PO SCH ×2 (11:31→22:26)
[2017-03-10 13:02] LABS: URINE APPEARANCE SLCLOUDY; URINE BILIRUBIN NEGATIVE (NEGATIVE); URINE BLOOD NEGATIVE (NEGATIVE); URINE COLOR YELLOW; URINE GLUCOSE (UA) NEGATIVE (NEGATIVE); URINE KETONE NEGATIVE (NEGATIVE); URINE LEUK ESTERASE NEGATIVE (NEGATIVE); URINE NITRITE NEGATIVE (NEGATIVE); URINE PROTEIN NEGATIVE (NEGATIVE); URINE UROBILINOGEN NEGATIVE mg/dL (0.2-1.0)
[2017-03-10] MEDS: PIPERACILLIN/TAZOB 4.5 GM 4.5 GM in DEXTROSE 5%-WATER - 100 ML IVPB SCH ×2 (13:05→19:25)
--- NOTE | 2017-03-10 14:29 | PN ---
Progress Note, Physician Chief Complaint: AWAKE , BEDSIDE + APPETITE - Current Medication List Current Medications: Active Medications Albuterol/Ipratropium (Duoneb -) 1 amp NEB QIDR [facility] Last Admin: 03/10/17 06:22 Dose: 1 amp Amino Acids (Prosource No Carb Liquid Pkt) 30 ml PO BID@0800,1730 [facility] Last Admin: 03/10/17 11:31 Dose: 30 ml Clonidine HCl (Catapres Tts Patch -) 0.1 mg TD Q7D@1000 [facility] Furosemide (Lasix -) 40 mg PO BID@0600,1400 [facility] Last Admin: 03/10/17 06:29 Dose: 40 mg Glimepiride (Amaryl -) 2 mg PO DAILY@0700 [facility] Last Admin: 03/10/17 06:28 Dose: 2 mg Piperacillin Sod/Tazobactam (Sod 4.5 gm/ Dextrose) 100 mls @ 200 mls/hr IVPB Q8H-IV [facility] PRN Reason: Protocol Last Admin: 03/10/17 13:05 Dose: 200 mls/hr Fluconazole (Diflucan 200 Mg/D5w Premixed Ivpb -) 100 mls @ 100 mls/hr IVPB DAILY [facility] Insulin Aspart (Novolog Vial Sliding Scale -) 1 vial SQ ACHS [facility] PRN Reason: Protocol Last Admin: 03/10/17 13:06 Dose: 2 units Lactulose (Cephulac (Oral Use)) 20 gm PO BID [facility] Last Admin: 03/10/17 11:31 Dose: 20 gm Nadolol (Corgard -) 10 mg PO DAILY [facility] Last Admin: 03/10/17 13:08 Dose: 10 mg Enzalutamide [Xtandi ] 40 Mg Capsule (Pt' s Own) 0 mg PO DAILY@1800 [facility] Last Admin: 03/09/17 18:24 Dose: Not Given Nystatin (Nystatin Oral Suspension -) 500,000 units PO Q6HPO [facility] Last Admin: 03/10/17 11:31 Dose: 500,000 units Oxycodone HCl (Roxicodone -) 2.5 mg PO Q4H PRN PRN Reason: PAIN Last Admin: 03/10/17 11:30 Dose: 2.5 mg Rifaximin (Xifaxan -) 550 mg PO BID [facility] Last Admin: 03/10/17 11:30 Dose: 550 mg Senna (Senna Oral Solution -) 8.8 mg PO HS [facility] Last Admin: 03/09/17 22:06 Dose: 8.8 mg Spironolactone (Aldactone -) 25 mg PO BID [facility] Last Admin: 03/10/17 11:30 Dose: 25 mg Tamsulosin HCl (Flomax -) 0.4 mg PO HS [facility] Last Admin: 03/09/17 22:06 Dose: 0.4 mg - Objective Vital Signs: Vital Signs Temperature 99.8 F H 03/10/17 06:15 Pulse Rate 67 03/10/17 06:15 Respiratory Rate 20 03/10/17 06:15 Blood Pressure 100/51 03/10/17 06:15 O2 Sat by Pulse Oximetry (%) 94 L 03/08/17 21:00 Constitutional: Yes: Mild Distress Eyes: Yes: WNL HENT: Yes: WNL, Other Cardiovascular: Yes: WNL Respiratory: Yes: WNL Gastrointestinal: Yes: Distention Genitourinary: Yes: Incontinence Musculoskeletal: Yes: Muscle Weakness Edema: Yes Edema: LLE: Trace, RLE: Trace Peripheral Pulses WNL: Yes Integumentary: Yes: WNL Wound/Incision: Yes: Clean/Dry Neurological: Yes: Pre-Existing Deficit ...Motor Strength: LLE, RLE Psychiatric: Yes: Other Labs: CBC, BMP 03/10/17 06:50 03/10/17 06:50 INR, PTT INR 1.52 (0.82-1.09) H 03/10/17 06:50 Problem List - Problems (1) Alcoholic cirrhosis Code(s): K70.30 - ALCOHOLIC CIRRHOSIS OF LIVER WITHOUT ASCITES (2) Anemia Code(s): D64.9 - ANEMIA, UNSPECIFIED (3) Ascites Code(s): R18.8 - OTHER ASCITES (4) Esophageal varices determined by endoscopy Code(s): I85.00 - ESOPHAGEAL VARICES WITHOUT BLEEDING (5) Hepatic encephalopathy Code(s): K72.90 - HEPATIC FAILURE, UNSPECIFIED WITHOUT COMA (6) Hypoalbuminemia Code(s): E88.09 - OTH DISORDERS OF PLASMA-PROTEIN METABOLISM, NEC Assessment/Plan PT BEDSIDE IV ABX PER ID CULTURES POSITIVE DVT PROPHYLAXIS COOLING BLANKET FOR FEVERS
[2017-03-10 14:45] LABS: URINE LEUK ESTERASE Negative (NEGATIVE)
[2017-03-10] MEDS: ENZALUTAMIDE 40 MG PO SCH (18:09)
[2017-03-10] MEDS ORDERED: PT OWN MED DRAWER 7, Y5N ONE (19:03)
[2017-03-10] MEDS: TAMSULOSIN HCL 0.4 MG CAP.ER.24H (FP) PO SCH (22:25)
[2017-03-10] MEDS: SENNOSIDES 8.8 MG/5 ML BULK BOTTLE PO SCH (22:25)
[2017-03-11] MEDS: PIPERACILLIN/TAZOB 4.5 GM 4.5 GM in DEXTROSE 5%-WATER - 100 ML IVPB SCH ×3 (02:57→18:33)
[2017-03-11] MEDS: ALBUTEROL SO4 2.5/IPRATROPIUM 0.5 INH SOL 3 ML VIAL.NEB. NEB SCH ×4 (06:28→23:01)
[2017-03-11] MEDS: FUROSEMIDE 40 MG TABLET (FP) PO SCH ×2 (06:56→16:36)
[2017-03-11] MEDS: NYSTATIN 500,000 UNITS/5 ML SUSPENSION PO SCH ×4 (06:56→18:34)
[2017-03-11] MEDS: GLIMEPIRIDE 2 MG TABLET (FP) PO SCH (06:56)
[2017-03-11] MEDS: INSULIN SLIDING SCALE (NOVOLOG) 1 VIAL SQ SCH ×4 (06:59→21:56)
[2017-03-11] MEDS: AMINO ACIDS/PROTEIN HYDROLYS 30 ML LIQUID.PKT PO SCH ×3 (09:20→18:33)
[2017-03-11] MEDS: RIFAXIMIN 550 MG TABLET (UD) PO SCH ×2 (09:20→21:01)
[2017-03-11] MEDS: SPIRONOLACTONE 25 MG TABLET (FP) PO SCH ×2 (09:20→21:01)
[2017-03-11] MEDS: NADOLOL 20 MG TABLET (FP) PO SCH (09:20)
[2017-03-11] MEDS: LACTULOSE 20 GM/30 ML UDC (FOR ORAL USE ONLY) PO SCH ×2 (09:20→21:01)
[2017-03-11] MEDS ORDERED: PT OWN MED DRAWER 7, Y5N ONE ×2 (09:27→18:28)
[2017-03-11] MEDS: oxyCODONE HCL 5 MG TABLET PO PRN (10:09)
[2017-03-11] MEDS: FLUCONAZOLE 200 MG/D5W 100 ML IVPB SCH (10:09)
[2017-03-11] MEDS ORDERED: INSULIN (NOVOLOG) ASPART 100 UNITS/ML 10ML VIAL ONE (11:35)
--- NOTE | 2017-03-11 12:54 | PN ---
Progress Note (short form) - Note Progress Note: remains quite weak, poor appetite Vital Signs Period Temp Pulse Resp BP Sys/Drummond Pulse Ox Last 24 Hr 98 F-99.2 F 64-66 16-22 110-120/52-70 cor-rrr llungs decreased bs at bases abd soft,nt ext no edema +garcía CBC, BMP 03/10/17 06:50 03/10/17 06:50 Microbiology 03/10/17 10:25 Blood - Peripheral Venous Blood Culture - Preliminary NO GROWTH OBTAINED AFTER 24 HOURS, INCUBATION TO CONTINUE FOR 4 DAYS. 03/10/17 10:25 Blood - Peripheral Venous Blood Culture - Preliminary NO GROWTH OBTAINED AFTER 24 HOURS, INCUBATION TO CONTINUE FOR 4 DAYS. 03/07/17 09:10 Blood - Peripheral Venous Blood Culture - Preliminary NO GROWTH OBTAINED AFTER 96 HOURS, INCUBATION TO CONTINUE FOR 1 DAYS. 03/07/17 09:10 Blood - Peripheral Venous Blood Culture - Preliminary NO GROWTH OBTAINED AFTER 96 HOURS, INCUBATION TO CONTINUE FOR 1 DAYS. 03/10/17 09:35 Serum Cryptococcal Antigen - Preliminary 03/06/17 01:30 Urine - Urine García Urine Culture - Final Yeast Like Organism 02/23/17 02:50 Blood - Peripheral Venous Blood Culture - Final NO GROWTH AFTER 5 DAYS INCUBATION 02/23/17 02:50 Blood - Peripheral Venous Blood Culture - Final NO GROWTH AFTER 5 DAYS INCUBATION 02/24/17 22:49 Urine - Urine García Urine Culture - Final NO GROWTH OBTAINED 02/23/17 04:10 Urine - Urine Clean Catch Urine Culture - Final Contaminated: Please Repeat a/p back on antibiotics for fevers- ?UTI, f/u cultures- zosyn/diflucan day #1 liver cirrhosis with portal vein thrombosis-on anticoagulation metastatic prostate cancer with bony mets palliative care -?goals of care
--- NOTE | 2017-03-11 14:33 | PN ---
Progress Note, Physician History of Present Illness: Pt seen and examined. He appears comfortable. - Current Medication List Current Medications: Active Medications Albuterol/Ipratropium (Duoneb -) 1 amp NEB QIDR [facility] Last Admin: 03/11/17 11:55 Dose: 1 amp Amino Acids (Prosource No Carb Liquid Pkt) 30 ml PO BID@0800,1730 [facility] Last Admin: 03/11/17 09:20 Dose: 30 ml Clonidine HCl (Catapres Tts Patch -) 0.1 mg TD Q7D@1000 [facility] Furosemide (Lasix -) 40 mg PO BID@0600,1400 [facility] Last Admin: 03/11/17 06:56 Dose: 40 mg Glimepiride (Amaryl -) 2 mg PO DAILY@0700 [facility] Last Admin: 03/11/17 06:56 Dose: 2 mg Piperacillin Sod/Tazobactam (Sod 4.5 gm/ Dextrose) 100 mls @ 200 mls/hr IVPB Q8H-IV [facility] PRN Reason: Protocol Last Admin: 03/11/17 02:57 Dose: 200 mls/hr Fluconazole (Diflucan 200 Mg/D5w Premixed Ivpb -) 100 mls @ 100 mls/hr IVPB DAILY [facility] Last Admin: 03/11/17 10:09 Dose: 100 mls/hr Insulin Aspart (Novolog Vial Sliding Scale -) 1 vial SQ ACHS [facility] PRN Reason: Protocol Last Admin: 03/11/17 06:59 Dose: Not Given Lactulose (Cephulac (Oral Use)) 20 gm PO BID [facility] Last Admin: 03/11/17 09:20 Dose: 20 gm Nadolol (Corgard -) 10 mg PO DAILY [facility] Last Admin: 03/11/17 09:20 Dose: 10 mg Enzalutamide [Xtandi ] 40 Mg Capsule (Pt' s Own) 0 mg PO DAILY@1800 [facility] Last Admin: 03/10/17 18:09 Dose: Not Given Nystatin (Nystatin Oral Suspension -) 500,000 units PO Q6HPO [facility] Last Admin: 03/11/17 06:56 Dose: 500,000 units Oxycodone HCl (Roxicodone -) 2.5 mg PO Q4H PRN PRN Reason: PAIN Last Admin: 03/11/17 10:09 Dose: 2.5 mg Rifaximin (Xifaxan -) 550 mg PO BID [facility] Last Admin: 03/11/17 09:20 Dose: 550 mg Senna (Senna Oral Solution -) 8.8 mg PO [facility] Last Admin: 03/10/17 22:25 Dose: 8.8 mg Spironolactone (Aldactone -) 25 mg PO BID [facility] Last Admin: 03/11/17 09:20 Dose: 25 mg Tamsulosin HCl (Flomax -) 0.4 mg PO [facility] Last Admin: 03/10/17 22:25 Dose: 0.4 mg - Objective Vital Signs: Vital Signs Temperature 98 F 03/11/17 07:53 Pulse Rate 66 03/11/17 07:53 Respiratory Rate 22 03/11/17 07:53 Blood Pressure 110/52 03/11/17 07:53 O2 Sat by Pulse Oximetry (%) 94 L 03/08/17 21:00 Constitutional: Yes: Calm Eyes: Yes: Sclera Icterus HENT: Yes: Atraumatic Cardiovascular: Yes: S1, S2 Respiratory: Yes: CTA Bilaterally Gastrointestinal: Yes: Soft, Ascites Genitourinary: Yes: García Present, Incontinence Musculoskeletal: Yes: Muscle Weakness Edema: No Neurological: Yes: Confusion Labs: CBC, BMP 03/10/17 06:50 03/10/17 06:50 INR, PTT INR 1.52 (0.82-1.09) H 03/10/17 06:50 Problem List - Problems (1) Alcoholic cirrhosis Code(s): K70.30 - ALCOHOLIC CIRRHOSIS OF LIVER WITHOUT ASCITES (2) Hepatic encephalopathy Code(s): K72.90 - HEPATIC FAILURE, UNSPECIFIED WITHOUT COMA Assessment/Plan Current Medications Generic Name Dose Route Start Last Admin Trade Name Freq PRN Reason Stop Dose Admin Albuterol/Ipratropium 1 amp 02/24/17 12:00 03/11/17 11:55 Duoneb - NEB 1 amp QIDR [facility] Administration Amino Acids 30 ml 02/24/17 17:30 03/11/17 09:20 Prosource No Carb Liquid Pkt PO 30 ml BID@0800,1730 [facility] Administration Clonidine HCl 0.1 mg 03/17/17 10:00 Catapres Tts Patch - TD Q7D@1000 [facility] Furosemide 40 mg 03/04/17 06:00 03/11/17 06:56 Lasix - PO 40 mg BID@0600,1400 [facility] Administration Glimepiride 2 mg 02/24/17 07:00 03/11/17 06:56 Amaryl - PO 2 mg DAILY@0700 [facility] Administration Piperacillin Sod/Tazobactam 100 mls @ 200 mls/hr 03/10/17 10:00 03/11/17 02: 57 Sod 4.5 gm/ Dextrose IVPB 200 mls/hr Q8H-IV [facility] Administration Protocol Fluconazole 100 mls @ 100 mls/hr 03/11/17 10:00 03/11/17 10:09 Diflucan 200 Mg/D5w Premixed Ivpb - IVPB 100 mls/hr DAILY [facility] Administration Insulin Aspart 1 vial 02/23/17 11:00 03/11/17 06:59 Novolog Vial Sliding Scale - SQ Not Given ACHS [facility] Protocol Lactulose 20 gm 02/23/17 10:00 03/11/17 09:20 Cephulac (Oral Use) PO 20 gm BID [facility] Administration Nadolol 10 mg 02/23/17 10:00 03/11/17 09:20 Corgard - PO 10 mg DAILY [facility] Administration Enzalutamide [Xtandi 0 mg 02/23/17 18:00 03/10/17 18:09 ] 40 Mg Capsule (Pt' PO Not Given s Own) DAILY@1800 [facility] Nystatin 500,000 units 03/05/17 00:00 03/11/17 06:56 Nystatin Oral Suspension - PO 500,000 units Q6HPO [facility] Administration Oxycodone HCl 2.5 mg 03/08/17 17:52 03/11/17 10:09 Roxicodone - PO 2.5 mg Q4H PRN Administration PAIN Rifaximin 550 mg 02/23/17 22:00 03/11/17 09:20 Xifaxan - PO 550 mg BID [facility] Administration Senna 8.8 mg 03/08/17 22:00 03/10/17 22:25 Senna Oral Solution - PO 8.8 mg HS [facility] Administration Spironolactone 25 mg 02/28/17 22:00 03/11/17 09:20 Aldactone - PO 25 mg BID [facility] Administration Tamsulosin HCl 0.4 mg 02/23/17 22:00 03/10/17 22:25 Flomax - PO 0.4 mg HS [facility] Administration Impression 1. liver cirrhosis 2. hx etoh abuse 3. volume overload 4. prostate cancer 5. urinary retention 6. oral thrush 7. PNA 8. DM 9. ascites Plan - cont lasix - cont spironolactone - monitor electrolytes - cont abx - discussed with family - garcía care - will follow PRN Dr Spencer
--- NOTE | 2017-03-11 17:26 | PN ---
Progress Note, Physician Chief Complaint: AWAKE NOT ANSWERING QUESTIONS FAMILY BEDSIDE THEY SAY THIS IS HIS USUAL BEHAVIOR - Current Medication List Current Medications: Active Medications Albuterol/Ipratropium (Duoneb -) 1 amp NEB QIDR [facility] Last Admin: 03/11/17 11:55 Dose: 1 amp Amino Acids (Prosource No Carb Liquid Pkt) 30 ml PO BID@0800,1730 [facility] Last Admin: 03/11/17 09:20 Dose: 30 ml Clonidine HCl (Catapres Tts Patch -) 0.1 mg TD Q7D@1000 [facility] Furosemide (Lasix -) 40 mg PO BID@0600,1400 [facility] Last Admin: 03/11/17 16:36 Dose: 40 mg Glimepiride (Amaryl -) 2 mg PO DAILY@0700 [facility] Last Admin: 03/11/17 06:56 Dose: 2 mg Piperacillin Sod/Tazobactam (Sod 4.5 gm/ Dextrose) 100 mls @ 200 mls/hr IVPB Q8H-IV [facility] PRN Reason: Protocol Last Admin: 03/11/17 13:00 Dose: 200 mls/hr Fluconazole (Diflucan 200 Mg/D5w Premixed Ivpb -) 100 mls @ 100 mls/hr IVPB DAILY [facility] Last Admin: 03/11/17 10:09 Dose: 100 mls/hr Insulin Aspart (Novolog Vial Sliding Scale -) 1 vial SQ ACHS [facility] PRN Reason: Protocol Last Admin: 03/11/17 13:00 Dose: 2 units Lactulose (Cephulac (Oral Use)) 20 gm PO BID [facility] Last Admin: 03/11/17 09:20 Dose: 20 gm Nadolol (Corgard -) 10 mg PO DAILY [facility] Last Admin: 03/11/17 09:20 Dose: 10 mg Enzalutamide [Xtandi ] 40 Mg Capsule (Pt' s Own) 0 mg PO DAILY@1800 [facility] Last Admin: 03/10/17 18:09 Dose: Not Given Nystatin (Nystatin Oral Suspension -) 500,000 units PO Q6HPO [facility] Last Admin: 03/11/17 13:00 Dose: 500,000 units Oxycodone HCl (Roxicodone -) 2.5 mg PO Q4H PRN PRN Reason: PAIN Last Admin: 03/11/17 10:09 Dose: 2.5 mg Rifaximin (Xifaxan -) 550 mg PO BID [facility] Last Admin: 03/11/17 09:20 Dose: 550 mg Senna (Senna Oral Solution -) 8.8 mg PO [facility] Last Admin: 03/10/17 22:25 Dose: 8.8 mg Spironolactone (Aldactone -) 25 mg PO BID [facility] Last Admin: 03/11/17 09:20 Dose: 25 mg Tamsulosin HCl (Flomax -) 0.4 mg PO [facility] Last Admin: 03/10/17 22:25 Dose: 0.4 mg - Objective Vital Signs: Vital Signs Temperature 98 F 03/11/17 07:53 Pulse Rate 66 03/11/17 07:53 Respiratory Rate 22 03/11/17 07:53 Blood Pressure 110/52 03/11/17 07:53 O2 Sat by Pulse Oximetry (%) 94 L 03/08/17 21:00 Constitutional: Yes: Mild Distress Eyes: Yes: WNL HENT: Yes: WNL Neck: Yes: WNL Cardiovascular: Yes: WNL Respiratory: Yes: WNL Gastrointestinal: Yes: WNL Genitourinary: Yes: Incontinence Musculoskeletal: Yes: Muscle Weakness Extremities: Yes: WNL Edema: No Peripheral Pulses WNL: Yes Integumentary: Yes: WNL Wound/Incision: Yes: Clean/Dry Neurological: Yes: Pre-Existing Deficit ...Motor Strength: LLE, RLE Psychiatric: Yes: Other Labs: CBC, BMP 03/10/17 06:50 03/10/17 06:50 INR, PTT INR 1.52 (0.82-1.09) H 03/10/17 06:50 Problem List - Problems (1) Alcoholic cirrhosis Code(s): K70.30 - ALCOHOLIC CIRRHOSIS OF LIVER WITHOUT ASCITES (2) Anemia Code(s): D64.9 - ANEMIA, UNSPECIFIED (3) Ascites Code(s): R18.8 - OTHER ASCITES (4) Esophageal varices determined by endoscopy Code(s): I85.00 - ESOPHAGEAL VARICES WITHOUT BLEEDING (5) Hepatic encephalopathy Code(s): K72.90 - HEPATIC FAILURE, UNSPECIFIED WITHOUT COMA (6) Hypoalbuminemia Code(s): E88.09 - OTH DISORDERS OF PLASMA-PROTEIN METABOLISM, NEC Assessment/Plan BANANA BAG IV X 1 ENSURE SUPPLEMENTS OOB TO CHAIR INCENTIVE SPIROMETRY IV ABX PER ID NYSTATIN SWISH AND SWALLOW
[2017-03-11] MEDS ORDERED: FOLIC ACID INJECTION - 1 MG, THIAMINE HCL 100 MG, MULTIVIT INJECTION ADULT 10 ML in SOD... IVPB ONE (18:15)
[2017-03-11] MEDS: ENZALUTAMIDE 40 MG PO SCH (19:24)
[2017-03-11] MEDS: SENNOSIDES 8.8 MG/5 ML BULK BOTTLE PO SCH (21:01)
[2017-03-11] MEDS: TAMSULOSIN HCL 0.4 MG CAP.ER.24H (FP) PO SCH (21:01)
[2017-03-12] MEDS: NYSTATIN 500,000 UNITS/5 ML SUSPENSION PO SCH ×4 (00:24→18:27)
[2017-03-12] MEDS: PIPERACILLIN/TAZOB 4.5 GM 4.5 GM in DEXTROSE 5%-WATER - 100 ML IVPB SCH ×4 (01:21→19:39)
[2017-03-12] MEDS: FUROSEMIDE 40 MG TABLET (FP) PO SCH ×2 (05:47→13:53)
[2017-03-12] MEDS: ALBUTEROL SO4 2.5/IPRATROPIUM 0.5 INH SOL 3 ML VIAL.NEB. NEB SCH ×3 (06:05→18:45)
[2017-03-12] MEDS: GLIMEPIRIDE 2 MG TABLET (FP) PO SCH (06:12)
[2017-03-12] MEDS: INSULIN SLIDING SCALE (NOVOLOG) 1 VIAL SQ SCH ×4 (06:13→22:30)
[2017-03-12 08:19] LABS: MCHC 31.4 g/dl (32.0-35.9); MEAN CELL VOLUME 82.7 fl (80-96); MEAN PLT VOLUME 8.1 fl (7.5-11.1); PLATELET COUNT 253 K/MM3 (134-434); RDW 17.8 % (11.9-15.9); WHITE BLOOD COUNT 4.3 K/mm3 (4.0-10.0)
[2017-03-12 08:39] LABS: ALBUMIN 2.5 g/dl (3.4-5.0); ANION GAP 10 (8-16); CALCIUM 7.6 mg/dL (8.5-10.1); CO2 27 mmol/L (21-32); CREATININE 0.5 mg/dL (0.7-1.3); GLUCOSE,RANDOM 148 mg/dL (74-106); MAGNESIUM 2.2 mg/dL (1.8-2.4); SGOT/AST 20 U/L (15-37); SGPT/ALT 17 U/L (12-78)
[2017-03-12 08:41] LABS: ALK PHOS 252 U/L (45-117)
[2017-03-12] MEDS ORDERED: PT OWN MED DRAWER 7, Y5N ONE (09:30)
[2017-03-12] MEDS: NADOLOL 20 MG TABLET (FP) PO SCH (09:40)
[2017-03-12] MEDS: AMINO ACIDS/PROTEIN HYDROLYS 30 ML LIQUID.PKT PO SCH ×2 (09:40→18:27)
[2017-03-12] MEDS: LACTULOSE 20 GM/30 ML UDC (FOR ORAL USE ONLY) PO SCH ×2 (09:40→21:42)
[2017-03-12] MEDS: SPIRONOLACTONE 25 MG TABLET (FP) PO SCH ×2 (09:41→21:41)
[2017-03-12] MEDS: RIFAXIMIN 550 MG TABLET (UD) PO SCH ×2 (09:41→21:41)
[2017-03-12] MEDS: FLUCONAZOLE 200 MG/D5W 100 ML IVPB SCH (09:42)
--- NOTE | 2017-03-12 10:32 | PN ---
Progress Note, Physician Chief Complaint: Weakness, Hepatic encephalopathy History of Present Illness: NAD, poor prognosis poor PO intake hypoalbuminemia seen by ID and GI afebrile after being started on IV abx and IV antifungal - Current Medication List Current Medications: Active Medications Albuterol/Ipratropium (Duoneb -) 1 amp NEB QIDR [facility] Last Admin: 03/12/17 06:05 Dose: 1 amp Amino Acids (Prosource No Carb Liquid Pkt) 30 ml PO BID@0800,1730 [facility] Last Admin: 03/12/17 09:40 Dose: 30 ml Clonidine HCl (Catapres Tts Patch -) 0.1 mg TD Q7D@1000 [facility] Furosemide (Lasix -) 40 mg PO BID@0600,1400 [facility] Last Admin: 03/12/17 05:47 Dose: 40 mg Glimepiride (Amaryl -) 2 mg PO DAILY@0700 [facility] Last Admin: 03/12/17 06:12 Dose: 2 mg Piperacillin Sod/Tazobactam (Sod 4.5 gm/ Dextrose) 100 mls @ 200 mls/hr IVPB Q8H-IV [facility] PRN Reason: Protocol Last Admin: 03/12/17 01:21 Dose: 200 mls/hr Fluconazole (Diflucan 200 Mg/D5w Premixed Ivpb -) 100 mls @ 100 mls/hr IVPB DAILY [facility] Last Admin: 03/12/17 09:42 Dose: 100 mls/hr Insulin Aspart (Novolog Vial Sliding Scale -) 1 vial SQ ACHS [facility] PRN Reason: Protocol Last Admin: 03/12/17 06:13 Dose: Not Given Lactulose (Cephulac (Oral Use)) 20 gm PO BID [facility] Last Admin: 03/12/17 09:40 Dose: 20 gm Nadolol (Corgard -) 10 mg PO DAILY [facility] Last Admin: 03/12/17 09:40 Dose: 10 mg Enzalutamide [Xtandi ] 40 Mg Capsule (Pt' s Own) 0 mg PO DAILY@1800 [facility] Last Admin: 03/11/17 19:24 Dose: Not Given Nystatin (Nystatin Oral Suspension -) 500,000 units PO Q6HPO [facility] Last Admin: 03/12/17 05:47 Dose: 500,000 units Oxycodone HCl (Roxicodone -) 2.5 mg PO Q4H PRN PRN Reason: PAIN Last Admin: 03/11/17 10:09 Dose: 2.5 mg Rifaximin (Xifaxan -) 550 mg PO BID [facility] Last Admin: 03/12/17 09:41 Dose: 550 mg Senna (Senna Oral Solution -) 8.8 mg PO HS [facility] Last Admin: 03/11/17 21:01 Dose: 8.8 mg Spironolactone (Aldactone -) 25 mg PO BID [facility] Last Admin: 03/12/17 09:41 Dose: 25 mg Tamsulosin HCl (Flomax -) 0.4 mg PO [facility] Last Admin: 03/11/17 21:01 Dose: 0.4 mg - Objective Vital Signs: Vital Signs Temperature 98.2 F 03/12/17 06:00 Pulse Rate 65 03/12/17 06:00 Respiratory Rate 22 03/12/17 06:00 Blood Pressure 117/66 03/12/17 06:00 O2 Sat by Pulse Oximetry (%) 94 L 03/08/17 21:00 Constitutional: Yes: No Distress, Calm Cardiovascular: Yes: Regular Rate and Rhythm Respiratory: Yes: Regular Gastrointestinal: Yes: Ascites Edema: Yes (generalized) Peripheral Pulses WNL: Yes Neurological: Yes: Alert Psychiatric: Yes: Alert Labs: CBC, BMP 03/12/17 06:35 03/12/17 06:35 INR, PTT INR 1.52 (0.82-1.09) H 03/10/17 06:50 Problem List - Problems (1) Urinary retention Assessment/Plan: -Bonilla -UC negative -on Tamsulosin Code(s): R33.9 - RETENTION OF URINE, UNSPECIFIED (2) Mental status change Code(s): R41.82 - ALTERED MENTAL STATUS, UNSPECIFIED (3) Prostate carcinoma Code(s): C61 - MALIGNANT NEOPLASM OF PROSTATE (4) Hepatic encephalopathy Assessment/Plan: -ammonia levels remain elevated -lactulose -seen by GI Code(s): K72.90 - HEPATIC FAILURE, UNSPECIFIED WITHOUT COMA (5) Alcoholic cirrhosis Code(s): K70.30 - ALCOHOLIC CIRRHOSIS OF LIVER WITHOUT ASCITES (6) Anemia Assessment/Plan: -h/h improved today -secondary to disease process Code(s): D64.9 - ANEMIA, UNSPECIFIED (7) Hypoalbuminemia due to protein-calorie malnutrition Assessment/Plan: -poor oral intake -Glucerna TID Code(s): E46 - UNSPECIFIED PROTEIN-CALORIE MALNUTRITION (8) Thrush, oral Code(s): B37.0 - CANDIDAL STOMATITIS (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
--- NOTE | 2017-03-12 13:25 | PN ---
Progress Note, CREDIT COLLECTIONS REP - Note Progress Note: Selected Entries 03/10/17 03/10/17 03/10/17 10:47 15:13 21:32 Breakfast 50% Lunch 50% Supper 50% Temperature 03/10/17 03/11/17 03/11/17 22:00 07:53 10:00 Breakfast Lunch Supper 50% 50% Temperature 98 F 03/11/17 03/11/17 03/11/17 11:00 17:32 22:00 Breakfast Lunch Supper Temperature 98 F 98.0 F 98.0 F 03/11/17 03/12/17 23:25 06:00 Breakfast Lunch Supper 50% Temperature 98.2 F Laboratory Tests 03/12/17 06:35 WBC 4.3 Family feeds pt. They say appetite is not as good today. Tolerating what he accepts. He completes Glucerna and seems to enjoy it.
--- NOTE | 2017-03-12 13:45 | PN ---
Progress Note, Physician Chief Complaint: ID Zosyn and Fluconazole - Current Medication List Current Medications: Active Medications Albuterol/Ipratropium (Duoneb -) 1 amp NEB QIDR [facility] Last Admin: 03/12/17 10:50 Dose: 1 amp Amino Acids (Prosource No Carb Liquid Pkt) 30 ml PO BID@0800,1730 [facility] Last Admin: 03/12/17 09:40 Dose: 30 ml Clonidine HCl (Catapres Tts Patch -) 0.1 mg TD Q7D@1000 [facility] Furosemide (Lasix -) 40 mg PO BID@0600,1400 [facility] Last Admin: 03/12/17 05:47 Dose: 40 mg Glimepiride (Amaryl -) 2 mg PO DAILY@0700 [facility] Last Admin: 03/12/17 06:12 Dose: 2 mg Fluconazole (Diflucan 200 Mg/D5w Premixed Ivpb -) 100 mls @ 100 mls/hr IVPB DAILY [facility] Last Admin: 03/12/17 09:42 Dose: 100 mls/hr Piperacillin Sod/Tazobactam (Sod 3.375 gm/ Dextrose) 100 mls @ 200 mls/hr IVPB Q6H-IV [facility] PRN Reason: Protocol Stop: 03/17/17 09:59 Insulin Aspart (Novolog Vial Sliding Scale -) 1 vial SQ ACHS [facility] PRN Reason: Protocol Last Admin: 03/12/17 13:08 Dose: 2 units Lactulose (Cephulac (Oral Use)) 20 gm PO BID [facility] Last Admin: 03/12/17 09:40 Dose: 20 gm Nadolol (Corgard -) 10 mg PO DAILY [facility] Last Admin: 03/12/17 09:40 Dose: 10 mg Enzalutamide [Xtandi ] 40 Mg Capsule (Pt' s Own) 0 mg PO DAILY@1800 [facility] Last Admin: 03/11/17 19:24 Dose: Not Given Nystatin (Nystatin Oral Suspension -) 500,000 units PO Q6HPO [facility] Last Admin: 03/12/17 13:08 Dose: 500,000 units Oxycodone HCl (Roxicodone -) 2.5 mg PO Q4H PRN PRN Reason: PAIN Last Admin: 03/11/17 10:09 Dose: 2.5 mg Rifaximin (Xifaxan -) 550 mg PO BID [facility] Last Admin: 03/12/17 09:41 Dose: 550 mg Senna (Senna Oral Solution -) 8.8 mg PO [facility] Last Admin: 03/11/17 21:01 Dose: 8.8 mg Spironolactone (Aldactone -) 25 mg PO BID [facility] Last Admin: 03/12/17 09:41 Dose: 25 mg Tamsulosin HCl (Flomax -) 0.4 mg PO [facility] Last Admin: 03/11/17 21:01 Dose: 0.4 mg - Objective Vital Signs: Vital Signs Temperature 98.2 F 03/12/17 06:00 Pulse Rate 65 03/12/17 06:00 Respiratory Rate 22 03/12/17 06:00 Blood Pressure 117/66 03/12/17 06:00 O2 Sat by Pulse Oximetry (%) 94 L 03/08/17 21:00 Constitutional: Yes: No Distress Neck: Yes: WNL, Supple Cardiovascular: Yes: S1, S2 Respiratory: Yes: WNL, Regular, CTA Bilaterally Gastrointestinal: Yes: Soft. No: Tenderness Labs: CBC, BMP 03/12/17 06:35 03/12/17 06:35 INR, PTT INR 1.52 (0.82-1.09) H 03/10/17 06:50 Assessment/Plan Microbiology 03/10/17 12:30 Urine - Urine Bonilla Urine Culture - Final NO GROWTH OBTAINED 03/10/17 10:25 Blood - Peripheral Venous Blood Culture - Preliminary NO GROWTH OBTAINED AFTER 48 HOURS, INCUBATION TO CONTINUE FOR 3 DAYS. 03/10/17 10:25 Blood - Peripheral Venous Blood Culture - Preliminary NO GROWTH OBTAINED AFTER 48 HOURS, INCUBATION TO CONTINUE FOR 3 DAYS. 03/10/17 09:35 Serum Cryptococcal Antigen - Preliminary Laboratory Tests 03/12/17 03/12/17 06:35 06:35 WBC 4.3 RBC 3.80 L Hct 31.5 L Plt Count 253 BUN 20 H D Creatinine 0.5 L D Creat Clearance w eGFR > 60 Assessment Liver cirrhosis New onset of fevers in last few days Repeat cultures no growth but afebrile Plan Plan is to continue Zosyn for another 24 hours Will stop diflucan as no yeast Francy CHOW
[2017-03-12] MEDS: oxyCODONE HCL 5 MG TABLET PO PRN ×2 (13:52→22:16)
[2017-03-12] MEDS ORDERED: PIPERACILLIN/TAZOB 3.375 GM 3.375 GM in DEXTROSE 5%-WATER - 100 ML IVPB SCH (15:00)
[2017-03-12] MEDS: ENZALUTAMIDE 40 MG PO SCH (18:02)
[2017-03-12] MEDS ORDERED: WARFARIN NA 5 MG TABLET (UD) PO ONE (18:30)
[2017-03-12] MEDS: TAMSULOSIN HCL 0.4 MG CAP.ER.24H (FP) PO SCH (21:41)
[2017-03-12] MEDS: SENNOSIDES 8.8 MG/5 ML BULK BOTTLE PO SCH (21:42)
[2017-03-13] MEDS: NYSTATIN 500,000 UNITS/5 ML SUSPENSION PO SCH ×4 (00:01→17:02)
[2017-03-13] MEDS: PIPERACILLIN/TAZOB 4.5 GM 4.5 GM in DEXTROSE 5%-WATER - 100 ML IVPB SCH ×2 (01:21→10:29)
[2017-03-13] MEDS: FUROSEMIDE 40 MG TABLET (FP) PO SCH ×2 (05:44→14:23)
[2017-03-13] MEDS: ALBUTEROL SO4 2.5/IPRATROPIUM 0.5 INH SOL 3 ML VIAL.NEB. NEB SCH ×4 (06:00→17:53)
[2017-03-13] MEDS: GLIMEPIRIDE 2 MG TABLET (FP) PO SCH (06:08)
[2017-03-13] MEDS: INSULIN SLIDING SCALE (NOVOLOG) 1 VIAL SQ SCH ×4 (06:09→22:15)
[2017-03-13 09:04] LABS: INR 1.28 (0.82-1.09); PROTHROMBIN TIME (PATIENT) 14.5 SEC (9.98-11.88)
[2017-03-13 09:15] LABS: ALBUMIN 2.5 g/dl (3.4-5.0); ALK PHOS 248 U/L (45-117); ANION GAP 11 (8-16); BILIRUBIN,TOTAL 0.9 mg/dL (0.2-1.0); CALCIUM 7.6 mg/dL (8.5-10.1); CO2 26 mmol/L (21-32); CREATININE 0.5 mg/dL (0.7-1.3); GLUCOSE,RANDOM 139 mg/dL (74-106); SGOT/AST 17 U/L (15-37); SGPT/ALT 15 U/L (12-78); TOT PROT 5.9 g/dl (6.4-8.2)
[2017-03-13 09:16] LABS: BASO % 0.6 % (0-2.0); EOS % 2.9 % (0-4.5); MCH 25.8 pg (25.7-33.7); MCHC 31.5 g/dl (32.0-35.9); MEAN CELL VOLUME 81.8 fl (80-96); MEAN PLT VOLUME 8.1 fl (7.5-11.1); NEUT % 61.7 % (42.8-82.8); PLATELET COUNT 251 K/MM3 (134-434); RDW 18.4 % (11.9-15.9); WHITE BLOOD COUNT 4.3 K/mm3 (4.0-10.0)
[2017-03-13] MEDS ORDERED: POTASSIUM CHLORIDE ORAL LIQUID 20 MEQ/15 ML PO ONE (10:15)
[2017-03-13] MEDS: LACTULOSE 20 GM/30 ML UDC (FOR ORAL USE ONLY) PO SCH ×2 (10:25→22:07)
[2017-03-13] MEDS: RIFAXIMIN 550 MG TABLET (UD) PO SCH ×2 (10:25→22:07)
[2017-03-13] MEDS: NADOLOL 20 MG TABLET (FP) PO SCH (10:25)
[2017-03-13] MEDS: AMINO ACIDS/PROTEIN HYDROLYS 30 ML LIQUID.PKT PO SCH ×2 (10:25→17:02)
[2017-03-13] MEDS: SPIRONOLACTONE 25 MG TABLET (FP) PO SCH ×2 (10:25→22:07)
--- NOTE | 2017-03-13 10:34 | PN ---
Progress Note, Physician Chief Complaint: Weakness, Hepatic encephalopathy History of Present Illness: NAD, poor prognosis poor PO intake hypoalbuminemia seen by ID and GI afebrile after being started on IV abx, IV antifungal discontinued Spoke to daughter today, discussed realistic goals, she was concerned about pt' s poor oral intake. Explained as the disease progresses, fluctuations in his appetite is anticipated. PEG is not indicated due to advance disease INR sub therapeutic- was restarted on Warfarin 5 mg po daily, it dropped from med profile? hypokalemic today 2/2 to poor oral intake, replenish - Current Medication List Current Medications: Active Medications Albuterol/Ipratropium (Duoneb -) 1 amp NEB QIDR [facility] Last Admin: 03/13/17 06:00 Dose: 1 amp Amino Acids (Prosource No Carb Liquid Pkt) 30 ml PO BID@0800,1730 [facility] Last Admin: 03/13/17 10:25 Dose: 30 ml Clonidine HCl (Catapres Tts Patch -) 0.1 mg TD Q7D@1000 [facility] Furosemide (Lasix -) 40 mg PO BID@0600,1400 [facility] Last Admin: 03/13/17 05:44 Dose: 40 mg Glimepiride (Amaryl -) 2 mg PO DAILY@0700 [facility] Last Admin: 03/13/17 06:08 Dose: 2 mg Piperacillin Sod/Tazobactam (Sod 4.5 gm/ Dextrose) 100 mls @ 200 mls/hr IVPB Q8H-IV [facility] Stop: 03/13/17 14:14 Last Admin: 03/13/17 10:29 Dose: 200 mls/hr Insulin Aspart (Novolog Vial Sliding Scale -) 1 vial SQ ACHS [facility] PRN Reason: Protocol Last Admin: 03/13/17 06:09 Dose: Not Given Lactulose (Cephulac (Oral Use)) 20 gm PO BID [facility] Last Admin: 03/13/17 10:25 Dose: 20 gm Nadolol (Corgard -) 10 mg PO DAILY [facility] Last Admin: 03/13/17 10:25 Dose: 10 mg Enzalutamide [Xtandi ] 40 Mg Capsule (Pt' s Own) 0 mg PO DAILY@1800 [facility] Last Admin: 03/12/17 18:02 Dose: Not Given Nystatin (Nystatin Oral Suspension -) 500,000 units PO Q6HPO [facility] Last Admin: 03/13/17 05:44 Dose: 500,000 units Oxycodone HCl (Roxicodone -) 2.5 mg PO Q4H PRN PRN Reason: PAIN Last Admin: 03/12/17 22:16 Dose: 2.5 mg Rifaximin (Xifaxan -) 550 mg PO BID [facility] Last Admin: 03/13/17 10:25 Dose: 550 mg Senna (Senna Oral Solution -) 8.8 mg PO [facility] Last Admin: 03/12/17 21:42 Dose: 8.8 mg Spironolactone (Aldactone -) 25 mg PO BID [facility] Last Admin: 03/13/17 10:25 Dose: 25 mg Tamsulosin HCl (Flomax -) 0.4 mg PO [facility] Last Admin: 03/12/17 21:41 Dose: 0.4 mg Warfarin Sodium (Coumadin -) 5 mg PO DAILY@1800 [facility] - Objective Vital Signs: Vital Signs Temperature 100.0 F H 03/13/17 07:01 Pulse Rate 64 03/13/17 06:00 Respiratory Rate 20 03/13/17 06:00 Blood Pressure 116/68 03/13/17 06:00 O2 Sat by Pulse Oximetry (%) 96 03/12/17 21:00 Constitutional: Yes: Well Nourished, No Distress, Calm Cardiovascular: Yes: Regular Rate and Rhythm Respiratory: Yes: Regular Gastrointestinal: Yes: Ascites Musculoskeletal: Yes: Muscle Weakness Peripheral Pulses WNL: Yes Neurological: Yes: Alert, Lethargy Psychiatric: Yes: Alert Labs: CBC, BMP 03/13/17 07:10 03/13/17 07:10 INR, PTT INR 1.28 (0.82-1.09) H 03/13/17 07:10 Problem List - Problems (1) Urinary retention Assessment/Plan: -Bonilla -UC negative -on Tamsulosin Code(s): R33.9 - RETENTION OF URINE, UNSPECIFIED (2) Mental status change Code(s): R41.82 - ALTERED MENTAL STATUS, UNSPECIFIED (3) Prostate carcinoma Code(s): C61 - MALIGNANT NEOPLASM OF PROSTATE (4) Hepatic encephalopathy Assessment/Plan: -lactulose -seen by GI Code(s): K72.90 - HEPATIC FAILURE, UNSPECIFIED WITHOUT COMA (5) Alcoholic cirrhosis Code(s): K70.30 - ALCOHOLIC CIRRHOSIS OF LIVER WITHOUT ASCITES (6) Anemia Assessment/Plan: -h/h stable -secondary to disease process Code(s): D64.9 - ANEMIA, UNSPECIFIED (7) Hypoalbuminemia due to protein-calorie malnutrition Assessment/Plan: -poor oral intake -Glucerna TID -marinol Code(s): E46 - UNSPECIFIED PROTEIN-CALORIE MALNUTRITION (8) Thrush, oral Code(s): B37.0 - CANDIDAL STOMATITIS (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
[2017-03-13] MEDS: DRONABINOL 2.5 MG CAPSULE PO SCH ×2 (12:29→17:02)
--- NOTE | 2017-03-13 13:59 | PN ---
Progress Note, Physician History of Present Illness: Pt seen and examined at bedside. He is awake and appears comfortable. - Current Medication List Current Medications: Active Medications Albuterol/Ipratropium (Duoneb -) 1 amp NEB QIDR [facility] Last Admin: 03/13/17 11:50 Dose: 1 amp Amino Acids (Prosource No Carb Liquid Pkt) 30 ml PO BID@0800,1730 [facility] Last Admin: 03/13/17 10:25 Dose: 30 ml Clonidine HCl (Catapres Tts Patch -) 0.1 mg TD Q7D@1000 [facility] Dronabinol (Marinol -) 2.5 mg PO BIDWM [facility] Last Admin: 03/13/17 12:29 Dose: 2.5 mg Furosemide (Lasix -) 40 mg PO BID@0600,1400 [facility] Last Admin: 03/13/17 05:44 Dose: 40 mg Glimepiride (Amaryl -) 2 mg PO DAILY@0700 [facility] Last Admin: 03/13/17 06:08 Dose: 2 mg Piperacillin Sod/Tazobactam (Sod 4.5 gm/ Dextrose) 100 mls @ 200 mls/hr IVPB Q8H-IV [facility] Stop: 03/13/17 14:14 Last Admin: 03/13/17 10:29 Dose: 200 mls/hr Insulin Aspart (Novolog Vial Sliding Scale -) 1 vial SQ ACHS [facility] PRN Reason: Protocol Last Admin: 03/13/17 12:29 Dose: 2 units Lactulose (Cephulac (Oral Use)) 20 gm PO BID [facility] Last Admin: 03/13/17 10:25 Dose: 20 gm Nadolol (Corgard -) 10 mg PO DAILY [facility] Last Admin: 03/13/17 10:25 Dose: 10 mg Enzalutamide [Xtandi ] 40 Mg Capsule (Pt' s Own) 0 mg PO DAILY@1800 [facility] Last Admin: 03/12/17 18:02 Dose: Not Given Nystatin (Nystatin Oral Suspension -) 500,000 units PO Q6HPO [facility] Last Admin: 03/13/17 05:44 Dose: 500,000 units Oxycodone HCl (Roxicodone -) 2.5 mg PO Q4H PRN PRN Reason: PAIN Last Admin: 03/12/17 22:16 Dose: 2.5 mg Rifaximin (Xifaxan -) 550 mg PO BID [facility] Last Admin: 03/13/17 10:25 Dose: 550 mg Senna (Senna Oral Solution -) 8.8 mg PO [facility] Last Admin: 03/12/17 21:42 Dose: 8.8 mg Spironolactone (Aldactone -) 25 mg PO BID [facility] Last Admin: 03/13/17 10:25 Dose: 25 mg Tamsulosin HCl (Flomax -) 0.4 mg PO [facility] Last Admin: 03/12/17 21:41 Dose: 0.4 mg Warfarin Sodium (Coumadin -) 5 mg PO DAILY@1800 [facility] - Objective Vital Signs: Vital Signs Temperature 100.0 F H 03/13/17 07:01 Pulse Rate 64 03/13/17 06:00 Respiratory Rate 20 03/13/17 06:00 Blood Pressure 116/68 03/13/17 06:00 O2 Sat by Pulse Oximetry (%) 96 03/12/17 21:00 Constitutional: Yes: Calm Eyes: Yes: Conjunctiva Clear HENT: Yes: Atraumatic Neck: Yes: Supple Cardiovascular: Yes: S1, S2 Respiratory: Yes: CTA Bilaterally Gastrointestinal: Yes: Soft, Ascites Genitourinary: Yes: García Present Musculoskeletal: Yes: Muscle Weakness Edema: Yes Edema: LLE: Trace, RLE: Trace Neurological: Yes: Oriented Labs: CBC, BMP 03/13/17 07:10 03/13/17 07:10 INR, PTT INR 1.28 (0.82-1.09) H 03/13/17 07:10 Problem List - Problems (1) Alcoholic cirrhosis Code(s): K70.30 - ALCOHOLIC CIRRHOSIS OF LIVER WITHOUT ASCITES (2) Hepatic encephalopathy Code(s): K72.90 - HEPATIC FAILURE, UNSPECIFIED WITHOUT COMA Assessment/Plan Current Medications Generic Name Dose Route Start Last Admin Trade Name Freq PRN Reason Stop Dose Admin Albuterol/Ipratropium 1 amp 02/24/17 12:00 03/13/17 11:50 Duoneb - NEB 1 amp QIDR [facility] Administration Amino Acids 30 ml 02/24/17 17:30 03/13/17 10:25 Prosource No Carb Liquid Pkt PO 30 ml BID@0800,1730 [facility] Administration Clonidine HCl 0.1 mg 03/17/17 10:00 Catapres Tts Patch - TD Q7D@1000 [facility] Dronabinol 2.5 mg 03/13/17 10:45 03/13/17 12:29 Marinol - PO 2.5 mg BIDWM [facility] Administration Furosemide 40 mg 03/04/17 06:00 03/13/17 05:44 Lasix - PO 40 mg BID@0600,1400 [facility] Administration Glimepiride 2 mg 02/24/17 07:00 03/13/17 06:08 Amaryl - PO 2 mg DAILY@0700 [facility] Administration Piperacillin Sod/Tazobactam 100 mls @ 200 mls/hr 03/12/17 14:15 03/13/17 10: 29 Sod 4.5 gm/ Dextrose IVPB 03/13/17 14:14 200 mls/hr Q8H-IV [facility] Administration Insulin Aspart 1 vial 02/23/17 11:00 03/13/17 12:29 Novolog Vial Sliding Scale - SQ 2 units ACHS [facility] Administration Protocol Lactulose 20 gm 02/23/17 10:00 03/13/17 10:25 Cephulac (Oral Use) PO 20 gm BID [facility] Administration Nadolol 10 mg 02/23/17 10:00 03/13/17 10:25 Corgard - PO 10 mg DAILY [facility] Administration Enzalutamide [Xtandi 0 mg 02/23/17 18:00 03/12/17 18:02 ] 40 Mg Capsule (Pt' PO Not Given s Own) DAILY@1800 [facility] Nystatin 500,000 units 03/05/17 00:00 03/13/17 05:44 Nystatin Oral Suspension - PO 500,000 units Q6HPO [facility] Administration Oxycodone HCl 2.5 mg 03/08/17 17:52 03/12/17 22:16 Roxicodone - PO 2.5 mg Q4H PRN Administration PAIN Rifaximin 550 mg 02/23/17 22:00 03/13/17 10:25 Xifaxan - PO 550 mg BID [facility] Administration Senna 8.8 mg 03/08/17 22:00 03/12/17 21:42 Senna Oral Solution - PO 8.8 mg HS [facility] Administration Spironolactone 25 mg 02/28/17 22:00 03/13/17 10:25 Aldactone - PO 25 mg BID [facility] Administration Tamsulosin HCl 0.4 mg 02/23/17 22:00 03/12/17 21:41 Flomax - PO 0.4 mg HS [facility] Administration Warfarin Sodium 5 mg 03/13/17 18:00 Coumadin - PO DAILY@1800 [facility] Impression 1. liver cirrhosis 2. hx etoh abuse 3. volume overload 4. prostate cancer 5. urinary retention 6. oral thrush 7. PNA 8. DM 9. ascites 10. hypokalemia Plan - replace potassium - check mag - cont diuretics - GI follow up - discussed with family - garcía care - will follow PRN Dr Spencer
[2017-03-13] MEDS: ENZALUTAMIDE 40 MG PO SCH (17:03)
[2017-03-13] MEDS ORDERED: WARFARIN NA 5 MG TABLET (UD) PO SCH (18:00)
--- NOTE | 2017-03-13 20:57 | PN ---
Progress Note (short form) - Note Progress Note: re-called for question whether leupron would be needed as posed by the daughter. Chart reviewed in detail. All business solutions consultant notes reviewed. at bedside. spoke to Suzi over the phone. O/E: Appears drowsy not speaking Distended abdomen RRR +LE edema Last Vital Signs Temp Pulse Resp BP Pulse Ox 99.5 F 66 20 101/56 96 03/13/17 16:20 03/13/17 15:56 03/13/17 15:56 03/13/17 15:56 03/13/17 09:00 CBC, BMP 03/13/17 07:10 03/13/17 07:10 Current Medications Generic Name Dose Route Start Last Admin Trade Name Freq PRN Reason Stop Dose Admin Albuterol/Ipratropium 1 amp 02/24/17 12:00 03/13/17 17:53 Duoneb - NEB 1 amp QIDR [facility] Administration Amino Acids 30 ml 02/24/17 17:30 03/13/17 17:02 Prosource No Carb Liquid Pkt PO 30 ml BID@0800,1730 [facility] Administration Clonidine HCl 0.1 mg 03/17/17 10:00 Catapres Tts Patch - TD Q7D@1000 [facility] Dronabinol 2.5 mg 03/13/17 10:45 03/13/17 17:02 Marinol - PO 2.5 mg BIDWM [facility] Administration Furosemide 40 mg 03/04/17 06:00 03/13/17 14:23 Lasix - PO 40 mg BID@0600,1400 [facility] Administration Glimepiride 2 mg 02/24/17 07:00 03/13/17 06:08 Amaryl - PO 2 mg DAILY@0700 [facility] Administration Insulin Aspart 1 vial 02/23/17 11:00 03/13/17 17:01 Novolog Vial Sliding Scale - SQ 2 units ACHS [facility] Administration Protocol Lactulose 20 gm 02/23/17 10:00 03/13/17 10:25 Cephulac (Oral Use) PO 20 gm BID [facility] Administration Nadolol 10 mg 02/23/17 10:00 03/13/17 10:25 Corgard - PO 10 mg DAILY [facility] Administration Enzalutamide [Xtandi 0 mg 02/23/17 18:00 03/13/17 17:03 ] 40 Mg Capsule (Pt' PO Not Given s Own) DAILY@1800 [facility] Nystatin 500,000 units 03/05/17 00:00 03/13/17 17:02 Nystatin Oral Suspension - PO 500,000 units Q6HPO [facility] Administration Oxycodone HCl 2.5 mg 03/08/17 17:52 03/12/17 22:16 Roxicodone - PO 2.5 mg Q4H PRN Administration PAIN Rifaximin 550 mg 02/23/17 22:00 03/13/17 10:25 Xifaxan - PO 550 mg BID [facility] Administration Senna 8.8 mg 03/08/17 22:00 03/12/17 21:42 Senna Oral Solution - PO 8.8 mg HS [facility] Administration Spironolactone 25 mg 02/28/17 22:00 03/13/17 10:25 Aldactone - PO 25 mg BID [facility] Administration Tamsulosin HCl 0.4 mg 02/23/17 22:00 03/12/17 21:41 Flomax - PO 0.4 mg HS [facility] Administration Warfarin Sodium 5 mg 03/13/17 18:00 03/13/17 17:32 Coumadin - PO 5 mg DAILY@1800 [facility] Administration Appreciate consult. I have explained to Suzi that administering Leupron qM or q3m in the setting of mCRPC wouldn't really change his overall outcome. His mCRPC and advanced hepatic disease makes prognosis grim as was explained to them earlier by other consultants. Grey in the setting of mCRPC and they stopped xtandi less reasonable to continue leupron. She wasn't really convinced.decision left to her.. rest of the mgmt per primary d/w
[2017-03-13] MEDS ORDERED: PT OWN MED DRAWER 7, Y5N ONE (22:01)
[2017-03-13] MEDS: TAMSULOSIN HCL 0.4 MG CAP.ER.24H (FP) PO SCH (22:07)
[2017-03-13] MEDS: SENNOSIDES 8.8 MG/5 ML BULK BOTTLE PO SCH (22:07)
[2017-03-14] MEDS: NYSTATIN 500,000 UNITS/5 ML SUSPENSION PO SCH ×3 (00:56→12:43)
[2017-03-14] MEDS: ALBUTEROL SO4 2.5/IPRATROPIUM 0.5 INH SOL 3 ML VIAL.NEB. NEB SCH ×3 (06:01→11:26)
[2017-03-14] MEDS ORDERED: PT OWN MED DRAWER 7, Y5N ONE ×2 (06:03→10:27)
[2017-03-14] MEDS: FUROSEMIDE 40 MG TABLET (FP) PO SCH ×2 (06:30→15:10)
[2017-03-14] MEDS: GLIMEPIRIDE 2 MG TABLET (FP) PO SCH (06:30)
[2017-03-14] MEDS: INSULIN SLIDING SCALE (NOVOLOG) 1 VIAL SQ SCH ×2 (06:30→12:44)
[2017-03-14 08:49] LABS: ALBUMIN 2.4 g/dl (3.4-5.0); ALK PHOS 240 U/L (45-117); ANION GAP 9 (8-16); BILIRUBIN,TOTAL 0.7 mg/dL (0.2-1.0); CO2 29 mmol/L (21-32); CREATININE 0.6 mg/dL (0.7-1.3); GLUCOSE,RANDOM 155 mg/dL (74-106); MAGNESIUM 2.1 mg/dL (1.8-2.4); SGOT/AST 15 U/L (15-37); SGPT/ALT 14 U/L (12-78); TOT PROT 5.9 g/dl (6.4-8.2)
--- NOTE | 2017-03-14 09:55 | DS ---
Physical Examination Vital Signs: Vital Signs Temperature 99.4 F 03/14/17 02:07 Pulse Rate 73 03/14/17 06:00 Respiratory Rate 20 03/14/17 06:00 Blood Pressure 118/61 03/14/17 06:00 O2 Sat by Pulse Oximetry (%) 97 03/13/17 21:00 Constitutional: Yes: Well Nourished, No Distress, Calm Respiratory: Yes: Regular Gastrointestinal: Yes: Ascites Edema: Yes (generalized) Neurological: Yes: Alert, Lethargy Psychiatric: Yes: Alert Labs: CBC, BMP 03/13/17 07:10 03/14/17 06:24 Discharge Summary Reason For Visit: HEPATIC ENCEPHALOPATHY Current Active Problems Alcoholic cirrhosis (Acute) Anemia (Acute) Ascites (Acute) Confusion (Acute) Esophageal varices determined by endoscopy (Acute) Hepatic encephalopathy (Acute) Hypoalbuminemia (Acute) Hypoalbuminemia due to protein-calorie malnutrition (Acute) Lactic acidosis (Acute) Paralysis of right lower extremity (Acute) Pneumonia (Acute) Portal vein thrombosis (Acute) Renal insufficiency (Acute) Thrush, oral (Acute) Hospital Course: 86 M with h/o 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 Per son , pt is at rehab facility after recently being discharged from hospital. He is at baseline ambulatory with assistance. HOwever, he has become weaker over the past 3 days to the point where he cannot get himself out of bed. Son also notes that he is more somnolent and less responsive at times. He denies F/C. Denies CP /SOB. Denies abdominal pain, Denies N/V/D. Denies unilateral weakness/numbness/ tingling. There was an extensive conversation with the daughter about patient not being treated for cancer with leupron and xtandi. Patient unable to swallow Xtandi, and did not respond to Leupron. Condition: Improved - Instructions Diet, Activity, Other Instructions: cbc/cmp/ammonia level on Mondays and Referrals: Zenobia Chow MD [Primary Care Provider] - Disposition: [facility] FACILITY - Home Medications Comprehensive Discharge Medication List: Ambulatory Orders Enzalutamide [Xtandi] 160 mg PO DAILY 02/13/17 Lactulose (Oral Use) [Cephulac -] 30 ml PO BID 02/13/17 Nadolol 10 mg PO DAILY 02/13/17 Glimepiride [Amaryl -] 2 mg PO DAILY@0700 tablet 02/18/17 Tamsulosin HCl [Flomax -] 0.4 mg PO HS cap.er.24h 02/18/17 Oxycodone HCl 5 mg PO Q4H PRN 02/23/17 Albuterol 2.5/Ipratropium 0.5 [Duoneb -] 1 amp NEB QIDR amp 03/06/17 Amino Acids/Protein Hydrolys [Prosource No Carb Liquid Pkt] 30 ml PO BID@0800, 1730 packet 03/06/17 Furosemide [Lasix -] 40 mg PO BID@0600,1400 tablet 03/06/17 Insulin Sliding Scale [Novolog Vial Sliding Scale -] 1 vial SQ ACHS units 03/06 Nystatin Oral Suspension - [Nystatin Oral Susp 937466 Units/5 ML -] 500,000 units PO Q6HPO cup 03/06/17 Polyethylene Glycol 3350 [Miralax 119 gm Btl -] 17 gm PO DAILY bottle 03/06/17 Rifaximin [Xifaxan -] 550 mg PO BID tablet 03/06/17 Spironolactone [Aldactone -] 25 mg PO BID tablet 03/06/17 Warfarin Na [Coumadin -] 2 mg PO We@1800 tablet 03/06/17 Warfarin Na [Coumadin -] 4 mg PO SuMoTuThFrSa@1800 tablet 03/06/17
[2017-03-14 10:19] LABS: BASO % 0.8 % (0-2.0); EOS # 0.1 #; EOS % 2.4 % (0-4.5); LYMPH # 0.8; MCH 25.5 pg (25.7-33.7); MEAN CELL VOLUME 82.4 fl (80-96); MONO # 0.7 #; NEUT # 2.6 #; NEUT % 60.5 % (42.8-82.8); PLATELET COUNT 247 K/MM3 (134-434); RDW 18.1 % (11.9-15.9); WHITE BLOOD COUNT 4.3 K/mm3 (4.0-10.0)
[2017-03-14] MEDS: LACTULOSE 20 GM/30 ML UDC (FOR ORAL USE ONLY) PO SCH (10:38)
[2017-03-14] MEDS: DRONABINOL 2.5 MG CAPSULE PO SCH (10:38)
[2017-03-14] MEDS: AMINO ACIDS/PROTEIN HYDROLYS 30 ML LIQUID.PKT PO SCH (10:38)
[2017-03-14] MEDS: RIFAXIMIN 550 MG TABLET (UD) PO SCH (10:38)
[2017-03-14] MEDS: NADOLOL 20 MG TABLET (FP) PO SCH (10:38)
[2017-03-14] MEDS: SPIRONOLACTONE 25 MG TABLET (FP) PO SCH (10:38)
[2017-03-14 11:20] LABS: INR 1.6 (0.82-1.09); PROTHROMBIN TIME (PATIENT) 18.1 SEC (9.98-11.88)
[2017-03-14 11:27] LABS: ALBUMIN 2.7 g/dl (3.4-5.0); ALK PHOS 265 U/L (45-117); ANION GAP 11 (8-16); BILIRUBIN,TOTAL 0.6 mg/dL (0.2-1.0); CALCIUM 7.9 mg/dL (8.5-10.1); CO2 26 mmol/L (21-32); CREATININE 0.6 mg/dL (0.7-1.3); GLUCOSE,RANDOM 219 mg/dL (74-106); SGOT/AST 18 U/L (15-37); SGPT/ALT 15 U/L (12-78); TOT PROT 6.3 g/dl (6.4-8.2)
[2017-03-14] MEDS ORDERED: INSULIN (NOVOLOG) ASPART 100 UNITS/ML 10ML VIAL ONE (12:07)
[2017-03-14 15:32] VITALS: BP 112/57; PULSE 71; TEMP 98.1
--- NOTE | 2017-03-14 17:24 | PN ---
Progress Note, Physician History of Present Illness: Pt seen and examined at bedside. He is awake and appears comfortable. - Objective Vital Signs: Vital Signs Temperature 98.1 F 03/14/17 15:30 Pulse Rate 71 03/14/17 15:30 Respiratory Rate 18 03/14/17 15:30 Blood Pressure 112/57 03/14/17 15:30 O2 Sat by Pulse Oximetry (%) 97 03/14/17 09:00 Constitutional: Yes: Calm HENT: Yes: Atraumatic Cardiovascular: Yes: S1, S2 Respiratory: Yes: CTA Bilaterally Gastrointestinal: Yes: Ascites Genitourinary: Yes: García Present Musculoskeletal: Yes: WNL Edema: No Neurological: Yes: Oriented Labs: CBC, BMP 03/14/17 06:24 03/14/17 10:50 INR, PTT INR 1.60 (0.82-1.09) H 03/14/17 10:50 Problem List - Problems (1) Alcoholic cirrhosis Code(s): K70.30 - ALCOHOLIC CIRRHOSIS OF LIVER WITHOUT ASCITES (2) Hepatic encephalopathy Code(s): K72.90 - HEPATIC FAILURE, UNSPECIFIED WITHOUT COMA Assessment/Plan Impression 1. liver cirrhosis 2. hx etoh abuse 3. volume overload 4. prostate cancer 5. urinary retention 6. oral thrush 7. PNA 8. DM 9. ascites 10. hypokalemia Plan - cont potassium supplements - will need to monitor lytes at [place] - cont diuretics - discussed with family - garcía care - overall prognosis poor Dr Spencer
[2017-03-17] MEDS ORDERED: cloNIDine-TTS 0.1 MG/24 HRS PATCH.TDWK TD SCH (10:00)
== END 2017-03-14 16:20 | DRG 441 ==
LOC: JER 22:42 → JERBED 02-23 04:51 → J8W 02-23 09:50
PROVIDERS: ADMIT Family Medicine; ATTEND Family Medicine
DX: K72.90 Hepatic failure, unspecified without coma (principal); J18.9 Pneumonia, unspecified organism; I81 Portal vein thrombosis; K76.6 Portal hypertension; I85.10 Secondary esophageal varices without bleeding; C79.51 Secondary malignant neoplasm of bone; N39.0 Urinary tract infection, site not specified; B37.0 Candidal stomatitis; E87.2 Acidosis; E46 Unspecified protein-calorie malnutrition; K70.31 Alcoholic cirrhosis of liver with ascites; E11.9 Type 2 diabetes mellitus without complications; I48.91 Unspecified atrial fibrillation; F03.90 Unspecified dementia, unspecified severity, without behavioral disturbance, psychotic disturbance, mood disturbance, and anxiety; C61 Malignant neoplasm of prostate; R41.82 Altered mental status, unspecified; R33.9 Retention of urine, unspecified; E53.8 Deficiency of other specified B group vitamins; N40.0 Benign prostatic hyperplasia without lower urinary tract symptoms; N28.9 Disorder of kidney and ureter, unspecified; R62.7 Adult failure to thrive; M54.5 Low back pain; F10.10 Alcohol abuse, uncomplicated; E88.09 Other disorders of plasma-protein metabolism, not elsewhere classified; R50.9 Fever, unspecified; E87.6 Hypokalemia; Z79.01 Long term (current) use of anticoagulants; Z87.891 Personal history of nicotine dependence; Z95.0 Presence of cardiac pacemaker; Z68.28 Body mass index [BMI] 28.0-28.9, adult; Z66 Do not resuscitate
CPT/HCPCS: 36415; 70450-TC; 71010-TC; 74230-TC; 76700-TC; 80048; 80053; 81003; 81015; 82009; 82105; 82140; 82550; 82607; 82728; 82747; 82803; 83540; 83550; 83605; 83735; 83880; 84100; 84300; 84443; 84484; 84550; 85014; 85025; 85027; 85610; 85730; 86704; 86706; 86708; 86803; 87040; 87077; 87086; 87340; 87899; 92611-GN; 93005; 93010; 94640; 97162-GP; 99281-25; 99285-25; E0372; J1756; P9047

== ENCOUNTER 2017-03-22 15:57 | Inpatient (IN) | payer OTHER, MEDICARE ==
[2017-03-22 16:22] VITALS: BMI 27.1
--- NOTE | 2017-03-22 16:37 | PDOC ---
Attending Attestation - HPI HPI: 03/22/17 17:46 The patient is an 86 year old Indonesian speaking male with past medical history of liver cirrhosis and metastatic prostate cancer who arrives to the ED from [facility] with complaints of left rib pain. History is mostly from daughter who is at bedside. The patient only experiences pain when his rib is pressed. He denies any history of prior injury to the area. His daughter reports he has also been more lethargic over the last 2 days. He denies f/c, sob , headache, focal weakness/numbness, abd pain, LE edema. - Physicial Exam PE: 03/22/17 17:47 agree with resident exam - Medical Decision Making 03/22/17 17:47 Daughter Contact Info: Suzi Monroe Documentation prepared by Jennifer Skinner, acting as biomedical equipment technician for Cindy Briscoe MD. <Jennifer Skinner - Last Filed: 03/22/17 19:12> - Resident Resident Name: Mikhail Roberto - ED Attending Attestation I have performed the following: I have examined & evaluated the patient, The case was reviewed & discussed with the resident, I agree w/resident's findings & plan, Exceptions are as noted - Medical Decision Making 03/22/17 18:07 86yo M with MMP including metastatic prostate ca (not on treatment currently), cirrhosis p/w atraumatic L sided CP and lethargy. Vitals wnl. CP is reproducible on exam. DDx for CP is wide and includes but not limited to metastases vs pleurisy from PNA or effusion vs PE. Will obtain CTA and blood work and reassess 03/22/17 20:49 CTA with L rib mets and pleural effusion vs PNA. Gave pt morphine for pain and treated possible PNA with vanc/zosyn. Pt had recurrent episode of CP, EKG was repeated with multiple TWI, no JAVED. Trop repeated, was negative. Pt has been signed out to hospitalist for admission at 2039. Case discussed in detail with admitting physician including history, physical exam and ancillary studies. Admitting physician has assumed care for the patient, will follow all pending diagnostics and will complete the evaluation and treatment. <Cindy Briscoe - Last Filed: 03/23/17 00:54>
[2017-03-22 17:38] LABS: HEMATOCRIT 34.7 % (35.4-49); HEMOGLOBIN 11.1 GM/dL (11.7-16.9); MCH 25.9 pg (25.7-33.7); MCHC 32.1 g/dl (32.0-35.9); MEAN CELL VOLUME 80.8 fl (80-96); MEAN PLT VOLUME 7.8 fl (7.5-11.1); PLATELET COUNT 299 K/MM3 (134-434); WHITE BLOOD COUNT 6.2 K/mm3 (4.0-10.0)
[2017-03-22 17:52] LABS: INR 2.2 (0.82-1.09); PROTHROMBIN TIME (PATIENT) 24.9 SEC (9.98-11.88)
[2017-03-22 18:03] LABS: ALBUMIN 2.6 g/dl (3.4-5.0); ANION GAP 8 (8-16); BLOOD UREA NITROGEN 24 mg/dL (7-18); CALCIUM 8.2 mg/dL (8.5-10.1); CHLORIDE 95 mmol/L (98-107); CO2 30 mmol/L (21-32); CREATININE 0.7 mg/dL (0.7-1.3); GLUCOSE,RANDOM 234 mg/dL (74-106); POTASSIUM 3.7 mmol/L (3.5-5.1); SGOT/AST 33 U/L (15-37); SGPT/ALT 17 U/L (12-78); SODIUM 133 mmol/L (136-145)
[2017-03-22 18:07] LABS: ALK PHOS 471 U/L (45-117); BILIRUBIN,TOTAL 0.6 mg/dL (0.2-1.0); TOT PROT 6.6 g/dl (6.4-8.2)
--- NOTE | 2017-03-22 18:24 | PDOC ---
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 The patient is not able to provide much in the way of history. The daughter reports that the patient is responding to pain when touched on the left side of his chest wall. The daughter also reports that he has had increased cough and had less energy the past few days. Past History - Past Medical History Allergies/Adverse Reactions: Allergies Allergy/AdvReac Type Severity Reaction Status Date / Time No Known Allergies Allergy Verified 03/22/17 16:10 Home Medications: Ambulatory Orders Aa/Hydrolyzed Collagen, Whey [Lps 15-30 Liquid] 30 ml PO BID 03/22/17 Albuterol 2.5/Ipratropium 0.5 [Duoneb -] 1 neb NEB QID 03/22/17 Chlorpheniramine/Dextromethorp [Robitussin Long-Acting Liq] 118 ml PO TID Furosemide [Lasix] 40 mg PO BID 03/22/17 Glimepiride [Amaryl -] 2 mg PO DAILY 03/22/17 Insulin Lispro [Humalog] 0 unit SQ ASDIR 03/22/17 Lactulose 20 gm PO BID 03/22/17 Nadolol 20 mg PO DAILY 03/22/17 Nitroglycerin Sublingual [Nitrostat -] 0.4 mg SL ONCE 03/22/17 Nystatin 5 unit PO DAILY 03/22/17 Oxycodone HCl 5 mg PO Q4HWA 03/22/17 Polyethylene Glycol 3350 [Miralax (For Daily Use) -] 17 gm PO DAILY 03/22/17 Rifaximin [Xifaxan] 550 mg PO BID 03/22/17 Spironolactone [Aldactone] 25 mg PO BID 03/22/17 Tamsulosin HCl 0.4 mg PO DAILY 03/22/17 Warfarin Na [Coumadin] 6 mg PO DAILY 03/22/17 Cancer: Yes (PROSTATE CA METS, PELVIS,SPINE) COPD: No Diabetes: Yes (niddm) Disorders: Yes (prostate ca) HTN: Yes Liver Disease: Yes (cirrhosis, clots in liver) - Surgical History Abdominal Surgery: Yes (Hernia repair) Cardiac Surgery: Yes (Pacemaker) Orthopedic Surgery: Yes (R. Knee sx) - Immunization History Immunization Up to Date: Yes - Suicide/Smoking/Psychosocial Hx Smoking Status: No Smoking History: Never smoked Have you smoked in the past 12 months: No Number of Cigarettes Smoked Daily: 0 Hx Alcohol Use: Yes (quit 2001) Drug/Substance Use Hx: No Substance Use Type: None Hx Substance Use Treatment: No Review of Systems - Review of Systems Able to Perform ROS?: No (2/2 patient condition.) *Physical Exam - Vital Signs Last Vital Signs Temp Pulse Resp BP Pulse Ox 97.9 F 66 16 117/72 97 03/22/17 16:00 03/22/17 16:00 03/22/17 16:00 03/22/17 16:00 03/22/17 16:00 - Physical Exam Comments: 03/22/17 18:24 GENERAL: Awake, non-communicative, pale HEAD: No signs of trauma, normocephalic, atraumatic EYES: PERRLA, EOMI, conjunctiva clear ENT: Auricles normal inspection, hearing grossly normal, nares patent, oropharynx clear without exudates. Moist mucosa CHEST: No rash, tender to palpation along left 4/5th rib. No signs of trauma LUNGS: No distress, clear to auscultation bilaterally HEART: Regular rate and rhythm, normal S1 and S2, no murmurs, rubs or gallops, peripheral pulses normal and equal bilaterally. ABDOMEN: Soft, nontender, normoactive bowel sounds. No guarding, no rebound. No masses EXTREMITIES: Normal inspection, Normal range of motion, no edema. No clubbing or cyanosis. NEUROLOGICAL: Moves all extremities, not cooperative with exam, no obvious cranial nerve deficits. SKIN: Warm, Dry, normal turgor, no rashes or lesions noted. ED Treatment Course - LABORATORY CBC & Chemistry Diagram: 03/22/17 17:10 03/22/17 17:10 - ADDITIONAL ORDERS Additional order review: Laboratory Results 03/22/17 03/22/17 17:10 17:10 PT with INR 24.90 H INR 2.20 H D Sodium 133 L Potassium 3.7 Chloride 95 L Carbon Dioxide 30 Anion Gap 8 BUN 24 H D Creatinine 0.7 Creat Clearance w eGFR > 60 Random Glucose 234 H Calcium 8.2 L Magnesium 2.0 Total Bilirubin 0.6 AST 33 D ALT 17 Alkaline Phosphatase 471 H D Creatine Kinase 26 L Troponin I < 0.02 Total Protein 6.6 Albumin 2.6 L 03/22/17 17:10 RBC 4.30 MCV 80.8 MCHC 32.1 RDW 18.0 H MPV 7.8 Neutrophils % No Result Required. Lymphocytes % No Result Required. - RADIOLOGY Radiology Studies Ordered: Category Date Time Status CHEST CTA [CT] Stat CT Scan 03/22/17 16:52 Ordered CHEST X-RAY PORTABLE* [RAD] Stat Radiology 03/22/17 16:36 Completed Medical Decision Making - Medical Decision Making 03/22/17 18:27 86M with history of metastatic prostate cancer, DM, HTN, afib on coumadin, and liver cirrhosis here today with chest pain and decreased mental status. History not specific. DDx includes, but is not limited to: mets to ribs, pe, pneumonia with empyema, ua. Will evaluate with cardiac labs, cxr, ekg, and cta chest. 03/22/17 18:30 EKG shows paced rhythm rate of 68. QRS 154. No ST elevation/depression. Normal QTc. 03/22/17 18:31 Laboratory Tests 03/22/17 03/22/17 03/22/17 17:10 17:10 17:10 WBC 6.2 D Hgb 11.1 L D Hct 34.7 L Plt Count 299 D PT with INR 24.90 H INR 2.20 H D Sodium 133 L Chloride 95 L Random Glucose 234 H Alkaline Phosphatase 471 H D Ammonia Troponin I < 0.02 03/22/17 17:43 WBC Hgb Hct Plt Count PT with INR INR Sodium Chloride Random Glucose Alkaline Phosphatase Ammonia 16.834 Troponin I CBC normal. INR therapeutic, ammonia and trop negative. 03/22/17 19:[address] Pleitez. *DC/Admit/Observation/Transfer Diagnosis at time of Disposition: Chest pain - Referrals Referrals: Zenobia Chow MD [Primary Care Provider] - - Patient Instructions - Post Discharge Activity
[2017-03-22 18:53] LABS: PLATELET ESTIMATE ADEQUATE
--- NOTE | 2017-03-22 19:13 | PDOC ---
*Physical Exam - Vital Signs Last Vital Signs Temp Pulse Resp BP Pulse Ox 97.9 F 66 16 117/72 97 03/22/17 16:00 03/22/17 16:00 03/22/17 16:00 03/22/17 16:00 03/22/17 16:00 ED Treatment Course - LABORATORY CBC & Chemistry Diagram: 03/22/17 17:10 03/22/17 17:10 - ADDITIONAL ORDERS Additional order review: Laboratory Results 03/22/17 03/22/17 03/22/17 17:43 17:10 17:10 PT with INR 24.90 H INR 2.20 H D Sodium 133 L Potassium 3.7 Chloride 95 L Carbon Dioxide 30 Anion Gap 8 BUN 24 H D Creatinine 0.7 Creat Clearance w eGFR > 60 Random Glucose 234 H Calcium 8.2 L Magnesium 2.0 Total Bilirubin 0.6 AST 33 D ALT 17 Alkaline Phosphatase 471 H D Ammonia 16.834 Creatine Kinase 26 L Troponin I < 0.02 Total Protein 6.6 Albumin 2.6 L 03/22/17 17:10 RBC 4.30 MCV 80.8 MCHC 32.1 RDW 18.0 H MPV 7.8 Neutrophils % No Result Required. Lymphocytes % No Result Required. Medical Decision Making - Medical Decision Making 03/22/17 19:12 The patient was signed out to be my Dr. Roberto, day team. The patient is an 86M who presented with acute rib pain. Pending CTA and UA. Will be admitted to hospitalist team when imaging is finished and read. 03/22/17 20:19 CT shows no PE but shows bibasilar infiltrates. Will cover with vanc/zosyn. Giving morphine for pain control. 03/22/17 20:46 I have spoken to Dr. Gutierrez who has gotten sign out for a tele bed under Dr. Nguyen. *DC/Admit/Observation/Transfer Diagnosis at time of Disposition: Chest pain Qualifiers: Chest pain type: other chest pain Qualified Code(s): R07.89 - Other chest pain ; R07.8 - Other chest pain Pneumonia Qualifiers: Pneumonia type: due to unspecified organism Laterality: bilateral Lung location : lower lobe of lung Qualified Code(s): J18.9 - Pneumonia, unspecified organism - Discharge Dispostion Condition at time of disposition: Stable Admit: Yes - Referrals Referrals: Zenobia Chow MD [Primary Care Provider] - - Patient Instructions - Post Discharge Activity
[2017-03-22] MEDS ORDERED: morphine CARPU-JECT 4 MG/1 ML DISP.SYRIN IVPUSH ONE (20:10)
[2017-03-22] MEDS ORDERED: PIPERACILLIN/TAZOB 4.5 GM 4.5 GM in DEXTROSE 5%-WATER - 100 ML IVPB ONE (20:10)
[2017-03-22] MEDS ORDERED: VANCOMYCIN 1,000 MG in DEXTROSE 5%-WATER - 250 ML IVPB ONE (20:10)
[2017-03-22] MEDS ORDERED: morphine CARPU-JECT 10 MG/1 ML DISP.SYRIN ONE (20:56)
[2017-03-22] MEDS ORDERED: PIPERACILLIN/TAZOB 4.5 GM 4.5 GM/100 ML BAG IVPB ONE (20:57)
--- NOTE | 2017-03-22 21:43 | HP ---
CHIEF COMPLAINT: chest pain PCP: Dr. Chow Oncologist: Dr. Marshall Urology: Dr. James Informant: Patient has dementia and is Amharic-speaking. History obtained from family and EMR. 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 He has had several recent admissions here for progressive weakness and lethary. For the past several weeks he has been unable to ambulate. The family was with him earlier today when he pointed to his sternal region and complained of chest pain. EMS was called and was given 1 dose of nitroglycerin in the field. The family also reports that he has had increased cough since being discharged on 03/14. No fever or chills. No n/v/d. 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 Esophageal varices with prior variceal bleeds requiring banding Hepatic encephalopathy - multiple episodes, on Lactulose, per daughter has not been receiving Rifaximin while at [facility] Paralysis of right lower extremity (Acute) Pneumonia Renal insufficiency (Acute) Thrush, resolved Complete heart block requiring ventricular pacemaker PAST SURGICAL HISTORY: Arthrosocopy (right knee), Colonoscopy, Hernia Repair (umbilical hernia repair) , Permanent Pacemaker, Upper Endoscopy Social History: Smoking: never smoker Alcohol: former heavy drinker (quit 2001) Drugs: no Family History: Brother with DM and prostate Ca Allergies: No Known Allergies Allergy (Verified 03/22/17 16:10) Medication discharged on 03/14: 1. Albuterol/Ipatropium (Duoneb) nebulizer 1 ampule every 6 hours 2. Amino Acids (Prosource) liquid packet 30 ml, 2 x day 3. Clonidine (Catapres Patch) 0.1 mg, 1 patch once a week 4. Dornabinol (Marinol) 2.5 mg, 2 x day 5. Furosemide (Lasix ) 40 mg, 1 tab 2 x day 6. Glimepiride (Amaryl) 2 mg, 1 tab once a day 7. Lactulose (Cephulac) 20 gm (30 ml), 2 x day 8. Nadolol (Corgard), 10 mg, 1 tab daily 9. Nystatin oral suspension, 500,000 units every 6 hours- swish and spit 10. Oxycodone 2.5 mg 1 tab every 4 hours as needed 11. Rifaximin (Xifaxan) 550 mg, 1 tab 2 x day 12. Senna oral solution 8.8 mg daily at bedtime 13. Spironolactone (Aldactone) 25 mg, 1 tab 2 x day 14. Tamsulosin (Flomax) 0.4 mg, 1 tab daily at dinner 15. Warfarin (Coumadin) 5 mg, 1 tab [id number], 2.5 mg on Sundays. 16. Humalog (Novolog) Sliding scale 3 x day before meals, Blood sugar 200-300- give 2 units Blood sugar 301-400- give 4 units; Blood sugar 401-500- give 6 units Blood sugar >500- give 8 units and notify MD REVIEW OF SYSTEMS: unable to obtain 2/2 to mental status PHYSICAL EXAMINATION Vital Signs - 24 hr 03/22/17 16:00 Temperature 97.9 F Pulse Rate 66 Respiratory 16 Rate Blood Pressure 117/72 O2 Sat by Pulse 97 Oximetry (%) GENERAL: Awake, alert, not oriented HEAD: Normal with no signs of trauma EYES: PERRLA, sclera anicteric, conjunctiva clear ENT: dry oral mucosa, oropharynx clear without exudates NECK: supple, no cervical LAD LUNGS: poor inspiratory effort, decreased at bases, no wheezing appreciated HEART: RRR, normal S1/S2, no m/r/g ABDOMEN: Soft, mildly distended, non-tender, no guarding or rebound : no suprapubic tenderness, garcía catheter draining sugey colored urine w/o sediment UPPER EXTREMITIES: 2+ radial pulses, wwp. No cyanosis. No clubbing. No peripheral edema. LOWER EXTREMITIES: 2+ DP pulses, wwp, no edema, no calf tenderness NEUROLOGICAL: cannot follow commands, unable to fully assess vacuum tester cans; no asterixis CBC, BMP 03/22/17 17:10 03/22/17 17:10 Hepatic Panel Total Bilirubin 0.6 mg/dL (0.2-1.0) 03/22/17 17:10 AST 33 U/L (15-37) D 03/22/17 17:10 ALT 17 U/L (12-78) 03/22/17 17:10 Alkaline Phosphatase 471 U/L (45-117) H D 03/22/17 17:10 Albumin 2.6 g/dl (3.4-5.0) L 03/22/17 17:10 Troponin, BNP 03/22/17 03/22/17 17:10 20:40 Troponin I < 0.02 0.02 EK @16:06: Ventricular paced. rate 68 with occasional PVC 03/22/17 @ 20:22: accelerated junctional rhythm, rate 75, TWI inferior and anterolateral leads, QTc 453 Imaging: Chest CTA 03/22/16: There is no gross evidence of a pulmonary embolus within the main pulmonary artery and its proximal branches. There is poor opacification of the distal branches, in particular in the lower lobes, posteriorly likely due to surrounding airspace disease. Nonenhancement of the abdominal aorta with mild aneurysmal dilatation of the ascending aorta measuring 4.1 cm in AP dimension. The heart is slightly to moderately enlarged with pericardial effusion measuring approximately 2.5 cm in width along its left lateral margin. No gross enlarged mediastinal or hilar lymph nodes are identified. Lung windows demonstrates bibasal atelectatic changes/infiltrates, left more than right with a trace of bilateral pleural effusion. In included portion of the upper abdomen, the liver measures 11.5 cm in craniocaudal length with a lobulated contour, rule out liver cirrhosis. The spleen is not enlarged. Sclerotic changes in the anterior arch of left fifth and sixth rib and to lesser extent in anterior arch of the left fifth rib Focus sclerotic density in left anterior aspect of T12 and in the center of L1 vertebral body. Findings are suspicious for bone metastasis Impression: There is no gross evidence of a pulmonary embolus within the main pulmonary artery and its proximal bifurcations, bilaterally. Bibasal atelectatic changes/infiltrates and minimal pleural effusion, left more the right. Cardiomegaly with calcification of the coronary arteries and a pleural effusion mainly along its left lateral margin measuring 2.5 cm. Minimal aneurysmal dilatation of the ascending aorta measuring 4.1 cm in AP dimension Lobulated contour of the liver suggestive of liver cirrhosis. Sclerotic densities in the left ribs, T12 and L1 vertebral body suggestive of sclerotic metastases in view of the clinical history. Correlate clinically for further evaluation CXR 03/22/16: COMPARISON: 03/07/2017 chest x-ray. FINDINGS: There is no evidence of airspace consolidation, pulmonary vascular congestion or pleural effusion. There is no definable pneumothorax. Stable enlargement of the cardiac silhouette. There is calcific atherosclerosis along the aortic arch. Left subclavian approach unipolar pacemaker lead is unchanged in position. No abnormal deviation of the trachea. IMPRESSION: Stable enlargement of the cardiac silhouette. No evidence of airspace consolidation, pulmonary vascular congestion or pleural effusion ASSESSMENT/PLAN: 86yo man with PMH of metastatic castrate-resistant prostate Ca, DM, EtOH cirrhosis, IDDM, HTN, Afib (on coumadin) who p/w substernal chest pain. #chest pain r/o ACS -Consider Cardiology consult -ECHO ordered -serial EKGs -Serial Troponins Q6H (2x negative so far) #UTI, 2+LE, pyuria (UA 03/10 neg) -f/u urine cultures (sent after antibiotics) -prior h/o ESBL producers - will give ertapenam -ID consulted (Dr. Sen) #pericardial effusion possibly post-infectious -ECHO ordered #h/o hepatic encephalopathy, currently no asterixis, ammonia levels wnl (16.8) -continue lactulose and rifaximin #IDDM - BGM and ISS ACHS #Afib -Continue Coumadin -tele monitoring #FEN: NS@83cc / lytes wnl / Na controlled, DM diet as tolerated #PPX - DVT - on coumadin #Dispo: tele monitoring DNR, reconfirmed with daughter d/w Dr. Patrick Gutierrez MD PGY1 - Internal Medicine Visit type - Emergency Visit Emergency Visit: Yes ED Registration Date: 03/22/17 Care time: The patient presented to the Emergency Department on the above date and was hospitalized for further evaluation of their emergent condition. - New Patient This patient is new to me today: Yes Date on this admission: 04/02/17 - Critical Care Critical Care patient: No
[2017-03-22] MEDS ORDERED: VANCOMYCIN 1 GRAM (PRE-DOCKED) 1,000 MG/250 ML BAG IVPB ONE (22:58)
[2017-03-22 23:48] LABS: URINE APPEARANCE SLCLOUDY; URINE BILIRUBIN NEGATIVE (NEGATIVE); URINE BLOOD NEGATIVE (NEGATIVE); URINE COLOR YELLOW; URINE GLUCOSE (UA) NEGATIVE (NEGATIVE); URINE KETONE NEGATIVE (NEGATIVE); URINE LEUK ESTERASE 2+ (NEGATIVE); URINE NITRITE NEGATIVE (NEGATIVE); URINE PROTEIN NEGATIVE (NEGATIVE); URINE UROBILINOGEN NEGATIVE mg/dL (0.2-1.0)
[2017-03-22 23:52] LABS: CALCIUM OXALATE CRYSTALS RARE /hpf (NONE SEEN); URINE BACTERIA FEW /hpf (NONE SEEN); URINE MUCUS RARE
[2017-03-23] MEDS: SODIUM CHLORIDE 1,000 ML IV SCH ×2 (00:15→22:49)
[2017-03-23] MEDS ORDERED: FUROSEMIDE 40 MG TABLET (FP) PO SCH (06:00)
[2017-03-23] MEDS: FUROSEMIDE 40 MG/4 ML INJECTABLE VIAL IVPUSH SCH ×2 (07:05→16:53)
[2017-03-23] MEDS: INSULIN SLIDING SCALE (NOVOLOG) 1 VIAL SQ SCH ×4 (07:05→21:04)
[2017-03-23 07:36] LABS: HEMATOCRIT 32.4 % (35.4-49); HEMOGLOBIN 10.3 GM/dL (11.7-16.9); MCH 25.7 pg (25.7-33.7); MCHC 31.7 g/dl (32.0-35.9); MEAN CELL VOLUME 81.1 fl (80-96); MEAN PLT VOLUME 7.6 fl (7.5-11.1); PLATELET COUNT 268 K/MM3 (134-434); RBC 3.99 M/mm3 (4.00-5.60); RDW 18.5 % (11.9-15.9); WHITE BLOOD COUNT 6.2 K/mm3 (4.0-10.0)
[2017-03-23 07:42] LABS: ANION GAP 9 (8-16); BLOOD UREA NITROGEN 23 mg/dL (7-18); CALCIUM 8.5 mg/dL (8.5-10.1); CHLORIDE 96 mmol/L (98-107); CO2 30 mmol/L (21-32); CREATININE 0.5 mg/dL (0.7-1.3); GLUCOSE,RANDOM 172 mg/dL (74-106); POTASSIUM 3.6 mmol/L (3.5-5.1); SODIUM 135 mmol/L (136-145)
[2017-03-23] MEDS: TAMSULOSIN HCL 0.4 MG CAP.ER.24H (FP) PO SCH (08:42)
--- NOTE | 2017-03-23 09:26 | PN ---
Progress Note, Physician - Current Medication List Current Medications: Active Medications Albuterol/Ipratropium (Duoneb -) 1 amp NEB QIDR [facility] Furosemide (Lasix Injection -) 20 mg IVPUSH BID@0600,1400 [facility] Last Admin: 03/23/17 07:05 Dose: 20 mg Sodium Chloride (Normal Saline -) 1,000 mls @ 83 mls/hr IV ASDIR [facility] Last Admin: 03/23/17 00:15 Dose: 83 mls/hr Ertapenem 1 gm/ Sodium (Chloride) 100 mls @ 200 mls/hr IVPB DAILY [facility] PRN Reason: Protocol Insulin Aspart (Novolog Vial Sliding Scale -) 1 vial SQ ACHS [facility] PRN Reason: Protocol Last Admin: 03/23/17 07:05 Dose: 2 units Lactulose (Cephulac (Oral Use)) 20 gm PO BID [facility] Nadolol (Corgard -) 10 mg PO DAILY [facility] Rifaximin (Xifaxan -) 550 mg PO BID [facility] Senna (Senna Oral Solution -) 8.8 mg PO HS [facility] Spironolactone (Aldactone -) 25 mg PO BID [facility] Tamsulosin HCl (Flomax -) 0.4 mg PO DAILY@0830 [facility] Last Admin: 03/23/17 08:42 Dose: Not Given Warfarin Sodium (Coumadin -) 5 mg PO DAILY@1800 [facility] Stop: 03/23/17 18:01 Warfarin Sodium (Coumadin -) 2.5 mg PO ONCE@1800 [facility] Stop: 03/24/17 18:01 Warfarin Sodium (Coumadin -) 5 mg PO DAILY@1800 [facility] Stop: 03/30/17 18:01 - Objective Vital Signs: Vital Signs Temperature 97.8 F 03/23/17 06:00 Pulse Rate 66 03/23/17 06:00 Respiratory Rate 18 03/23/17 06:00 Blood Pressure 102/60 03/23/17 06:00 O2 Sat by Pulse Oximetry (%) 93 L 03/23/17 00:15 Labs: CBC, BMP 03/23/17 06:00 03/23/17 06:00 INR, PTT INR 2.20 (0.82-1.09) H D 03/22/17 17:10 Problem List - Problems (1) Chest pain Assessment/Plan: - Cardiology consult -ECHO ordered -serial EKGs -Serial Troponins Q6H (3x negative so far) Code(s): R07.9 - CHEST PAIN, UNSPECIFIED Qualifiers: Chest pain type: other chest pain Qualified Code(s): R07.89 - Other chest pain; R07.8 - Other chest pain (2) Hepatic encephalopathy Assessment/Plan: ammonia 16 Code(s): K72.90 - HEPATIC FAILURE, UNSPECIFIED WITHOUT COMA (3) Mental status change Assessment/Plan: ct of head Code(s): R41.82 - ALTERED MENTAL STATUS, UNSPECIFIED (4) Prostate carcinoma Code(s): C61 - MALIGNANT NEOPLASM OF PROSTATE (5) UTI (urinary tract infection) Assessment/Plan: iv abx id consult Code(s): N39.0 - URINARY TRACT INFECTION, SITE NOT SPECIFIED Qualifiers: Urinary tract infection type: site unspecified Hematuria presence: with hematuria Qualified Code(s): N39.0 - Urinary tract infection, site not specified
[2017-03-23 09:44] LABS: ANISOCYTOSIS 2+; MACROCYTOSIS 0; PLATELET ESTIMATE NORMAL
--- NOTE | 2017-03-23 09:55 | PN ---
Progress Note (short form) - Note Progress Note: ID Full note dictated We know patient a she just was discharged Selected Entries 03/23/17 06:00 Temperature 97.8 F Pulse Rate 66 Respiratory 18 Rate Blood Pressure 102/60 Microbiology Laboratory Tests 03/22/17 03/22/17 03/22/17 17:10 17:10 23:30 WBC 6.2 D Hgb 11.1 L D Hct 34.7 L Plt Count 299 D BUN Creatinine Random Glucose 234 H Troponin I < 0.02 Ur Leukocyte Esterase 2+ H Urine WBC (Auto) 33 Urine RBC (Auto) 11 03/23/17 06:00 WBC Hgb Hct Plt Count BUN 23 H Creatinine 0.5 L D Random Glucose Troponin I Ur Leukocyte Esterase Urine WBC (Auto) Urine RBC (Auto) Assessment History of drug resistant organism ESBL I see no reason to treat him at this time unless febrile WBC ect or change in his condition Family understands and agrees Francy CHOW Problem List - Problems (1) UTI (urinary tract infection) Code(s): N39.0 - URINARY TRACT INFECTION, SITE NOT SPECIFIED Qualifiers: Urinary tract infection type: site unspecified Hematuria presence: with hematuria Qualified Code(s): N39.0 - Urinary tract infection, site not specified
[2017-03-23] MEDS ORDERED: ERTAPENEM SODIUM 1 GM in SODIUM CHLORIDE 100 ML IVPB SCH (10:00)
--- NOTE | 2017-03-23 10:54 | CONS ---
DATE OF CONSULTATION: DATE OF DICTATION: 03/23/2017 HISTORY OF PRESENT ILLNESS: This is a readmission for this 86-year-old male with liver cirrhosis and metastatic prostate cancer to spine and hip. He has a history of longstanding alcohol abuse in his past. He was just discharged from the hospital approximately a week ago at which time we had seen him for evaluation of fever. He is known to have an ESBL on a previous urine culture. He went to [facility] and comes now reportedly 1 week later with progressive weakness and decreased responsiveness. He has been unable to ambulate for many weeks and according to the family the principal reason for bringing him was that he pointed to his sternal area and seemed to complain of severe pain. He was given a dose of nitroglycerin by the EMS and brought to the hospital for further evaluation where he was noted to be afebrile. He was given a dose of vancomycin and ertapenem on admission, though his white count was normal, and a CAT scan of the chest showed no infiltrate. I am asked to see him for further evaluation. PAST MEDICAL HISTORY: Includes alcoholic cirrhosis with ascites and portal vein thrombosis, esophageal varices, hepatic encephalopathy, history of pneumonia, complete heart block with ventricular pacemaker, chronic indwelling Bonilla catheter. SOCIAL HISTORY: Never smoked. History of heavy alcoholism, though quit many years ago. FAMILY HISTORY: Positive for diabetes and prostate cancer. ALLERGIES: None known. MEDICATIONS: Include clonidine, Marinol, Lasix, Amaryl, oxycodone, nadolol, rifaximin, spironolactone, tamsulosin, Coumadin and insulin coverage. REVIEW OF SYSTEMS: Unable to obtain due to patient's mental status. PHYSICAL EXAMINATION:General: He appeared in no acute distress. Vital Signs: The temperature was 97.8, pulse 66, blood pressure 102/60, respirations 18. Neck: Supple. Lungs: Clear to percussion and auscultation. Heart: S1, S2. Regular rhythm without audible murmur. Abdomen: Mildly distended, nontender. No guarding or rebound. Extremities: No clubbing, cyanosis or edema. Genitourinary: With an indwelling Bonilla catheter. LABORATORY DATA: The white count is 6.2, hemoglobin 11.1, platelets 299. BUN 24, creatinine 0.7, alkaline phosphatase 471, bilirubin 0.6, AST 33, albumin 2.6. INR 2.20. Urinalysis with 2+ leukocyte esterase, 33 white cells, 11 RBCs. Two sets of blood cultures this morning no growth. CTA chest: No evidence of PE. Cardiomegaly, chronic liver disease, cirrhosis, metastasis. ASSESSMENT: At this point no evidence of active infection. Chronic indwelling Bonilla. Would not treat him with any antibiotics unless his condition changes and/or he develops fever or elevated WBC count. I expect that he will have bacteria in his urine given a chronic Bonilla. Maintain isolation contact. ZAC SHAVER M.D. [id number]
[2017-03-23] MEDS ORDERED: PT OWN MED DRAWER 7, Y5N ONE ×2 (12:03→20:31)
--- NOTE | 2017-03-23 13:22 | EKG ---
Test Reason : Blood Pressure : / mmHG Vent. Rate : 068 BPM Atrial Rate : 072 BPM P-R Int : 000 ms QRS Dur : 170 ms QT Int : 476 ms P-R-T Axes : 000 -80 060 degrees QTc Int : 506 ms Ventricular-paced rhythm WITH OCCASIONAL PREMATURE VENTRICULAR COMPLEXES ABNORMAL ECG WHEN COMPARED WITH ECG OF 22-MAR-2017 20:22, ELECTRONIC VENTRICULAR PACEMAKER HAS REPLACED JUNCTIONAL RHYTHM Confirmed by EDER CHOW, ELI ([id number]) on 03/23/2017 1:22:16 PM Referred By: Sean SERRANO Confirmed By:ELI GAINES MD
--- NOTE | 2017-03-23 13:27 | EKG ---
Test Reason : Blood Pressure : / mmHG Vent. Rate : 075 BPM Atrial Rate : 357 BPM P-R Int : 000 ms QRS Dur : 086 ms QT Int : 406 ms P-R-T Axes : 000 -08 -63 degrees QTc Int : 453 ms ACCELERATED JUNCTIONAL RHYTHM ABNORMAL ECG WHEN COMPARED WITH ECG OF 23-FEB-2017 03:05, JUNCTIONAL RHYTHM HAS REPLACED ELECTRONIC VENTRICULAR PACEMAKER Confirmed by ELI GAINES MD ([id number]) on 03/23/2017 1:27:02 PM Referred By: Confirmed By:ELI GAINES MD
[2017-03-23] MEDS: SPIRONOLACTONE 25 MG TABLET (FP) PO SCH ×2 (16:17→21:04)
[2017-03-23] MEDS: RIFAXIMIN 550 MG TABLET (UD) PO SCH ×2 (16:17→21:05)
[2017-03-23] MEDS: LACTULOSE 20 GM/30 ML UDC (FOR ORAL USE ONLY) PO SCH ×2 (16:17→21:04)
[2017-03-23] MEDS: NADOLOL 20 MG TABLET (FP) PO SCH (16:53)
[2017-03-23] MEDS ORDERED: WARFARIN NA 5 MG TABLET (UD) PO SCH (18:00)
[2017-03-23 18:17] LABS: INR 1.93 (0.82-1.09); PROTHROMBIN TIME (PATIENT) 21.8 SEC (9.98-11.88)
[2017-03-23] MEDS: ALBUTEROL SO4 2.5/IPRATROPIUM 0.5 INH SOL 3 ML VIAL.NEB. NEB SCH ×3 (19:21→23:40)
--- NOTE | 2017-03-23 20:11 | CON.CARD ---
Consult Consult Specialty:: Cardiology Reason for Consultation:: Chest pain - History of Present Illness Chief Complaint: Chest pain History of Present Illness: 86 year-old man, NHR, with a PMHx of metastatic prostate cancer to spine/hip (s/ p RT to sacral an ischial bones , failed Leupron), EtOH cirrhosis, DM, HTN, Afib (on coumadin), heart block s/p PPM, chronic indwelling catheter admitted 03/22/2017 from [facility] with chest pain. The patient had several recent admissions here for progressive weakness and decreased responsiveness. He is unable to ambulate. The family reported anterior chest pain and left rib pain with local tenderness. The family also reports that he has had increased cough since being discharged on 03/14/2017. PE was ruled out by CTA. No evidence of WA. ECG is uninterpretable for ischemia due to paced rhythm. Patient has been stable since admission without acute distress. Seen by ID for UTI. No ABx therapy recommended. - History Source History Provided By: Family Member Limitations to Obtaining History: No Limitations - Past Medical History PSYCHOLOGIST COUNSELING: Yes: Dementia, Other Cardio/Vascular: Yes: Other (complete heart block requiring a pacemaker) Gastrointestinal: Yes: Ascites, Esophageal Varices, GI Bleed Hepatobiliary: Yes: Cirrhosis Renal/: Yes: BPH, Cancer Musculoskeletal: Yes: Chronic low back pain Endocrine: Yes: Diabetes Mellitus - Past Surgical History Past Surgical History: Yes: Arthrosocopy, Colonoscopy, Hernia Repair, Permanent Pacemaker, Upper Endoscopy - Alcohol/Substance Use Hx Alcohol Use: Yes (quit 2001) History of Substance Use: reports: None - Smoking History Smoking history: Never smoked Have you smoked in the past 12 months: No Aproximately how many cigarettes per day: 0 - Social History Usual Living Arrangement: Long Term ADL: Family Assistance 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 History of Recent Travel: No Home Medications - Allergies Allergies/Adverse Reactions: Allergies Allergy/AdvReac Type Severity Reaction Status Date / Time No Known Allergies Allergy Verified 03/22/17 16:10 - Home Medications Home Medications: Ambulatory Orders Aa/Hydrolyzed Collagen, Whey [Lps 15-30 Liquid] 30 ml PO BID 03/22/17 Albuterol 2.5/Ipratropium 0.5 [Duoneb -] 1 neb NEB QID 03/22/17 Chlorpheniramine/Dextromethorp [Robitussin Long-Acting Liq] 118 ml PO TID Furosemide [Lasix] 40 mg PO BID 03/22/17 Glimepiride [Amaryl -] 2 mg PO DAILY 03/22/17 Insulin Lispro [Humalog] 0 unit SQ ASDIR 03/22/17 Lactulose 20 gm PO BID 03/22/17 Nadolol 20 mg PO DAILY 03/22/17 Nitroglycerin Sublingual [Nitrostat -] 0.4 mg SL ONCE 03/22/17 Nystatin 5 unit PO DAILY 03/22/17 Oxycodone HCl 5 mg PO Q4HWA 03/22/17 Polyethylene Glycol 3350 [Miralax (For Daily Use) -] 17 gm PO DAILY 03/22/17 Rifaximin [Xifaxan] 550 mg PO BID 03/22/17 Spironolactone [Aldactone] 25 mg PO BID 03/22/17 Tamsulosin HCl 0.4 mg PO DAILY 03/22/17 Warfarin Na [Coumadin] 6 mg PO DAILY 03/22/17 Family Disease History - Family Disease History Family Disease History: Diabetes: Brother (protate cancer), CA: Brother Review of Systems - Review of Systems Constitutional: reports: Malaise, Weakness Eyes: reports: No Symptoms HENT: reports: No Symptoms Neck: reports: No Symptoms, Decreased ROM Cardiovascular: reports: Chest Pain Respiratory: reports: Cough Gastrointestinal: reports: No Symptoms Genitourinary: reports: No Symptoms Musculoskeletal: reports: Back Pain, Muscle Weakness Integumentary: reports: No Symptoms Endocrine: reports: No Symptoms Vital Signs: Vital Signs Temperature 98.6 F 03/23/17 18:42 Pulse Rate 71 03/23/17 18:42 Respiratory Rate 20 03/23/17 18:42 Blood Pressure 121/69 03/23/17 18:42 O2 Sat by Pulse Oximetry (%) 99 03/23/17 09:00 Constitutional: Yes: Pallor, Thin Eyes: Yes: Conjunctiva Clear, EOM Intact HENT: Yes: Atraumatic, Normocephalic Neck: Yes: Supple, Trachea Midline Respiratory: Yes: Regular, CTA Bilaterally Gastrointestinal: Yes: Normal Bowel Sounds, Soft Cardiovascular: Yes: Regular Rate and Rhythm Murmur: Yes: Systolic Murmur, Grade 2 Musculoskeletal: Yes: Back Pain, Muscle Weakness Extremities: Yes: WNL Edema: No Peripheral Pulses WNL: Yes - Other Data Labs, Other Data: CBC, BMP 03/23/17 06:00 03/23/17 06:00 INR, PTT INR 1.93 (0.82-1.09) H 03/23/17 17:45 Troponin, BNP 03/22/17 03/23/17 20:40 02:59 Troponin I 0.02 < 0.02 Troponin, BNP 03/22/17 03/23/17 20:40 02:59 Troponin I 0.02 < 0.02 Possible underline atrial flutter with ventricularly paced rhythm. Imaging - Results EKG: Image Reviewed (Possible underline atrial flutter with ventricularly paced rhythm.) Assessment/Plan 86 year-old man, NHR, with a PMHx of metastatic prostate cancer to spine/hip (s/ p RT to sacral an ischial bones , failed Leupron), EtOH cirrhosis, DM, HTN, Afib (on coumadin), heart block s/p PPM, chronic indwelling catheter admitted 03/22/2017 from [facility] with chest pain. PE was ruled out by CTA. No evidence of WA. ECG is uninterpretable for ischemia due to paced rhythm. Patient has been stable since admission without acute distress. Seen by ID for UTI. 1) Chest pain, likely atypical. Patient has risk factors of CAD. ECG is uninterpretable due to paced rhythm. No evidence of WA. Conservative care. Add Imdur 30 mg daily. Use SL NTG prn. Continue Nadolol. 2) Atrial fibrillation and flutter: ECG shows underline atrial flutter with paced rhythm. Continue Nadalol to prevent rapid VR. Continue Warfarin for stroke prevention. Please call us for reconsult as needed.
[2017-03-23] MEDS ORDERED: INSULIN (NOVOLOG) ASPART 100 UNITS/ML 10ML VIAL ONE (20:34)
[2017-03-23] MEDS: SENNOSIDES 8.8 MG/5 ML BULK BOTTLE PO SCH (21:04)
[2017-03-23] MEDS ORDERED: IBUPROFEN 400 MG TABLET (FP) PO ONE (22:23)
[2017-03-23] MEDS ORDERED: ERTAPENEM SODIUM 1 GM in SODIUM CHLORIDE 50 ML IVPB SCH (23:30)
[2017-03-23] MEDS ORDERED: VANCOMYCIN 1,000 MG in DEXTROSE 5%-WATER - 250 ML IVPB ONE (23:30)
[2017-03-24] MEDS: INSULIN SLIDING SCALE (NOVOLOG) 1 VIAL SQ SCH ×4 (06:28→22:38)
[2017-03-24] MEDS: FUROSEMIDE 40 MG/4 ML INJECTABLE VIAL IVPUSH SCH ×2 (06:28→13:14)
[2017-03-24] MEDS: ALBUTEROL SO4 2.5/IPRATROPIUM 0.5 INH SOL 3 ML VIAL.NEB. NEB SCH ×4 (06:30→23:30)
[2017-03-24] MEDS ORDERED: PT OWN MED DRAWER 7, Y5N ONE ×3 (08:53→22:19)
--- NOTE | 2017-03-24 09:45 | PN ---
Progress Note, Physician Chief Complaint: ID Notified that patient was 101 last night after I had seen him earlier. Though reluctant to do so I advised Vancomycin and Ertepenem. NOte that druing his last admission there were periods where he had fever on off with out obvious source. He does have an indwelling garcía and immunocompromised based on age cirrhosis neoplasm and DM. - Current Medication List Current Medications: Active Medications Albuterol/Ipratropium (Duoneb -) 1 amp NEB QIDR [facility] Last Admin: 03/24/17 06:30 Dose: 1 amp Furosemide (Lasix Injection -) 20 mg IVPUSH BID@0600,1400 [facility] Last Admin: 03/24/17 06:28 Dose: 20 mg Sodium Chloride (Normal Saline -) 1,000 mls @ 83 mls/hr IV ASDIR [facility] Last Admin: 03/23/17 22:49 Dose: Not Given Ertapenem 1 gm/ Sodium (Chloride) 50 mls @ 50 mls/hr IVPB [facility] Last Admin: 03/23/17 23:43 Dose: 50 mls/hr Insulin Aspart (Novolog Vial Sliding Scale -) 1 vial SQ ACHS [facility] PRN Reason: Protocol Last Admin: 03/24/17 06:28 Dose: Not Given Lactulose (Cephulac (Oral Use)) 20 gm PO BID [facility] Last Admin: 03/23/17 21:04 Dose: Not Given Nadolol (Corgard -) 10 mg PO DAILY [facility] Last Admin: 03/23/17 16:53 Dose: 10 mg Oxycodone HCl (Roxicodone -) 2.5 mg PO Q4H PRN PRN Reason: PAIN Rifaximin (Xifaxan -) 550 mg PO BID [facility] Last Admin: 03/23/17 21:05 Dose: 550 mg Senna (Senna Oral Solution -) 8.8 mg PO [facility] Last Admin: 03/23/17 21:04 Dose: 8.8 mg Spironolactone (Aldactone -) 25 mg PO BID [facility] Last Admin: 03/23/17 21:04 Dose: 25 mg Tamsulosin HCl (Flomax -) 0.4 mg PO DAILY@0830 [facility] Last Admin: 03/23/17 08:42 Dose: Not Given Warfarin Sodium (Coumadin -) 2.5 mg PO ONCE@1800 ONE Stop: 03/24/17 18:01 Warfarin Sodium (Coumadin -) 5 mg PO DAILY@1800 MAHENDRA Stop: 03/30/17 18:01 - Objective Vital Signs: Vital Signs Temperature 99.4 F 03/24/17 02:00 Pulse Rate 66 03/24/17 06:00 Respiratory Rate 20 03/24/17 06:00 Blood Pressure 96/42 03/24/17 06:00 O2 Sat by Pulse Oximetry (%) 99 03/23/17 21:00 Labs: CBC, BMP 03/23/17 06:00 03/23/17 06:00 INR, PTT INR 1.93 (0.82-1.09) H 03/23/17 17:45 Problem List - Problems (1) UTI (urinary tract infection) Code(s): N39.0 - URINARY TRACT INFECTION, SITE NOT SPECIFIED Qualifiers: Urinary tract infection type: site unspecified Hematuria presence: with hematuria Qualified Code(s): N39.0 - Urinary tract infection, site not specified Assessment/Plan Microbiology 03/22/17 20:42 Blood - Peripheral Venous Blood Culture - Preliminary NO GROWTH OBTAINED AFTER 24 HOURS, INCUBATION TO CONTINUE FOR 4 DAYS. 03/22/17 20:40 Blood - Peripheral Venous Blood Culture - Preliminary NO GROWTH OBTAINED AFTER 24 HOURS, INCUBATION TO CONTINUE FOR 4 DAYS. Laboratory Tests 03/22/17 03/23/17 03/23/17 23:30 06:00 06:00 WBC 6.2 Hgb 10.3 L Plt Count 268 BUN 23 H Creatinine 0.5 L D Ur Leukocyte Esterase 2+ H Urine WBC (Auto) 33 Urine RBC (Auto) 11 Assessment Fever ? urinary infection vs "FUO" Plan Continue Ertepenem for ? ESBL pending cultures before deciding next course of action with regard to fever Francy CHOW
[2017-03-24] MEDS: TAMSULOSIN HCL 0.4 MG CAP.ER.24H (FP) PO SCH (10:01)
[2017-03-24] MEDS: LACTULOSE 20 GM/30 ML UDC (FOR ORAL USE ONLY) PO SCH ×3 (10:01→22:37)
[2017-03-24] MEDS: SPIRONOLACTONE 25 MG TABLET (FP) PO SCH ×2 (10:01→22:37)
[2017-03-24] MEDS: NADOLOL 20 MG TABLET (FP) PO SCH (10:02)
[2017-03-24] MEDS: RIFAXIMIN 550 MG TABLET (UD) PO SCH ×2 (10:04→22:37)
--- NOTE | 2017-03-24 10:31 | PN ---
Progress Note, Physician History of Present Illness: more awake - Current Medication List Current Medications: Active Medications Albuterol/Ipratropium (Duoneb -) 1 amp NEB QIDR [facility] Last Admin: 03/24/17 06:30 Dose: 1 amp Furosemide (Lasix Injection -) 20 mg IVPUSH BID@0600,1400 [facility] Last Admin: 03/24/17 06:28 Dose: 20 mg Sodium Chloride (Normal Saline -) 1,000 mls @ 83 mls/hr IV ASDIR [facility] Last Admin: 03/23/17 22:49 Dose: Not Given Ertapenem 1 gm/ Sodium (Chloride) 100 mls @ 50 mls/hr IVPB DAILY [facility] PRN Reason: Protocol Insulin Aspart (Novolog Vial Sliding Scale -) 1 vial SQ ACHS [facility] PRN Reason: Protocol Last Admin: 03/24/17 06:28 Dose: Not Given Lactulose (Cephulac (Oral Use)) 20 gm PO BID [facility] Last Admin: 03/24/17 10:12 Dose: Not Given Nadolol (Corgard -) 10 mg PO DAILY [facility] Last Admin: 03/24/17 10:02 Dose: 10 mg Oxycodone HCl (Roxicodone -) 2.5 mg PO Q4H PRN PRN Reason: PAIN Rifaximin (Xifaxan -) 550 mg PO BID [facility] Last Admin: 03/24/17 10:04 Dose: 550 mg Senna (Senna Oral Solution -) 8.8 mg PO HS [facility] Last Admin: 03/23/17 21:04 Dose: 8.8 mg Spironolactone (Aldactone -) 25 mg PO BID [facility] Last Admin: 03/24/17 10:01 Dose: 25 mg Tamsulosin HCl (Flomax -) 0.4 mg PO DAILY@0830 [facility] Last Admin: 03/24/17 10:01 Dose: 0.4 mg Warfarin Sodium (Coumadin -) 2.5 mg PO ONCE@1800 ONE Stop: 03/24/17 18:01 Warfarin Sodium (Coumadin -) 5 mg PO DAILY@1800 [facility] Stop: 03/30/17 18:01 - Objective Vital Signs: Vital Signs Temperature 99.4 F 03/24/17 02:00 Pulse Rate 66 03/24/17 06:00 Respiratory Rate 20 03/24/17 06:00 Blood Pressure 96/42 03/24/17 06:00 O2 Sat by Pulse Oximetry (%) 99 03/23/17 21:00 Cardiovascular: Yes: Regular Rate and Rhythm Respiratory: Yes: Regular, CTA Bilaterally Gastrointestinal: Yes: Normal Bowel Sounds, Soft Edema: No Labs: CBC, BMP 03/23/17 06:00 03/23/17 06:00 INR, PTT INR 1.93 (0.82-1.09) H 03/23/17 17:45 Problem List - Problems (1) Chest pain Assessment/Plan: - Cardiology consult noted -ECHO ordered -Serial Troponins Q6H (3x negative ) Code(s): R07.9 - CHEST PAIN, UNSPECIFIED Qualifiers: Chest pain type: other chest pain Qualified Code(s): R07.89 - Other chest pain; R07.8 - Other chest pain (2) Hepatic encephalopathy Assessment/Plan: ammonia 16 Code(s): K72.90 - HEPATIC FAILURE, UNSPECIFIED WITHOUT COMA (3) Mental status change Assessment/Plan: ct of head negative better Code(s): R41.82 - ALTERED MENTAL STATUS, UNSPECIFIED (4) Prostate carcinoma Code(s): C61 - MALIGNANT NEOPLASM OF PROSTATE (5) UTI (urinary tract infection) Assessment/Plan: iv abx per id id consult Code(s): N39.0 - URINARY TRACT INFECTION, SITE NOT SPECIFIED Qualifiers: Urinary tract infection type: site unspecified Hematuria presence: with hematuria Qualified Code(s): N39.0 - Urinary tract infection, site not specified (6) Atrial fibrillation Assessment/Plan: coumadin monitor INR Code(s): I48.91 - UNSPECIFIED ATRIAL FIBRILLATION
[2017-03-24 10:42] LABS: BASO % 0.7 % (0-2.0); EOS % 2.5 % (0-4.5); HEMATOCRIT 31.7 % (35.4-49); LYMPH % 14.4 % (8-40); MCH 25.6 pg (25.7-33.7); MCHC 31.6 g/dl (32.0-35.9); MEAN CELL VOLUME 80.9 fl (80-96); MEAN PLT VOLUME 7.6 fl (7.5-11.1); MONO % 15.2 % (3.8-10.2); NEUT % 67.2 % (42.8-82.8); PLATELET COUNT 254 K/MM3 (134-434); RBC 3.92 M/mm3 (4.00-5.60); WHITE BLOOD COUNT 4.8 K/mm3 (4.0-10.0)
[2017-03-24 10:55] LABS: INR 2.18 (0.82-1.09); PROTHROMBIN TIME (PATIENT) 24.6 SEC (9.98-11.88)
[2017-03-24 11:28] LABS: ALBUMIN 2.2 g/dl (3.4-5.0); ALK PHOS 351 U/L (45-117); ANION GAP 7 (8-16); BILIRUBIN,TOTAL 0.6 mg/dL (0.2-1.0); BLOOD UREA NITROGEN 21 mg/dL (7-18); CALCIUM 7.7 mg/dL (8.5-10.1); CHLORIDE 100 mmol/L (98-107); CO2 30 mmol/L (21-32); CREATININE 0.5 mg/dL (0.7-1.3); GLUCOSE,RANDOM 191 mg/dL (74-106); POTASSIUM 3.4 mmol/L (3.5-5.1); SGOT/AST 22 U/L (15-37); SGPT/ALT 16 U/L (12-78); SODIUM 137 mmol/L (136-145); TOT PROT 5.7 g/dl (6.4-8.2)
[2017-03-24] MEDS ORDERED: INSULIN (NOVOLOG) ASPART 100 UNITS/ML 10ML VIAL ONE ×2 (11:54→16:40)
[2017-03-24] MEDS: ERTAPENEM SODIUM 1 GM in SODIUM CHLORIDE 100 ML IVPB SCH (11:57)
[2017-03-24] MEDS ORDERED: WARFARIN NA 2.5 MG TABLET (FP) PO ONE (18:00)
[2017-03-24] MEDS: SENNOSIDES 8.8 MG/5 ML BULK BOTTLE PO SCH (22:37)
[2017-03-25] MEDS: SODIUM CHLORIDE 1,000 ML IV SCH (05:42)
[2017-03-25] MEDS: FUROSEMIDE 40 MG/4 ML INJECTABLE VIAL IVPUSH SCH (05:43)
[2017-03-25] MEDS ORDERED: PT OWN MED DRAWER 7, Y5N ONE ×2 (05:54→09:14)
[2017-03-25] MEDS: ALBUTEROL SO4 2.5/IPRATROPIUM 0.5 INH SOL 3 ML VIAL.NEB. NEB SCH ×3 (06:37→16:20)
[2017-03-25] MEDS: INSULIN SLIDING SCALE (NOVOLOG) 1 VIAL SQ SCH ×4 (08:06→22:35)
[2017-03-25] MEDS: ERTAPENEM SODIUM 1 GM in SODIUM CHLORIDE 100 ML IVPB SCH (09:22)
[2017-03-25] MEDS: RIFAXIMIN 550 MG TABLET (UD) PO SCH ×2 (09:24→22:33)
[2017-03-25] MEDS: SPIRONOLACTONE 25 MG TABLET (FP) PO SCH ×2 (09:24→22:33)
[2017-03-25] MEDS: NADOLOL 20 MG TABLET (FP) PO SCH (09:24)
[2017-03-25] MEDS: LACTULOSE 20 GM/30 ML UDC (FOR ORAL USE ONLY) PO SCH ×2 (09:26→22:33)
[2017-03-25] MEDS: TAMSULOSIN HCL 0.4 MG CAP.ER.24H (FP) PO SCH (09:29)
--- NOTE | 2017-03-25 10:16 | CONSULT ---
Admitting History and Physical - Primary Care Physician PCP: Zenobia Chow - Admission History of Present Illness: 86yo man with PMH of metastatic castrate-resistant prostate Ca, DM, EtOH cirrhosis, IDDM, HTN, Afib (on coumadin) who p/w substernal chest pain. Selected Entries 03/22/17 03/22/17 03/23/17 16:00 23:15 00:15 Breakfast Lunch Supper Temperature 97.9 F 97.5 F L 98.5 F 03/23/17 03/23/17 03/23/17 02:00 06:00 10:00 Breakfast Lunch NPO Supper Temperature 98.5 F 97.8 F 98.2 F 03/23/17 03/23/17 03/23/17 14:04 18:42 22:00 Breakfast Lunch NPO Supper Temperature 97.8 F 98.6 F 101.0 F H 03/23/17 03/24/17 03/24/17 22:46 02:00 10:00 Breakfast Lunch Supper 25% Temperature 99.4 F 97.2 F L 03/24/17 03/24/17 03/24/17 10:24 13:52 13:54 Breakfast 75% Lunch 50% Supper Temperature 97.3 F L 03/24/17 03/24/17 03/24/17 17:36 22:53 23:27 Breakfast Lunch Supper 50% Temperature 97.7 F 97.5 F L 03/25/17 03/25/17 03/25/17 02:00 06:00 09:39 Breakfast 75% Lunch Supper Temperature 97.6 F 97.6 F 03/25/17 10:00 Breakfast Lunch Supper Temperature 97.6 F Laboratory Tests 03/24/17 10:08 WBC 4.8 Known to me from recent admission. MBS with oral holding requiring reminders to swallow. Initially on puree/nectar,per family, concerned about more tolerance about more upgraded diet. He was upgraded to puree/thin/glucerna during last admission,with limited appetite. Upon d/c, pt was accepting mainly Glucerna, with good tolerance, best acceptance and coordination though a straw. Pt continued on Puree/thin/Glucerna at [facility]. History Source: Family Member, Medical Record Limitations to Obtaining History: Clinical Condition, Dementia - Past Medical History ELECTRIC WIRER: Yes: Dementia, Other Cardiovascular: Yes: Other (complete heart block requiring a pacemaker) Gastrointestinal: Yes: Ascites, Esophageal Varices, GI Bleed Hepatobiliary: Yes: Cirrhosis Renal/: Yes: BPH, Cancer Heme/Onc: Yes: Anemia, B12 Deficiency Musculoskeletal: Yes: Chronic low back pain Endocrine: Yes: Diabetes Mellitus - Past Surgical History Past Surgical History: Yes: Arthrosocopy, Colonoscopy, Hernia Repair, Permanent Pacemaker, Upper Endoscopy - Advance Directives Advance Directives: Yes: DNR - Smoking History Smoking history: Never smoked Have you smoked in the past 12 months: No Aproximately how many cigarettes per day: 0 - Alcohol/Substance Use Hx Alcohol Use: Yes (quit 2001) History of Substance Use: reports: None - Social History ADL: Family Assistance 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 History of Recent Travel: No History - Admission Reason For Visit: CHEST PAIN,PNEUMONIA - Diagnostics X-ray: Report Reviewed CT Scan: Report Reviewed - General Mental Status: Awake and Alert, Able to Follow Commands, Forgetful, Vague Attention: Distractible, Mild Impairment Ability to Follow Directions: Good Head/Neck Control: Fair - Hearing Hearing: Functional Speech Evaluation - Communication Primary Language: MALTESE Communication: Yes: Simple Responses Oral Expression Ability: Yes: No Impairment - Speech Production Able to Make Needs Known: Yes: WNL Intelligibility: Yes: WNL - Speech Characteristics Voice Loudness: Mildly Soft/Quiet Voice Pitch: Yes: Normal Speech Clarity: < 100% Nasal Resonance: Normal Articulation: Yes: Precise - Language/Auditory Comprehension Follows: Yes: 1 Stage Simple Commands - Swallow Evaluation/Bedside Assessment Current Nutritional Intake: Dysphagia Pureed, Thin Liquids Oral Secretions: Yes: WFL Facial Symmetry at Rest: Symmetrical Facial Symmetry on Retraction: Symmetrical Facial Movement: Controlled Sensation: Normal Against Resistance Opening: Weak Against Resistance Closing: Weak Pucker Lips: Normal Smile: Normal Lingual Movement: Normal, Symmetric Lingual Speed of Movement: Normal Lingual Movement Strgth Against Opposition: Reduced Lingual Movement Characteristics: Normal Velopharyngeal Movement: Normal Laryngeal Movement: Labored,delay initiation, Other (oral pharyngeal dyscoordination with extended mastication and oral holding.) Rate of Intake: Slow/Holding Bolus Size: Small Labial Seal: WFL Chewing: WFL (extended) Oral Prep Time: Increased A-P Transit: Impaired Pocketing: None Timing of Swallow: Delayed Coughing/Throat Clear: Yes (intermittent) Recommendations - Speech Evaluation, Impression/Plan Impression: Oral pharyngeal dyscoordination with extended mastication and oral holding. Occas cough while drinking, likely sec to spillage over base of tongue before swallow is initiated. Tolerated mashed banana/ blueberries for family. - Dysphagia Impressions/Plan Dysphagia Impressions: Mild Impairment, Risk of Aspiration, Ongoing Evaluation *Silent aspiration: cannot be R/O at bedside Dysphagia Treatment Plan: Small Bites, Chin Tuck/Down, Clear Pocket Food, Safe Rate, 1/2 tsp. at a time, Elevate HOB during feed, Other (Tell pt to swallow with each bite and to stop chewing and swallow with soft solids.) - Recommendations Diet Consistency: Dysphagia Minced, 1 - 2 Soft Items, Other (menu selection) Liquids: Thin Liquids, Other (if coughing, may need nectar thick) Supplement: Glucerna
--- NOTE | 2017-03-25 11:02 | PN ---
Progress Note (short form) - Note Progress Note: ID More alert Day 3 Ertepenem No fever in 48 hours Selected Entries 03/25/17 10:00 Temperature 97.6 F Pulse Rate 72 Respiratory 18 Rate Blood Pressure 130/67 Microbiology 03/23/17 03:05 Urine - Urine Bonilla Urine Culture - Final Vr Ec Faecium 03/22/17 20:42 Blood - Peripheral Venous Blood Culture - Preliminary NO GROWTH OBTAINED AFTER 48 HOURS, INCUBATION TO CONTINUE FOR 3 DAYS. 03/22/17 20:40 Blood - Peripheral Venous Blood Culture - Preliminary NO GROWTH OBTAINED AFTER 48 HOURS, INCUBATION TO CONTINUE FOR 3 DAYS. Laboratory Tests 03/24/17 03/24/17 10:08 10:08 WBC 4.8 Hgb 10.0 L Plt Count 254 BUN 21 H Creatinine 0.5 L Assessment Fever which has subsided ? the reason and VREF would be expected to be resistant to carbepenem Plan Linezolid 600mg bid 7 days Problem List - Problems (1) UTI (urinary tract infection) Code(s): N39.0 - URINARY TRACT INFECTION, SITE NOT SPECIFIED Qualifiers: Urinary tract infection type: site unspecified Hematuria presence: with hematuria Qualified Code(s): N39.0 - Urinary tract infection, site not specified
--- NOTE | 2017-03-25 11:11 | DS ---
Physical Examination Vital Signs: Vital Signs Temperature 97.6 F 03/25/17 10:00 Pulse Rate 72 03/25/17 10:00 Respiratory Rate 18 03/25/17 10:00 Blood Pressure 130/67 03/25/17 10:00 O2 Sat by Pulse Oximetry (%) 99 03/25/17 09:00 Constitutional: Yes: Calm Neck: Yes: Trachea Midline Cardiovascular: Yes: Regular Rate and Rhythm, S1, S2 Respiratory: Yes: CTA Bilaterally Gastrointestinal: Yes: Normal Bowel Sounds, Soft Renal/: Yes: Bonilla Present Edema: Yes Neurological: Yes: Alert, Oriented (to name) Labs: CBC, BMP 03/24/17 10:08 03/24/17 10:08 Discharge Summary Reason For Visit: CHEST PAIN,PNEUMONIA Current Active Problems Atrial fibrillation (Acute) Chest pain (Acute) Pneumonia (Acute) Hospital Course: HISTORY OF PRESENT ILLNESS: 86yo man with PMH of 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 He has had several recent admissions here for progressive weakness and decreased responsiveness. For the past several weeks he has been unable to ambulate. The family was with him earlier today when he pointed to his sternal region and complained of chest pain. EMS was called and was given 1 dose of nitroglycerin in the field. The family also reports that he has had increased cough since being discharged on 03/14. No fever or chills. No n/v/d. ER course was notable for: (1) CTA negative for PE (2) 1st Trop neg, (3) in hospital: CE negative UTI- VRE on zyvox po bid ofr 7 days will need isolation leg edema on lasix afib on coumadin Chest pain atypical: CE negative,start imdur, on nadolol NTG SL pRN paced rhytm Condition: Improved - Instructions Diet, Activity, Other Instructions: check INR M-W_ zyvox 600mg po bid for 7 days Referrals: Zenobia Chow MD [Primary Care Provider] - Disposition: [facility] - Home Medications Comprehensive Discharge Medication List: Ambulatory Orders Aa/Hydrolyzed Collagen, Whey [Lps 15-30 Liquid] 30 ml PO BID 03/22/17 Albuterol 2.5/Ipratropium 0.5 [Duoneb -] 1 neb NEB QID 03/22/17 Chlorpheniramine/Dextromethorp [Robitussin Long-Acting Liq] 118 ml PO TID Furosemide [Lasix] 40 mg PO BID 03/22/17 Glimepiride [Amaryl -] 2 mg PO DAILY 03/22/17 Insulin Lispro [Humalog] 0 unit SQ ASDIR 03/22/17 Lactulose 20 gm PO BID 03/22/17 Nadolol 20 mg PO DAILY 03/22/17 Nitroglycerin Sublingual [Nitrostat -] 0.4 mg SL ONCE 03/22/17 Nystatin 5 unit PO DAILY 03/22/17 Oxycodone HCl 5 mg PO Q4HWA 03/22/17 Polyethylene Glycol 3350 [Miralax (For Daily Use) -] 17 gm PO DAILY 03/22/17 Rifaximin [Xifaxan] 550 mg PO BID 03/22/17 Spironolactone [Aldactone] 25 mg PO BID 03/22/17 Tamsulosin HCl 0.4 mg PO DAILY 03/22/17 Warfarin Na [Coumadin] 6 mg PO DAILY 03/22/17
[2017-03-25 12:34] LABS: INR 1.88 (0.82-1.09); PROTHROMBIN TIME (PATIENT) 21.2 SEC (9.98-11.88)
[2017-03-25 12:43] LABS: CHLORIDE 98 mmol/L (98-107); POTASSIUM 3.4 mmol/L (3.5-5.1); SODIUM 137 mmol/L (136-145)
[2017-03-25 12:50] LABS: ALBUMIN 2.3 g/dl (3.4-5.0); ALK PHOS 387 U/L (45-117); ANION GAP 11 (8-16); BILIRUBIN,TOTAL 0.4 mg/dL (0.2-1.0); BLOOD UREA NITROGEN 20 mg/dL (7-18); CALCIUM 8.1 mg/dL (8.5-10.1); CO2 28 mmol/L (21-32); CREATININE 0.6 mg/dL (0.7-1.3); GLUCOSE,RANDOM 231 mg/dL (74-106); SGOT/AST 37 U/L (15-37); SGPT/ALT 18 U/L (12-78)
[2017-03-25] MEDS: FUROSEMIDE 40 MG TABLET (FP) PO SCH (16:00)
[2017-03-25] MEDS: WARFARIN NA 5 MG TABLET (UD) PO SCH (17:13)
--- NOTE | 2017-03-25 22:07 | EKG ---
Test Reason : Blood Pressure : / mmHG Vent. Rate : 068 BPM Atrial Rate : 061 BPM P-R Int : 000 ms QRS Dur : 154 ms QT Int : 460 ms P-R-T Axes : 000 -83 065 degrees QTc Int : 489 ms Ventricular-paced rhythm ABNORMAL ECG WHEN COMPARED WITH ECG OF 23-FEB-2017 03:05, NO SIGNIFICANT CHANGE WAS FOUND Confirmed by AUBREY GOLDBERG MD ([id number]) on 03/25/2017 10:06:39 PM Referred By: Confirmed By:AUBREY GOLDBERG MD
[2017-03-25] MEDS: SENNOSIDES 8.8 MG/5 ML BULK BOTTLE PO SCH (22:33)
[2017-03-25] MEDS: LINEZOLID 600 MG TABLET (RESTRICTED TO ID) PO SCH (22:35)
[2017-03-26] MEDS: ALBUTEROL SO4 2.5/IPRATROPIUM 0.5 INH SOL 3 ML VIAL.NEB. NEB SCH ×5 (00:07→20:15)
[2017-03-26] MEDS ORDERED: PT OWN MED DRAWER 7, Y5N ONE ×3 (06:26→21:58)
[2017-03-26] MEDS: FUROSEMIDE 40 MG TABLET (FP) PO SCH ×2 (06:29→13:17)
[2017-03-26] MEDS: INSULIN SLIDING SCALE (NOVOLOG) 1 VIAL SQ SCH ×4 (06:29→22:08)
[2017-03-26] MEDS ORDERED: INSULIN (NOVOLOG) ASPART 100 UNITS/ML 10ML VIAL ONE ×2 (06:58→11:56)
[2017-03-26] MEDS: LACTULOSE 20 GM/30 ML UDC (FOR ORAL USE ONLY) PO SCH ×2 (09:06→22:06)
[2017-03-26] MEDS: NADOLOL 20 MG TABLET (FP) PO SCH (09:06)
[2017-03-26] MEDS: LINEZOLID 600 MG TABLET (RESTRICTED TO ID) PO SCH ×2 (09:07→22:07)
[2017-03-26] MEDS: ISOSORBIDE MONONITRATE 30 MG TAB.SR.24H (FP) PO SCH (09:07)
[2017-03-26] MEDS: SPIRONOLACTONE 25 MG TABLET (FP) PO SCH ×2 (09:07→22:07)
[2017-03-26] MEDS: RIFAXIMIN 550 MG TABLET (UD) PO SCH ×2 (09:07→22:06)
[2017-03-26] MEDS: TAMSULOSIN HCL 0.4 MG CAP.ER.24H (FP) PO SCH (09:07)
--- NOTE | 2017-03-26 09:48 | DS ---
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 He has had several recent admissions here for progressive weakness and decreased responsiveness. For the past several weeks he has been unable to ambulate. The family was with him earlier today when he pointed to his sternal region and complained of chest pain. EMS was called and was given 1 dose of nitroglycerin in the field. The family also reports that he has had increased cough since being discharged on 03/14. No fever or chills. No n/v/d. ER course was notable for: (1) CTA negative for PE (2) 1st Trop neg, (3) in hospital: CE negative UTI- VRE on zyvox po bid ofr 7 days will need isolation leg edema on lasix afib on coumadin Chest pain atypical: CE negative,start imdur, on nadolol NTG SL pRN paced rhytm Condition: Improved - Instructions Diet, Activity, Other Instructions: contact isolation for VRE in urine check INR - zyvox 600mg po bid for 7 days dyphagia minced, thin liquids,glucerna Referrals: Zenobia Chow MD [Primary Care Provider] - Disposition: RETIREMENT FACILITY - Home Medications Comprehensive Discharge Medication List: Ambulatory Orders Aa/Hydrolyzed Collagen, Whey [Lps 15-30 Liquid] 30 ml PO BID 03/22/17 Albuterol 2.5/Ipratropium 0.5 [Duoneb -] 1 neb NEB QID 03/22/17 Furosemide [Lasix] 40 mg PO BID 03/22/17 Glimepiride [Amaryl -] 2 mg PO DAILY 03/22/17 Insulin Lispro [Humalog] 0 unit SQ ASDIR 03/22/17 Lactulose 20 gm PO BID 03/22/17 Nadolol 20 mg PO DAILY 03/22/17 Polyethylene Glycol 3350 [Miralax 119 gm Btl -] 17 gm PO DAILY 03/22/17 Rifaximin [Xifaxan] 550 mg PO BID 03/22/17 Spironolactone [Aldactone] 25 mg PO BID 03/22/17 Tamsulosin HCl 0.4 mg PO DAILY 03/22/17 Warfarin Na [Coumadin -] 6 mg PO DAILY 03/22/17 Isosorbide Mononitrate [Imdur -] 30 mg PO DAILY #20 tab.sr.24h MDD 1 03/25/17 Linezolid [Zyvox (Restricted To Id) -] 600 mg PO BID #14 tablet MDD 2 03/25/17 Pantoprazole Sodium [Protonix -] 20 mg PO DAILY #7 tablet.ec 03/25/17
--- NOTE | 2017-03-26 10:20 | PN ---
Progress Note, SYSTEMS INTEGRATION ANALYST - Note Progress Note: Selected Entries 03/25/17 03/25/17 03/25/17 02:00 06:00 09:39 Breakfast 75% Supper Temperature 97.6 F 97.6 F 03/25/17 03/25/17 03/25/17 10:00 14:00 18:59 Breakfast Supper Temperature 97.6 F 98.1 F 97.6 F 03/25/17 03/25/17 03/26/17 22:00 23:43 01:47 Breakfast Supper 25% Temperature 100.8 F H 98.3 F 03/26/17 06:00 Breakfast Supper Temperature 98.1 F pending d/c to [facility]. Suggest f/u by speech pathologist at [facility]. Pt on puree/thin liquid presently, with a fever spike. Silent aspiration cannot be R/O at bedside May benefit from OPD MBS if cough, spikes noted.
[2017-03-26] MEDS: oxyCODONE HCL 5 MG TABLET PO PRN (13:15)
--- NOTE | 2017-03-26 15:23 | PN ---
Progress Note (short form) - Note Progress Note: spoke to son Satish regarding patient oncology follow up as i am not tami to reach the patient daughter he wants father to be seen by oncology bc they cannot tras[place]port him from [place] to office visit and want catheter changed as it hasnot been changed for over a month and is spiking fever will get urology and oncology consults
[2017-03-26 19:19] LABS: INR 1.85 (0.82-1.09); PROTHROMBIN TIME (PATIENT) 20.9 SEC (9.98-11.88)
[2017-03-26] MEDS: WARFARIN NA 5 MG TABLET (UD) PO SCH (19:57)
[2017-03-26] MEDS: SENNOSIDES 8.8 MG/5 ML BULK BOTTLE PO SCH (22:06)
[2017-03-27] MEDS ORDERED: PT OWN MED DRAWER 7, Y5N ONE ×3 (04:37→23:22)
[2017-03-27] MEDS: INSULIN SLIDING SCALE (NOVOLOG) 1 VIAL SQ SCH ×4 (06:01→23:33)
[2017-03-27] MEDS: FUROSEMIDE 40 MG TABLET (FP) PO SCH ×2 (06:01→13:35)
[2017-03-27 07:13] LABS: INR 1.98 (0.82-1.09); PROTHROMBIN TIME (PATIENT) 22.4 SEC (9.98-11.88)
[2017-03-27] MEDS: ALBUTEROL SO4 2.5/IPRATROPIUM 0.5 INH SOL 3 ML VIAL.NEB. NEB SCH ×4 (08:30→21:45)
[2017-03-27] MEDS: TAMSULOSIN HCL 0.4 MG CAP.ER.24H (FP) PO SCH (08:50)
[2017-03-27] MEDS: NADOLOL 20 MG TABLET (FP) PO SCH (09:45)
[2017-03-27] MEDS: SPIRONOLACTONE 25 MG TABLET (FP) PO SCH ×2 (09:45→23:27)
[2017-03-27] MEDS: ISOSORBIDE MONONITRATE 30 MG TAB.SR.24H (FP) PO SCH (09:45)
[2017-03-27] MEDS: LACTULOSE 20 GM/30 ML UDC (FOR ORAL USE ONLY) PO SCH ×2 (09:45→23:28)
[2017-03-27] MEDS: RIFAXIMIN 550 MG TABLET (UD) PO SCH ×2 (09:47→23:27)
[2017-03-27] MEDS: LINEZOLID 600 MG TABLET (RESTRICTED TO ID) PO SCH ×2 (09:48→23:27)
[2017-03-27] MEDS ORDERED: ACETAMINOPHEN 325 MG TABLET (FP) PO ONE (13:40)
--- NOTE | 2017-03-27 15:04 | PN ---
Progress Note, CARDIOLOGY NURSE - Note Progress Note: Tolerated breakfast but sleeping most of day since that time. Selected Entries 03/26/17 03/26/17 03/26/17 01:47 06:00 10:00 Breakfast Temperature 98.3 F 98.1 F 97.7 F 03/26/17 03/26/17 03/27/17 14:00 22:00 02:00 Breakfast Temperature 98.3 F 97.9 F 98.6 F 03/27/17 03/27/17 03/27/17 06:00 10:00 11:13 Breakfast Temperature 97.9 F 99.5 F 101.1 F H 03/27/17 03/27/17 13:52 14:27 Breakfast 75% Temperature 99.8 F H Continue diet as ordered for now. Add Magic cup?
--- NOTE | 2017-03-27 15:07 | PN ---
Progress Note (short form) - Note Progress Note: Oncology Note: Pt with [facility] amongst other medical problems. chart reviewed, 's prior consultation reviewed too. Events noted. O/E: General: Drowsy, sleepy HEENT: Pale, NCAT Abdomen: TTP Lungs: poor inspiratory effort LE: +edema Last Vital Signs Temp Pulse Resp BP Pulse Ox 99.8 F H 62 17 121/61 95 03/27/17 14:27 03/27/17 10:00 03/27/17 10:00 03/27/17 10:00 03/27/17 09:00 CBC, BMP 03/24/17 10:08 03/25/17 12:00 Current Medications Generic Name Dose Route Start Last Admin Trade Name Freq PRN Reason Stop Dose Admin Albuterol/Ipratropium 1 amp 03/26/17 08:58 03/27/17 12:45 Duoneb - NEB 1 amp RQID MAHENDRA Administration Furosemide 40 mg 03/25/17 14:00 03/27/17 13:35 Lasix - PO 40 mg BID@0600,1400 MAHENDRA Administration Insulin Aspart 1 vial 03/23/17 07:00 03/27/17 11:40 Novolog Vial Sliding Scale - SQ 4 units ACHS MAHENDRA Administration Protocol Isosorbide Mononitrate 30 mg 03/26/17 10:00 03/27/17 09:45 Imdur - PO 30 mg DAILY MAHENDRA Administration Lactulose 20 gm 03/23/17 10:00 03/27/17 09:45 Cephulac (Oral Use) PO 20 gm BID MAHENDRA Administration Linezolid 600 mg 03/25/17 22:00 03/27/17 09:48 Zyvox (Restricted To Id) - PO 600 mg BID MAHENDRA Administration Nadolol 10 mg 03/23/17 10:00 03/27/17 09:45 Corgard - PO 10 mg DAILY MAHENDRA Administration Oxycodone HCl 2.5 mg 03/24/17 00:03 03/26/17 13:15 Roxicodone - PO 2.5 mg Q4H PRN Administration PAIN Rifaximin 550 mg 03/23/17 10:00 03/27/17 09:47 Xifaxan - PO 550 mg BID MAHENDRA Administration Senna 8.8 mg 03/23/17 22:00 03/26/17 22:06 Senna Oral Solution - PO 8.8 mg HS MAHENDRA Administration Spironolactone 25 mg 03/23/17 10:00 03/27/17 09:45 Aldactone - PO 25 mg BID MAHENDRA Administration Tamsulosin HCl 0.4 mg 03/23/17 08:30 03/27/17 08:50 Flomax - PO 0.4 mg DAILY@0830 MAHENDRA Administration Warfarin Sodium 5 mg 03/25/17 18:00 03/26/17 19:57 Coumadin - PO 03/30/17 18:01 5 mg DAILY@1800 MAHENDRA Administration advanced liver disease, cirrhosis,advanced prostate cancer, off of Xtandi, with several weeks of immobility,comes in with ?chest pain , h/o decompensted liver disease, afib on coumadin , failure to thrive at bedside, but unfortunately she couldn't provide much info called son X3, no answer (tried from pt's 's phone too ) Could not reach the daughter on her cell phone or home phone as listed. as noted prior , taking into consideration his ECOG PS/co-morbidities/their unwillingness to take xtandi, uncertain if just Leupron would help. This was communicated with the daughter last admission too. Discussed this , who is also presently consulted and is willing to see and talk to the family. Rest per primary/ID
--- NOTE | 2017-03-27 16:18 | CONS ---
DATE OF CONSULTATION: DATE OF DICTATION: 03/27/2017 HISTORY OF PRESENT ILLNESS: This is an 86-year-old male admitted via the emergency room on March 22, 2017. The patient has dementia and does not speak Irish. History has been obtained from family and from medical records. The patient does have a history of metastatic prostate cancer. He has undergone spot radiation to the spine and left hip. He has also undergone spot radiation to the ischial bones. The patient has failed total androgen ablation, including Lupron and Casodex. He also has a history of cirrhosis of the liver, diabetes, high blood pressure, and atrial fibrillation (for which he takes Coumadin). He does have a heart block; he is status post a ventricular pacemaker. He has a chronic indwelling catheter, changed every 2 weeks at the long term. Recently he has been complaining of chest pain, which increased in intensity on the day of admission. He has had recent admissions for progressive weakness and lethargy. For the past several weeks the patient has been unable to ambulate. The family was with him and pointed out that he also complains of substernal chest pain. The family also said that he has been coughing, with a greenish discharge. There is no history of fever, chills, flank pain, nausea or vomiting. PAST MEDICAL HISTORY: The patient has a significant past history of alcoholic liver disease. He also had portal venous thrombosis. He has been endoscoped and was found with esophageal varices, which had been banded recently due to bleeding. He also has history of hepatic encephalopathy. He has been on lactulose. PHYSICAL EXAMINATION: Vital Signs: On admission, the patient was afebrile. His vital signs were stable. Genitourinary: Presently the patient had a Bonilla catheter that is patent. Genitalia are atraumatic. DIAGNOSTIC STUDIES: He presently has a white count of 4.8, hemoglobin 10, hematocrit 31.7, platelets 254. BUN 20, creatinine 0.6, random sugar 231. ASSESSMENT: History of metastatic prostate cancer. He is not on any therapy. It appears that the patient is getting physically weaker, and his metastatic disease has been progressing. PLAN: Recommend obtaining a bone scan, also obtaining a serum PSA. If there is increase in metastatic disease or his PSA is elevated, will recommend placing the patient on Zytiga and/or Xtandi with prednisone. This is the second course of treatment for androgen-resistant metastatic prostate cancer. I will follow with you. Nga [id number]
--- NOTE | 2017-03-27 16:29 | PN ---
Progress Note, Physician Chief Complaint: UTI, metastatic prostate Ca History of Present Illness: NAD, in bed, at bedside lethargic today poor po intake - Current Medication List Current Medications: Active Medications Albuterol/Ipratropium (Duoneb -) 1 amp NEB RQID [facility] Last Admin: 03/27/17 12:45 Dose: 1 amp Furosemide (Lasix -) 40 mg PO BID@0600,1400 [facility] Last Admin: 03/27/17 13:35 Dose: 40 mg Insulin Aspart (Novolog Vial Sliding Scale -) 1 vial SQ ACHS [facility] PRN Reason: Protocol Last Admin: 03/27/17 11:40 Dose: 4 units Isosorbide Mononitrate (Imdur -) 30 mg PO DAILY [facility] Last Admin: 03/27/17 09:45 Dose: 30 mg Lactulose (Cephulac (Oral Use)) 20 gm PO BID [facility] Last Admin: 03/27/17 09:45 Dose: 20 gm Linezolid (Zyvox (Restricted To Id) -) 600 mg PO BID [facility] Last Admin: 03/27/17 09:48 Dose: 600 mg Nadolol (Corgard -) 10 mg PO DAILY [facility] Last Admin: 03/27/17 09:45 Dose: 10 mg Oxycodone HCl (Roxicodone -) 2.5 mg PO Q4H PRN PRN Reason: PAIN Last Admin: 03/26/17 13:15 Dose: 2.5 mg Rifaximin (Xifaxan -) 550 mg PO BID [facility] Last Admin: 03/27/17 09:47 Dose: 550 mg Senna (Senna Oral Solution -) 8.8 mg PO HS [facility] Last Admin: 03/26/17 22:06 Dose: 8.8 mg Spironolactone (Aldactone -) 25 mg PO BID [facility] Last Admin: 03/27/17 09:45 Dose: 25 mg Tamsulosin HCl (Flomax -) 0.4 mg PO DAILY@0830 [facility] Last Admin: 03/27/17 08:50 Dose: 0.4 mg Warfarin Sodium (Coumadin -) 5 mg PO DAILY@1800 [facility] Stop: 03/30/17 18:01 Last Admin: 03/26/17 19:57 Dose: 5 mg - Objective Vital Signs: Vital Signs Temperature 99.8 F H 03/27/17 14:27 Pulse Rate 62 03/27/17 10:00 Respiratory Rate 17 03/27/17 10:00 Blood Pressure 121/61 03/27/17 10:00 O2 Sat by Pulse Oximetry (%) 95 03/27/17 09:00 Constitutional: Yes: Well Nourished, No Distress, Calm Cardiovascular: Yes: Regular Rate and Rhythm Respiratory: Yes: Regular Musculoskeletal: Yes: Muscle Weakness Extremities: Yes: WNL Neurological: Yes: Lethargy Labs: CBC, BMP 03/24/17 10:08 03/25/17 12:00 INR, PTT INR 1.98 (0.82-1.09) H 03/27/17 06:30 Problem List - Problems (1) Atrial fibrillation Assessment/Plan: -on warfarin -daily INR checks -therapeutic today Code(s): I48.91 - UNSPECIFIED ATRIAL FIBRILLATION Qualifiers: Atrial fibrillation type: chronic Qualified Code(s): I48.2 - Chronic atrial fibrillation (2) Hepatic encephalopathy Assessment/Plan: -on lactulose and Rifaximin -seen by GI Code(s): K72.90 - HEPATIC FAILURE, UNSPECIFIED WITHOUT COMA (3) Prostate carcinoma Assessment/Plan: -seen by urology -Bonilla catheter changed -PSA levels -bone scan -has not been able to tolerate chemotherapy, unable to swallow Xtandi, unable to receive leupron due to cost, unable to f/u with oncology in the office Code(s): C61 - MALIGNANT NEOPLASM OF PROSTATE (4) UTI (urinary tract infection) Assessment/Plan: -Bonilla catheter -seen by ID -IV abx Code(s): N39.0 - URINARY TRACT INFECTION, SITE NOT SPECIFIED Qualifiers: Urinary tract infection type: site unspecified Hematuria presence: with hematuria Qualified Code(s): N39.0 - Urinary tract infection, site not specified (5) Diabetes 1.5, managed as type 2 Assessment/Plan: -poor PO intake -BGM -insulin sliding scale Code(s): E10.9 - TYPE 1 DIABETES MELLITUS WITHOUT COMPLICATIONS Assessment/Plan see problem list overall poor prognosis
[2017-03-27] MEDS: WARFARIN NA 5 MG TABLET (UD) PO SCH (17:04)
[2017-03-27] MEDS: SENNOSIDES 8.8 MG/5 ML BULK BOTTLE PO SCH (23:23)
[2017-03-28] MEDS: FUROSEMIDE 40 MG TABLET (FP) PO SCH ×2 (05:45→13:18)
[2017-03-28] MEDS: INSULIN SLIDING SCALE (NOVOLOG) 1 VIAL SQ SCH ×4 (06:16→22:23)
[2017-03-28 07:36] LABS: BASO % 0.5 % (0-2.0); EOS % 0.5 % (0-4.5); HEMATOCRIT 31.9 % (35.4-49); HEMOGLOBIN 10.1 GM/dL (11.7-16.9); MCH 25.4 pg (25.7-33.7); MCHC 31.6 g/dl (32.0-35.9); MEAN CELL VOLUME 80.5 fl (80-96); MEAN PLT VOLUME 7.9 fl (7.5-11.1); MONO % 11.3 % (3.8-10.2); NEUT % 74.7 % (42.8-82.8); PLATELET COUNT 225 K/MM3 (134-434); RBC 3.96 M/mm3 (4.00-5.60); RDW 18.5 % (11.9-15.9); WHITE BLOOD COUNT 6.6 K/mm3 (4.0-10.0)
[2017-03-28 07:50] LABS: INR 2.45 (0.82-1.09); PROTHROMBIN TIME (PATIENT) 27.7 SEC (9.98-11.88)
[2017-03-28] MEDS: ALBUTEROL SO4 2.5/IPRATROPIUM 0.5 INH SOL 3 ML VIAL.NEB. NEB SCH ×4 (08:15→20:45)
[2017-03-28 08:18] LABS: ALBUMIN 2.1 g/dl (3.4-5.0); ANION GAP 10 (8-16); BLOOD UREA NITROGEN 22 mg/dL (7-18); CALCIUM 7.7 mg/dL (8.5-10.1); CHLORIDE 100 mmol/L (98-107); CO2 27 mmol/L (21-32); GLUCOSE,RANDOM 224 mg/dL (74-106); POTASSIUM 3.8 mmol/L (3.5-5.1); SODIUM 137 mmol/L (136-145)
[2017-03-28 08:24] LABS: ALK PHOS 417 U/L (45-117); BILIRUBIN,TOTAL 0.7 mg/dL (0.2-1.0); CREATININE 0.5 mg/dL (0.7-1.3); SGOT/AST 32 U/L (15-37); SGPT/ALT 19 U/L (12-78); TOT PROT 5.8 g/dl (6.4-8.2)
[2017-03-28] MEDS ORDERED: PT OWN MED DRAWER 7, Y5N ONE ×2 (09:50→22:19)
[2017-03-28] MEDS: NADOLOL 20 MG TABLET (FP) PO SCH (09:58)
[2017-03-28] MEDS: SPIRONOLACTONE 25 MG TABLET (FP) PO SCH ×2 (09:58→22:22)
[2017-03-28] MEDS: TAMSULOSIN HCL 0.4 MG CAP.ER.24H (FP) PO SCH (09:58)
[2017-03-28] MEDS: LACTULOSE 20 GM/30 ML UDC (FOR ORAL USE ONLY) PO SCH ×2 (09:58→22:22)
[2017-03-28] MEDS: ISOSORBIDE MONONITRATE 30 MG TAB.SR.24H (FP) PO SCH (09:58)
[2017-03-28] MEDS: oxyCODONE HCL 5 MG TABLET PO PRN (09:59)
[2017-03-28] MEDS: LINEZOLID 600 MG TABLET (RESTRICTED TO ID) PO SCH ×2 (09:59→22:24)
[2017-03-28] MEDS: RIFAXIMIN 550 MG TABLET (UD) PO SCH ×2 (09:59→22:22)
--- NOTE | 2017-03-28 10:52 | CON.GI ---
Consult Consult Specialty:: GI: Dr. Sanders covering for Dr. Lainez Referred by:: Kwan Joshua NP Reason for Consultation:: Cirrhosis - History of Present Illness Chief Complaint: Admitted 03/22 for left rib pain History of Present Illness: 86M is admitted from [facility] 03/22 for evaluation of left sided rib pain. He has suspected metastatic disease to his ribs. He was recently admitted 03/03 at which time he was treated for encephalopathy and UTI. Seen in 2012 at [facility] at which time acute portal vein thrombosis was suspected. He was transferred to [facility] at that time and ? if EGD with banding followed by initiation of anticoagulation was performed. Called to evaluate for chronic liver disease. He has had an upper endoscopy since that time (deferred by his daughter as has paracentesis). He denies any abdominal pain. He is having BM's per his nurse. There has been no reported melena / rectal bleeding. - History Source History Provided By: Medical Record - Past Medical History RN MEDICAL SURGICAL: Yes: Dementia, Other Cardio/Vascular: Yes: Other (complete heart block requiring a pacemaker) Gastrointestinal: Yes: Ascites, Esophageal Varices, GI Bleed Hepatobiliary: Yes: Cirrhosis, Other (portal vein thrombosis) Renal/: Yes: BPH, Cancer Musculoskeletal: Yes: Chronic low back pain Endocrine: Yes: Diabetes Mellitus - Past Surgical History Past Surgical History: Yes: Arthrosocopy, Colonoscopy, Hernia Repair, Permanent Pacemaker, Upper Endoscopy - Alcohol/Substance Use Hx Alcohol Use: Yes (quit 2001) History of Substance Use: reports: None - Smoking History Smoking history: Never smoked Have you smoked in the past 12 months: No Aproximately how many cigarettes per day: 0 - Social History Usual Living Arrangement: [facility] ADL: Family Assistance Occupation: retired [employer] Place of : Other ([facility]) History of Recent Travel: No Home Medications - Allergies Allergies/Adverse Reactions: Allergies Allergy/AdvReac Type Severity Reaction Status Date / Time No Known Allergies Allergy Verified 03/22/17 16:10 - Home Medications Home Medications: Ambulatory Orders Aa/Hydrolyzed Collagen, Whey [Lps 15-30 Liquid] 30 ml PO BID 03/22/17 Albuterol 2.5/Ipratropium 0.5 [Duoneb -] 1 neb NEB QID 03/22/17 Furosemide [Lasix] 40 mg PO BID 03/22/17 Glimepiride [Amaryl -] 2 mg PO DAILY 03/22/17 Insulin Lispro [Humalog] 0 unit SQ ASDIR 03/22/17 Lactulose 20 gm PO BID 03/22/17 Nadolol 20 mg PO DAILY 03/22/17 Polyethylene Glycol 3350 [Miralax 119 gm Btl -] 17 gm PO DAILY 03/22/17 Rifaximin [Xifaxan] 550 mg PO BID 03/22/17 Spironolactone [Aldactone] 25 mg PO BID 03/22/17 Tamsulosin HCl 0.4 mg PO DAILY 03/22/17 Warfarin Na [Coumadin -] 6 mg PO DAILY 03/22/17 Isosorbide Mononitrate [Imdur -] 30 mg PO DAILY #20 tab.sr.24h MDD 1 03/25/17 Linezolid [Zyvox (Restricted To Id) -] 600 mg PO BID #14 tablet MDD 2 03/25/17 Pantoprazole Sodium [Protonix -] 20 mg PO DAILY #7 tablet.ec 03/25/17 Family Disease History - Family Disease History Family Disease History: Diabetes: Brother (protate cancer), CA: Brother Physical Exam-GI Vital Signs: Vital Signs Temperature 98.6 F 03/28/17 06:00 Pulse Rate 65 03/28/17 08:15 Respiratory Rate 16 03/28/17 06:00 Blood Pressure 112/55 03/28/17 06:00 O2 Sat by Pulse Oximetry (%) 96 03/28/17 08:15 Constitutional: Yes: Calm Eyes: No: Sclera Icterus Cardiovascular: Yes: Regular Rate and Rhythm, Murmur Respiratory: Yes: Diminished (at bases b/l with poor insp effort) Gastrointestinal Inspection: Yes: Distention (softly prtuberant) ...Auscultate: Yes: Normoactive Bowel Sounds ...Palpate: Yes: Soft. No: Tenderness Neurological: Yes: Alert Labs: CBC, BMP 03/28/17 06:00 03/28/17 06:00 INR, PTT INR 2.45 (0.82-1.09) H 03/28/17 06:00 Hepatic Panel Total Bilirubin 0.7 mg/dL (0.2-1.0) D 03/28/17 06:00 AST 32 U/L (15-37) 03/28/17 06:00 ALT 19 U/L (12-78) 03/28/17 06:00 Alkaline Phosphatase 417 U/L (45-117) H 03/28/17 06:00 Albumin 2.1 g/dl (3.4-5.0) L 03/28/17 06:00 Problem List - Problems (1) Cirrhosis of liver Assessment/Plan: With sequelae of portal vein thrombosis on anticoagulation (suspected acute in 2012), ascites and encephalopathy Not a transplant candidate given advanced age and metastatic cancer Supportive measures: 1. Continue rifaximin and lactulose. titrate lactulose for 3-4 loose BM's per day 2. Q 6 month liver US and AFP to screen for HCC 3. 2g low sodium diet and minimize sodium loads in IV medications 4. Overall poor prognosis given multple comorbidities. Mr. Tyson' daughter is aware of the potential fatal bleeding complications of varices in setting of anticoagulation. 5. Follow-up with Dr. Lainez as an outpatient when able Recall as needed Code(s): K74.60 - UNSPECIFIED CIRRHOSIS OF LIVER Qualifiers: Hepatic cirrhosis type: unspecified hepatic cirrhosis
--- NOTE | 2017-03-28 11:57 | PN ---
Progress Note, DIRECTOR OF PSYCHIATRY - Note Progress Note: Pt slept most of day yesterday but much more alert today. Tolerated diet without overt signs of aspiration. Selected Entries 03/28/17 03/28/17 01:43 06:00 Temperature 97.4 F L 98.6 F Laboratory Tests 03/28/17 06:00 WBC 6.6 D Pt receiving Glucerna. Consider adding Magic cup? Pt generally accepts 50% of meals. F/u by FRANCISCO J.
--- NOTE | 2017-03-28 12:48 | PN ---
Progress Note, Physician Chief Complaint: patient seen in radiology getting bone scan awake alert calm responding to his name - Current Medication List Current Medications: Active Medications Albuterol/Ipratropium (Duoneb -) 1 amp NEB RQID [facility] Last Admin: 03/28/17 08:15 Dose: 1 amp Furosemide (Lasix -) 40 mg PO BID@0600,1400 [facility] Last Admin: 03/28/17 05:45 Dose: 40 mg Insulin Aspart (Novolog Vial Sliding Scale -) 1 vial SQ ACHS [facility] PRN Reason: Protocol Last Admin: 03/28/17 06:16 Dose: 2 units Isosorbide Mononitrate (Imdur -) 30 mg PO DAILY [facility] Last Admin: 03/28/17 09:58 Dose: 30 mg Lactulose (Cephulac (Oral Use)) 20 gm PO BID [facility] Last Admin: 03/28/17 09:58 Dose: 20 gm Linezolid (Zyvox (Restricted To Id) -) 600 mg PO BID [facility] Last Admin: 03/28/17 09:59 Dose: 600 mg Nadolol (Corgard -) 10 mg PO DAILY [facility] Last Admin: 03/28/17 09:58 Dose: 10 mg Oxycodone HCl (Roxicodone -) 2.5 mg PO Q4H PRN PRN Reason: PAIN Last Admin: 03/28/17 09:59 Dose: 2.5 mg Rifaximin (Xifaxan -) 550 mg PO BID [facility] Last Admin: 03/28/17 09:59 Dose: 550 mg Senna (Senna Oral Solution -) 8.8 mg PO HS [facility] Last Admin: 03/27/17 23:23 Dose: Not Given Spironolactone (Aldactone -) 25 mg PO BID [facility] Last Admin: 03/28/17 09:58 Dose: 25 mg Tamsulosin HCl (Flomax -) 0.4 mg PO DAILY@0830 [facility] Last Admin: 03/28/17 09:58 Dose: 0.4 mg Warfarin Sodium (Coumadin -) 5 mg PO DAILY@1800 [facility] Stop: 03/30/17 18:01 Last Admin: 03/27/17 17:04 Dose: 5 mg - Objective Vital Signs: Vital Signs Temperature 98.1 F 03/28/17 10:00 Pulse Rate 67 03/28/17 10:00 Respiratory Rate 18 03/28/17 10:00 Blood Pressure 123/63 03/28/17 10:00 O2 Sat by Pulse Oximetry (%) 96 03/28/17 09:00 Constitutional: Yes: Calm Cardiovascular: Yes: Pulse Irregular, S1, S2 Respiratory: Yes: CTA Bilaterally, Diminished (at bases) Gastrointestinal: Yes: Normal Bowel Sounds, Soft Genitourinary: Yes: Bonilla Present Labs: CBC, BMP 03/28/17 06:00 03/28/17 06:00 INR, PTT INR 2.45 (0.82-1.09) H 03/28/17 06:00 Problem List - Problems (1) FH: prostate carcinoma Assessment/Plan: bone scan done awaiting report dr street consulted -per family wishes- awaiting consult patient unable to take xtandi and cannot come to office for [place]upron injections from [place] PSA level pending as well Code(s): Z80.42 - FAMILY HISTORY OF MALIGNANT NEOPLASM OF PROSTATE (2) Atrial fibrillation Assessment/Plan: on coumadin inr 2.45 Code(s): I48.91 - UNSPECIFIED ATRIAL FIBRILLATION Qualifiers: Atrial fibrillation type: chronic Qualified Code(s): I48.2 - Chronic atrial fibrillation (3) UTI (urinary tract infection) Assessment/Plan: 3 more days of linezolid to complete the course has VRE in urine Code(s): N39.0 - URINARY TRACT INFECTION, SITE NOT SPECIFIED Qualifiers: Urinary tract infection type: site unspecified Hematuria presence: with hematuria Qualified Code(s): N39.0 - Urinary tract infection, site not specified Assessment/Plan followed by tamika fischer and noryign 50% of the meals on glucerna will add magic cup
[2017-03-28] MEDS: WARFARIN NA 5 MG TABLET (UD) PO SCH (17:24)
[2017-03-28] MEDS: SENNOSIDES 8.8 MG/5 ML BULK BOTTLE PO SCH (22:23)
[2017-03-29] MEDS: INSULIN SLIDING SCALE (NOVOLOG) 1 VIAL SQ SCH ×4 (06:50→23:06)
[2017-03-29] MEDS: FUROSEMIDE 40 MG TABLET (FP) PO SCH ×2 (06:50→17:18)
[2017-03-29] MEDS: ALBUTEROL SO4 2.5/IPRATROPIUM 0.5 INH SOL 3 ML VIAL.NEB. NEB SCH ×4 (07:30→21:25)
[2017-03-29] MEDS ORDERED: PT OWN MED DRAWER 7, Y5N ONE ×2 (10:32→22:53)
[2017-03-29] MEDS: SPIRONOLACTONE 25 MG TABLET (FP) PO SCH ×2 (10:59→22:59)
[2017-03-29] MEDS: TAMSULOSIN HCL 0.4 MG CAP.ER.24H (FP) PO SCH (10:59)
[2017-03-29] MEDS: RIFAXIMIN 550 MG TABLET (UD) PO SCH ×2 (10:59→22:59)
[2017-03-29] MEDS: NADOLOL 20 MG TABLET (FP) PO SCH (10:59)
[2017-03-29] MEDS: LACTULOSE 20 GM/30 ML UDC (FOR ORAL USE ONLY) PO SCH ×2 (11:00→23:06)
[2017-03-29] MEDS: LINEZOLID 600 MG TABLET (RESTRICTED TO ID) PO SCH ×2 (11:00→23:06)
[2017-03-29] MEDS: ISOSORBIDE MONONITRATE 30 MG TAB.SR.24H (FP) PO SCH (11:00)
[2017-03-29] MEDS ORDERED: INSULIN (NOVOLOG) ASPART 100 UNITS/ML 10ML VIAL ONE (11:56)
--- NOTE | 2017-03-29 12:13 | PN ---
Progress Note, Physician Chief Complaint: [phone] is daughter cell phone called her regarding further care - wants everything done and try whatever treatment there is for the cancer bone scan report is pending PSA is elevated call placed to dr meek stewart regarding treatment options- explained to daughter that zytiga cannot be crushed or chewed and patient is cirrhotic as well dr street will call family to discuss but daughter says that Yadi hd given up hope on the patient before and she wants treatment done and will not give up on her father she doesnot want hospice or comfort care patient continues to spke fever will order cultures and CXR - Current Medication List Current Medications: Active Medications Albuterol/Ipratropium (Duoneb -) 1 amp NEB RQID [facility] Last Admin: 03/29/17 07:30 Dose: 1 amp Furosemide (Lasix -) 40 mg PO BID@0600,1400 [facility] Last Admin: 03/29/17 06:50 Dose: 40 mg Insulin Aspart (Novolog Vial Sliding Scale -) 1 vial SQ ACHS [facility] PRN Reason: Protocol Last Admin: 03/29/17 06:50 Dose: 2 units Isosorbide Mononitrate (Imdur -) 30 mg PO DAILY [facility] Last Admin: 03/29/17 11:00 Dose: 30 mg Lactulose (Cephulac (Oral Use)) 20 gm PO BID [facility] Last Admin: 03/29/17 11:00 Dose: 20 gm Linezolid (Zyvox (Restricted To Id) -) 600 mg PO BID [facility] Last Admin: 03/29/17 11:00 Dose: 600 mg Nadolol (Corgard -) 10 mg PO DAILY [facility] Last Admin: 03/29/17 10:59 Dose: 10 mg Oxycodone HCl (Roxicodone -) 2.5 mg PO Q4H PRN PRN Reason: PAIN Last Admin: 03/28/17 09:59 Dose: 2.5 mg Rifaximin (Xifaxan -) 550 mg PO BID [facility] Last Admin: 03/29/17 10:59 Dose: 550 mg Senna (Senna Oral Solution -) 8.8 mg PO HS [facility] Last Admin: 03/28/17 22:23 Dose: 8.8 mg Spironolactone (Aldactone -) 25 mg PO BID [facility] Last Admin: 03/29/17 10:59 Dose: 25 mg Tamsulosin HCl (Flomax -) 0.4 mg PO DAILY@0830 [facility] Last Admin: 03/29/17 10:59 Dose: 0.4 mg Warfarin Sodium (Coumadin -) 5 mg PO DAILY@1800 [facility] Stop: 03/30/17 18:01 Last Admin: 03/28/17 17:24 Dose: 5 mg - Objective Vital Signs: Vital Signs Temperature 101.1 F H 03/29/17 10:00 Pulse Rate 65 03/29/17 10:00 Respiratory Rate 03/29/17 10:00 Blood Pressure 114/61 03/29/17 10:00 O2 Sat by Pulse Oximetry (%) 93 L 03/28/17 21:00 Constitutional: Yes: Calm Cardiovascular: Yes: Regular Rate and Rhythm, S1, S2 Respiratory: Yes: Diminished Gastrointestinal: Yes: Normal Bowel Sounds, Soft Neurological: Yes: Alert Labs: CBC, BMP 03/28/17 06:00 03/28/17 06:00 INR, PTT INR 2.45 (0.82-1.09) H 03/28/17 06:00 Problem List - Problems (1) Fever Assessment/Plan: cxr to r/o aspiration if noted on cxr then will change to nectar thick liquids blood culture and urine culture leobardo get urology to come and see patient and get urine sample ID to see patient again patient is almost completing zyvox course for VRE in urine Code(s): R50.9 - FEVER, UNSPECIFIED (2) FH: prostate carcinoma Assessment/Plan: bone scan done awaiting report dr street will call family today patient unable to take xtandi and cannot come to office for leupron injections from the [place] PSA level elevated placed a call to urology to dr stewart to discuss treatment options- he had recommended xtandi with prednisione but patient cannot swallow that and the other medication zytiga cannot be crushed or cut and plus patient is cirrhotic daughter does not want comfort care and says [facility] is too far for her to go to and she doesnot want hospice care Code(s): Z80.42 - FAMILY HISTORY OF MALIGNANT NEOPLASM OF PROSTATE (3) Atrial fibrillation Assessment/Plan: on coumadin inr pending for today Code(s): I48.91 - UNSPECIFIED ATRIAL FIBRILLATION Qualifiers: Atrial fibrillation type: chronic Qualified Code(s): I48.2 - Chronic atrial fibrillation (4) UTI (urinary tract infection) Assessment/Plan: 3 more days of linezolid to complete the course has VRE in urine Code(s): N39.0 - URINARY TRACT INFECTION, SITE NOT SPECIFIED Qualifiers: Urinary tract infection type: site unspecified Hematuria presence: with hematuria Qualified Code(s): N39.0 - Urinary tract infection, site not specified (5) Cirrhosis of liver Assessment/Plan: rifamxin and lactulose nadolol for varices Code(s): K74.60 - UNSPECIFIED CIRRHOSIS OF LIVER Qualifiers: Hepatic cirrhosis type: unspecified hepatic cirrhosis (6) Urinary retention Assessment/Plan: [email or web address] follow up Code(s): R33.9 - RETENTION OF URINE, UNSPECIFIED
--- NOTE | 2017-03-29 12:23 | PN ---
Progress Note, TOOLING MECH[employer]IC - Note Progress Note: Selected Entries 03/28/17 03/28/17 03/28/17 01:43 06:00 10:00 Breakfast Lunch Temperature 97.4 F L 98.6 F 98.1 F 03/28/17 03/28/17 03/28/17 15:24 15:25 18:00 Breakfast 50% Lunch 50% Temperature 97.3 F L 97.8 F 03/28/17 03/29/17 03/29/17 21:00 02:00 05:11 Breakfast Lunch Temperature 98.3 F 102.2 F H 100.4 F H 03/29/17 10:00 Breakfast Lunch Temperature 101.1 F H Laboratory Tests 03/28/17 06:00 WBC 6.6 D Once in a while pt coughs on thin liquid. Discussed case with PMD. CXR will be ordered. If infiltrates/congestion, may downgrade thin liquid to nectar thick.
[2017-03-29 13:16] LABS: BASO % 0.4 % (0-2.0); EOS % 0.5 % (0-4.5); HEMATOCRIT 32.1 % (35.4-49); HEMOGLOBIN 10.2 GM/dL (11.7-16.9); LYMPH % 14.4 % (8-40); MCH 25.2 pg (25.7-33.7); MCHC 31.6 g/dl (32.0-35.9); MEAN CELL VOLUME 79.7 fl (80-96); MEAN PLT VOLUME 7.8 fl (7.5-11.1); MONO % 12.2 % (3.8-10.2); NEUT % 72.5 % (42.8-82.8); PLATELET COUNT 255 K/MM3 (134-434); RBC 4.03 M/mm3 (4.00-5.60); RDW 18.4 % (11.9-15.9); WHITE BLOOD COUNT 6.6 K/mm3 (4.0-10.0)
--- NOTE | 2017-03-29 13:24 | PN ---
Progress Note (short form) - Note Progress Note: spoke to dr ascencio he leobardo come and see the patient and he has ordered zytiga for the patient from outside pharmacy and once it come he will give it to patient he will come today to change garcía and give urine sample as patient spiking fever plan of care 1>zytiga for metastic prostate cancer- urology has ordered the medication from outside pharmacy 2>fever: herman cx and cxr to r/o aspiration Problem List - Problems (1) Fever Code(s): R50.9 - FEVER, UNSPECIFIED (2) FH: prostate carcinoma Code(s): Z80.42 - FAMILY HISTORY OF MALIGNANT NEOPLASM OF PROSTATE (3) Atrial fibrillation Code(s): I48.91 - UNSPECIFIED ATRIAL FIBRILLATION Qualifiers: Atrial fibrillation type: chronic Qualified Code(s): I48.2 - Chronic atrial fibrillation (4) UTI (urinary tract infection) Code(s): N39.0 - URINARY TRACT INFECTION, SITE NOT SPECIFIED Qualifiers: Urinary tract infection type: site unspecified Hematuria presence: with hematuria Qualified Code(s): N39.0 - Urinary tract infection, site not specified (5) Cirrhosis of liver Code(s): K74.60 - UNSPECIFIED CIRRHOSIS OF LIVER Qualifiers: Hepatic cirrhosis type: unspecified hepatic cirrhosis (6) Urinary retention Code(s): R33.9 - RETENTION OF URINE, UNSPECIFIED
[2017-03-29 13:50] LABS: INR 2.61 (0.82-1.09); PROTHROMBIN TIME (PATIENT) 29.5 SEC (9.98-11.88)
[2017-03-29 14:16] LABS: ANION GAP 13 (8-16); BLOOD UREA NITROGEN 20 mg/dL (7-18); CALCIUM 8.1 mg/dL (8.5-10.1); CHLORIDE 94 mmol/L (98-107); CO2 29 mmol/L (21-32); CREATININE 0.6 mg/dL (0.7-1.3); GLUCOSE,RANDOM 270 mg/dL (74-106); POTASSIUM 3.7 mmol/L (3.5-5.1); SODIUM 136 mmol/L (136-145)
--- NOTE | 2017-03-29 15:30 | PN ---
GI Progress Note Subjective: GI NOte: Remains confused. Ammonia level 16. He does respond to simple questions for his and calls her by her name. - Objective Vital Signs: Vital Signs Temperature 101.1 F H 03/29/17 10:00 Pulse Rate 67 03/29/17 15:08 Respiratory Rate 18 03/29/17 15:08 Blood Pressure 104/59 03/29/17 15:08 O2 Sat by Pulse Oximetry (%) 93 L 03/29/17 09:00 Constitutional: Calm ...Auscultate: Yes: Normoactive Bowel Sounds ...Palpate: Yes: Soft, Other (nontender) Labs: CBC, BMP 03/29/17 12:24 03/29/17 12:24 INR, PTT INR 2.61 (0.82-1.09) H 03/29/17 12:24 Problem List - Problems (1) Cirrhosis of liver Code(s): K74.60 - UNSPECIFIED CIRRHOSIS OF LIVER Qualifiers: Hepatic cirrhosis type: unspecified hepatic cirrhosis (2) Hepatic encephalopathy Assessment/Plan: Suspect confusion is more likely OMS than hepatic encephalopathy. Will continue same dosages of lactulose and xifaxan. Code(s): K72.90 - HEPATIC FAILURE, UNSPECIFIED WITHOUT COMA (3) Portal vein thrombosis Code(s): I81 - PORTAL VEIN THROMBOSIS
--- NOTE | 2017-03-29 17:08 | PN ---
Progress Note, Physician History of Present Illness: Poorly responsive Febrile 102.2 on Zyvox for VRE UTI CXR shows LLL infiltrate Breathing non-labored - Current Medication List Current Medications: Active Medications Albuterol/Ipratropium (Duoneb -) 1 amp NEB RQID [facility] Last Admin: 03/29/17 12:53 Dose: 1 amp Furosemide (Lasix -) 40 mg PO BID@0600,1400 [facility] Last Admin: 03/29/17 06:50 Dose: 40 mg Insulin Aspart (Novolog Vial Sliding Scale -) 1 vial SQ ACHS [facility] PRN Reason: Protocol Last Admin: 03/29/17 12:37 Dose: 4 units Isosorbide Mononitrate (Imdur -) 30 mg PO DAILY [facility] Last Admin: 03/29/17 11:00 Dose: 30 mg Lactulose (Cephulac (Oral Use)) 20 gm PO BID [facility] Last Admin: 03/29/17 11:00 Dose: 20 gm Linezolid (Zyvox (Restricted To Id) -) 600 mg PO BID [facility] Last Admin: 03/29/17 11:00 Dose: 600 mg Nadolol (Corgard -) 10 mg PO DAILY [facility] Last Admin: 03/29/17 10:59 Dose: 10 mg Oxycodone HCl (Roxicodone -) 2.5 mg PO Q4H PRN PRN Reason: PAIN Last Admin: 03/28/17 09:59 Dose: 2.5 mg Rifaximin (Xifaxan -) 550 mg PO BID [facility] Last Admin: 03/29/17 10:59 Dose: 550 mg Senna (Senna Oral Solution -) 8.8 mg PO HS [facility] Last Admin: 03/28/17 22:23 Dose: 8.8 mg Spironolactone (Aldactone -) 25 mg PO BID [facility] Last Admin: 03/29/17 10:59 Dose: 25 mg Tamsulosin HCl (Flomax -) 0.4 mg PO DAILY@0830 [facility] Last Admin: 03/29/17 10:59 Dose: 0.4 mg Warfarin Sodium (Coumadin -) 5 mg PO DAILY@1800 [facility] Stop: 03/30/17 18:01 Last Admin: 03/28/17 17:24 Dose: 5 mg - Objective Vital Signs: Vital Signs Temperature 101.1 F H 03/29/17 10:00 Pulse Rate 67 03/29/17 15:08 Respiratory Rate 18 03/29/17 15:08 Blood Pressure 104/59 03/29/17 15:08 O2 Sat by Pulse Oximetry (%) 93 L 03/29/17 09:00 Constitutional: Yes: No Distress Cardiovascular: Yes: Regular Rate and Rhythm, S1, S2 Respiratory: Yes: Diminished Gastrointestinal: Yes: Normal Bowel Sounds, Soft. No: Tenderness Edema: No Labs: CBC, BMP 03/29/17 12:24 03/29/17 12:24 INR, PTT INR 2.61 (0.82-1.09) H 03/29/17 12:24 Assessment/Plan Fever ? aspiration pneumonia VRE UTI Hepatic encephalopathy Chronic liver disease Metastatic prostate ca Await blood c/s Start empiric ceftriaxone
[2017-03-29] MEDS: WARFARIN NA 5 MG TABLET (UD) PO SCH (17:18)
[2017-03-29] MEDS: CEFTRIAXONE IN IS-OSM DEXTROSE 2 GM/50 ML BAG IVPB SCH (17:46)
[2017-03-29] MEDS: SENNOSIDES 8.8 MG/5 ML BULK BOTTLE PO SCH (22:59)
[2017-03-30] MEDS ORDERED: INSULIN (NOVOLOG) ASPART 100 UNITS/ML 10ML VIAL ONE ×5 (07:07→21:58)
[2017-03-30] MEDS: FUROSEMIDE 40 MG TABLET (FP) PO SCH ×2 (07:08→14:45)
[2017-03-30] MEDS: INSULIN SLIDING SCALE (NOVOLOG) 1 VIAL SQ SCH ×4 (07:08→22:02)
[2017-03-30] MEDS: ALBUTEROL SO4 2.5/IPRATROPIUM 0.5 INH SOL 3 ML VIAL.NEB. NEB SCH ×4 (08:30→20:15)
--- NOTE | 2017-03-30 09:02 | PN ---
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 He has had several recent admissions here for progressive weakness and decreased responsiveness. For the past several weeks he has been unable to ambulate. The family was with him earlier today when he pointed to his sternal region and complained of chest pain. EMS was called and was given 1 dose of nitroglycerin in the field. The family also reports that he has had increased cough since being discharged on 03/14. No fever or chills. No n/v/d. - Current Medication List Current Medications: Active Medications Albuterol/Ipratropium (Duoneb -) 1 amp NEB RQID [facility] Last Admin: 03/29/17 21:25 Dose: 1 amp Furosemide (Lasix -) 40 mg PO BID@0600,1400 [facility] Last Admin: 03/30/17 07:08 Dose: 40 mg CEFTRIAXONE IN IS-OSM DEXTROSE (Ceftriaxone 2 Gm-D5w Bag) 2 gm in 50 mls @ 100 mls/hr IVPB DAILY [facility] Last Admin: 03/29/17 17:46 Dose: 100 mls/hr Insulin Aspart (Novolog Vial Sliding Scale -) 1 vial SQ ACHS [facility] PRN Reason: Protocol Last Admin: 03/30/17 07:08 Dose: 2 units Isosorbide Mononitrate (Imdur -) 30 mg PO DAILY [facility] Last Admin: 03/29/17 11:00 Dose: 30 mg Lactulose (Cephulac (Oral Use)) 20 gm PO BID [facility] Last Admin: 03/29/17 23:06 Dose: 20 gm Linezolid (Zyvox (Restricted To Id) -) 600 mg PO BID [facility] Last Admin: 03/29/17 23:06 Dose: 600 mg Nadolol (Corgard -) 10 mg PO DAILY [facility] Last Admin: 03/29/17 10:59 Dose: 10 mg Oxycodone HCl (Roxicodone -) 2.5 mg PO Q4H PRN PRN Reason: PAIN Last Admin: 03/28/17 09:59 Dose: 2.5 mg Rifaximin (Xifaxan -) 550 mg PO BID [facility] Last Admin: 03/29/17 22:59 Dose: 550 mg Senna (Senna Oral Solution -) 8.8 mg PO HS [facility] Last Admin: 03/29/17 22:59 Dose: 8.8 mg Spironolactone (Aldactone -) 25 mg PO BID [facility] Last Admin: 03/29/17 22:59 Dose: 25 mg Tamsulosin HCl (Flomax -) 0.4 mg PO DAILY@0830 [facility] Last Admin: 03/29/17 10:59 Dose: 0.4 mg Warfarin Sodium (Coumadin -) 5 mg PO DAILY@1800 [facility] Stop: 03/30/17 18:01 Last Admin: 03/29/17 17:18 Dose: 5 mg - Objective Vital Signs: Vital Signs Temperature 97.5 F L 03/30/17 06:00 Pulse Rate 68 03/30/17 06:00 Respiratory Rate 18 03/30/17 06:00 Blood Pressure 116/66 03/30/17 06:00 O2 Sat by Pulse Oximetry (%) 93 L 03/29/17 09:00 Eyes: Yes: WNL, Conjunctiva Clear, EOM Intact HENT: Yes: WNL, Atraumatic, Normocephalic Neck: Yes: WNL, Supple, Trachea Midline Cardiovascular: Yes: Pulse Irregular, S1, S2 Respiratory: Yes: WNL, Regular, CTA Bilaterally Gastrointestinal: Yes: WNL, Normal Bowel Sounds Genitourinary: Yes: WNL Musculoskeletal: Yes: WNL Extremities: Yes: WNL Edema: No Integumentary: Yes: WNL Neurological: Yes: WNL, Alert, Oriented ...Motor Strength: WNL Psychiatric: Yes: WNL Labs: CBC, BMP 03/29/17 12:24 03/29/17 12:24 INR, PTT INR 2.61 (0.82-1.09) H 03/29/17 12:24 Problem List - Problems (1) Atrial fibrillation Code(s): I48.91 - UNSPECIFIED ATRIAL FIBRILLATION Qualifiers: Atrial fibrillation type: chronic Qualified Code(s): I48.2 - Chronic atrial fibrillation (2) Chest pain Code(s): R07.9 - CHEST PAIN, UNSPECIFIED Qualifiers: Chest pain type: other chest pain Qualified Code(s): R07.89 - Other chest pain; R07.8 - Other chest pain (3) Cirrhosis Code(s): K74.60 - UNSPECIFIED CIRRHOSIS OF LIVER (4) Cirrhosis of liver Code(s): K74.60 - UNSPECIFIED CIRRHOSIS OF LIVER Qualifiers: Hepatic cirrhosis type: unspecified hepatic cirrhosis (5) Fever Code(s): R50.9 - FEVER, UNSPECIFIED (6) Pneumonia Code(s): J18.9 - PNEUMONIA, UNSPECIFIED ORGANISM Qualifiers: Pneumonia type: due to unspecified organism Laterality: bilateral Lung location: lower lobe of lung Qualified Code(s): J18.9 - Pneumonia, unspecified organism (7) Alcoholic cirrhosis Code(s): K70.30 - ALCOHOLIC CIRRHOSIS OF LIVER WITHOUT ASCITES (8) Anemia Code(s): D64.9 - ANEMIA, UNSPECIFIED (9) Ascites Code(s): R18.8 - OTHER ASCITES (10) Bilateral leg weakness Code(s): R29.898 - OTH SYMPTOMS AND SIGNS INVOLVING THE MUSCULOSKELETAL SYSTEM (11) Confusion Code(s): R41.0 - DISORIENTATION, UNSPECIFIED (12) Diabetes 1.5, managed as type 2 Code(s): E10.9 - TYPE 1 DIABETES MELLITUS WITHOUT COMPLICATIONS (13) Elevated INR Code(s): R79.1 - ABNORMAL COAGULATION PROFILE (14) Esophageal varices determined by endoscopy Code(s): I85.00 - ESOPHAGEAL VARICES WITHOUT BLEEDING (15) FH: prostate carcinoma Code(s): Z80.42 - FAMILY HISTORY OF MALIGNANT NEOPLASM OF PROSTATE (16) Hematuria Code(s): R31.9 - HEMATURIA, UNSPECIFIED Qualifiers: Hematuria type: gross Qualified Code(s): R31.0 - Gross hematuria (17) Hepatic encephalopathy Code(s): K72.90 - HEPATIC FAILURE, UNSPECIFIED WITHOUT COMA (18) Herpes zoster Code(s): B02.9 - ZOSTER WITHOUT COMPLICATIONS (19) Hypoalbuminemia Code(s): E88.09 - OTH DISORDERS OF PLASMA-PROTEIN METABOLISM, NEC (20) Hypoalbuminemia due to protein-calorie malnutrition Code(s): E46 - UNSPECIFIED PROTEIN-CALORIE MALNUTRITION (21) Laceration of head Code(s): S01.91XA - LACERATION W/O FOREIGN BODY OF UNSP PART OF HEAD, INIT (22) Lactic acidosis Code(s): E87.2 - ACIDOSIS (23) Mental status change Code(s): R41.82 - ALTERED MENTAL STATUS, UNSPECIFIED (24) Paralysis of right lower extremity Code(s): G83.11 - MONOPLEGIA OF LOWER LIMB AFFECTING RIGHT DOMINANT SIDE (25) Portal vein thrombosis Code(s): I81 - PORTAL VEIN THROMBOSIS (26) Prostate cancer metastatic to bone Code(s): C61 - MALIGNANT NEOPLASM OF PROSTATE; C79.51 - SECONDARY MALIGNANT NEOPLASM OF BONE (27) Prostate carcinoma Code(s): C61 - MALIGNANT NEOPLASM OF PROSTATE (28) Renal insufficiency Code(s): N28.9 - DISORDER OF KIDNEY AND URETER, UNSPECIFIED (29) Thrush, oral Code(s): B37.0 - CANDIDAL STOMATITIS (30) UTI (urinary tract infection) Code(s): N39.0 - URINARY TRACT INFECTION, SITE NOT SPECIFIED Qualifiers: Urinary tract infection type: site unspecified Hematuria presence: with hematuria Qualified Code(s): N39.0 - Urinary tract infection, site not specified (31) Urinary retention Code(s): R33.9 - RETENTION OF URINE, UNSPECIFIED (32) Weakness of both legs Code(s): R29.898 - OTH SYMPTOMS AND SIGNS INVOLVING THE MUSCULOSKELETAL SYSTEM Assessment/Plan metastatic prostate ca af chf atypical cp htn plan cont ac and rate control pain management cardiac tierney stable
[2017-03-30] MEDS: LACTULOSE 20 GM/30 ML UDC (FOR ORAL USE ONLY) PO SCH ×2 (10:26→21:06)
[2017-03-30] MEDS: ISOSORBIDE MONONITRATE 30 MG TAB.SR.24H (FP) PO SCH (10:26)
[2017-03-30] MEDS: SPIRONOLACTONE 25 MG TABLET (FP) PO SCH ×2 (10:26→21:06)
[2017-03-30] MEDS: TAMSULOSIN HCL 0.4 MG CAP.ER.24H (FP) PO SCH (10:26)
[2017-03-30] MEDS: NADOLOL 20 MG TABLET (FP) PO SCH (10:26)
[2017-03-30] MEDS: CEFTRIAXONE IN IS-OSM DEXTROSE 2 GM/50 ML BAG IVPB SCH (10:27)
[2017-03-30] MEDS: RIFAXIMIN 550 MG TABLET (UD) PO SCH ×2 (10:28→21:07)
[2017-03-30] MEDS: LINEZOLID 600 MG TABLET (RESTRICTED TO ID) PO SCH ×2 (10:28→21:07)
[2017-03-30 14:17] LABS: INR 3.55 (0.82-1.09); PROTHROMBIN TIME (PATIENT) 40.1 SEC (9.98-11.88)
--- NOTE | 2017-03-30 20:26 | CONSULT ---
Consult Consult Specialty:: jose Marshall Referred by:: char Chow Reason for Consultation:: Metastatic prostate carcinoma - History of Present Illness History of Present Illness: 86 y/o with metastatic prostate carcinoma to bones who has been treated with Lupron for about two years and also RT to iliac crests for relief of pain. About three months ago he was started on Xtandi and showed drop in the PSA. He also has advanced cirrhosis of the liver with ascites and is on Coumadin for portal vein thrombosis.He has episodes of being confused off and on due to hepatic encephalopathy. About six weeks ago he developed paralysis of the flexors and extensors of the right knee and he became bedridden. Exact etiology of the latter couldn't be determined as it wasn't possible to perform a MRI due to his pacemaker. He now has episodes of being confused off and on, has become anorexic and continues to be bedridden. - History Source History Provided By: Family Member Limitations to Obtaining History: Clinical Condition - Past Medical History DRAW END HAND: Yes: Dementia, Other Cardio/Vascular: Yes: Other (complete heart block requiring a pacemaker) Gastrointestinal: Yes: Ascites, Esophageal Varices, GI Bleed Hepatobiliary: Yes: Cirrhosis, Other (portal vein thrombosis) Renal/: Yes: BPH, Cancer Musculoskeletal: Yes: Chronic low back pain Endocrine: Yes: Diabetes Mellitus - Past Surgical History Past Surgical History: Yes: Arthrosocopy, Colonoscopy, Hernia Repair, Permanent Pacemaker, Upper Endoscopy - Alcohol/Substance Use Hx Alcohol Use: Yes (quit 2001) Number of Drinks Daily: 0 History of Substance Use: reports: None - Smoking History Smoking history: Never smoked Have you smoked in the past 12 months: No Aproximately how many cigarettes per day: 0 - Social History Usual Living Arrangement: Long-Term ADL: Family Assistance 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 History of Recent Travel: No Home Medications - Allergies Allergies/Adverse Reactions: Allergies Allergy/AdvReac Type Severity Reaction Status Date / Time No Known Allergies Allergy Verified 03/22/17 16:10 - Home Medications Home Medications: Ambulatory Orders Aa/Hydrolyzed Collagen, Whey [Lps 15-30 Liquid] 30 ml PO BID 03/22/17 Albuterol 2.5/Ipratropium 0.5 [Duoneb -] 1 neb NEB QID 03/22/17 Furosemide [Lasix] 40 mg PO BID 03/22/17 Glimepiride [Amaryl -] 2 mg PO DAILY 03/22/17 Insulin Lispro [Humalog] 0 unit SQ ASDIR 03/22/17 Lactulose 20 gm PO BID 03/22/17 Nadolol 20 mg PO DAILY 03/22/17 Polyethylene Glycol 3350 [Miralax 119 gm Btl -] 17 gm PO DAILY 03/22/17 Rifaximin [Xifaxan] 550 mg PO BID 03/22/17 Spironolactone [Aldactone] 25 mg PO BID 03/22/17 Tamsulosin HCl 0.4 mg PO DAILY 03/22/17 Warfarin Na [Coumadin -] 6 mg PO DAILY 03/22/17 Isosorbide Mononitrate [Imdur -] 30 mg PO DAILY #20 tab.sr.24h MDD 1 03/25/17 Linezolid [Zyvox (Restricted To Id) -] 600 mg PO BID #14 tablet MDD 2 03/25/17 Pantoprazole Sodium [Protonix -] 20 mg PO DAILY #7 tablet.ec 03/25/17 Family Disease History - Family Disease History Family Disease History: Diabetes: Brother (protate cancer), CA: Brother Review of Systems - Review of Systems Constitutional: reports: Loss of Appetite, Weakness Eyes: reports: No Symptoms HENT: reports: No Symptoms Neck: reports: No Symptoms Cardiovascular: reports: No Symptoms Respiratory: reports: No Symptoms Gastrointestinal: reports: No Symptoms Genitourinary: reports: Other (garcía catheter) Musculoskeletal: reports: No Symptoms Integumentary: reports: No Symptoms Hematology/Lymphatic: reports: No Symptoms Physical Exam Vital Signs: Vital Signs Temperature 97.7 F 03/30/17 18:08 Pulse Rate 66 03/30/17 18:08 Respiratory Rate 22 03/30/17 18:08 Blood Pressure 106/56 03/30/17 18:08 O2 Sat by Pulse Oximetry (%) 98 03/30/17 10:00 Constitutional: Yes: Pallor Eyes: Yes: Conjunctiva Clear HENT: Yes: WNL Neck: Yes: Supple Cardiovascular: Yes: Regular Rate and Rhythm, S1, S2 Respiratory: Yes: Regular, CTA Bilaterally Gastrointestinal: Yes: Normal Bowel Sounds, Ascites Renal/: Yes: García Present, Scrotal Edema Musculoskeletal: Yes: WNL Edema: No Peripheral Pulses WNL: Yes Integumentary: Yes: WNL Neurological: Yes: Alert ...Motor Strength: RLE (power of flexors and extensors of right knee 1/5) Labs: CBC, BMP 03/29/17 12:24 03/29/17 12:24 Problem List - Problems (1) Prostate CA Assessment/Plan: Metastatic to bones and possible causing paralysis of the right lower extremity. Code(s): C61 - MALIGNANT NEOPLASM OF PROSTATE (2) Metastasis to bone Code(s): C79.51 - SECONDARY MALIGNANT NEOPLASM OF BONE (3) Paralysis of right lower extremity Assessment/Plan: Paralysis of the right lower extremity of recent recent onset is most likely due to bone metastasis. Code(s): G83.11 - MONOPLEGIA OF LOWER LIMB AFFECTING RIGHT DOMINANT SIDE (4) Cirrhosis Assessment/Plan: Advanced cirrhosis of the liver with ascites and frequent episodes of hepatic encephalopathy , and loss of appetite. Code(s): K74.60 - UNSPECIFIED CIRRHOSIS OF LIVER Assessment/Plan His condition hasn't shown any improvement and considering he has become bedridden adds to his bad prognosis and I would consider him terminal at this stage. His family unfortunately is not realistic and expecting him to improve. He is a candidate for placement at [facility] or home with hospice care but latter option will be much more dificult as it will lead to frequent hospitalisations.
[2017-03-30] MEDS ORDERED: PT OWN MED DRAWER 7, Y5N ONE (20:57)
[2017-03-30] MEDS: SENNOSIDES 8.8 MG/5 ML BULK BOTTLE PO SCH (21:07)
[2017-03-31] MEDS: FUROSEMIDE 40 MG TABLET (FP) PO SCH ×2 (05:48→14:05)
[2017-03-31] MEDS: INSULIN SLIDING SCALE (NOVOLOG) 1 VIAL SQ SCH ×4 (05:59→21:42)
[2017-03-31] MEDS ORDERED: PT OWN MED DRAWER 7, Y5N ONE ×3 (06:16→18:31)
--- NOTE | 2017-03-31 06:48 | PN ---
Progress Note, Physician Chief Complaint: ASLEEP FAMILY BEDSIDE - Current Medication List Current Medications: Active Medications Albuterol/Ipratropium (Duoneb -) 1 amp NEB RQID [facility] Last Admin: 03/30/17 20:15 Dose: 1 amp Furosemide (Lasix -) 40 mg PO BID@0600,1400 [facility] Last Admin: 03/31/17 05:48 Dose: 40 mg CEFTRIAXONE IN IS-OSM DEXTROSE (Ceftriaxone 2 Gm-D5w Bag) 2 gm in 50 mls @ 100 mls/hr IVPB DAILY [facility] Last Admin: 03/30/17 10:27 Dose: 100 mls/hr Insulin Aspart (Novolog Vial Sliding Scale -) 1 vial SQ ACHS [facility] PRN Reason: Protocol Last Admin: 03/31/17 05:59 Dose: 2 units Isosorbide Mononitrate (Imdur -) 30 mg PO DAILY [facility] Last Admin: 03/30/17 10:26 Dose: 30 mg Lactulose (Cephulac (Oral Use)) 20 gm PO BID [facility] Last Admin: 03/30/17 21:06 Dose: 20 gm Linezolid (Zyvox (Restricted To Id) -) 600 mg PO BID [facility] Last Admin: 03/30/17 21:07 Dose: 600 mg Nadolol (Corgard -) 10 mg PO DAILY [facility] Last Admin: 03/30/17 10:26 Dose: Not Given Oxycodone HCl (Roxicodone -) 2.5 mg PO Q4H PRN PRN Reason: PAIN Last Admin: 03/28/17 09:59 Dose: 2.5 mg Rifaximin (Xifaxan -) 550 mg PO BID [facility] Last Admin: 03/30/17 21:07 Dose: 550 mg Senna (Senna Oral Solution -) 8.8 mg PO HS [facility] Last Admin: 03/30/17 21:07 Dose: 8.8 mg Spironolactone (Aldactone -) 25 mg PO BID [facility] Last Admin: 03/30/17 21:06 Dose: 25 mg Tamsulosin HCl (Flomax -) 0.4 mg PO DAILY@0830 [facility] Last Admin: 03/30/17 10:26 Dose: 0.4 mg - Objective Vital Signs: Vital Signs Temperature 97.8 F 03/31/17 05:26 Pulse Rate 66 03/31/17 05:26 Respiratory Rate 20 03/31/17 05:26 Blood Pressure 116/62 03/31/17 05:26 O2 Sat by Pulse Oximetry (%) 100 03/31/17 03:39 Constitutional: Yes: Moderate Distress Eyes: Yes: WNL HENT: Yes: WNL Neck: Yes: WNL Cardiovascular: Yes: WNL Respiratory: Yes: WNL Gastrointestinal: Yes: WNL Genitourinary: Yes: Incontinence Musculoskeletal: Yes: Muscle Weakness Extremities: Yes: Other Edema: Yes Peripheral Pulses WNL: Yes Integumentary: Yes: Venous Stasis Changes Neurological: Yes: Pre-Existing Deficit, Weakness ...Motor Strength: LLE, RLE Psychiatric: Yes: Other Labs: CBC, BMP 03/29/17 12:24 03/29/17 12:24 INR, PTT INR 3.55 (0.82-1.09) H D 03/30/17 13:40 Problem List - Problems (1) Atrial fibrillation Code(s): I48.91 - UNSPECIFIED ATRIAL FIBRILLATION Qualifiers: Atrial fibrillation type: chronic Qualified Code(s): I48.2 - Chronic atrial fibrillation (2) Cirrhosis of liver Code(s): K74.60 - UNSPECIFIED CIRRHOSIS OF LIVER Qualifiers: Hepatic cirrhosis type: unspecified hepatic cirrhosis (3) Metastasis to bone Code(s): C79.51 - SECONDARY MALIGNANT NEOPLASM OF BONE (4) Paralysis of right lower extremity Code(s): G83.11 - MONOPLEGIA OF LOWER LIMB AFFECTING RIGHT DOMINANT SIDE (5) Prostate CA Code(s): C61 - MALIGNANT NEOPLASM OF PROSTATE Assessment/Plan POOR OVERALL PROGNOSIS DR NOBLES TO DISCUSS IN JAPANESE TO THE FAMILY THE SEVERITY OF THE DISEASE CONT PAIN MEDS IVF TELE
[2017-03-31 07:49] LABS: HEMATOCRIT 31.3 % (35.4-49); HEMOGLOBIN 10.2 GM/dL (11.7-16.9); MCHC 32.5 g/dl (32.0-35.9); MEAN CELL VOLUME 79.8 fl (80-96); MEAN PLT VOLUME 7.8 fl (7.5-11.1); PLATELET COUNT 252 K/MM3 (134-434); RBC 3.92 M/mm3 (4.00-5.60); RDW 18.3 % (11.9-15.9); WHITE BLOOD COUNT 5.5 K/mm3 (4.0-10.0)
[2017-03-31 08:17] LABS: INR 3.58 (0.82-1.09); PROTHROMBIN TIME (PATIENT) 40.4 SEC (9.98-11.88)
[2017-03-31 08:24] LABS: ANION GAP 7 (8-16); BLOOD UREA NITROGEN 26 mg/dL (7-18); CALCIUM 8.1 mg/dL (8.5-10.1); CHLORIDE 97 mmol/L (98-107); CO2 32 mmol/L (21-32); CREATININE 0.6 mg/dL (0.7-1.3); GLUCOSE,RANDOM 240 mg/dL (74-106); POTASSIUM 3.9 mmol/L (3.5-5.1); SODIUM 136 mmol/L (136-145)
--- NOTE | 2017-03-31 08:26 | PN ---
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 He has had several recent admissions here for progressive weakness and decreased responsiveness. For the past several weeks he has been unable to ambulate. The family was with him earlier today when he pointed to his sternal region and complained of chest pain. EMS was called and was given 1 dose of nitroglycerin in the field. The family also reports that he has had increased cough since being discharged on 03/14. No fever or chills. No n/v/d. - Current Medication List Current Medications: Active Medications Albuterol/Ipratropium (Duoneb -) 1 amp NEB RQID [facility] Last Admin: 03/30/17 20:15 Dose: 1 amp Furosemide (Lasix -) 40 mg PO BID@0600,1400 [facility] Last Admin: 03/31/17 05:48 Dose: 40 mg CEFTRIAXONE IN IS-OSM DEXTROSE (Ceftriaxone 2 Gm-D5w Bag) 2 gm in 50 mls @ 100 mls/hr IVPB DAILY [facility] Last Admin: 03/30/17 10:27 Dose: 100 mls/hr Insulin Aspart (Novolog Vial Sliding Scale -) 1 vial SQ ACHS [facility] PRN Reason: Protocol Last Admin: 03/31/17 05:59 Dose: 2 units Isosorbide Mononitrate (Imdur -) 30 mg PO DAILY [facility] Last Admin: 03/30/17 10:26 Dose: 30 mg Lactulose (Cephulac (Oral Use)) 20 gm PO BID [facility] Last Admin: 03/30/17 21:06 Dose: 20 gm Linezolid (Zyvox (Restricted To Id) -) 600 mg PO BID [facility] Last Admin: 03/30/17 21:07 Dose: 600 mg Nadolol (Corgard -) 10 mg PO DAILY [facility] Last Admin: 03/30/17 10:26 Dose: Not Given Oxycodone HCl (Roxicodone -) 2.5 mg PO Q4H PRN PRN Reason: PAIN Last Admin: 03/28/17 09:59 Dose: 2.5 mg Rifaximin (Xifaxan -) 550 mg PO BID [facility] Last Admin: 03/30/17 21:07 Dose: 550 mg Senna (Senna Oral Solution -) 8.8 mg PO HS [facility] Last Admin: 03/30/17 21:07 Dose: 8.8 mg Spironolactone (Aldactone -) 25 mg PO BID [facility] Last Admin: 03/30/17 21:06 Dose: 25 mg Tamsulosin HCl (Flomax -) 0.4 mg PO DAILY@0830 [facility] Last Admin: 03/30/17 10:26 Dose: 0.4 mg - Objective Vital Signs: Vital Signs Temperature 97.8 F 03/31/17 05:26 Pulse Rate 66 03/31/17 05:26 Respiratory Rate 20 03/31/17 05:26 Blood Pressure 116/62 03/31/17 05:26 O2 Sat by Pulse Oximetry (%) 100 03/31/17 03:39 Eyes: Yes: WNL, Conjunctiva Clear, EOM Intact HENT: Yes: WNL, Atraumatic, Normocephalic Neck: Yes: WNL, Supple, Trachea Midline Cardiovascular: Yes: WNL, Regular Rate and Rhythm Respiratory: Yes: WNL, Regular, CTA Bilaterally Gastrointestinal: Yes: WNL, Normal Bowel Sounds Genitourinary: Yes: WNL Musculoskeletal: Yes: WNL Extremities: Yes: WNL Edema: No Integumentary: Yes: WNL Neurological: Yes: WNL, Alert, Oriented ...Motor Strength: WNL Psychiatric: Yes: WNL Labs: CBC, BMP 03/31/17 06:00 INR, PTT INR 3.55 (0.82-1.09) H D 03/30/17 13:40 Problem List - Problems (1) Atrial fibrillation Code(s): I48.91 - UNSPECIFIED ATRIAL FIBRILLATION Qualifiers: Atrial fibrillation type: chronic Qualified Code(s): I48.2 - Chronic atrial fibrillation (2) Chest pain Code(s): R07.9 - CHEST PAIN, UNSPECIFIED Qualifiers: Chest pain type: other chest pain Qualified Code(s): R07.89 - Other chest pain; R07.8 - Other chest pain (3) Cirrhosis Code(s): K74.60 - UNSPECIFIED CIRRHOSIS OF LIVER (4) Cirrhosis of liver Code(s): K74.60 - UNSPECIFIED CIRRHOSIS OF LIVER Qualifiers: Hepatic cirrhosis type: unspecified hepatic cirrhosis (5) Fever Code(s): R50.9 - FEVER, UNSPECIFIED (6) Pneumonia Code(s): J18.9 - PNEUMONIA, UNSPECIFIED ORGANISM Qualifiers: Pneumonia type: due to unspecified organism Laterality: bilateral Lung location: lower lobe of lung Qualified Code(s): J18.9 - Pneumonia, unspecified organism (7) Alcoholic cirrhosis Code(s): K70.30 - ALCOHOLIC CIRRHOSIS OF LIVER WITHOUT ASCITES (8) Anemia Code(s): D64.9 - ANEMIA, UNSPECIFIED (9) Ascites Code(s): R18.8 - OTHER ASCITES (10) Bilateral leg weakness Code(s): R29.898 - OT SYMPTOMS AND SIGNS INVOLVING THE MUSCULOSKELETAL SYSTEM (11) Confusion Code(s): R41.0 - DISORIENTATION, UNSPECIFIED (12) Diabetes 1.5, managed as type 2 Code(s): E10.9 - TYPE 1 DIABETES MELLITUS WITHOUT COMPLICATIONS (13) Elevated INR Code(s): R79.1 - ABNORMAL COAGULATION PROFILE (14) Esophageal varices determined by endoscopy Code(s): I85.00 - ESOPHAGEAL VARICES WITHOUT BLEEDING (15) FH: prostate carcinoma Code(s): Z80.42 - FAMILY HISTORY OF MALIGNANT NEOPLASM OF PROSTATE (16) Hematuria Code(s): R31.9 - HEMATURIA, UNSPECIFIED Qualifiers: Hematuria type: gross Qualified Code(s): R31.0 - Gross hematuria (17) Hepatic encephalopathy Code(s): K72.90 - HEPATIC FAILURE, UNSPECIFIED WITHOUT COMA (18) Herpes zoster Code(s): B02.9 - ZOSTER WITHOUT COMPLICATIONS (19) Hypoalbuminemia Code(s): E88.09 - OTH DISORDERS OF PLASMA-PROTEIN METABOLISM, NEC (20) Hypoalbuminemia due to protein-calorie malnutrition Code(s): E46 - UNSPECIFIED PROTEIN-CALORIE MALNUTRITION (21) Laceration of head Code(s): S01.91XA - LACERATION W/O FOREIGN BODY OF UNSP PART OF HEAD, INIT (22) Lactic acidosis Code(s): E87.2 - ACIDOSIS (23) Mental status change Code(s): R41.82 - ALTERED MENTAL STATUS, UNSPECIFIED (24) Paralysis of right lower extremity Code(s): G83.11 - MONOPLEGIA OF LOWER LIMB AFFECTING RIGHT DOMINANT SIDE (25) Portal vein thrombosis Code(s): I81 - PORTAL VEIN THROMBOSIS (26) Prostate cancer metastatic to bone Code(s): C61 - MALIGNANT NEOPLASM OF PROSTATE; C79.51 - SECONDARY MALIGNANT NEOPLASM OF BONE (27) Prostate carcinoma Code(s): C61 - MALIGNANT NEOPLASM OF PROSTATE (28) Renal insufficiency Code(s): N28.9 - DISORDER OF KIDNEY AND URETER, UNSPECIFIED (29) Thrush, oral Code(s): B37.0 - CANDIDAL STOMATITIS (30) UTI (urinary tract infection) Code(s): N39.0 - URINARY TRACT INFECTION, SITE NOT SPECIFIED Qualifiers: Urinary tract infection type: site unspecified Hematuria presence: with hematuria Qualified Code(s): N39.0 - Urinary tract infection, site not specified (31) Urinary retention Code(s): R33.9 - RETENTION OF URINE, UNSPECIFIED (32) Weakness of both legs Code(s): R29.898 - OTH SYMPTOMS AND SIGNS INVOLVING THE MUSCULOSKELETAL SYSTEM Assessment/Plan metastatic prostate ca af chf atypical cp htn plan cont ac and rate control pain management cardiac tierney stable
[2017-03-31] MEDS: ALBUTEROL SO4 2.5/IPRATROPIUM 0.5 INH SOL 3 ML VIAL.NEB. NEB SCH ×4 (08:30→20:25)
[2017-03-31] MEDS: LACTULOSE 20 GM/30 ML UDC (FOR ORAL USE ONLY) PO SCH (09:32)
[2017-03-31] MEDS: oxyCODONE HCL 5 MG TABLET PO PRN (09:32)
[2017-03-31] MEDS: SPIRONOLACTONE 25 MG TABLET (FP) PO SCH (09:36)
[2017-03-31] MEDS: ISOSORBIDE MONONITRATE 30 MG TAB.SR.24H (FP) PO SCH (09:36)
[2017-03-31] MEDS: RIFAXIMIN 550 MG TABLET (UD) PO SCH (09:36)
[2017-03-31] MEDS: TAMSULOSIN HCL 0.4 MG CAP.ER.24H (FP) PO SCH (09:37)
[2017-03-31] MEDS: NADOLOL 20 MG TABLET (FP) PO SCH (09:37)
[2017-03-31] MEDS: CEFTRIAXONE IN IS-OSM DEXTROSE 2 GM/50 ML BAG IVPB SCH (09:37)
[2017-03-31] MEDS: LINEZOLID 600 MG TABLET (RESTRICTED TO ID) PO SCH ×2 (09:37→21:41)
--- NOTE | 2017-03-31 10:10 | PN ---
Progress Note, Physician Chief Complaint: AWAKE ALERT BEDSIDE NAD - Current Medication List Current Medications: Active Medications Albuterol/Ipratropium (Duoneb -) 1 amp NEB RQID [facility] Last Admin: 03/31/17 08:30 Dose: 1 amp Furosemide (Lasix -) 40 mg PO BID@0600,1400 [facility] Last Admin: 03/31/17 05:48 Dose: 40 mg CEFTRIAXONE IN IS-OSM DEXTROSE (Ceftriaxone 2 Gm-D5w Bag) 2 gm in 50 mls @ 100 mls/hr IVPB DAILY [facility] Last Admin: 03/31/17 09:37 Dose: 100 mls/hr Insulin Aspart (Novolog Vial Sliding Scale -) 1 vial SQ ACHS [facility] PRN Reason: Protocol Last Admin: 03/31/17 05:59 Dose: 2 units Isosorbide Mononitrate (Imdur -) 30 mg PO DAILY [facility] Last Admin: 03/31/17 09:36 Dose: 30 mg Lactulose (Cephulac (Oral Use)) 20 gm PO BID [facility] Last Admin: 03/31/17 09:32 Dose: 20 gm Linezolid (Zyvox (Restricted To Id) -) 600 mg PO BID [facility] Last Admin: 03/31/17 09:37 Dose: 600 mg Nadolol (Corgard -) 10 mg PO DAILY [facility] Last Admin: 03/31/17 09:37 Dose: Not Given Oxycodone HCl (Roxicodone -) 2.5 mg PO Q4H PRN PRN Reason: PAIN Last Admin: 03/31/17 09:32 Dose: 2.5 mg Rifaximin (Xifaxan -) 550 mg PO BID [facility] Last Admin: 03/31/17 09:36 Dose: 550 mg Senna (Senna Oral Solution -) 8.8 mg PO HS [facility] Last Admin: 03/30/17 21:07 Dose: 8.8 mg Spironolactone (Aldactone -) 25 mg PO BID [facility] Last Admin: 03/31/17 09:36 Dose: 25 mg Tamsulosin HCl (Flomax -) 0.4 mg PO DAILY@0830 [facility] Last Admin: 03/31/17 09:37 Dose: 0.4 mg - Objective Vital Signs: Vital Signs Temperature 97.8 F 03/31/17 05:26 Pulse Rate 66 03/31/17 05:26 Respiratory Rate 20 03/31/17 05:26 Blood Pressure 116/62 03/31/17 05:26 O2 Sat by Pulse Oximetry (%) 100 03/31/17 03:39 Constitutional: Yes: No Distress Eyes: Yes: WNL HENT: Yes: WNL Neck: Yes: WNL Cardiovascular: Yes: WNL Respiratory: Yes: WNL Gastrointestinal: Yes: Distention Genitourinary: Yes: Incontinence Musculoskeletal: Yes: Muscle Weakness Extremities: Yes: WNL Edema: Yes Peripheral Pulses WNL: Yes Integumentary: Yes: WNL Wound/Incision: Yes: Clean/Dry Neurological: Yes: Pre-Existing Deficit ...Motor Strength: LLE, RLE Psychiatric: Yes: Other Labs: CBC, BMP 03/31/17 06:00 03/31/17 06:00 INR, PTT INR 3.58 (0.82-1.09) H 03/31/17 06:00 Problem List - Problems (1) Atrial fibrillation Code(s): I48.91 - UNSPECIFIED ATRIAL FIBRILLATION Qualifiers: Atrial fibrillation type: chronic Qualified Code(s): I48.2 - Chronic atrial fibrillation (2) Cirrhosis of liver Code(s): K74.60 - UNSPECIFIED CIRRHOSIS OF LIVER Qualifiers: Hepatic cirrhosis type: unspecified hepatic cirrhosis (3) Metastasis to bone Code(s): C79.51 - SECONDARY MALIGNANT NEOPLASM OF BONE (4) Paralysis of right lower extremity Code(s): G83.11 - MONOPLEGIA OF LOWER LIMB AFFECTING RIGHT DOMINANT SIDE (5) Prostate CA Code(s): C61 - MALIGNANT NEOPLASM OF PROSTATE Assessment/Plan POOR OVERALL PROGNOSIS DR NOBLES TO DISCUSS IN IRISH TO THE FAMILY THE SEVERITY OF THE DISEASE CONT PAIN MEDS IVF TELE INR THERAPEUTIC WARFARIN CONTINUE ABD DISTENDED RULE OUT ILEUS KUB/FUA
--- NOTE | 2017-03-31 15:27 | CONSULT ---
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 after experiencing chest pain earlier this afternoon. He has had several recent admissions here for progressive weakness and decreased responsiveness. For the past several weeks he has been unable to ambulate. The family was with him earlier today when he pointed to his sternal region and complained of chest pain. EMS was called and was given 1 dose of nitroglycerin in the field. The family also reports that he has had increased cough since being discharged on . No fever or chills. No reports of nausea or vomiting. Abdominal distension note on exam by nurser care team, an abdominal xray showed findings consistent with ileus vs obstruction and were were asked to assess. - History Source History Provided By: Patient, Family Member (), Medical Record Limitations to Obtaining History: No Limitations - Past Medical History VESSEL CAPTAIN: Yes: Dementia, Other Cardio/Vascular: Yes: Other (complete heart block requiring a pacemaker) Gastrointestinal: Yes: Ascites, Esophageal Varices, GI Bleed Hepatobiliary: Yes: Cirrhosis, Other (portal vein thrombosis) Renal/: Yes: BPH, Cancer Musculoskeletal: Yes: Chronic low back pain Endocrine: Yes: Diabetes Mellitus - Past Surgical History Past Surgical History: Yes: Arthrosocopy, Colonoscopy, Hernia Repair, Permanent Pacemaker, Upper Endoscopy - Alcohol/Substance Use Hx Alcohol Use: Yes (quit 2001) Number of Drinks Daily: 0 History of Substance Use: reports: None - Smoking History Smoking history: Never smoked Have you smoked in the past 12 months: No Aproximately how many cigarettes per day: 0 - Social History Usual Living Arrangement: Jail ADL: Family Assistance 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 History of Recent Travel: No Home Medications - Allergies Allergies/Adverse Reactions: Allergies Allergy/AdvReac Type Severity Reaction Status Date / Time No Known Allergies Allergy Verified 03/22/17 16:10 - Home Medications Home Medications: Ambulatory Orders Aa/Hydrolyzed Collagen, Whey [Lps 15-30 Liquid] 30 ml PO BID 03/22/17 Albuterol 2.5/Ipratropium 0.5 [Duoneb -] 1 neb NEB QID 03/22/17 Furosemide [Lasix] 40 mg PO BID 03/22/17 Glimepiride [Amaryl -] 2 mg PO DAILY 03/22/17 Insulin Lispro [Humalog] 0 unit SQ ASDIR 03/22/17 Lactulose 20 gm PO BID 03/22/17 Nadolol 20 mg PO DAILY 03/22/17 Polyethylene Glycol 3350 [Miralax 119 gm Btl -] 17 gm PO DAILY 03/22/17 Rifaximin [Xifaxan] 550 mg PO BID 03/22/17 Spironolactone [Aldactone] 25 mg PO BID 03/22/17 Tamsulosin HCl 0.4 mg PO DAILY 03/22/17 Warfarin Na [Coumadin -] 6 mg PO DAILY 03/22/17 Isosorbide Mononitrate [Imdur -] 30 mg PO DAILY #20 tab.sr.24h MDD 1 03/25/17 Linezolid [Zyvox (Restricted To Id) -] 600 mg PO BID #14 tablet MDD 2 03/25/17 Pantoprazole Sodium [Protonix -] 20 mg PO DAILY #7 tablet.ec 03/25/17 Family Disease History - Family Disease History Family History: Unable to Obtain Family Disease History: Diabetes: Brother (protate cancer), CA: Brother Review of Systems - Review of Systems Constitutional: reports: Loss of Appetite, Unintentional Wgt. Loss, Weakness. denies: Chills, Fever Eyes: denies: Blurred Vision, Recent Change in Vision HENT: denies: Difficult Swallowing, Throat Pain Neck: denies: Lumps, Swollen Glands Cardiovascular: denies: Chest Pain, Palpitations Respiratory: denies: Cough, SOB Gastrointestinal: reports: Bloating. denies: Abdominal Pain, Constipation, Diarrhea Genitourinary: denies: Burning, Discharge Musculoskeletal: reports: Muscle Weakness. denies: Muscle Cramps Integumentary: denies: Lesions, Rash Neurological: denies: Seizure, Syncope Hematology/Lymphatic: denies: Easily Bruised, Excessive Bleeding Psychiatric: denies: Anxiety, Depression Physical Exam Vital Signs: Vital Signs Temperature 98.5 F 01/14/18 13:05 Pulse Rate 66 03/31/17 13:05 Respiratory Rate 25 H 03/31/17 13:05 Blood Pressure 101/56 03/31/17 13:05 O2 Sat by Pulse Oximetry (%) 99 03/31/17 10:00 Vital Signs Period Temp Pulse Resp BP Sys/Drummond Pulse Ox Last 24 Hr 97.6 F-98.5 F 66-66 20-25 101-116/56-62 99-100 Intake & Output 03/30/17 03/31/17 03/31/17 23:59 07:59 15:59 Intake Total 120 Output Total 500 300 500 Balance -500 -180 -500 Intake: Oral 120 Output: Urine 500 300 500 Bonilla 500 300 500 Other: Voiding Method Indwelling Catheter Indwelling Catheter # Unmeasured Voids Bonilla 0 0 Bowel Movement No No Respiratory: Yes: Regular, CTA Bilaterally Gastrointestinal: Yes: Normal Bowel Sounds, Ascites. No: Soft, Hematemesis, Melena, Tenderness ...Rectal Exam: Yes: Sphincter Tone Normal, Other (pasty brown stool coating the finger) Renal/: Yes: Bonilla Present. No: CVA Tenderness - Left, CVA Tenderness - Right Musculoskeletal: Yes: Other (Left lateral rib pain) Edema: No Peripheral Pulses WNL: Yes Integumentary: No: Rash Neurological: Yes: Alert, Confusion Psychiatric: Yes: Alert Labs: CBC, BMP 03/31/17 06:00 03/31/17 06:00 Imaging - Results X-ray: Report Reviewed, Image Reviewed (ileus pattern, no free air) Other: Report Reviewed, Image Reviewed (osteoblastic mets in lumbar spine multiple levels) Problem List - Problems (1) Ileus, unspecified Assessment/Plan: 86yo male MMP including cirrhosis audrey oneal C MELD 22 (19.7%) and prostate cancer metastatic to the bone, currently DNR. Tolerating his diet having BM and flatus. No acute surgical intervention is indicated at this time. His condition was discussed at length with the , she is not interested in any surgical procedures at this time. Continue current diet optimize nutrition IVF hydration enemas as needed replete eletrolytes repeat abdominal film Thank you for the opportunity to participate in the care of this patient. Code(s): K56.7 - ILEUS, UNSPECIFIED (2) Atrial fibrillation Code(s): I48.91 - UNSPECIFIED ATRIAL FIBRILLATION Qualifiers: Atrial fibrillation type: chronic Qualified Code(s): I48.2 - Chronic atrial fibrillation (3) Cirrhosis of liver Code(s): K74.60 - UNSPECIFIED CIRRHOSIS OF LIVER Qualifiers: Hepatic cirrhosis type: unspecified hepatic cirrhosis (4) Ascites Code(s): R18.8 - OTHER ASCITES (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 Code(s): C61 - MALIGNANT NEOPLASM OF PROSTATE; C79.51 - SECONDARY MALIGNANT NEOPLASM OF BONE (6) Prostate carcinoma Code(s): C61 - MALIGNANT NEOPLASM OF PROSTATE (7) UTI (urinary tract infection) Code(s): N39.0 - URINARY TRACT INFECTION, SITE NOT SPECIFIED Qualifiers: Urinary tract infection type: site unspecified Hematuria presence: with hematuria Qualified Code(s): N39.0 - Urinary tract infection, site not specified
--- NOTE | 2017-03-31 15:31 | PN ---
Progress Note (short form) - Note Progress Note: distended abd and xray ordered showing ileus. npo now surgery eval no ngt for now because inr elevated on coumadin Problem List - Problems (1) Atrial fibrillation Code(s): I48.91 - UNSPECIFIED ATRIAL FIBRILLATION Qualifiers: Atrial fibrillation type: chronic Qualified Code(s): I48.2 - Chronic atrial fibrillation (2) Cirrhosis of liver Code(s): K74.60 - UNSPECIFIED CIRRHOSIS OF LIVER Qualifiers: Hepatic cirrhosis type: unspecified hepatic cirrhosis (3) Metastasis to bone Code(s): C79.51 - SECONDARY MALIGNANT NEOPLASM OF BONE (4) Paralysis of right lower extremity Code(s): G83.11 - MONOPLEGIA OF LOWER LIMB AFFECTING RIGHT DOMINANT SIDE (5) Prostate CA Code(s): C61 - MALIGNANT NEOPLASM OF PROSTATE
[2017-03-31] MEDS ORDERED: WARFARIN NA 2 MG TABLET (UD) PO SCH (18:00)
[2017-03-31] MEDS ORDERED: INSULIN (NOVOLOG) ASPART 100 UNITS/ML 10ML VIAL ONE (18:32)
[2017-04-01] MEDS: FUROSEMIDE 40 MG TABLET (FP) PO SCH ×2 (06:23→14:17)
[2017-04-01] MEDS: INSULIN SLIDING SCALE (NOVOLOG) 1 VIAL SQ SCH ×4 (06:23→21:02)
[2017-04-01] MEDS: ALBUTEROL SO4 2.5/IPRATROPIUM 0.5 INH SOL 3 ML VIAL.NEB. NEB SCH ×4 (07:35→20:25)
[2017-04-01 08:08] LABS: INR 2.65 (0.82-1.09); PROTHROMBIN TIME (PATIENT) 29.9 SEC (9.98-11.88)
--- NOTE | 2017-04-01 09:18 | PN ---
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 He has had several recent admissions here for progressive weakness and decreased responsiveness. Abdominal distension noted on exam by nurse care team, an abdominal xray showed findings consistent with ileus. - Current Medication List Current Medications: Active Medications Albuterol/Ipratropium (Duoneb -) 1 amp NEB RQID [facility] Last Admin: 04/01/17 07:35 Dose: 1 amp Furosemide (Lasix -) 40 mg PO BID@0600,1400 [facility] Last Admin: 04/01/17 06:23 Dose: 40 mg CEFTRIAXONE IN IS-OSM DEXTROSE (Ceftriaxone 2 Gm-D5w Bag) 2 gm in 50 mls @ 100 mls/hr IVPB DAILY [facility] Last Admin: 03/31/17 09:37 Dose: 100 mls/hr Insulin Aspart (Novolog Vial Sliding Scale -) 1 vial SQ ACHS [facility] PRN Reason: Protocol Last Admin: 04/01/17 06:23 Dose: 2 units Linezolid (Zyvox (Restricted To Id) -) 600 mg PO BID [facility] Last Admin: 03/31/17 21:41 Dose: 600 mg - Objective Vital Signs: Vital Signs Temperature 97.7 F 04/01/17 06:00 Pulse Rate 65 04/01/17 06:00 Respiratory Rate 20 04/01/17 06:00 Blood Pressure 106/52 04/01/17 06:00 O2 Sat by Pulse Oximetry (%) 97 03/31/17 21:00 Vital Signs Period Temp Pulse Resp BP Sys/Drummond Pulse Ox Last 24 Hr 97.7 F-98.6 F 65-66 20-25 92-109/50-56 97-99 Constitutional: Yes: Well Nourished, No Distress, Calm Eyes: Yes: Conjunctiva Clear, EOM Intact HENT: Yes: Atraumatic, Normocephalic Neck: Yes: Supple, Trachea Midline Cardiovascular: Yes: Regular Rate and Rhythm, S1, S2 Respiratory: Yes: Regular, CTA Bilaterally. No: Rhonchi, Wheezes Gastrointestinal: Yes: Normal Bowel Sounds, Soft, Distention (Much less abdoominal distension). No: Tenderness ...Rectal Exam: Yes: Deferred Genitourinary: No: CVA Tenderness - Left, CVA Tenderness - Right Musculoskeletal: Yes: Muscle Weakness (bilateral LE) Extremities: No: Cool, Cyanosis Edema: No Peripheral Pulses WNL: Yes Peripheral Pulses: Left Doralis Pedis: 2+, Right Dorsalis Pedis: 2+ Integumentary: No: Jaundice, Rash Neurological: Yes: Alert, Confusion, Other (limited verbal communication) Psychiatric: Yes: Alert Labs: CBC, BMP 03/31/17 06:00 03/31/17 06:00 - ....Imaging X-ray: Report Reviewed, Image Reviewed (Abdomen 2 views improved bowel distension, no free air, gas and stool in rectum) Problem List - Problems (1) Ileus, unspecified Assessment/Plan: 86yo male MMP including cirrhosis audrey oneal C MELD 22 (19.7%) and prostate cancer metastatic to the bone, currently DNR. Tolerating his diet having BM and flatus. No acute surgical intervention is indicated at this time. His condition was discussed at length with the , she is not interested in any surgical procedures at this time. Improved gas pattern. Consider Reglan - watch for EPS, difficult given encephalopathy Continue current diet optimize nutrition IVF hydration enemas as needed replete eletrolytes Will follow peripherally - re call as needed Code(s): K56.7 - ILEUS, UNSPECIFIED (2) Atrial fibrillation Code(s): I48.91 - UNSPECIFIED ATRIAL FIBRILLATION Qualifiers: Atrial fibrillation type: chronic Qualified Code(s): I48.2 - Chronic atrial fibrillation (3) Cirrhosis of liver Code(s): K74.60 - UNSPECIFIED CIRRHOSIS OF LIVER Qualifiers: Hepatic cirrhosis type: unspecified hepatic cirrhosis (4) Ascites Code(s): R18.8 - OTHER ASCITES (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 Code(s): C61 - MALIGNANT NEOPLASM OF PROSTATE; C79.51 - SECONDARY MALIGNANT NEOPLASM OF BONE (6) Prostate carcinoma Code(s): C61 - MALIGNANT NEOPLASM OF PROSTATE (7) UTI (urinary tract infection) Code(s): N39.0 - URINARY TRACT INFECTION, SITE NOT SPECIFIED Qualifiers: Urinary tract infection type: site unspecified Hematuria presence: with hematuria Qualified Code(s): N39.0 - Urinary tract infection, site not specified
[2017-04-01] MEDS: CEFTRIAXONE IN IS-OSM DEXTROSE 2 GM/50 ML BAG IVPB SCH (10:02)
[2017-04-01] MEDS ORDERED: PT OWN MED DRAWER 7, Y5N ONE (10:03)
[2017-04-01] MEDS: LINEZOLID 600 MG TABLET (RESTRICTED TO ID) PO SCH (10:03)
--- NOTE | 2017-04-01 11:43 | PN ---
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 He has had several recent admissions here for progressive weakness and decreased responsiveness. For the past several weeks he has been unable to ambulate. The family was with him earlier today when he pointed to his sternal region and complained of chest pain. EMS was called and was given 1 dose of nitroglycerin in the field. The family also reports that he has had increased cough since being discharged on 03/14. No fever or chills. No n/v/d. - Current Medication List Current Medications: Active Medications Albuterol/Ipratropium (Duoneb -) 1 amp NEB RQID [facility] Last Admin: 04/01/17 11:40 Dose: 1 amp Furosemide (Lasix -) 40 mg PO BID@0600,1400 [facility] Last Admin: 04/01/17 06:23 Dose: 40 mg CEFTRIAXONE IN IS-OSM DEXTROSE (Ceftriaxone 2 Gm-D5w Bag) 2 gm in 50 mls @ 100 mls/hr IVPB DAILY [facility] Last Admin: 04/01/17 10:02 Dose: 100 mls/hr Insulin Aspart (Novolog Vial Sliding Scale -) 1 vial SQ ACHS [facility] PRN Reason: Protocol Last Admin: 04/01/17 06:23 Dose: 2 units Linezolid (Zyvox (Restricted To Id) -) 600 mg PO BID [facility] Last Admin: 04/01/17 10:03 Dose: 600 mg - Objective Vital Signs: Vital Signs Temperature 97.7 F 04/01/17 06:00 Pulse Rate 65 04/01/17 06:00 Respiratory Rate 20 04/01/17 06:00 Blood Pressure 106/52 04/01/17 06:00 O2 Sat by Pulse Oximetry (%) 97 03/31/17 21:00 Eyes: Yes: WNL, Conjunctiva Clear, EOM Intact HENT: Yes: WNL, Atraumatic, Normocephalic Neck: Yes: WNL, Supple, Trachea Midline Cardiovascular: Yes: WNL, Regular Rate and Rhythm Respiratory: Yes: WNL, Regular, CTA Bilaterally Gastrointestinal: Yes: WNL, Normal Bowel Sounds Genitourinary: Yes: WNL Musculoskeletal: Yes: WNL Extremities: Yes: WNL Edema: No Integumentary: Yes: WNL Neurological: Yes: WNL, Alert, Oriented ...Motor Strength: WNL Psychiatric: Yes: WNL Labs: CBC, BMP 03/31/17 06:00 03/31/17 06:00 INR, PTT INR 2.65 (0.82-1.09) H 04/01/17 06:30 Problem List - Problems (1) Atrial fibrillation Code(s): I48.91 - UNSPECIFIED ATRIAL FIBRILLATION Qualifiers: Atrial fibrillation type: chronic Qualified Code(s): I48.2 - Chronic atrial fibrillation (2) Chest pain Code(s): R07.9 - CHEST PAIN, UNSPECIFIED Qualifiers: Chest pain type: other chest pain Qualified Code(s): R07.89 - Other chest pain; R07.8 - Other chest pain (3) Cirrhosis Code(s): K74.60 - UNSPECIFIED CIRRHOSIS OF LIVER (4) Cirrhosis of liver Code(s): K74.60 - UNSPECIFIED CIRRHOSIS OF LIVER Qualifiers: Hepatic cirrhosis type: unspecified hepatic cirrhosis (5) Fever Code(s): R50.9 - FEVER, UNSPECIFIED (6) Pneumonia Code(s): J18.9 - PNEUMONIA, UNSPECIFIED ORGANISM Qualifiers: Pneumonia type: due to unspecified organism Laterality: bilateral Lung location: lower lobe of lung Qualified Code(s): J18.9 - Pneumonia, unspecified organism (7) Alcoholic cirrhosis Code(s): K70.30 - ALCOHOLIC CIRRHOSIS OF LIVER WITHOUT ASCITES (8) Anemia Code(s): D64.9 - ANEMIA, UNSPECIFIED (9) Ascites Code(s): R18.8 - OTHER ASCITES (10) Bilateral leg weakness Code(s): R29.898 - OTH SYMPTOMS AND SIGNS INVOLVING THE MUSCULOSKELETAL SYSTEM (11) Confusion Code(s): R41.0 - DISORIENTATION, UNSPECIFIED (12) Diabetes 1.5, managed as type 2 Code(s): E10.9 - TYPE 1 DIABETES MELLITUS WITHOUT COMPLICATIONS (13) Elevated INR Code(s): R79.1 - ABNORMAL COAGULATION PROFILE (14) Esophageal varices determined by endoscopy Code(s): I85.00 - ESOPHAGEAL VARICES WITHOUT BLEEDING (15) FH: prostate carcinoma Code(s): Z80.42 - FAMILY HISTORY OF MALIGNANT NEOPLASM OF PROSTATE (16) Hematuria Code(s): R31.9 - HEMATURIA, UNSPECIFIED Qualifiers: Hematuria type: gross Qualified Code(s): R31.0 - Gross hematuria (17) Hepatic encephalopathy Code(s): K72.90 - HEPATIC FAILURE, UNSPECIFIED WITHOUT COMA (18) Herpes zoster Code(s): B02.9 - ZOSTER WITHOUT COMPLICATIONS (19) Hypoalbuminemia Code(s): E88.09 - OTH DISORDERS OF PLASMA-PROTEIN METABOLISM, NEC (20) Hypoalbuminemia due to protein-calorie malnutrition Code(s): E46 - UNSPECIFIED PROTEIN-CALORIE MALNUTRITION (21) Laceration of head Code(s): S01.91XA - LACERATION W/O FOREIGN BODY OF UNSP PART OF HEAD, INIT (22) Lactic acidosis Code(s): E87.2 - ACIDOSIS (23) Mental status change Code(s): R41.82 - ALTERED MENTAL STATUS, UNSPECIFIED (24) Paralysis of right lower extremity Code(s): G83.11 - MONOPLEGIA OF LOWER LIMB AFFECTING RIGHT DOMINANT SIDE (25) Portal vein thrombosis Code(s): I81 - PORTAL VEIN THROMBOSIS (26) Prostate cancer metastatic to bone Code(s): C61 - MALIGNANT NEOPLASM OF PROSTATE; C79.51 - SECONDARY MALIGNANT NEOPLASM OF BONE (27) Prostate carcinoma Code(s): C61 - MALIGNANT NEOPLASM OF PROSTATE (28) Renal insufficiency Code(s): N28.9 - DISORDER OF KIDNEY AND URETER, UNSPECIFIED (29) Thrush, oral Code(s): B37.0 - CANDIDAL STOMATITIS (30) UTI (urinary tract infection) Code(s): N39.0 - URINARY TRACT INFECTION, SITE NOT SPECIFIED Qualifiers: Urinary tract infection type: site unspecified Hematuria presence: with hematuria Qualified Code(s): N39.0 - Urinary tract infection, site not specified (31) Urinary retention Code(s): R33.9 - RETENTION OF URINE, UNSPECIFIED (32) Weakness of both legs Code(s): R29.898 - OTH SYMPTOMS AND SIGNS INVOLVING THE MUSCULOSKELETAL SYSTEM Assessment/Plan metastatic prostate ca af chf atypical cp htn plan cont ac and rate control pain management cardiac tierney stable
--- NOTE | 2017-04-01 14:32 | PN ---
Progress Note (short form) - Note Progress Note: UROLOGY NOTE. pt. is an 86 y/o male with [facility] bone scan more mets, psa>14 pt. should recieve second line therpy ZYTIGA AND/OR XTENDI BOTH ARE PO MEDS
--- NOTE | 2017-04-01 16:46 | PN ---
Progress Note, Physician Chief Complaint: UTI, metastatic prostate Ca History of Present Illness: NAD, in bed, and daughter at bedside poor po intake completed 7 days of abx for UTI daughter doesn't want him to go back to [facility], she wants to try [place] seen by Dr Marshall, who have spoken to family extensively as well, family doesn' t seem to have realistic goals or insight to the disease process besides repeatedly elaborating on the prognosis and progression of the disease - Current Medication List Current Medications: Active Medications Albuterol/Ipratropium (Duoneb -) 1 amp NEB RQID [facility] Last Admin: 04/01/17 11:40 Dose: 1 amp Furosemide (Lasix -) 40 mg PO BID@0600,1400 [facility] Last Admin: 04/01/17 14:17 Dose: 40 mg CEFTRIAXONE IN IS-OSM DEXTROSE (Ceftriaxone 2 Gm-D5w Bag) 2 gm in 50 mls @ 100 mls/hr IVPB DAILY [facility] Last Admin: 04/01/17 10:02 Dose: 100 mls/hr Insulin Aspart (Novolog Vial Sliding Scale -) 1 vial SQ ACHS [facility] PRN Reason: Protocol Last Admin: 04/01/17 12:02 Dose: 2 units Linezolid (Zyvox (Restricted To Id) -) 600 mg PO BID [facility] Last Admin: 04/01/17 10:03 Dose: 600 mg - Objective Vital Signs: Vital Signs Temperature 98.2 F 04/01/17 13:45 Pulse Rate 65 04/01/17 13:45 Respiratory Rate 18 04/01/17 13:45 Blood Pressure 103/53 04/01/17 13:45 O2 Sat by Pulse Oximetry (%) 98 04/01/17 10:00 Constitutional: Yes: Well Nourished, No Distress, Calm Cardiovascular: Yes: Regular Rate and Rhythm Respiratory: Yes: Regular Gastrointestinal: Yes: Abdomen, Obese, Ascites, Distention Neurological: Yes: Alert Psychiatric: Yes: Alert Labs: CBC, BMP 03/31/17 06:00 03/31/17 06:00 INR, PTT INR 2.65 (0.82-1.09) H 04/01/17 06:30 Problem List - Problems (1) Atrial fibrillation Assessment/Plan: -on warfarin -daily INR checks -therapeutic today Code(s): I48.91 - UNSPECIFIED ATRIAL FIBRILLATION Qualifiers: Atrial fibrillation type: chronic Qualified Code(s): I48.2 - Chronic atrial fibrillation (2) Hepatic encephalopathy Assessment/Plan: -on lactulose and Rifaximin -seen by GI Code(s): K72.90 - HEPATIC FAILURE, UNSPECIFIED WITHOUT COMA (3) Prostate carcinoma Assessment/Plan: -seen by urology -Bonilla catheter -has not been able to tolerate chemotherapy, unable to swallow Xtandi, unable to receive leupron due to cost, unable to f/u with oncology in the office Code(s): C61 - MALIGNANT NEOPLASM OF PROSTATE (4) UTI (urinary tract infection) Assessment/Plan: -Bonilla catheter -seen by ID -IV abx Code(s): N39.0 - URINARY TRACT INFECTION, SITE NOT SPECIFIED Qualifiers: Urinary tract infection type: site unspecified Hematuria presence: with hematuria Qualified Code(s): N39.0 - Urinary tract infection, site not specified (5) Diabetes 1.5, managed as type 2 Assessment/Plan: -poor PO intake -BGM -insulin sliding scale Code(s): E10.9 - TYPE 1 DIABETES MELLITUS WITHOUT COMPLICATIONS Assessment/Plan see problem list overall poor prognosis
[2017-04-01] MEDS ORDERED: morphine CARPU-JECT 10 MG/1 ML DISP.SYRIN IVPUSH ONE (23:00)
[2017-04-01] MEDS ORDERED: oxyCODONE HCL 5 MG TABLET PO PRN (23:02)
[2017-04-02] MEDS: FUROSEMIDE 40 MG TABLET (FP) PO SCH ×2 (05:42→16:41)
[2017-04-02] MEDS: INSULIN SLIDING SCALE (NOVOLOG) 1 VIAL SQ SCH ×4 (06:10→21:25)
[2017-04-02] MEDS: ALBUTEROL SO4 2.5/IPRATROPIUM 0.5 INH SOL 3 ML VIAL.NEB. NEB SCH ×4 (07:40→20:43)
[2017-04-02] MEDS ORDERED: PT OWN MED DRAWER 7, Y5N ONE (10:17)
[2017-04-02] MEDS: CEFTRIAXONE IN IS-OSM DEXTROSE 2 GM/50 ML BAG IVPB SCH (10:30)
[2017-04-02] MEDS: ISOSORBIDE MONONITRATE 30 MG TAB.SR.24H (FP) PO SCH (12:28)
[2017-04-02] MEDS: LACTULOSE 20 GM/30 ML UDC (FOR ORAL USE ONLY) PO SCH ×2 (12:29→21:25)
[2017-04-02] MEDS: NADOLOL 20 MG TABLET (FP) PO SCH (12:29)
[2017-04-02] MEDS: RIFAXIMIN 550 MG TABLET (UD) PO SCH ×2 (12:29→21:25)
--- NOTE | 2017-04-02 13:08 | PN ---
Progress Note, Physician Chief Complaint: UTI, metastatic prostate Ca History of Present Illness: NAD, in bed, and son at bedside poor po intake on IV abx daughter doesn't want him to go back to [facility], she wants to try [place] [facility] [place] seen by Dr Marshall, who have spoken to family extensively as well, family doesn' t seem to have realistic goals or insight to the disease process besides repeatedly elaborating on the prognosis and progression of the disease - Current Medication List Current Medications: Active Medications Albuterol/Ipratropium (Duoneb -) 1 amp NEB RQID [facility] Last Admin: 04/02/17 11:18 Dose: 1 amp Furosemide (Lasix -) 40 mg PO BID@0600,1400 [facility] Last Admin: 04/02/17 05:42 Dose: 40 mg CEFTRIAXONE IN IS-OSM DEXTROSE (Ceftriaxone 2 Gm-D5w Bag) 2 gm in 50 mls @ 100 mls/hr IVPB DAILY [facility] Last Admin: 04/02/17 10:30 Dose: 100 mls/hr Insulin Aspart (Novolog Vial Sliding Scale -) 1 vial SQ ACHS [facility] PRN Reason: Protocol Last Admin: 04/02/17 12:30 Dose: 2 units Isosorbide Mononitrate (Imdur -) 30 mg PO DAILY [facility] Last Admin: 04/02/17 12:28 Dose: 30 mg Lactulose (Cephulac (Oral Use)) 20 gm PO BID [facility] Last Admin: 04/02/17 12:29 Dose: 20 gm Nadolol (Corgard -) 20 mg PO DAILY [facility] Last Admin: 04/02/17 12:29 Dose: 20 mg Oxycodone HCl (Roxicodone -) 2.5 mg PO Q4H PRN PRN Reason: PAIN LEVEL 6-10 Rifaximin (Xifaxan -) 550 mg PO BID [facility] Last Admin: 04/02/17 12:29 Dose: 550 mg - Objective Vital Signs: Vital Signs Temperature 98.2 F 04/02/17 10:00 Pulse Rate 65 04/02/17 10:00 Respiratory Rate 20 04/02/17 10:00 Blood Pressure 100/55 04/02/17 10:00 O2 Sat by Pulse Oximetry (%) 98 04/02/17 07:47 Constitutional: Yes: Well Nourished, No Distress, Calm Cardiovascular: Yes: Pulse Irregular Respiratory: Yes: Regular Gastrointestinal: Yes: Abdomen, Obese, Ascites Musculoskeletal: Yes: WNL Extremities: Yes: WNL Neurological: Yes: Alert, Oriented Psychiatric: Yes: Alert, Oriented Labs: CBC, BMP 03/31/17 06:00 03/31/17 06:00 INR, PTT INR 2.65 (0.82-1.09) H 04/01/17 06:30 Problem List - Problems (1) Atrial fibrillation Assessment/Plan: -on warfarin -daily INR checks Code(s): I48.91 - UNSPECIFIED ATRIAL FIBRILLATION Qualifiers: Atrial fibrillation type: chronic Qualified Code(s): I48.2 - Chronic atrial fibrillation (2) Hepatic encephalopathy Assessment/Plan: -on lactulose and Rifaximin -seen by GI Code(s): K72.90 - HEPATIC FAILURE, UNSPECIFIED WITHOUT COMA (3) Prostate carcinoma Assessment/Plan: -seen by urology -Bonilla catheter changed -PSA levels -bone scan -has not been able to tolerate chemotherapy, unable to swallow Xtandi, unable to receive leupron due to cost, unable to f/u with oncology in the office Code(s): C61 - MALIGNANT NEOPLASM OF PROSTATE (4) UTI (urinary tract infection) Assessment/Plan: -Bonilla catheter -seen by ID -IV abx Code(s): N39.0 - URINARY TRACT INFECTION, SITE NOT SPECIFIED Qualifiers: Urinary tract infection type: site unspecified Hematuria presence: with hematuria Qualified Code(s): N39.0 - Urinary tract infection, site not specified (5) Diabetes 1.5, managed as type 2 Assessment/Plan: -poor PO intake -BGM -insulin sliding scale Code(s): E10.9 - TYPE 1 DIABETES MELLITUS WITHOUT COMPLICATIONS Assessment/Plan see problem list overall poor prognosis
[2017-04-02 13:35] LABS: INR 1.81 (0.82-1.09); PROTHROMBIN TIME (PATIENT) 20.4 SEC (9.98-11.88)
--- NOTE | 2017-04-02 14:38 | PN ---
Progress Note, Physician History of Present Illness: More responsive No acute distress Breathing non-labored Temps down - Current Medication List Current Medications: Active Medications Albuterol/Ipratropium (Duoneb -) 1 amp NEB RQID [facility] Last Admin: 04/02/17 11:18 Dose: 1 amp Furosemide (Lasix -) 40 mg PO BID@0600,1400 [facility] Last Admin: 04/02/17 05:42 Dose: 40 mg CEFTRIAXONE IN IS-OSM DEXTROSE (Ceftriaxone 2 Gm-D5w Bag) 2 gm in 50 mls @ 100 mls/hr IVPB DAILY [facility] Last Admin: 04/02/17 10:30 Dose: 100 mls/hr Insulin Aspart (Novolog Vial Sliding Scale -) 1 vial SQ ACHS [facility] PRN Reason: Protocol Last Admin: 04/02/17 12:30 Dose: 2 units Isosorbide Mononitrate (Imdur -) 30 mg PO DAILY [facility] Last Admin: 04/02/17 12:28 Dose: 30 mg Lactulose (Cephulac (Oral Use)) 20 gm PO BID [facility] Last Admin: 04/02/17 12:29 Dose: 20 gm Nadolol (Corgard -) 20 mg PO DAILY [facility] Last Admin: 04/02/17 12:29 Dose: 20 mg Oxycodone HCl (Roxicodone -) 2.5 mg PO Q4H PRN PRN Reason: PAIN LEVEL 6-10 Rifaximin (Xifaxan -) 550 mg PO BID [facility] Last Admin: 04/02/17 12:29 Dose: 550 mg - Objective Vital Signs: Vital Signs Temperature 97.9 F 04/02/17 14:06 Pulse Rate 65 04/02/17 14:06 Respiratory Rate 18 04/02/17 14:06 Blood Pressure 106/61 04/02/17 14:06 O2 Sat by Pulse Oximetry (%) 98 04/02/17 09:00 Constitutional: Yes: No Distress Eyes: Yes: Conjunctiva Clear Cardiovascular: Yes: Regular Rate and Rhythm, S1, S2 Respiratory: Yes: Diminished Gastrointestinal: Yes: Normal Bowel Sounds, Soft. No: Tenderness Labs: CBC, BMP 03/31/17 06:00 03/31/17 06:00 INR, PTT INR 1.81 (0.82-1.09) H D 04/02/17 12:20 Assessment/Plan Fever ? aspiration pneumonia - resolved VRE UTI treated Hepatic encephalopathy Chronic liver disease Metastatic prostate ca Substitute po ceftin 500mg bid x 48h
--- NOTE | 2017-04-02 18:03 | PN ---
Progress Note, Physician Chief Complaint: Pt is very weak; asks daughter to change position of his head, but complains of pain when small change in position is made. Feeble hand grasp. History of Present Illness: The patient is an 86 year old man (peterson Santana) with past medical history of liver cirrhosis and metastatic prostate cancer who arrives to the ED from [facility] with complaints of left rib pain. History is mostly from daughter who is at bedside. The patient only experiences pain when his rib is pressed. He denies any history of prior injury to the area. His daughter reports he has also been more lethargic over the last 2 days. He denies f/c, sob, headache, focal weakness/numbness, abd pain, LE edema. - Current Medication List Current Medications: Active Medications Albuterol/Ipratropium (Duoneb -) 1 amp NEB RQID [facility] Last Admin: 04/02/17 16:15 Dose: 1 amp Cefuroxime Axetil (Ceftin -) 250 mg PO BID [facility] Furosemide (Lasix -) 40 mg PO BID@0600,1400 [facility] Last Admin: 04/02/17 16:41 Dose: 40 mg Insulin Aspart (Novolog Vial Sliding Scale -) 1 vial SQ ACHS [facility] PRN Reason: Protocol Last Admin: 04/02/17 17:05 Dose: 2 units Isosorbide Mononitrate (Imdur -) 30 mg PO DAILY [facility] Last Admin: 04/02/17 12:28 Dose: 30 mg Lactulose (Cephulac (Oral Use)) 20 gm PO BID [facility] Last Admin: 04/02/17 12:29 Dose: 20 gm Nadolol (Corgard -) 20 mg PO DAILY [facility] Last Admin: 04/02/17 12:29 Dose: 20 mg Oxycodone HCl (Roxicodone -) 2.5 mg PO Q4H PRN PRN Reason: PAIN LEVEL 6-10 Rifaximin (Xifaxan -) 550 mg PO BID [facility] Last Admin: 04/02/17 12:29 Dose: 550 mg - Objective Vital Signs: Vital Signs Temperature 97.9 F 04/02/17 14:06 Pulse Rate 65 04/02/17 14:06 Respiratory Rate 18 04/02/17 14:06 Blood Pressure 106/61 04/02/17 14:06 O2 Sat by Pulse Oximetry (%) 98 04/02/17 09:00 Constitutional: Yes: Anxious, Pallor, Thin Eyes: Yes: WNL HENT: Yes: WNL Neck: Yes: WNL Cardiovascular: Yes: S1, S2 (split) Respiratory: Yes: Diminished Gastrointestinal: Yes: Soft, Distention ...Rectal Exam: Yes: Deferred Genitourinary: No: Anuria Musculoskeletal: Yes: Muscle Weakness Extremities: Yes: Cool Edema: Yes Edema: LLE: Trace, RLE: Trace Peripheral Pulses WNL: No Peripheral Pulses: Left Doralis Pedis: 1+, Right Dorsalis Pedis: 1+ Neurological: Yes: Alert, Oriented, Weakness Psychiatric: Yes: Alert Labs: CBC, BMP 03/31/17 06:00 03/31/17 06:00 INR, PTT INR 1.81 (0.82-1.09) H D 04/02/17 12:20 Abnormal Lab Results 04/02/17 12:20 PT with INR 20.40 H INR 1.81 H D - ....Imaging X-ray: Image Reviewed (abdomen: intestinal obstruction ; r/o pneumoperitoneum) Problem List - Problems (1) Atrial fibrillation Assessment/Plan: On Nadolol for liver cirrhosis/portal HTN; HR control. On warfarin; Code(s): I48.91 - UNSPECIFIED ATRIAL FIBRILLATION Qualifiers: Atrial fibrillation type: chronic Qualified Code(s): I48.2 - Chronic atrial fibrillation (2) Cirrhosis of liver Code(s): K74.60 - UNSPECIFIED CIRRHOSIS OF LIVER Qualifiers: Hepatic cirrhosis type: unspecified hepatic cirrhosis (3) Fever Code(s): R50.9 - FEVER, UNSPECIFIED (4) Metastasis to bone Code(s): C79.51 - SECONDARY MALIGNANT NEOPLASM OF BONE (5) Prostate CA Assessment/Plan: f/u with oncologist. Pt's daughter feels her father wants continued medical therapy; she feels family cannot afford the medical/nursing care he would require at home. Code(s): C61 - MALIGNANT NEOPLASM OF PROSTATE (6) Anemia Code(s): D64.9 - ANEMIA, UNSPECIFIED (7) Ascites Code(s): R18.8 - OTHER ASCITES (8) Bilateral leg weakness Code(s): R29.898 - OTH SYMPTOMS AND SIGNS INVOLVING THE MUSCULOSKELETAL SYSTEM (9) Confusion Code(s): R41.0 - DISORIENTATION, UNSPECIFIED (10) Hepatic encephalopathy Code(s): K72.90 - HEPATIC FAILURE, UNSPECIFIED WITHOUT COMA
--- NOTE | 2017-04-02 19:39 | DS ---
Physical Examination Vital Signs: Vital Signs Temperature 97.8 F 04/02/17 18:00 Pulse Rate 66 04/02/17 18:00 Respiratory Rate 18 04/02/17 18:00 Blood Pressure 100/58 04/02/17 18:00 O2 Sat by Pulse Oximetry (%) 98 04/02/17 09:00 Constitutional: Yes: Well Nourished, No Distress, Calm Cardiovascular: Yes: Pulse Irregular Respiratory: Yes: Regular Gastrointestinal: Yes: Ascites Neurological: Yes: Alert Psychiatric: Yes: Alert Labs: CBC, BMP 03/31/17 06:00 03/31/17 06:00 Discharge Summary Reason For Visit: CHEST PAIN,PNEUMONIA Current Active Problems Atrial fibrillation (Acute) Chest pain (Acute) Cirrhosis (Acute) Cirrhosis of liver (Acute) Fever (Acute) Ileus, unspecified (Acute) Metastasis to bone (Acute) Paralysis of right lower extremity (Acute) Pneumonia (Acute) Prostate CA (Acute) Hospital Course: 86yo man with PMH of 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 He has had several recent admissions here for progressive weakness and lethary. For the past several weeks he has been unable to ambulate. The family was with him earlier today when he pointed to his sternal region and complained of chest pain. EMS was called and was given 1 dose of nitroglycerin in the field. The family also reports that he has had increased cough since being discharged on 03/14. No fever or chills. No n/v/d. Condition: Improved - Instructions Diet, Activity, Other Instructions: contact isolation for VRE in urine check INR M-W_F zyvox 600mg po bid for 7 days dyphagia minced, thin liquids,glucerna Referrals: Zenobia Chow MD [Primary Care Provider] - Sabine Lainez MD [Staff Physician] - Disposition: LONGTERM FACILITY - Home Medications Comprehensive Discharge Medication List: Ambulatory Orders Aa/Hydrolyzed Collagen, Whey [Lps 15-30 Liquid] 30 ml PO BID 03/22/17 Albuterol 2.5/Ipratropium 0.5 [Duoneb -] 1 neb NEB QID 03/22/17 Furosemide [Lasix] 40 mg PO BID 03/22/17 Glimepiride [Amaryl -] 2 mg PO DAILY 03/22/17 Insulin Lispro [Humalog] 0 unit SQ ASDIR 03/22/17 Lactulose 20 gm PO BID 03/22/17 Nadolol 20 mg PO DAILY 03/22/17 Polyethylene Glycol 3350 [Miralax 119 gm Btl -] 17 gm PO DAILY 03/22/17 Rifaximin [Xifaxan] 550 mg PO BID 03/22/17 Spironolactone [Aldactone] 25 mg PO BID 03/22/17 Tamsulosin HCl 0.4 mg PO DAILY 03/22/17 Warfarin Na [Coumadin -] 6 mg PO DAILY 03/22/17 Isosorbide Mononitrate [Imdur -] 30 mg PO DAILY #20 tab.sr.24h MDD 1 03/25/17 Linezolid [Zyvox (Restricted To Id) -] 600 mg PO BID #14 tablet MDD 2 03/25/17 Pantoprazole Sodium [Protonix -] 20 mg PO DAILY #7 tablet.ec 03/25/17
[2017-04-02] MEDS ORDERED: WARFARIN NA 2 MG TABLET (UD) PO SCH (19:45)
[2017-04-02] MEDS: CEFUROXIME AXETIL 250 MG TABLET PO SCH (21:25)
[2017-04-03] MEDS: INSULIN SLIDING SCALE (NOVOLOG) 1 VIAL SQ SCH (06:08)
[2017-04-03] MEDS: FUROSEMIDE 40 MG TABLET (FP) PO SCH (06:08)
[2017-04-03] MEDS: ALBUTEROL SO4 2.5/IPRATROPIUM 0.5 INH SOL 3 ML VIAL.NEB. NEB SCH ×2 (08:11→11:04)
[2017-04-03 08:44] LABS: INR 1.53 (0.82-1.09); PROTHROMBIN TIME (PATIENT) 17.3 SEC (9.98-11.88)
[2017-04-03 09:51] VITALS: BP 119/57; PULSE 68
[2017-04-03] MEDS: CEFUROXIME AXETIL 250 MG TABLET PO SCH (09:51)
[2017-04-03] MEDS: ISOSORBIDE MONONITRATE 30 MG TAB.SR.24H (FP) PO SCH (09:52)
[2017-04-03] MEDS: LACTULOSE 20 GM/30 ML UDC (FOR ORAL USE ONLY) PO SCH (09:52)
[2017-04-03] MEDS: NADOLOL 20 MG TABLET (FP) PO SCH (09:52)
[2017-04-03] MEDS: RIFAXIMIN 550 MG TABLET (UD) PO SCH (09:52)
[2017-04-03 10:38] VITALS: TEMP 97.6
--- NOTE | 2017-04-03 11:04 | PN ---
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 He has had several recent admissions here for progressive weakness and decreased responsiveness. For the past several weeks he has been unable to ambulate. The family was with him earlier today when he pointed to his sternal region and complained of chest pain. EMS was called and was given 1 dose of nitroglycerin in the field. The family also reports that he has had increased cough since being discharged on 03/14. No fever or chills. No n/v/d. - Current Medication List Current Medications: Active Medications Albuterol/Ipratropium (Duoneb -) 1 amp NEB RQID [facility] Last Admin: 04/03/17 08:11 Dose: 1 amp Cefuroxime Axetil (Ceftin -) 250 mg PO BID [facility] Last Admin: 04/03/17 09:51 Dose: 250 mg Furosemide (Lasix -) 40 mg PO BID@0600,1400 [facility] Last Admin: 04/03/17 06:08 Dose: 40 mg Insulin Aspart (Novolog Vial Sliding Scale -) 1 vial SQ ACHS [facility] PRN Reason: Protocol Last Admin: 04/03/17 06:08 Dose: Not Given Isosorbide Mononitrate (Imdur -) 30 mg PO DAILY [facility] Last Admin: 04/03/17 09:52 Dose: 30 mg Lactulose (Cephulac (Oral Use)) 20 gm PO BID [facility] Last Admin: 04/03/17 09:52 Dose: 20 gm Nadolol (Corgard -) 20 mg PO DAILY [facility] Last Admin: 04/03/17 09:52 Dose: 20 mg Oxycodone HCl (Roxicodone -) 2.5 mg PO Q4H PRN PRN Reason: PAIN LEVEL 6-10 Last Admin: 04/02/17 21:25 Dose: 2.5 mg Rifaximin (Xifaxan -) 550 mg PO BID [facility] Last Admin: 04/03/17 09:52 Dose: 550 mg Warfarin Sodium (Coumadin -) 4 mg PO DAILY@1800 [facility] Last Admin: 04/02/17 21:25 Dose: 4 mg - Objective Vital Signs: Vital Signs Temperature 97.6 F 04/03/17 10:37 Pulse Rate 68 04/03/17 09:50 Respiratory Rate 20 04/03/17 09:50 Blood Pressure 119/57 04/03/17 09:50 O2 Sat by Pulse Oximetry (%) 99 04/03/17 09:00 Eyes: Yes: WNL, Conjunctiva Clear, EOM Intact HENT: Yes: WNL, Atraumatic, Normocephalic Neck: Yes: WNL, Supple, Trachea Midline Cardiovascular: Yes: WNL, Regular Rate and Rhythm Respiratory: Yes: WNL, Regular, CTA Bilaterally Gastrointestinal: Yes: WNL, Normal Bowel Sounds Genitourinary: Yes: WNL Musculoskeletal: Yes: WNL Extremities: Yes: WNL Edema: No Integumentary: Yes: WNL Neurological: Yes: WNL, Alert, Oriented ...Motor Strength: WNL Psychiatric: Yes: WNL Labs: CBC, BMP 03/31/17 06:00 03/31/17 06:00 INR, PTT INR 1.53 (0.82-1.09) H 04/03/17 06:50 Problem List - Problems (1) Atrial fibrillation Code(s): I48.91 - UNSPECIFIED ATRIAL FIBRILLATION Qualifiers: Atrial fibrillation type: chronic Qualified Code(s): I48.2 - Chronic atrial fibrillation (2) Chest pain Code(s): R07.9 - CHEST PAIN, UNSPECIFIED Qualifiers: Chest pain type: other chest pain Qualified Code(s): R07.89 - Other chest pain; R07.8 - Other chest pain (3) Cirrhosis Code(s): K74.60 - UNSPECIFIED CIRRHOSIS OF LIVER (4) Cirrhosis of liver Code(s): K74.60 - UNSPECIFIED CIRRHOSIS OF LIVER Qualifiers: Hepatic cirrhosis type: unspecified hepatic cirrhosis (5) Fever Code(s): R50.9 - FEVER, UNSPECIFIED (6) Pneumonia Code(s): J18.9 - PNEUMONIA, UNSPECIFIED ORGANISM Qualifiers: Pneumonia type: due to unspecified organism Laterality: bilateral Lung location: lower lobe of lung Qualified Code(s): J18.9 - Pneumonia, unspecified organism (7) Alcoholic cirrhosis Code(s): K70.30 - ALCOHOLIC CIRRHOSIS OF LIVER WITHOUT ASCITES (8) Anemia Code(s): D64.9 - ANEMIA, UNSPECIFIED (9) Ascites Code(s): R18.8 - OTHER ASCITES (10) Bilateral leg weakness Code(s): R29.898 - OT SYMPTOMS AND SIGNS INVOLVING THE MUSCULOSKELETAL SYSTEM (11) Confusion Code(s): R41.0 - DISORIENTATION, UNSPECIFIED (12) Diabetes 1.5, managed as type 2 Code(s): E10.9 - TYPE 1 DIABETES MELLITUS WITHOUT COMPLICATIONS (13) Elevated INR Code(s): R79.1 - ABNORMAL COAGULATION PROFILE (14) Esophageal varices determined by endoscopy Code(s): I85.00 - ESOPHAGEAL VARICES WITHOUT BLEEDING (15) FH: prostate carcinoma Code(s): Z80.42 - FAMILY HISTORY OF MALIGNANT NEOPLASM OF PROSTATE (16) Hematuria Code(s): R31.9 - HEMATURIA, UNSPECIFIED Qualifiers: Hematuria type: gross Qualified Code(s): R31.0 - Gross hematuria (17) Hepatic encephalopathy Code(s): K72.90 - HEPATIC FAILURE, UNSPECIFIED WITHOUT COMA (18) Herpes zoster Code(s): B02.9 - ZOSTER WITHOUT COMPLICATIONS (19) Hypoalbuminemia Code(s): E88.09 - OT DISORDERS OF PLASMA-PROTEIN METABOLISM, NEC (20) Hypoalbuminemia due to protein-calorie malnutrition Code(s): E46 - UNSPECIFIED PROTEIN-CALORIE MALNUTRITION (21) Laceration of head Code(s): S01.91XA - LACERATION W/O FOREIGN BODY OF UNSP PART OF HEAD, INIT (22) Lactic acidosis Code(s): E87.2 - ACIDOSIS (23) Mental status change Code(s): R41.82 - ALTERED MENTAL STATUS, UNSPECIFIED (24) Paralysis of right lower extremity Code(s): G83.11 - MONOPLEGIA OF LOWER LIMB AFFECTING RIGHT DOMINANT SIDE (25) Portal vein thrombosis Code(s): I81 - PORTAL VEIN THROMBOSIS (26) Prostate cancer metastatic to bone Code(s): C61 - MALIGNANT NEOPLASM OF PROSTATE; C79.51 - SECONDARY MALIGNANT NEOPLASM OF BONE (27) Prostate carcinoma Code(s): C61 - MALIGNANT NEOPLASM OF PROSTATE (28) Renal insufficiency Code(s): N28.9 - DISORDER OF KIDNEY AND URETER, UNSPECIFIED (29) Thrush, oral Code(s): B37.0 - CANDIDAL STOMATITIS (30) UTI (urinary tract infection) Code(s): N39.0 - URINARY TRACT INFECTION, SITE NOT SPECIFIED Qualifiers: Urinary tract infection type: site unspecified Hematuria presence: with hematuria Qualified Code(s): N39.0 - Urinary tract infection, site not specified (31) Urinary retention Code(s): R33.9 - RETENTION OF URINE, UNSPECIFIED (32) Weakness of both legs Code(s): R29.898 - OTH SYMPTOMS AND SIGNS INVOLVING THE MUSCULOSKELETAL SYSTEM Assessment/Plan Problems (1) Atrial fibrillation Assessment/Plan: On Nadolol for liver cirrhosis/portal HTN; HR control. On warfarin; Code(s): I48.91 - UNSPECIFIED ATRIAL FIBRILLATION Qualifiers: Atrial fibrillation type: chronic Qualified Code(s): I48.2 - Chronic atrial fibrillation (2) Cirrhosis of liver Code(s): K74.60 - UNSPECIFIED CIRRHOSIS OF LIVER Qualifiers: Hepatic cirrhosis type: unspecified hepatic cirrhosis (3) Fever Code(s): R50.9 - FEVER, UNSPECIFIED (4) Metastasis to bone Code(s): C79.51 - SECONDARY MALIGNANT NEOPLASM OF BONE (5) Prostate CA Assessment/Plan: f/u with oncologist. Pt's daughter feels her father wants continued medical therapy; she feels family cannot afford the medical/nursing care he would require at home. Code(s): C61 - MALIGNANT NEOPLASM OF PROSTATE (6) Anemia Code(s): D64.9 - ANEMIA, UNSPECIFIED (7) Ascites Code(s): R18.8 - OTHER ASCITES (8) Bilateral leg weakness Code(s): R29.898 - OTH SYMPTOMS AND SIGNS INVOLVING THE MUSCULOSKELETAL SYSTEM (9) Confusion Code(s): R41.0 - DISORIENTATION, UNSPECIFIED (10) Hepatic encephalopathy Code(s): K72.90 - HEPATIC FAILURE, UNSPECIFIED WITHOUT COMA
--- NOTE | 2017-04-03 11:31 | PN ---
Progress Note (short form) - Note Progress Note: UROLOGY NOTE. pt. with mets ca prostate hormone androgen res. will sugg. kartik acuna as op .
== END 2017-04-03 11:34 | DRG 542 ==
LOC: JER 15:57 → JERBED 20:48 → J4S 03-23 00:17
PROVIDERS: ADMIT Internal Medicine; ATTEND Family Medicine
DX: C79.51 Secondary malignant neoplasm of bone (principal); I81 Portal vein thrombosis; J18.9 Pneumonia, unspecified organism; K56.7 Ileus, unspecified; I31.3 Pericardial effusion (noninflammatory); N39.0 Urinary tract infection, site not specified; I85.00 Esophageal varices without bleeding; I48.92 Unspecified atrial flutter; R18.8 Other ascites; J98.11 Atelectasis; J90 Pleural effusion, not elsewhere classified; T83.511A Infection and inflammatory reaction due to indwelling urethral catheter, initial encounter; E11.9 Type 2 diabetes mellitus without complications; I10 Essential (primary) hypertension; K74.69 Other cirrhosis of liver; C61 Malignant neoplasm of prostate; I48.91 Unspecified atrial fibrillation; K72.90 Hepatic failure, unspecified without coma; F03.90 Unspecified dementia, unspecified severity, without behavioral disturbance, psychotic disturbance, mood disturbance, and anxiety; N40.0 Benign prostatic hyperplasia without lower urinary tract symptoms; M54.5 Low back pain; R50.9 Fever, unspecified; R13.19 Other dysphagia; R33.9 Retention of urine, unspecified; I71.2 Thoracic aortic aneurysm, without rupture; G83.11 Monoplegia of lower limb affecting right dominant side; L89.322 Pressure ulcer of left buttock, stage 2; R41.0 Disorientation, unspecified; R29.898 Other symptoms and signs involving the musculoskeletal system; Z74.01 Bed confinement status; Z95.0 Presence of cardiac pacemaker; Z79.01 Long term (current) use of anticoagulants; Z66 Do not resuscitate
CPT/HCPCS: 36415; 70450-TC; 71045-TC; 71275-TC; 74018-TC; 74019-TC; 78306-TC; 80048; 80053; 81003; 81015; 82140; 82550; 82962; 83735; 84153; 84484; 85025; 85027; 85610; 87040; 87086; 87186; 93005; 93010; 94640; 97161-GP; 99285-25; A9503

== ENCOUNTER 2017-04-07 13:10 | Inpatient (IN) | payer OTHER, MEDICARE ==
--- NOTE | 2017-04-07 13:29 | PDOC ---
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 [place] reports the patient was having fevers and had altered mental status. The patient was recently discharged and sent back to the [place] with antibiotics to treat pneumonia. He denies any recent chills, headache or dizziness. He denies any recent nausea, vomit, diarrhea or constipation. He denies any recent chest pain or shortness of breath. He denies any recent dysuria, frequency, urgency or hematuria. Allergies: NKA Past surgical history: None reported. Social History: Nonsmoker. Denies EtOH use and recreational drug use. Primary Care Physician: /MONI Esteban <Naren Trujillo - Last Filed: 04/07/17 17:57> <Gilda Mejia - Last Filed: 04/07/17 18:56> - General Chief Complaint: Cold Symptoms Stated Complaint: FEVER Time Seen by Provider: 04/07/17 13:29 Past History <Naren Trujillo - Last Filed: 04/07/17 17:57> - Past Medical History Cancer: Yes (PROSTATE,BONE) Cardiac Disorders: Yes (atrial fibrillation) COPD: No Dementia: Yes Diabetes: Yes GI Disorders: Yes (cirrhosis, ascites,) Disorders: Yes (prostate ca) HTN: Yes Liver Disease: Yes (cirrhosis, clots in liver) - Surgical History Abdominal Surgery: Yes (Hernia repair) Cardiac Surgery: Yes (Pacemaker) Orthopedic Surgery: Yes (R. Knee sx) - Immunization History Immunization Up to Date: Yes - Suicide/Smoking/Psychosocial Hx Smoking Status: No Smoking History: Never smoked Have you smoked in the past 12 months: No Number of Cigarettes Smoked Daily: 0 Information on smoking cessation initiated: No Hx Alcohol Use: No Drug/Substance Use Hx: No Substance Use Type: None Hx Substance Use Treatment: No <Gilda Mejia - Last Filed: 04/07/17 18:56> - Past Medical History Allergies/Adverse Reactions: Allergies Allergy/AdvReac Type Severity Reaction Status Date / Time No Known Allergies Allergy Verified 04/07/17 13:29 Home Medications: Ambulatory Orders Aa/Hydrolyzed Collagen, Whey [Lps 15-30 Liquid] 30 ml PO BID 03/22/17 Albuterol 2.5/Ipratropium 0.5 [Duoneb -] 1 neb NEB QID 03/22/17 Furosemide [Lasix] 40 mg PO BID 03/22/17 Glimepiride [Amaryl -] 2 mg PO DAILY 03/22/17 Insulin Lispro [Humalog] 0 unit SQ ASDIR 03/22/17 Lactulose 20 gm PO BID 03/22/17 Nadolol 20 mg PO DAILY 03/22/17 Polyethylene Glycol 3350 [Miralax 119 gm Btl -] 17 gm PO DAILY 03/22/17 Rifaximin [Xifaxan] 550 mg PO BID 03/22/17 Spironolactone [Aldactone] 25 mg PO BID 03/22/17 Tamsulosin HCl 0.4 mg PO DAILY 03/22/17 Warfarin Na [Coumadin -] 6 mg PO DAILY 03/22/17 Isosorbide Mononitrate [Imdur -] 30 mg PO DAILY #20 tab.sr.24h MDD 1 03/25/17 Linezolid [Zyvox (Restricted To Id) -] 600 mg PO BID #14 tablet MDD 2 03/25/17 Pantoprazole Sodium [Protonix -] 20 mg PO DAILY #7 tablet.ec 03/25/17 Review of Systems - Review of Systems Able to Perform ROS?: Yes Comments:: 04/07/17 14:10 GENERAL/CONSTITUTIONAL: +fever +Body aches. No chills. No weakness. HEAD, EYES, EARS, NOSE AND THROAT: No change in vision. No ear pain or discharge. No sore throat. CARDIOVASCULAR: No chest pain or shortness of breath. RESPIRATORY: +cough No wheezing, or hemoptysis. GASTROINTESTINAL: No nausea, vomiting, diarrhea or constipation. GENITOURINARY: No dysuria, frequency, or change in urination. MUSCULOSKELETAL: No joint or muscle swelling or pain. No neck or back pain. SKIN: No rash NEUROLOGIC: No headache, vertigo, loss of consciousness, or change in strength/ sensation. ENDOCRINE: No increased thirst. No abnormal weight change. HEMATOLOGIC/LYMPHATIC: No anemia, easy bleeding, or history of blood clots. ALLERGIC/IMMUNOLOGIC: No hives or skin allergy. <Naren Trujillo - Last Filed: 04/07/17 17:57> *Physical Exam - Vital Signs Last Vital Signs Temp Pulse Resp BP Pulse Ox 102.8 F H 78 18 116/62 95 04/07/17 13:22 04/07/17 13:22 04/07/17 13:22 04/07/17 13:22 04/07/17 13:22 <Naren Trujillo - Last Filed: 04/07/17 17:57> - Vital Signs Last Vital Signs Temp Pulse Resp BP Pulse Ox 102.8 F H 78 18 116/62 95 04/07/17 13:22 04/07/17 13:22 04/07/17 13:22 04/07/17 13:22 04/07/17 13:22 <Gilda Mejia - Last Filed: 04/07/17 18:56> ED Treatment Course - LABORATORY CBC & Chemistry Diagram: 04/07/17 14:34 04/07/17 14:34 - Medications Given in the ED: ED Medications Discontinued Medications Generic Name Dose Route Start Last Admin Trade Name Daltonq PRN Reason Stop Dose Admin Acetaminophen 1,000 mg 04/07/17 14:02 04/07/17 14:04 Ofirmev Injection - IVPB 04/07/17 14:03 1,000 mg ONCE ONE Administration <Naren Trujillo - Last Filed: 04/07/17 17:57> - LABORATORY CBC & Chemistry Diagram: 04/07/17 14:34 04/07/17 14:34 <Gilda Mejia - Last Filed: 04/07/17 18:56> Medical Decision Making - Medical Decision Making 04/07/17 16:09 Call made ot advised, patient is 04/07/17 16:31 After speaking with MONI Esteban, covering for Claudine, patient is no longer an [facility] patient 04/07/17 17:05 Call made to , left message awaiting call back 04/07/17 17:53 Call made again to , awaiting call back. 04/07/17 17:56 Call back from case discussed. 04/07/17 17:57 Page sent to Hospitalist. <Naren Trujillo - Last Filed: 04/07/17 17:57> - Medical Decision Making 04/07/17 15:18 Pt presents to the ED with altered mental status and fever. History of end stage prostate CA and recent admission for PNA. Discharged from the hospital on linezolid, family is uncertain whether the long-term has been giving the patient the medication. On exam, patient opens his eyes and is able to state his name in greenlandic, but is otherwise minimally responsive. Patient is febrile in the ED. Concern for sepsis---patient will be treated with IV hydration and broad spectrum antibiotics. Also concern for intracranial lesion, given his history of terminal CA--will check CT head. Will admit to medicine for continued management. <Gilda Mejia - Last Filed: 04/07/17 18:56> *DC/Admit/Observation/Transfer - Attestations Scribe Attestion: 04/07/17 14:10 Documentation prepared by Naren Trujillo, acting as medical data analyst for Gilda Mejia MD. <Naren Trujillo - Last Filed: 04/07/17 17:57> - Discharge Dispostion Admit: Yes <Gilda Mejia - Last Filed: 04/07/17 18:56> Diagnosis at time of Disposition: Sepsis Qualifiers: Sepsis type: sepsis due to unspecified organism Qualified Code(s): A41.9 - Sepsis, unspecified organism - Discharge Dispostion Condition at time of disposition: Fair - Referrals Referrals: Marvin Marshall MD [Primary Care Provider] -
[2017-04-07] MEDS ORDERED: ACETAMINOPHEN 1000 MG/100 ML VIAL (NON FORMULARY) IVPB ONE (14:02)
[2017-04-07] MEDS ORDERED: ACETAMINOPHEN INJECTION 100 ML IVPB ONE (14:12)
[2017-04-07] MEDS ORDERED: VANCOMYCIN 1,000 MG in DEXTROSE 5%-WATER - 250 ML IVPB ONE (14:54)
[2017-04-07] MEDS ORDERED: PIPERACILLIN/TAZOB 3.375 GM 50 ML IVPB ONE (14:54)
[2017-04-07 14:58] LABS: VENOUS PC02 51.9 mmHg (38-52); VENOUS PH 7.37 (7.32-7.42); VENOUS PO2 46.8 mmHg (28-48)
[2017-04-07 15:09] LABS: URINE APPEARANCE CLOUDY; URINE BILIRUBIN NEGATIVE (NEGATIVE); URINE BLOOD NEGATIVE (NEGATIVE); URINE GLUCOSE (UA) NEGATIVE (NEGATIVE); URINE KETONE TRACE (NEGATIVE); URINE NITRITE NEGATIVE (NEGATIVE); URINE UROBILINOGEN NEGATIVE mg/dL (0.2-1.0)
[2017-04-07 15:10] LABS: HEMOGLOBIN 11.3 GM/dL (11.7-16.9); MCH 25.5 pg (25.7-33.7); MCHC 32.2 g/dl (32.0-35.9); MEAN CELL VOLUME 79.2 fl (80-96); MEAN PLT VOLUME 7.9 fl (7.5-11.1); PLATELET COUNT 271 K/MM3 (134-434); RBC 4.42 M/mm3 (4.00-5.60); WHITE BLOOD COUNT 3.5 K/mm3 (4.0-10.0)
[2017-04-07] MEDS ORDERED: VANCOMYCIN 1 GRAM (PRE-DOCKED) 1,000 MG/250 ML BAG IVPB ONE (15:11)
[2017-04-07] MEDS ORDERED: PIPERACILLIN/TAZOB 3.375 GM 3.375 GM/50 ML BAG IVPB ONE (15:11)
[2017-04-07 15:20] LABS: URINE LEUK ESTERASE 3+ (NEGATIVE); URINE PROTEIN 1+ (NEGATIVE)
[2017-04-07 15:21] LABS: URINE COLOR YELLOW
[2017-04-07 15:30] LABS: ALBUMIN 2.8 g/dl (3.4-5.0); ANION GAP 10 (8-16); BILIRUBIN,TOTAL 0.6 mg/dL (0.2-1.0); BLOOD UREA NITROGEN 21 mg/dL (7-18); CALCIUM 7.9 mg/dL (8.5-10.1); CHLORIDE 95 mmol/L (98-107); CO2 30 mmol/L (21-32); CREATININE 0.7 mg/dL (0.7-1.3); GLUCOSE,RANDOM 196 mg/dL (74-106); SGOT/AST 27 U/L (15-37); SGPT/ALT 21 U/L (12-78); SODIUM 135 mmol/L (136-145); TOT PROT 6.8 g/dl (6.4-8.2)
[2017-04-07 15:32] LABS: ALK PHOS 433 U/L (45-117)
[2017-04-07 15:37] LABS: URINE HYALINE CAST 4 /lpf; URINE MUCUS FEW; YEAST MANY
[2017-04-07 15:41] LABS: INR 1.94 (0.82-1.09); PROTHROMBIN TIME (PATIENT) 21.9 SEC (9.98-11.88)
[2017-04-07 15:44] LABS: ACTIVATED PTT 36.5 SECONDS (26.9-34.4)
[2017-04-07 15:55] LABS: PLATELET ESTIMATE NORMAL
[2017-04-07] MEDS ORDERED: OSELTAMIVIR PHOSPHATE 75 MG CAPSULE PO ONE (17:22)
[2017-04-07] MEDS ORDERED: SODIUM CHLORIDE 0.9% 500 ML INFUS.BAG IV ONE (17:51)
--- NOTE | 2017-04-07 20:05 | HP ---
Admitting History and Physical - Primary Care Physician PCP: Zenobia Chow - Admission Chief Complaint: Fever, Cough, Bodyaches, AMS History of Present Illness: This is a 86 y/o man with a PMHx of: Dementia, DM, HTN, Afib (Coumadin), Liver Cirrhosis (clots in Liver), Metastatic Prostate Ca (mets- Spine). Who presents to the ED from the [place] for fever, AMS, cough, bodyaches. Patient was recently admitted for PNA and d/cd with ABX. He was found to be more confused then baseline. Per patient's he has a moist cough, lethargic and not eating well for several days. 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: Dementia, Other Cardiovascular: Yes: AFIB, HTN, Other (complete heart block requiring a pacemaker) Gastrointestinal: Yes: Ascites, Esophageal Varices, GI Bleed Hepatobiliary: Yes: Cirrhosis, Other (portal vein thrombosis) Renal/: Yes: BPH, Cancer Heme/Onc: Yes: Anemia, B12 Deficiency Musculoskeletal: Yes: Chronic low back pain Endocrine: Yes: Diabetes Mellitus - Past Surgical History Past Surgical History: Yes: Arthrosocopy, Colonoscopy, Hernia Repair, Permanent Pacemaker, Upper Endoscopy - Smoking History Smoking history: Never smoked Have you smoked in the past 12 months: No Aproximately how many cigarettes per day: 0 - Alcohol/Substance Use Hx Alcohol Use: No Number of Drinks Daily: 0 History of Substance Use: reports: None - Social History Usual Living Arrangement: Yes: Prison ADL: Family Assistance 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 History of Recent Travel: No Home Medications - Allergies Allergies/Adverse Reactions: Allergies Allergy/AdvReac Type Severity Reaction Status Date / Time No Known Allergies Allergy Verified 04/07/17 13:29 - Home Medications Home Medications: Ambulatory Orders Aa/Hydrolyzed Collagen, Whey [Lps 15-30 Liquid] 30 ml PO BID 03/22/17 Albuterol 2.5/Ipratropium 0.5 [Duoneb -] 1 neb NEB QID 03/22/17 Furosemide [Lasix] 40 mg PO BID 03/22/17 Glimepiride [Amaryl -] 2 mg PO DAILY 03/22/17 Insulin Lispro [Humalog] 0 unit SQ ASDIR 03/22/17 Lactulose 20 gm PO BID 03/22/17 Nadolol 20 mg PO DAILY 03/22/17 Polyethylene Glycol 3350 [Miralax 119 gm Btl -] 17 gm PO DAILY 03/22/17 Rifaximin [Xifaxan] 550 mg PO BID 03/22/17 Spironolactone [Aldactone] 25 mg PO BID 03/22/17 Tamsulosin HCl 0.4 mg PO DAILY 03/22/17 Warfarin Na [Coumadin -] 6 mg PO DAILY 03/22/17 Isosorbide Mononitrate [Imdur -] 30 mg PO DAILY #20 tab.sr.24h MDD 1 03/25/17 Linezolid [Zyvox (Restricted To Id) -] 600 mg PO BID #14 tablet MDD 2 03/25/17 Pantoprazole Sodium [Protonix -] 20 mg PO DAILY #7 tablet.ec 03/25/17 Family Disease History - Family Disease History Family Disease History: Diabetes: Brother (protate cancer), [place]: Brother Review of Systems Unable to obtain ROS, reason: Dementia Physical Examination Vital Signs: Vital Signs Temperature 100.4 F H 04/07/17 17:18 Pulse Rate 67 04/07/17 17:18 Respiratory Rate 20 04/07/17 17:18 Blood Pressure 95/67 04/07/17 17:18 O2 Sat by Pulse Oximetry (%) 97 04/07/17 17:18 Labs: CBC, BMP 04/07/17 14:34 04/07/17 14:34 Imaging - Results Chest X-ray: Report Reviewed (Read by Dr. Hans Velarde- Right Heart, Retrocardiac Changes, Pacemaker), Image Reviewed EKG: Image Reviewed Problem List - Problems (1) Influenza A virus present Code(s): J10.1 - FLU DUE TO OTH IDENT INFLUENZA VIRUS W OTH RESP MANIFEST (2) Sepsis Code(s): A41.9 - SEPSIS, UNSPECIFIED ORGANISM Qualifiers: Sepsis type: sepsis due to unspecified organism Qualified Code(s): A41.9 - Sepsis, unspecified organism (3) Fever Code(s): R50.9 - FEVER, UNSPECIFIED (4) Subtherapeutic international normalized ratio (INR) Code(s): R79.1 - ABNORMAL COAGULATION PROFILE (5) Atrial fibrillation Code(s): I48.91 - UNSPECIFIED ATRIAL FIBRILLATION Qualifiers: Atrial fibrillation type: chronic Qualified Code(s): I48.2 - Chronic atrial fibrillation (6) Mental status change Code(s): R41.82 - ALTERED MENTAL STATUS, UNSPECIFIED (7) Hepatic encephalopathy Code(s): K72.90 - HEPATIC FAILURE, UNSPECIFIED WITHOUT COMA (8) Diabetes 1.5, managed as type 2 Code(s): E10.9 - TYPE 1 DIABETES MELLITUS WITHOUT COMPLICATIONS (9) Alcoholic cirrhosis Code(s): K70.30 - ALCOHOLIC CIRRHOSIS OF LIVER WITHOUT ASCITES (10) Anemia Code(s): D64.9 - ANEMIA, UNSPECIFIED (11) Cirrhosis of liver Code(s): K74.60 - UNSPECIFIED CIRRHOSIS OF LIVER Qualifiers: Hepatic cirrhosis type: unspecified hepatic cirrhosis (12) Prostate cancer metastatic to bone Code(s): C61 - MALIGNANT NEOPLASM OF PROSTATE; C79.51 - SECONDARY MALIGNANT NEOPLASM OF BONE (13) Prostate carcinoma Code(s): C61 - MALIGNANT NEOPLASM OF PROSTATE Assessment/Plan 86 y/o man with a PMHx of: Dementia, HTN, Afib (on Coumadin), DM, Liver Cirrhosis, Metastatic Prostate Ca (mets Spine). Admitted for Sepsis secondary to Influenza A, Hepatic Encephalopathy. Plan: 1. Sepsis - Secondary to Influenza A - qSOFA Score 2 - T Max 102.8 - Blood Cultures- pending - Urine Cultures- pending - Influenza A positive - Monitor CBCD, BMP - Monitor vitals - Continue Tamiflu - Continue Zosyn, Vancomycin - Appreciate ID Consult 2. Influenza A - Isolation Precautions- Droplet - Tamiflu given in ED, will continue - Supportive Care 3. Neurology: Hepatic Encephalopathy Dementia - Secondary to Liver Cirrhosis - Neuro checks - Monitor CBC, BMP - Monitor vitals - Continue meds - Fall Precautions 4. Cardiology: HTN Afib - Monitor BP - Currently hypotensive - NS Bolus maintain MAP > 60 - Hold antiHTN meds for now, reassess tomorrow - EKG- - Monitor INR - Continue Coumadin 5. Endocrinology: DM Type II - BGMs - ISS 6. Subtherapeutic INR - Continue Coumadin - Monitor INRs 7. Oncology: Metastatic Prostate Ca - Continue to monitor and treat with interventions accordingly 8. FEN - NS 30cc/hr - Replete lytes prn - NPO 9. DVT Prophylaxis - SCDs - Continue Coumadin Code Status: Dispo: Requires Inpatient Care Visit type - Emergency Visit Emergency Visit: Yes ED Registration Date: 04/07/17 Care time: The patient presented to the Emergency Department on the above date and was hospitalized for further evaluation of their emergent condition. - New Patient This patient is new to me today: Yes Date on this admission: 04/07/17 - Critical Care Critical Care patient: No
[2017-04-07] MEDS: OSELTAMIVIR PHOSPHATE 75 MG CAPSULE PO SCH (23:40)
[2017-04-08] MEDS ORDERED: PIPERACILLIN/TAZOB 3.375 GM 3.375 GM in DEXTROSE 5%-WATER - 100 ML IVPB ONE (02:00)
[2017-04-08] MEDS ORDERED: PIPERACIL/TAZOB 3.375 GM 3.375 GM/50 ML PREMIX IVPB SCH ×2 (02:00→09:05)
[2017-04-08] MEDS ORDERED: PIPERACILLIN/TAZOB 3.375 GM 3.375 GM/50 ML BAG IVPB ONE (02:55)
[2017-04-08] MEDS ORDERED: ACETAMINOPHEN 1000 MG/100 ML VIAL (NON FORMULARY) IVPB ONE (05:31)
[2017-04-08] MEDS ORDERED: OSELTAMIVIR PHOSPHATE 75 MG CAPSULE ONE (05:37)
[2017-04-08] MEDS: SODIUM CHLORIDE 1,000 ML IV SCH (05:57)
[2017-04-08 07:29] LABS: HEMATOCRIT 30.8 % (35.4-49); HEMOGLOBIN 9.7 GM/dL (11.7-16.9); MCH 25.2 pg (25.7-33.7); MCHC 31.5 g/dl (32.0-35.9); MEAN CELL VOLUME 80.1 fl (80-96); MEAN PLT VOLUME 7.5 fl (7.5-11.1); PLATELET COUNT 219 K/MM3 (134-434); RBC 3.84 M/mm3 (4.00-5.60); RDW 19.2 % (11.9-15.9); WHITE BLOOD COUNT 3.6 K/mm3 (4.0-10.0)
[2017-04-08 07:55] LABS: ANION GAP 5 (8-16); BLOOD UREA NITROGEN 22 mg/dL (7-18); CALCIUM 7.4 mg/dL (8.5-10.1); CHLORIDE 102 mmol/L (98-107); CO2 31 mmol/L (21-32); CREATININE 0.5 mg/dL (0.7-1.3); GLUCOSE,RANDOM 151 mg/dL (74-106); MAGNESIUM 1.9 mg/dL (1.8-2.4); PHOSPHOROUS 3.2 mg/dL (2.5-4.9); POTASSIUM 3.6 mmol/L (3.5-5.1); SODIUM 138 mmol/L (136-145)
--- NOTE | 2017-04-08 08:52 | EKG ---
Test Reason : Blood Pressure : / mmHG Vent. Rate : 065 BPM Atrial Rate : 067 BPM P-R Int : 000 ms QRS Dur : 160 ms QT Int : 496 ms P-R-T Axes : 000 -78 047 degrees QTc Int : 515 ms Ventricular-paced rhythm ABNORMAL ECG WHEN COMPARED WITH ECG OF 23-MAR-2017 11:04, PREMATURE VENTRICULAR COMPLEXES ARE NO LONGER PRESENT VENT. RATE HAS DECREASED BY 3 BPM Confirmed by Jose Zavala ([id number]) on 04/08/2017 8:52:18 AM Referred By: Confirmed By:Jose Zavala
--- NOTE | 2017-04-08 09:07 | PN ---
Progress Note, Physician Chief Complaint: ID Full note dictated and patient well known to me has been FUO past consultations - Current Medication List Current Medications: Active Medications Acetaminophen (Tylenol -) 650 mg PO Q6H PRN PRN Reason: FEVER Albuterol/Ipratropium (Duoneb -) 1 amp NEB RQID MAHENDRA Vancomycin HCl 1,000 mg/ (Dextrose) 250 mls @ 200 mls/hr IVPB Q12H MAHENDRA Vancomycin HCl 1,000 mg/ (Dextrose) 250 mls @ 166.667 mls/hr IVPB ONCE ONE Stop: 04/08/17 11:29 Sodium Chloride (Normal Saline -) 1,000 mls @ 30 mls/hr IV ASDIR MAHENDRA Last Admin: 04/08/17 05:57 Dose: 30 mls/hr Lactulose (Cephulac (Oral Use)) 20 gm PO BID MAHENDRA Oseltamivir Phosphate (Tamiflu -) 75 mg PO BID MAHENDRA Stop: 04/13/17 09:59 Last Admin: 04/07/17 23:40 Dose: 75 mg Pantoprazole Sodium (Protonix -) 20 mg PO DAILY [facility] Piperacillin/Tazobactam/Dextrose (Zosyn 3.375gm Ivpb (Premix)) 3.375 gm IVPB Q8H-IV MAHENDRA Rifaximin (Xifaxan -) 550 mg PO BID MAHENDRA Tamsulosin HCl (Flomax -) 0.4 mg PO DAILY@0830 [facility] Warfarin Sodium 5 mg/ Warfarin (Sodium 1.5 mg) 6.5 mg PO DAILY@1800 MAHENDRA - Objective Vital Signs: Vital Signs Temperature 100.3 F H 04/08/17 06:50 Pulse Rate 68 04/08/17 06:50 Respiratory Rate 20 04/08/17 06:50 Blood Pressure 121/60 04/08/17 06:50 O2 Sat by Pulse Oximetry (%) 98 04/07/17 22:11 Labs: CBC, BMP 04/08/17 06:25 04/08/17 06:25 INR, PTT INR 1.94 (0.82-1.09) H 04/07/17 14:34 Problem List - Problems (1) UTI (urinary tract infection) Code(s): N39.0 - URINARY TRACT INFECTION, SITE NOT SPECIFIED (2) UTI (urinary tract infection) Code(s): N39.0 - URINARY TRACT INFECTION, SITE NOT SPECIFIED (3) Influenza A virus present Code(s): J10.1 - FLU DUE TO OTH IDENT INFLUENZA VIRUS W OTH RESP MANIFEST Assessment/Plan Laboratory Tests 04/07/17 04/08/17 04/08/17 14:34 06:25 06:25 WBC 3.6 L Hgb 9.7 L D Hct 30.8 L Plt Count 219 BUN 22 H Creatinine 0.5 L D Ur Leukocyte Esterase 3+ H Urine WBC (Auto) 151 Urine RBC (Auto) 33 Assessment INfluenza A Treat for recurrent urinary infection Plan Tamiflu and Zosyn (for now) Francy CHOW
[2017-04-08] MEDS ORDERED: ACETAMINOPHEN 325 MG TABLET (FP) PO PRN (10:00)
[2017-04-08] MEDS ORDERED: VANCOMYCIN 1,000 MG in DEXTROSE 5%-WATER - 250 ML IVPB ONE (10:00)
--- NOTE | 2017-04-08 10:19 | CONS ---
DATE OF CONSULTATION: HISTORY: This is one of multiple admissions for this 86-year-old man with known metastatic prostate cancer to spine as well as alcoholic liver cirrhosis. He has had multiple admits to the hospital for treatment of fever and urinary tract infection and had only recently been discharged back to the assisted very recently. He was sent now as he has been sent in the past for evaluation of recurrent fever, altered mental status, coughing, and body aches. According to his son, he currently is not responsive to verbal stimuli, and he has had waxing and waning mental status in the past. Here in the emergency room, his influenza A swab was found to be positive, and I am asked to see him for further evaluation after already having been given piperacillin and tazobactam empirically for coverage of UTI and Tamiflu. PAST MEDICAL HISTORY: Includes atrial fibrillation, hypertension, complete heart block with pacemaker, esophageal varices, liver cirrhosis, portal vein thrombosis, anemia, B12 deficiency, chronic low back pain, diabetes mellitus. MEDICATIONS: Include allopurinol, Lasix, Amaryl, insulin, nadolol, rifaximin, spironolactone, Coumadin, recent linezolid for UTI, pantoprazole. ALLERGIES: None known. SOCIAL HISTORY: A assisted resident. Former alcohol use. Never smoked. FAMILY HISTORY: Currently reviewed and noncontributory. REVIEW OF SYSTEMS: Respiratory: Positive cough. No shortness of breath or hemoptysis. Cardiac: No chest pain, palpitations, syncope. Gastrointestinal: No abdominal pain, diarrhea, vomiting. Genitourinary: Incontinent or urine, history of UTIs. PHYSICAL EXAMINATION: General: He is an elderly male in no acute distress. Vital Signs: T-max 103.6, currently 100.3, pulse 68, blood pressure 120/60, respirations 20. Neck: Supple. No adenopathy. Lungs: Clear to P and A. Heart: S1, S2. Regular rhythm without audible murmur or gallop. Abdomen: Soft and nontender without organomegaly. Extremities: Without clubbing, cyanosis, or edema. LABORATORY DATA: White count 3.5, hemoglobin 11.3, platelets 271 with 71% polys , 3 bands, 5 lymphocytes, 5 monocytes, INR 1.94, BUN 22, creatinine 0.5. Urinalysis 3+ leukocyte esterase with 151 white cells. Prior urine culture dated March 23 with VREF. Currently blood cultures and urine culture pending. Chest x-ray was reviewed. It shows an enlarged heart without obvious infiltrate and a pacemaker. ASSESSMENT: An 86-year-old male diabetic with liver cirrhosis, history of recurrent urinary tract infections in the past including with resistant organisms vancomycin-resistant Enterococcus faecium for which he has been recently treated brought with fever and altered mental status probably all related to influenza. PLAN: I will treat him with piperacillin and tazobactam for now for sepsis, though most likely his temperature is related to influenza. Assuming his blood culture is negative, I might be inclined to stop all antibiotics in the next 24 hours need just treat him with Tamiflu for 5 days. ZAC SHAVER M.D. [id number] MTDD
--- NOTE | 2017-04-08 11:58 | PN ---
Progress Note, Physician Chief Complaint: patient seen and examined in solar lab technician awakes up to his name and said he is ok then fell back asleep son at bedside ssaid he was able to give him meds mixed with apple sauce and drank ensure - Current Medication List Current Medications: Active Medications Acetaminophen (Tylenol -) 650 mg PO Q6H PRN PRN Reason: FEVER Albuterol/Ipratropium (Duoneb -) 1 amp NEB RQID MAHENDRA Vancomycin HCl 1,000 mg/ (Dextrose) 250 mls @ 200 mls/hr IVPB Q12H MAHENDRA Sodium Chloride (Normal Saline -) 1,000 mls @ 30 mls/hr IV ASDIR MAHENDRA Last Admin: 04/08/17 05:57 Dose: 30 mls/hr Lactulose (Cephulac (Oral Use)) 20 gm PO BID MAHENDRA Oseltamivir Phosphate (Tamiflu -) 75 mg PO BID MAHENDRA Stop: 04/13/17 09:59 Last Admin: 04/07/17 23:40 Dose: 75 mg Pantoprazole Sodium (Protonix -) 20 mg PO DAILY [facility]EN[facility] Piperacillin/Tazobactam/Dextrose (Zosyn 3.375gm Ivpb (Premix)) 3.375 gm IVPB Q8H-IV MAHENDRA Rifaximin (Xifaxan -) 550 mg PO BID MAHENDRA Tamsulosin HCl (Flomax -) 0.4 mg PO DAILY@0830 [facility] Warfarin Sodium 5 mg/ Warfarin (Sodium 1.5 mg) 6.5 mg PO DAILY@1800 M[facility]ENDRA - Objective Vital Signs: Vital Signs Temperature 100.3 F H 04/08/17 06:50 Pulse Rate 68 04/08/17 06:50 Respiratory Rate 20 04/08/17 06:50 Blood Pressure 121/60 04/08/17 06:50 O2 Sat by Pulse Oximetry (%) 98 04/07/17 22:11 Constitutional: Yes: Calm Cardiovascular: Yes: Regular Rate and Rhythm, S1, S2 Respiratory: Yes: Diminished Gastrointestinal: Yes: Normal Bowel Sounds, Soft Edema: No Labs: CBC, BMP 04/08/17 06:25 04/08/17 06:25 INR, PTT INR 1.94 (0.82-1.09) H 04/07/17 14:34 Problem List - Problems (1) Influenza A virus present Assessment/Plan: tamiflu Code(s): J10.1 - FLU DUE TO OTH IDENT INFLUENZA VIRUS W OTH RESP MANIFEST (2) UTI (urinary tract infection) Assessment/Plan: zosyn Code(s): N39.0 - URINARY TRACT INFECTION, SITE NOT SPECIFIED (3) Alcoholic cirrhosis Assessment/Plan: lactuloses rifaximin check ammonia Code(s): K70.30 - ALCOHOLIC CIRRHOSIS OF LIVER WITHOUT ASCITES (4) Prostate CA Assessment/Plan: cannot swallow zytiga or xandti Code(s): C61 - MALIGNANT NEOPLASM OF PROSTATE (5) Atrial fibrillation Assessment/Plan: mono Code(s): I48.91 - UNSPECIFIED ATRIAL FIBRILLATION Qualifiers: Atrial fibrillation type: chronic Qualified Code(s): I48.2 - Chronic atrial fibrillation
[2017-04-08] MEDS: ALBUTEROL SO4 2.5/IPRATROPIUM 0.5 INH SOL 3 ML VIAL.NEB. NEB SCH ×4 (12:23→20:50)
[2017-04-08] MEDS: PANTOPRAZOLE 20 MG TABLET (FP) PO SCH (12:54)
[2017-04-08] MEDS: TAMSULOSIN HCL 0.4 MG CAP.ER.24H (FP) PO SCH (12:54)
[2017-04-08] MEDS: LACTULOSE 20 GM/30 ML UDC (FOR ORAL USE ONLY) PO SCH ×2 (12:54→21:04)
[2017-04-08] MEDS: RIFAXIMIN 550 MG TABLET (UD) PO SCH ×2 (12:55→21:04)
[2017-04-08] MEDS: OSELTAMIVIR PHOSPHATE 75 MG CAPSULE PO SCH ×2 (12:55→21:04)
[2017-04-08 13:13] LABS: ANISOCYTOSIS 1+; MACROCYTOSIS 0; PLATELET ESTIMATE NORMAL
[2017-04-08 16:00] VITALS: BMI 27.6
[2017-04-08] MEDS ORDERED: PT OWN MED DRAWER 7, Y5N ONE ×2 (17:49→18:37)
[2017-04-08] MEDS ORDERED: WARFARIN NA 2 MG TABLET (UD) PO SCH (18:00)
[2017-04-08] MEDS: PIPERACILLIN/TAZOB 3.375 GM 3.375 GM in DEXTROSE 5%-WATER - 100 ML IVPB SCH (18:51)
[2017-04-08 18:54] LABS: INR 2.07 (0.82-1.09); PROTHROMBIN TIME (PATIENT) 23.4 SEC (9.98-11.88)
[2017-04-08] MEDS ORDERED: WARFARIN NA 1 MG TABLET (FP) ONE (20:29)
[2017-04-08] MEDS ORDERED: WARFARIN NA 5 MG TABLET (UD) ONE (20:29)
[2017-04-08] MEDS: WARFARIN NA PO SCH (20:48)
[2017-04-09] MEDS: PIPERACILLIN/TAZOB 3.375 GM 3.375 GM in DEXTROSE 5%-WATER - 100 ML IVPB SCH ×2 (01:26→10:31)
[2017-04-09] MEDS: ALBUTEROL SO4 2.5/IPRATROPIUM 0.5 INH SOL 3 ML VIAL.NEB. NEB SCH ×4 (07:35→20:40)
[2017-04-09 08:45] LABS: BASO % 0.7 % (0-2.0); EOS % 1.5 % (0-4.5); HEMATOCRIT 31.6 % (35.4-49); LYMPH % 33.4 % (8-40); MCH 25.5 pg (25.7-33.7); MCHC 31.6 g/dl (32.0-35.9); MEAN CELL VOLUME 80.5 fl (80-96); MEAN PLT VOLUME 7.5 fl (7.5-11.1); MONO % 16.9 % (3.8-10.2); NEUT % 47.5 % (42.8-82.8); PLATELET COUNT 227 K/MM3 (134-434); RBC 3.93 M/mm3 (4.00-5.60); RDW 19.4 % (11.9-15.9)
[2017-04-09 08:57] LABS: INR 2.04 (0.82-1.09)
[2017-04-09 09:34] LABS: CHLORIDE 101 mmol/L (98-107); POTASSIUM 3.6 mmol/L (3.5-5.1); SODIUM 139 mmol/L (136-145)
[2017-04-09 10:11] LABS: ALBUMIN 2.3 g/dl (3.4-5.0); ALK PHOS 328 U/L (45-117); ANION GAP 11 (8-16); BILIRUBIN,TOTAL 0.5 mg/dL (0.2-1.0); BLOOD UREA NITROGEN 22 mg/dL (7-18); CALCIUM 7.8 mg/dL (8.5-10.1); CO2 27 mmol/L (21-32); CREATININE 0.7 mg/dL (0.7-1.3); GLUCOSE,RANDOM 173 mg/dL (74-106); SGOT/AST 34 U/L (15-37); SGPT/ALT 18 U/L (12-78); TOT PROT 5.9 g/dl (6.4-8.2)
[2017-04-09] MEDS: LACTULOSE 20 GM/30 ML UDC (FOR ORAL USE ONLY) PO SCH ×2 (10:30→21:58)
[2017-04-09] MEDS: OSELTAMIVIR PHOSPHATE 75 MG CAPSULE PO SCH ×2 (10:30→21:58)
[2017-04-09] MEDS: RIFAXIMIN 550 MG TABLET (UD) PO SCH ×2 (10:30→21:58)
[2017-04-09] MEDS: PANTOPRAZOLE 20 MG TABLET (FP) PO SCH (10:30)
[2017-04-09] MEDS: SODIUM CHLORIDE 1,000 ML IV SCH (10:30)
[2017-04-09] MEDS: TAMSULOSIN HCL 0.4 MG CAP.ER.24H (FP) PO SCH (10:30)
--- NOTE | 2017-04-09 13:51 | PN ---
Progress Note, Physician Chief Complaint: Awake. Being fed lunch in bed No acute distress Low grade temp Leukopenic - Current Medication List Current Medications: Active Medications Acetaminophen (Tylenol -) 650 mg PO Q6H PRN PRN Reason: FEVER Albuterol/Ipratropium (Duoneb -) 1 amp NEB RQID [facility] Last Admin: 04/09/17 12:26 Dose: 1 amp Vancomycin HCl 1,000 mg/ (Dextrose) 250 mls @ 200 mls/hr IVPB Q12H [facility] Sodium Chloride (Normal Saline -) 1,000 mls @ 30 mls/hr IV ASDIR [facility] Last Admin: 04/09/17 10:30 Dose: Not Given Piperacillin Sod/Tazobactam (Sod 3.375 gm/ Dextrose) 100 mls @ 200 mls/hr IVPB Q8H-IV [facility] Last Admin: 04/09/17 10:31 Dose: 200 mls/hr Lactulose (Cephulac (Oral Use)) 20 gm PO BID [facility] Last Admin: 04/09/17 10:30 Dose: 20 gm Oseltamivir Phosphate (Tamiflu -) 75 mg PO BID [facility] Stop: 04/13/17 09:59 Last Admin: 04/09/17 10:30 Dose: 75 mg Pantoprazole Sodium (Protonix -) 20 mg PO DAILY [facility] Last Admin: 04/09/17 10:30 Dose: 20 mg Rifaximin (Xifaxan -) 550 mg PO BID [facility] Last Admin: 04/09/17 10:30 Dose: 550 mg Tamsulosin HCl (Flomax -) 0.4 mg PO DAILY@0830 [facility] Last Admin: 04/09/17 10:30 Dose: 0.4 mg Warfarin Sodium 5 mg/ Warfarin (Sodium 1.5 mg) 6.5 mg PO DAILY@1800 [facility] Last Admin: 04/08/17 20:48 Dose: 6.5 mg - Objective Vital Signs: Vital Signs Temperature 98.0 F 04/09/17 09:53 Pulse Rate 68 04/09/17 09:53 Respiratory Rate 20 04/09/17 09:53 Blood Pressure 94/55 04/09/17 09:53 O2 Sat by Pulse Oximetry (%) 94 L 04/08/17 21:00 Constitutional: Yes: No Distress Eyes: Yes: Conjunctiva Clear Cardiovascular: Yes: Regular Rate and Rhythm, S1, S2 Respiratory: Yes: Diminished Gastrointestinal: Yes: Normal Bowel Sounds, Soft, Other (no tenderness) Edema: No Labs: CBC, BMP 04/09/17 07:30 04/09/17 07:30 INR, PTT INR 2.04 (0.82-1.09) H 04/09/17 07:30 Assessment/Plan Acute influenza A UTI Continue Tamiflu. Complete 5d course Switch to po Augmentin x 3d
[2017-04-09] MEDS ORDERED: FUROSEMIDE 20 MG TABLET (FP) PO ONE (14:44)
[2017-04-09] MEDS ORDERED: FUROSEMIDE 40 MG/4 ML INJECTABLE VIAL IVPUSH ONE (14:45)
[2017-04-09] MEDS ORDERED: oxyCODONE HCL 5 MG TABLET PO PRN (14:45)
[2017-04-09] MEDS ORDERED: guaiFENesin/D-M SUGAR-FREE/ACLHOL-FREE 118 ML BOTTLE PO PRN (14:46)
--- NOTE | 2017-04-09 14:48 | PN ---
Progress Note, Physician Chief Complaint: in isolated room sleeping - Current Medication List Current Medications: Active Medications Acetaminophen (Tylenol -) 650 mg PO Q6H PRN PRN Reason: FEVER Albuterol/Ipratropium (Duoneb -) 1 amp NEB RQID [facility] Last Admin: 04/09/17 12:26 Dose: 1 amp Amoxicillin/Clavulanate Potassium (Augmentin - 500mg Tablet) 1 tab PO BID@0800, 1730 [facility] Glimepiride (Amaryl -) 2 mg PO DAILY@0700 [facility] Guaifenesin (Diabetic Tussin Dm -) 5 ml PO Q6H PRN PRN Reason: COUGH Lactulose (Cephulac (Oral Use)) 20 gm PO BID [facility] Last Admin: 04/09/17 10:30 Dose: 20 gm Oseltamivir Phosphate (Tamiflu -) 75 mg PO BID [facility] Stop: 04/13/17 09:59 Last Admin: 04/09/17 10:30 Dose: 75 mg Oxycodone HCl (Roxicodone -) 5 mg PO Q6H PRN PRN Reason: PAIN LEVEL 6-10 Pantoprazole Sodium (Protonix -) 20 mg PO DAILY [facility] Last Admin: 04/09/17 10:30 Dose: 20 mg Rifaximin (Xifaxan -) 550 mg PO BID [facility] Last Admin: 04/09/17 10:30 Dose: 550 mg Tamsulosin HCl (Flomax -) 0.4 mg PO DAILY@0830 [facility] Last Admin: 04/09/17 10:30 Dose: 0.4 mg Warfarin Sodium 5 mg/ Warfarin (Sodium 1.5 mg) 6.5 mg PO DAILY@1800 [facility] Last Admin: 04/08/17 20:48 Dose: 6.5 mg - Objective Vital Signs: Vital Signs Temperature 98.0 F 04/09/17 09:53 Pulse Rate 68 04/09/17 09:53 Respiratory Rate 20 04/09/17 09:53 Blood Pressure 94/55 04/09/17 09:53 O2 Sat by Pulse Oximetry (%) 94 L 04/08/17 21:00 Constitutional: Yes: No Distress Cardiovascular: Yes: Regular Rate and Rhythm, S1, S2 Respiratory: Yes: Rales Gastrointestinal: Yes: Normal Bowel Sounds, Soft Labs: CBC, BMP 04/09/17 07:30 04/09/17 07:30 INR, PTT INR 2.04 (0.82-1.09) H 04/09/17 07:30 Problem List - Problems (1) Influenza A virus present Assessment/Plan: tamiflu till apr 11 Code(s): J10.1 - FLU DUE TO OTH IDENT INFLUENZA VIRUS W OTH RESP MANIFEST (2) UTI (urinary tract infection) Assessment/Plan: zosyn changed to augmentin for 3 days Code(s): N39.0 - URINARY TRACT INFECTION, SITE NOT SPECIFIED (3) Alcoholic cirrhosis Assessment/Plan: lactulose rifaximin Code(s): K70.30 - ALCOHOLIC CIRRHOSIS OF LIVER WITHOUT ASCITES (4) Prostate CA Assessment/Plan: cannot swallow zytiga or xandti Code(s): C61 - MALIGNANT NEOPLASM OF PROSTATE (5) Atrial fibrillation Assessment/Plan: ashutoshamdeyanira Code(s): I48.91 - UNSPECIFIED ATRIAL FIBRILLATION Qualifiers: Atrial fibrillation type: chronic Qualified Code(s): I48.2 - Chronic atrial fibrillation Assessment/Plan will give low dose of lasix as patient is congested PT evaluation OOB to chair
[2017-04-09] MEDS: VANCOMYCIN 1,000 MG in DEXTROSE 5%-WATER - 250 ML IVPB SCH (15:00)
[2017-04-09] MEDS ORDERED: PT OWN MED DRAWER 7, Y5N ONE (15:39)
[2017-04-09] MEDS ORDERED: WARFARIN NA 5 MG TABLET (UD) ONE (17:27)
[2017-04-09] MEDS ORDERED: WARFARIN NA 1 MG TABLET (FP) ONE (17:28)
[2017-04-09] MEDS: AMOX TR/POT CLAV 500MG/125MG TABLETS (FP) PO SCH (17:33)
[2017-04-09] MEDS: WARFARIN NA PO SCH (17:33)
[2017-04-10] MEDS ORDERED: GLIMEPIRIDE 2 MG TABLET (FP) PO SCH (07:00)
[2017-04-10] MEDS: ALBUTEROL SO4 2.5/IPRATROPIUM 0.5 INH SOL 3 ML VIAL.NEB. NEB SCH ×3 (07:47→16:26)
--- NOTE | 2017-04-10 07:52 | PN ---
Progress Note, Physician Chief Complaint: ID Comparatively much more alert Augmentin and Oseltamavir Still congested as per his - Current Medication List Current Medications: Active Medications Acetaminophen (Tylenol -) 650 mg PO Q6H PRN PRN Reason: FEVER Albuterol/Ipratropium (Duoneb -) 1 amp NEB RQID [facility] Last Admin: 04/10/17 07:47 Dose: 1 amp Amoxicillin/Clavulanate Potassium (Augmentin - 500mg Tablet) 1 tab PO BID@0800, 1730 [facility] Last Admin: 04/09/17 17:33 Dose: 1 tab Glimepiride (Amaryl -) 2 mg PO DAILY@0700 [facility] Last Admin: 04/10/17 06:15 Dose: 2 mg Guaifenesin (Diabetic Tussin Dm -) 5 ml PO Q6H PRN PRN Reason: COUGH Lactulose (Cephulac (Oral Use)) 20 gm PO BID [facility] Last Admin: 04/09/17 21:58 Dose: 20 gm Oseltamivir Phosphate (Tamiflu -) 75 mg PO BID [facility] Stop: 04/13/17 09:59 Last Admin: 04/09/17 21:58 Dose: 75 mg Oxycodone HCl (Roxicodone -) 5 mg PO Q6H PRN PRN Reason: PAIN LEVEL 6-10 Pantoprazole Sodium (Protonix -) 20 mg PO DAILY [facility] Last Admin: 04/09/17 10:30 Dose: 20 mg Rifaximin (Xifaxan -) 550 mg PO BID [facility] Last Admin: 04/09/17 21:58 Dose: 550 mg Tamsulosin HCl (Flomax -) 0.4 mg PO DAILY@0830 [facility] Last Admin: 04/09/17 10:30 Dose: 0.4 mg Warfarin Sodium 5 mg/ Warfarin (Sodium 1.5 mg) 6.5 mg PO DAILY@1800 [facility] Last Admin: 04/09/17 17:33 Dose: 6.5 mg - Objective Vital Signs: Vital Signs Temperature 98.1 F 04/10/17 05:42 Pulse Rate 70 04/10/17 05:42 Respiratory Rate 20 04/10/17 05:42 Blood Pressure 110/62 04/10/17 05:42 O2 Sat by Pulse Oximetry (%) 95 04/09/17 21:00 Cardiovascular: Yes: S1, S2 Respiratory: Yes: Diminished Gastrointestinal: Yes: Soft. No: Tenderness Labs: CBC, BMP 04/09/17 07:30 04/09/17 07:30 INR, PTT INR 2.04 (0.82-1.09) H 04/09/17 07:30 Problem List - Problems (1) UTI (urinary tract infection) Code(s): N39.0 - URINARY TRACT INFECTION, SITE NOT SPECIFIED (2) UTI (urinary tract infection) Code(s): N39.0 - URINARY TRACT INFECTION, SITE NOT SPECIFIED (3) Influenza A virus present Code(s): J10.1 - FLU DUE TO OTH IDENT INFLUENZA VIRUS W OTH RESP MANIFEST Assessment/Plan Laboratory Tests 04/09/17 07:30 WBC 3.0 L Hgb 10.0 L Plt Count 227 Assessment Influenza A improved Plan Send back to nursing facility to complete berry eSn MD
[2017-04-10 08:34] LABS: INR 3.2 (0.82-1.09); PROTHROMBIN TIME (PATIENT) 36.2 SEC (9.98-11.88)
[2017-04-10] MEDS: PANTOPRAZOLE 20 MG TABLET (FP) PO SCH (11:07)
[2017-04-10] MEDS: RIFAXIMIN 550 MG TABLET (UD) PO SCH (11:07)
[2017-04-10] MEDS: LACTULOSE 20 GM/30 ML UDC (FOR ORAL USE ONLY) PO SCH (11:07)
[2017-04-10] MEDS: OSELTAMIVIR PHOSPHATE 75 MG CAPSULE PO SCH (11:08)
[2017-04-10] MEDS: TAMSULOSIN HCL 0.4 MG CAP.ER.24H (FP) PO SCH (11:08)
[2017-04-10] MEDS: AMOX TR/POT CLAV 500MG/125MG TABLETS (FP) PO SCH ×2 (11:08→16:45)
[2017-04-10] MEDS ORDERED: PT OWN MED DRAWER 7, Y5N ONE (12:35)
[2017-04-10 15:43] VITALS: PULSE 65
[2017-04-10 17:17] VITALS: BP 116/58; TEMP 97.2
== END 2017-04-10 19:41 | DRG 194 ==
LOC: JER 13:10 → JERBED 18:56 → J8W 04-08 16:45
PROVIDERS: ADMIT Internal Medicine; ATTEND Family Medicine
DX: J09.X2 Influenza due to identified novel influenza A virus with other respiratory manifestations (principal); C79.51 Secondary malignant neoplasm of bone; N39.0 Urinary tract infection, site not specified; K72.90 Hepatic failure, unspecified without coma; C61 Malignant neoplasm of prostate; K70.30 Alcoholic cirrhosis of liver without ascites; E11.9 Type 2 diabetes mellitus without complications; I10 Essential (primary) hypertension; I48.91 Unspecified atrial fibrillation; Z79.01 Long term (current) use of anticoagulants; F03.90 Unspecified dementia, unspecified severity, without behavioral disturbance, psychotic disturbance, mood disturbance, and anxiety; Z95.0 Presence of cardiac pacemaker; I48.2 Chronic atrial fibrillation; D51.9 Vitamin B12 deficiency anemia, unspecified; Z79.4 Long term (current) use of insulin; Z79.84 Long term (current) use of oral hypoglycemic drugs
CPT/HCPCS: 36415; 70450-TC; 71045-TC; 80048; 80053; 81003; 81015; 82140; 82550; 82803; 82962; 83605; 83735; 84100; 84484; 85025; 85610; 85730; 86850; 86900; 86901; 87040; 87077; 87086; 87186; 87804; 93005; 93010; 94640; 97161-GP; 99285-25

== ENCOUNTER 2017-04-16 13:14 | Emergency (ER) | payer OTHER, MEDICARE ==
[2017-04-16 13:34] VITALS: TEMP 97.6; BMI 27.4
--- NOTE | 2017-04-16 14:51 | PDOC ---
Attending Attestation - Resident Resident Name: DeoRaissa - ED Attending Attestation I have performed the following: I have examined & evaluated the patient, The case was reviewed & discussed with the resident, I agree w/resident's findings & plan, Exceptions are as noted - HPI HPI: 04/16/17 16:52 86yo M hx dementia, DM, HTN, Afib, Liver Cirrhosis, metastatic Prostate Ca presents to ED from [place] due to inability to pass garcía catheter. Initial report of AMS by EMS, although [facility] staff and pt's state he is at his baseline but he was sent to the ED as he needs a garcía catheter placed. No fevers, chills, cp , sob, abd pain, n/v/d, weakness/numbness. - Physicial Exam PE: 04/16/17 16:55 GENERAL: Awake, alert, chronically ill appearing in NAD HEAD: No signs of trauma NECK: Normal ROM, supple, no lymphadenopathy, JVD, or masses LUNGS: Breath sounds equal, clear to auscultation bilaterally. No wheezes, and no crackles HEART: Regular rate and rhythm, normal S1 and S2, no murmurs, rubs or gallops ABDOMEN: Soft, nontender, normoactive bowel sounds. No guarding, no rebound. No masses : blood at the urethral meatus EXTREMITIES: contracted NEUROLOGICAL: Normal speech, cranial nerves grossly intact SKIN: Warm, Dry, normal turgor, no rashes or lesions noted. - Medical Decision Making 04/16/17 17:01 86-year-old male with a history of prostate cancer status post García presents to the emergency department after they were unable to replace the García. Patient has blood in the meatus and thus urology was consult and they recommended suprapubic catheter. Her IR, the interventional radiologist is gone for the day and thus the patient will need admission. Admission labs have been ordered. Once they're back we will admit the patient for suprapubic catheter placement.
[2017-04-16 16:44] LABS: BASO % 0.4 % (0-2.0); EOS % 0.6 % (0-4.5); LYMPH % 11.5 % (8-40); MCH 25.7 pg (25.7-33.7); MCHC 32.2 g/dl (32.0-35.9); MEAN CELL VOLUME 79.7 fl (80-96); MEAN PLT VOLUME 7.7 fl (7.5-11.1); MONO % 13.2 % (3.8-10.2); NEUT % 74.3 % (42.8-82.8); PLATELET COUNT 259 K/MM3 (134-434); RBC 3.88 M/mm3 (4.00-5.60); RDW 20.3 % (11.9-15.9); WHITE BLOOD COUNT 7.2 K/mm3 (4.0-10.0)
[2017-04-16 17:09] LABS: BLOOD UREA NITROGEN 20 mg/dL (7-18); CALCIUM 7.4 mg/dL (8.5-10.1); CO2 29 mmol/L (21-32); CREATININE 0.5 mg/dL (0.7-1.3); GLUCOSE,RANDOM 154 mg/dL (74-106); MAGNESIUM 1.9 mg/dL (1.8-2.4)
[2017-04-16 17:44] LABS: ANION GAP 9 (8-16); CHLORIDE 100 mmol/L (98-107); POTASSIUM 3.4 mmol/L (3.5-5.1); SODIUM 138 mmol/L (136-145)
[2017-04-16 18:43] LABS: INR 1.7 (0.82-1.09); PROTHROMBIN TIME (PATIENT) 19.2 SEC (9.98-11.88)
[2017-04-16 19:08] VITALS: BP 110/54; PULSE 65
--- NOTE | 2017-04-17 08:10 | EKG ---
Test Reason : Blood Pressure : / mmHG Vent. Rate : 065 BPM Atrial Rate : 468 BPM P-R Int : 000 ms QRS Dur : 162 ms QT Int : 466 ms P-R-T Axes : 000 -74 065 degrees QTc Int : 484 ms Ventricular-paced rhythm ABNORMAL ECG WHEN COMPARED WITH ECG OF 07-APR-2017 14:59, NO SIGNIFICANT CHANGE WAS FOUND Confirmed by JAY JOHNSON MD ([id number]) on 04/17/2017 8:10:41 AM Referred By: Confirmed By:JAY JOHNSON MD
== END 2017-04-16 19:30 | disposition short-term general hospital (02) ==
LOC: JER 13:14
DX: T83.098A Other mechanical complication of other urinary catheter, initial encounter (principal); I10 Essential (primary) hypertension; E11.9 Type 2 diabetes mellitus without complications; K74.60 Unspecified cirrhosis of liver; F03.90 Unspecified dementia, unspecified severity, without behavioral disturbance, psychotic disturbance, mood disturbance, and anxiety; C61 Malignant neoplasm of prostate
CPT/HCPCS: 36415; 71045-TC; 80048; 83735; 85025; 85610; 93005; 93010; 99285-25